=== PATIENT | female | born 1930 ===

== ENCOUNTER 2016-11-11 07:43 | Day surgery (SDC) | payer MEDICARE, BC ==
[2016-11-02 12:31] VITALS: BMI 26.5
[2016-11-11] MEDS ORDERED: Lidocaine 2% Inj (20ml) ONE (09:00)
[2016-11-11] MEDS ORDERED: Propofol 10 mg/ml Inj (20 ML) ONE (09:00)
[2016-11-11] MEDS ORDERED: Lactated Ringer's 1,000 ML IV SCH (09:30)
[2016-11-11 10:05] VITALS: RESP 16
[2016-11-11 10:24] VITALS: BP 124/79; PULSE 76; TEMP 97.8; O2SAT 97
[2016-11-11] MEDS ORDERED: Simethicone 40 mg/0.6 ml Liquid (30 ml) ONE (13:26)
== END 2016-11-11 10:55 | disposition home or self-care (01) ==
LOC: ENDO 07:43
PROVIDERS: ATTEND Specialist
DX: D12.4 Benign neoplasm of descending colon (principal); K57.30 Diverticulosis of large intestine without perforation or abscess without bleeding; Z85.038 Personal history of other malignant neoplasm of large intestine; E11.9 Type 2 diabetes mellitus without complications; I25.10 Atherosclerotic heart disease of native coronary artery without angina pectoris; I10 Essential (primary) hypertension; I48.91 Unspecified atrial fibrillation; E78.5 Hyperlipidemia, unspecified; Z93.3 Colostomy status
CPT/HCPCS: 45385; 88305; J2704; J7040; J7120

== ENCOUNTER 2016-11-27 06:37 | Day surgery (SDC) | payer MEDICARE, BC ==
[2016-11-24 12:41] VITALS: BMI 26.5
[2016-11-27 07:16] LABS: ADD MANUAL DIFF? NO
[2016-11-27 07:23] LABS: BASO # 0.02 K/mm3 (0.0-2.0); BASO % 0.3 % (0.0-3.0); EOS # 0.2 (0.0-0.7); EOS % 2.5 % (1.5-5.0); GRAN # 5.12 (1.4-6.5); GRAN % 64.6 % (50.0-68.0); HEMATOCRIT 40.7 % (36.0-48.0); LYMPH # 1.8 (1.2-3.4); LYMPH % 22.2 % (22.0-35.0); MEAN CELL VOLUME 92.9 fL (80.0-105.0); MEAN CORPUSCULAR HEMOGLOBIN 29.7 pg (25.0-35.0); MEAN CORPUSCULAR HGB CONC 31.9 g/dl (31.0-37.0); MEAN PLATELET VOLUME 12.4 fl (7.0-11.0); MONO # 0.8 (0.1-0.6); MONO % 10.4 % (1.0-6.0); PLATELET COUNT 142 10^3/uL (120.0-450.0); RED CELL DISTRIBUTION WIDTH 14.9 % (11.5-14.5); WHITE BLOOD COUNT 7.9 10^3/ul (4.5-11.0)
[2016-11-27 07:31] LABS: INR 1.06 (0.93-1.08); PARTIAL THROMBOPLASTIN TIME 27.9 Seconds (23.7-30.8)
[2016-11-27 07:37] LABS: BLOOD UREA NITROGEN 20 mg/dL (7-21); CALCIUM 9.4 mg/dL (8.4-10.5); CARBON DIOXIDE 28 mmol/L (21-33); CHLORIDE 103 mmol/L (95-110); GFR AFRICAN-AMERICAN > 60; GLUCOSE,RANDOM 135 mg/dL (70-110); POTASSIUM 3.9 mmol/L (3.6-5.0); SODIUM 143 mmol/L (132-148)
[2016-11-27] MEDS ORDERED: Lidocaine 2% Inj (20ml) ONE (08:17)
[2016-11-27] MEDS ORDERED: Midazolam 2 MG/2 ML VIAL ONE ×2 (08:20→08:47)
[2016-11-27] MEDS ORDERED: Iodixanol 320 MG/ML 200 ML BOTTLE IV ONE (08:21)
[2016-11-27] MEDS ORDERED: Sodium Chloride 0.9% 1,000 ML IV SCH (09:15)
[2016-11-27 09:24] VITALS: TEMP 97.8
--- NOTE | 2016-11-27 09:52 | CARDCATH ---
PROCEDURE DATE: 11/27/2016 HISTORY: The patient is an 86-year-old woman who presents with an abnormal stress test. She suffers from multiple cardiac risk factors, including diabetes mellitus, hypertension, hypercholesterolemia, and obesity. Her stress test was abnormal. Cardiac catheterization was recommended. PROCEDURE: Left heart catheterization with coronary angiography and left ventriculogram. The right femoral artery was cannulated with a 6-[place] sheath. There were no complications. The findings on catheterization revealed a left ventricle that contracted normally. Estimated ejecti on fraction is 70%. Her coronary anatomy revealed a left main artery that was unremarkable. The LAD revealed diffuse intimal irregularities, including multiple borderline critical lesions of ap proximately 50% in the distal portion of the LAD. The diagonal vessels were unremarkable. The circumflex artery and obtuse marginal branches were free of significant disease. The right coronary artery was selectively cannulized and found to be a dominant vessel. The RCA was unremarkable. Angio-Seal was used to close the femoral artery site. The patient tolerated the procedure well. In summary, the procedure revealed normal LV function with an EF of 70%. Borderline 50% lesions in the distal and apical part of the LAD. Abnormal stress test, which represents the distal LAD lesions. Given these findings, the patient's cardiac status is stable. There is no cardiac contraindications to her planned surgery for colostomy reversal. She needs to remain on a baby aspirin daily, as well as needs to undergo a cardiac risk reduction pro gram. Reji Macias MD cc: [phone] TT: 11/27/2016 09:51:49 emily
[2016-11-27 12:19] VITALS: O2SAT 98
--- NOTE | 2016-11-27 13:27 | CARD ---
APPROVED REPORT EKG Measurement Heart [id number] <Conclusion> Atrial fibrillation Nonspecific T wave abnormality, probably digitalis effect Prolonged QT Abnormal ECG
[2016-11-27 13:32] VITALS: BP 144/72; PULSE 64; RESP 16
== END 2016-11-27 15:40 | disposition home or self-care (01) ==
LOC: CATH 06:37
PROVIDERS: ATTEND Internal Medicine Cardiovascular Disease
DX: I25.10 Atherosclerotic heart disease of native coronary artery without angina pectoris (principal); I10 Essential (primary) hypertension; E78.00 Pure hypercholesterolemia, unspecified; E66.9 Obesity, unspecified; E11.9 Type 2 diabetes mellitus without complications; Z68.26 Body mass index [BMI] 26.0-26.9, adult; Z01.818 Encounter for other preprocedural examination
CPT/HCPCS: 36415; 80048; 85025; 85610; 85730; 86850; 86900; 93005; 93458; 99152; C1760; C1769; C2629; J1644; J2250; J3010; J7040 ×2

== ENCOUNTER 2016-11-28 10:27 | Inpatient (IN) | payer MEDICARE, BC ==
[2016-11-28 10:41] VITALS: BMI 25.8
--- NOTE | 2016-11-28 10:59 | ED PDOC ---
Arrival/HPI - General Chief Complaint: Shortness Of Breath Time Seen by Provider: 11/28/16 10:28 Historian: Patient - History of Present Illness Narrative History of Present Illness (Text): 11/28/16 11:16 Elizabeth Fuentes is an 86 year old female whose past medical history includes Hypertension, Atrial Fibrillation, Hyperlipidemia, CHF, and CAD status post Cath , who presents to the emergency department who presents to the emergency department with worsening shortness of breath, today. Patient reports she had a catherization yesterday (denies any stents). Patient states pain is worse with laying down and reports there is pain to cath site. Patient denies any fever, chills, chest pain, nausea, vomiting, diarrhea, urinary symptoms, back pain, neck pain, headache, dizziness, or any other complaints. PMD: Amilcar Reyes MD 11/28/16 17:59 Time/Duration: 24 hours Symptom Onset: Gradual Symptom Course: Unchanged Activities at Onset: Light Context: Home Past Medical History - Provider Review Nursing Documentation Reviewed: Yes - Infectious Disease Hx of Infectious Diseases: None - Tetanus Immunization Tetanus Immunization: Unknown - Cardiac Hx Cardiac Disorders: Yes Hx Hypertension: Yes Hx Pacemaker: No - Pulmonary Hx Respiratory Disorders: Yes Hx Chronic Obstructive Pulmonary Disease (COPD): Yes - Neurological Hx Neurological Disorder: No Hx Paralysis: No - HEENT Hx HEENT Disorder: No Hx Blind: No Hx Cataracts: No Hx Deafness: No Hx Difficulty Chewing: No Hx Epistaxis: No Hx Glaucoma: No Hx Macular Degeneration: No - Renal Hx Renal Disorder: Yes Hx Renal Failure: Yes - Endocrine/Metabolic Hx Endocrine Disorders: Yes Hx Diabetes Mellitus Type 2: Yes - Hematological/Oncological Hx Blood Disorders: Yes Hx Blood Transfusions: Yes (03/04/16) Hx Blood Transfusion Reaction: No - Integumentary Hx Dermatological Disorder: No Hx Basal Cell Carcinoma: No Hx Eczema: No Hx Melanoma: No Hx Psoriasis: No Hx Squamous Cell Carcinoma: No - Musculoskeletal/Rheumatological Hx Musculoskeletal Disorders: Yes - Gastrointestinal Hx Gastrointestinal Disorders: Yes (CONSTIPATION,APPENDECTOMY,H/O GI BLEED, COLON MASS) Hx Colostomy: Yes Other/Comment: colonic mass, colostomy - Genitourinary/Gynecological Hx Genitourinary Disorders: Yes Hx Hematuria: Yes Hx Urinary Tract Infection: Yes - Psychiatric Hx Psychophysiologic Disorder: No Hx Emotional Abuse: No Hx Physical Abuse: No Hx Substance Use: No - Surgical History Hx Cardiac Catheterization: Yes Other/Comment: colostomy - Anesthesia Hx Anesthesia Reactions: No Hx Malignant Hyperthermia: No - Suicidal Assessment Feels Threatened In Home Enviroment: No Family/Social History - Physician Review Nursing Documentation Reviewed: Yes Family/Social History: No Known Family HX Smoking Status: Former Smoker Hx Alcohol Use: No Hx Substance Use: No Hx Substance Use Treatment: No Allergies/Home Meds Allergies/Adverse Reactions: Allergies No Known Allergies Allergy (Verified 11/28/16 10:41) Home Medications: Home Meds Medication Instructions Recorded Confirmed Sotalol HCl [Sorine] 80 mg PO QAM 02/03/16 11/28/16 Allopurinol 300 mg PO QAM 11/02/16 11/28/16 Ergocalciferol (Vitamin D2) 50,000 unit PO 2XW 11/02/16 11/28/16 [Vitamin D2] Furosemide [Lasix] 40 mg PO QAM 11/02/16 11/28/16 Insulin Lispro Mix 75/25 [HumaLOG 15 units SC .BREAKFAST/DINNER 11/02/16 Mix 75/25] Levothyroxine [Synthroid] 150 mcg PO QAM 11/02/16 11/28/16 Magnesium Oxide 400 mg PO TID 11/02/16 11/28/16 Albuterol/Ipratropium [Combivent 1 inh INH PRN PRN 11/28/16 11/28/16 Respimat] Pantoprazole [Protonix EC Tab] 40 mg PO DAILY 11/28/16 11/28/16 Potassium Chloride [Klor-Con M20] 1 tab PO DAILY 11/28/16 11/28/16 Review of Systems - Physician Review All systems were reviewed & negative as marked: Yes - Review of Systems Constitutional: Normal. absent: Fevers Eyes: Normal ENT: Normal Respiratory: SOB. absent: Cough Cardiovascular: Other (Pain to catherer sight). absent: Chest Pain, Palpitations Gastrointestinal: Normal. absent: Abdominal Pain, Diarrhea, Nausea, Vomiting Genitourinary Female: Normal. absent: Dysuria, Frequency, Hematuria, Urine Output Changes Musculoskeletal: Normal. absent: Back Pain, Neck Pain Skin: Normal Neurological: Normal. absent: Headache, Dizziness Endocrine: Normal Hemo/Lymphatic: Normal Psychiatric: Normal Physical Exam Vital Signs Reviewed: Yes Vital Signs Temp Pulse Resp BP Pulse Ox 11/28/16 13:48 132/72 11/28/16 12:57 71 17 129/67 99 11/28/16 11:08 18 95 11/28/16 10:39 97.8 F 76 20 126/102 H 97 Temperature: Afebrile Blood Pressure: Hypertensive Pulse: Regular Respiratory Rate: Normal Appearance: Positive for: Well-Appearing, Non-Toxic, Comfortable Pain Distress: None Mental Status: Positive for: Alert and Oriented X 3 - Systems Exam Head: Present: Atraumatic, Normocephalic Pupils: Present: PERRL Extroacular Muscles: Present: EOMI Conjunctiva: Present: Normal Mouth: Present: Moist Mucous Membranes Neck: Present: Normal Range of Motion Respiratory/Chest: Present: Clear to Auscultation, Good Air Exchange, Tender to Palpation (Tenderness at Cath site), Other (Cackles at Bases). No: Respiratory Distress, Accessory Muscle Use Cardiovascular: Present: Regular Rate and Rhythm, Normal S1, S2. No: Murmurs Abdomen: Present: Normal Bowel Sounds. No: Tenderness, Distention, Peritoneal Signs Lower Extremity: Present: NORMAL PULSES (Strong Femoral Pulses) Neurological: Present: GCS=15, CN II-XII Intact, Speech Normal Skin: Present: Warm, Dry, Normal Color. No: Rashes Psychiatric: Present: Alert, Oriented x 3, Normal Insight, Normal Concentration Medical Decision Making ED Course and Treatment: 11/28/16 10:55 Impression: 86 year old female with worsening shortness of breath and CHF today. Plan: -- Right LE Duplex -- Chest X-ray -- EKG -- Labs, Cardiac Enzymes, Urinalysis -- Reassess and disposition Prior Visits: Notes and results from previous visits were reviewed. Patient was last seen in the Emergency department on 08/04/16 for a UTI. Progress Notes: 11/28/16 11:05 EKG: Ordered, reviewed, and independently interpreted the EKG. Rate : 68 BPM Rhythm : Atrial Fibrillation Interpretation : No ST-segment elevations or depressions, no T-wave inversions, normal intervals. Comparison : No previous EKG for comparison. 11/28/16 12:[address] Reyes who accepts patient into his service. - Lab Interpretations Lab Results: 11/28/16 11:00 11/28/16 11:00 Lab Results 11/28/16 12:47: Urine Color Yellow, Urine Appearance Clear, Urine pH 6.5, Ur Specific [place] 1.010, Urine Protein Negative, Urine Glucose (UA) 100 H, Urine Ketones Negative, Urine Blood Negative, Urine Nitrate Negative, Urine Bilirubin Negative, Urine Urobilinogen 0.2, Ur Leukocyte Esterase Negative 11/28/16 11:00: WBC 9.4, RBC 3.64, Hgb 11.1 L, Hct 33.8 L, MCV 92.9, MCH 30.5, MCHC 32.8, RDW 15.0 H, Plt Count 141, MPV 11.2 H, Gran % 72.3 H, Lymph % (Auto) 16.6 L, [place] % (Auto) 9.1 H, Eos % (Auto) 1.8, Baso % (Auto) 0.2, Gran # 6.81 H , Lymph # 1.6, [place] # 0.9 H, Eos # 0.2, Baso # 0.02, PT 11.2, INR 1.04, APTT 23.2 L, Sodium 140, Potassium 4.0, Chloride 105, Carbon Dioxide 26, Anion Gap 13 , BUN 20, Creatinine 1.0, Est GFR ( Amer) > 60, Est GFR (Non-Af Amer) 53 , Random Glucose 250 H, Calcium 9.3, Magnesium 1.7, Total Bilirubin 1.0, AST 53 H, ALT 78 H, Alkaline Phosphatase 168 H, Lactate Dehydrogenase 585, Total Creatine Kinase 42, Troponin I 0.05 D, NT-Pro-B Natriuret Pep 1710 H, Total Protein 5.8, Albumin 3.2, Globulin 2.6, Albumin/Globulin Ratio 1.2, Triglycerides 134, Cholesterol 112 L, LDL Cholesterol Direct 42, HDL Cholesterol 45 - RAD Interpretation Radiology Orders: 11/28/16 10:43 CHEST PORTABLE [RAD] Stat 11/28/16 10:47 DUPLEX LOWER EXTRM ARTR RIGHT [US] Stat [place] Controlled Atmospheric Furnace: Radiologist - EKG Interpretation Interpreted by ED Physician: Yes Type: 12 lead EKG - Medication Orders Current Medication Orders: Albuterol/Ipratropium (Duoneb 3 Mg/0.5 Mg (3 Ml) Ud) 3 ml IH Q6H GEOVANI Stop: 12/05/16 18:46 Last Admin: 11/28/16 12:45 Dose: 3 ML Allopurinol (Zyloprim) 300 mg PO QAM GEOVANI Atorvastatin Calcium (Lipitor) 40 mg PO DIN GEOVANI Ergocalciferol (Drisdol 50,000 Intl Units Cap) 1 cap PO 2XW GEOVANI Furosemide (Lasix) 40 mg IVP BID GEOVANI Insulin Human Lispro (Humalog Med) 0 units SC ACHS COUNTS INCLUDE 234 BEDS AT THE [facility] Insulin Lispro Protam/Lispro Human (Humalog Mix 75/25) 15 units SC .BREAKFAST/ DINNER COUNTS INCLUDE 234 BEDS AT THE [facility] Levothyroxine Sodium (Synthroid) 150 mcg PO 0600 GEOVANI Magnesium Oxide (Mag-Ox) 400 mg PO TID COUNTS INCLUDE 234 BEDS AT THE [facility] Last Admin: 11/28/16 15:42 Dose: 400 MG Pantoprazole Sodium (Protonix Ec Tab) 40 mg PO DAILY COUNTS INCLUDE 234 BEDS AT THE [facility] Last Admin: 11/28/16 13:49 Dose: 40 MG Potassium Chloride (K-Dur 20 Meq Er Tab) 20 meq PO DAILY COUNTS INCLUDE 234 BEDS AT THE [facility] Last Admin: 11/28/16 13:49 Dose: 20 MEQ Sotalol HCl (Betapace) 80 mg PO QAM COUNTS INCLUDE 234 BEDS AT THE [facility] Discontinued Medications Furosemide (Lasix) 20 mg IVP STAT STA Stop: 11/28/16 12:34 Last Admin: 11/28/16 13:48 Dose: 20 MG MAR Blood Pressure Document 11/28/16 13:48 [facility] [place] (Rec: 11/28/16 13:48 [facility] [place] [facility] [id number]) Blood Pressure Blood Pressure (100/60-150/90) 132/72 IVP Administration Document 11/28/16 13:48 [facility] [place] (Rec: 11/28/16 13:48 [facility] [place] [id number]) Charges for Administration # of IVP Administrations 1 Insulin Human Lispro (Humalog Med) 0 units SC AC COUNTS INCLUDE 234 BEDS AT THE [facility] Iohexol (Omnipaque 240 (50 Ml)) Confirm Administered Dose 50 ml .ROUTE .STK-MED ONE Stop: 11/28/16 16:56 Ondansetron HCl (Zofran Inj) 4 mg IVP STAT STA Stop: 11/28/16 10:51 Last Admin: 11/28/16 11:10 Dose: 4 MG IVP Administration Document 11/28/16 11:10 [facility] [place] (Rec: 11/28/16 11:15 [facility] [place] [id number]) Charges for Administration # of IVP Administrations 1 - Scribe Statement The provider has reviewed the documentation as recorded by the Klausibe Alireza Gleason Provider Attestation: All medical record entries made by the Klausibasad were at my direction and personally dictated by me. I have reviewed the chart and agree that the record accurately reflects my personal performance of the history, physical exam, medical decision making, and the department course for this patient. I have also personally directed, reviewed, and agree with the discharge instructions and disposition. Disposition/Present on Arrival - Present on Arrival Any Indicators Present on Arrival: No History of DVT/PE: No History of Uncontrolled Diabetes: No Urinary Catheter: No History of Decub. Ulcer: No History Surgical Site Infection Following: None - Disposition Have Diagnosis and Disposition been Completed?: Yes Diagnosis: Congestive heart failure (CHF) Disposition: HOSPITALIZED Disposition Time: 12:00 Condition: FAIR
[2016-11-28 11:07] LABS: ADD MANUAL DIFF? NO
[2016-11-28 11:10] LABS: BASO # 0.02 K/mm3 (0.0-2.0); BASO % 0.2 % (0.0-3.0); EOS # 0.2 (0.0-0.7); EOS % 1.8 % (1.5-5.0); GRAN # 6.81 (1.4-6.5); GRAN % 72.3 % (50.0-68.0); HEMATOCRIT 33.8 % (36.0-48.0); LYMPH # 1.6 (1.2-3.4); LYMPH % 16.6 % (22.0-35.0); MEAN CELL VOLUME 92.9 fL (80.0-105.0); MEAN CORPUSCULAR HEMOGLOBIN 30.5 pg (25.0-35.0); MEAN CORPUSCULAR HGB CONC 32.8 g/dl (31.0-37.0); MEAN PLATELET VOLUME 11.2 fl (7.0-11.0); MONO # 0.9 (0.1-0.6); MONO % 9.1 % (1.0-6.0); PLATELET COUNT 141 10^3/uL (120.0-450.0); WHITE BLOOD COUNT 9.4 10^3/ul (4.5-11.0)
[2016-11-28 11:20] LABS: ALB/GLOB RATIO 1.2 (1.1-1.8); ALKALINE PHOSPHATASE 168 U/L (38-133); ALT/SGPT 78 U/L (7-56); AST/SGOT 53 U/L (15-39); BLOOD UREA NITROGEN 20 mg/dL (7-21); CALCIUM 9.3 mg/dL (8.4-10.5); CARBON DIOXIDE 26 mmol/L (21-33); CHLORIDE 105 mmol/L (98-107); GFR AFRICAN-AMERICAN > 60; GLUCOSE,RANDOM 250 mg/dL (70-110); MAGNESIUM 1.7 mg/dL (1.7-2.2); SODIUM 140 mmol/L (132-148); TOTAL PROTEIN 5.8 g/dL (5.8-8.3)
[2016-11-28 11:21] LABS: INR 1.04 (0.93-1.08); PARTIAL THROMBOPLASTIN TIME 23.2 Seconds (23.7-30.8)
[2016-11-28 11:32] LABS: TROPONIN I 0.05 ng/mL
[2016-11-28] MEDS ORDERED: Insulin Lispro (humaLOG) MIX 75/25(10 ml) SC SCH (12:45)
[2016-11-28] MEDS: Albuterol-Ipratrop 3 mg / 0.5 (3 ml) UD IH SCH ×3 (12:45→23:31)
[2016-11-28] MEDS ORDERED: Pantoprazole 40 mg EC Tab PO SCH (12:45)
[2016-11-28 12:56] LABS: PH,URINE 6.5 (4.7-8.0); URINE BILIRUBIN NEGATIVE (NEGATIVE); URINE BLOOD NEGATIVE (NEGATIVE); URINE GLUCOSE (UA) 100 mg/dL (NEGATIVE); URINE KETONE NEGATIVE (NEGATIVE); URINE LEUKOCYTE ESTERASE NEGATIVE Leu/uL (NEGATIVE); URINE PROTEIN NEGATIVE mg/dL (<30 mg/dL); URINE UROBILINOGEN 0.2 E.U./dL (<1 E.U./dL)
[2016-11-28 13:05] LABS: URINE APPEARANCE CLEAR (CLEAR); URINE COLOR YELLOW (YELLOW)
[2016-11-28] MEDS: Potassium Chloride 20 mEq ER Tab PO SCH (13:49)
[2016-11-28] MEDS: Magnesium Oxide 400 mg Tab UD PO SCH ×2 (15:42→18:16)
[2016-11-28 15:49] LABS: CHOLESTEROL 112 mg/dL (130-200)
[2016-11-28] MEDS ORDERED: Insulin Lispro (humaLOG) MEDIUM Coverage SC SCH (16:30)
[2016-11-28] MEDS ORDERED: Iohexol 240 (50 ml) ONE (16:55)
--- NOTE | 2016-11-28 17:34 | HP ---
HISTORY OF PRESENT ILLNESS: The patient is an 86-year-old [place] female who had an appointment today in the office this morning. The patient's family called in the morning today that the patient has increasing shortness of breath for the last 24 hours. The patient underwent cardiac catheterization on Wednesday and patient became short of breath after cardiac catheterization in the last 24 hours. The patient states that she has been compliant with her medication and insulin and diuretics. The patient denies chest pain. The patient came to the Emergency Room by [facility]. According to the ER physician evaluation, the patient came to the Emergency Room for worsening and increasing shortness of breath. The patient reports orthopnea. CODE STATUS: Full code. LIVING WILL AND ADVANCED DIRECTIVE: None. ALLERGIES: None. HEIGHT: Written incorrectly. HOME MEDICATIONS as per the office medications: 1. Allopurinol 300 mg daily. 2. Combivent Respimat 2100 at 4 times a day. 3. Vitamin B12 1000 mcg once or twice a month. 4. Periactin 4 mg twice a day. 5. Vitamin D 50,000 units weekly. 6. Flomax 0.4 mg daily. 7. Folic acid 1 mg daily. 8. Humalog 75/25 either 15 units with breakfast and dinner or 20 units with breakfast and dinner, 9. Lasix 40 mg twice a day. 10. Lipitor 40 one tablet daily and 2 tablets every other day. 11. Lovaza 2 grams twice a day. 12. Magnesium oxide 400 mg 3 times a day, 13. Potassium 20 mEq twice a day. 14. Protonix 40 mg daily. 15. Sotalol 80 mg daily. 16. Synthroid 150 mcg 5 days a week. 17. Xopenex nebulizer every 6 hours. 18. The patient's vitamin D is twice a week 50,000 units twice a week. 19. Magnesium oxide 400 mg 3 times a day. 20. Lasix 40 mg. 21. Synthroid 150 mcg. SOCIAL HISTORY: Positive for former smoker. Denies alcohol. Denies drug use. Denies communicable transmissible disease. MENSTRUAL HISTORY: Postmenopausal. 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 PAST MEDICAL HISTORY: Significant for coronary artery disease, history of atrial fibrillation, history of Coumadin treated atrial fibrillation, Coumadin stopped secondary to compliance and gastrointestinal bleeding, history of colon carcinoma, history of colectomy, colostomy, history of atrial fibrillation, history of coronary artery disease, history of pulmonary arterial hypertension, history of insulin-requiring diabetes mellitus, history of anemia. 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 History of hypovitaminosis D, history of vitamin B12 deficiency, history of hypercholesterolemia, history of vitamin B12 deficiency. 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, history of vitamin B12 deficiency, history of anorexia, history of hypovitaminosis D, history of insulin-requiring diabetes mellitus, history of hypercholesterolemia, hypertriglyceridemia, history of hypomagnesemia , history of hyperkalemia, history of atrial fibrillation, history of hypothyroidism, history of colonic perforation acute ____, history of colonoscopy done on 11/11 showing descending colon polyp and polypectomy, history of tubular adenoma of the descending colon, history of chronic obstructive pulmonary disease, history of poor compliance, 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 History of ejection fraction of 70%, history of 50% stenosis of the distal left anterior descending artery, history of left ventricular ejection fraction of 79% on echocardiogram, history of elevated right ventricular systolic pressure of 60 mmHg, history of concentric left ventricular hypertrophy, history of calcified aortic valve, history of thickened mitral valve, history of moderate tricuspid regurgitation, moderate pulmonary arterial hypertension. The patient's past medical history is significant for endoscopy done in 11/11/2016. History of colonoscopy done in showing multiple large amount of diverticulosis and diverticula in the sigmoid and descending colon. Internal hemorrhoid descending colon 6 mm polyp sisal. History of perforated descending colon diverticulum, history of exploratory laparotomy converted to laparotomy, history of resection of the distal transverse colon and creation of the proximal transverse colon colostomy , history of hematuria, history of questionable vaginal bleeding. Past medical history also significant for transverse colon obstructing mass and small-bowel obstruction, history of exploratory laparotomy, history of transverse descending colon resection with anastomosis, history of small bowel resection anastomosis, history partial omentectomy, history of splenic flexure mobilization, history of lysis of dense intraabdominal adhesions, history of sepsis, history of bacteremia, history of deconditioning, history of venous stasis, history of gram-negative nelly bacteremia, history of Klebsiella pneumoniae urinary tract infection and bacteremia, history of chronic obstructive pulmonary disease with hypoxemia, history of leukocytosis with granulocytosis, history of dyslipidemia, history of atrial fibrillation, history of hypothyroidism, history of Klebsiella pneumoniae urinary tract infection and bacteremia, hematuria, glycosuria, pyuria, history of right nephrectomy, history of rectosigmoid diverticulosis, history of sepsis, history of insomnia, history of insulin-requiring diabetes mellitus, history of chronic obstructive pulmonary disease, history of ____ deficiency. History of anemia. The patient came to the Emergency Room. The patient was seen in room 272, bed 2. The patient's family at bedside. PHYSICAL EXAMINATION: VITAL SIGNS: T-max is 97.8. Telemetry shows atrial fibrillation, heart rate 71 , 76. Blood pressure 126, 102 and 32 72, respiration 18, O2 sat 95%-99%. HEAD: Normocephalic, atraumatic. HEENT: Shows pinkish, pale conjunctivae, anicteric sclerae. No oropharyngeal lesion. NECK: No neck rigidity. CHEST: Kyphosis. LUNGS: Shows decreased breath sounds at the bases, positive creps, rhonchi, crackles bilaterally. CARDIOVASCULAR: Shows S1, S2, irregular rhythm, positive systolic murmur right second intercostal space, left sternal border, left second intercostal space, positive S4, S3 gallop. ABDOMEN: Soft. Positive right-sided colostomy, positive midline surgical scar. Positive protuberant abdomen, positive bowel sounds.Positive Right groin area discoloration,Positive Right lower quadrant and right periumbilical area tenderness and guarding. GENITALIA: Female. RECTAL: Deferred. EXTREMITIES: Shows 2+ pitting edema of the lower extremities, questionable calf tenderness, no Homans signs. VASCULAR: Palpable pulses. MUSCULOSKELETAL: Shows a body mass index of 26. NEUROLOGIC: The patient is alert, awake, oriented x 3. Cranial nerves II-XII intact. Gait examination is not tested. PSYCHIATRIC: Negative for anxiety. Negative for depression. Negative for homicidal, suicidal ideation, negative for auditory or visual hallucination. DIAGNOSTICS 11/28: WBC 9.4, hemoglobin and hematocrit 11.1 and 33.8, platelet 144, granulocytes 72% segs. PT, PTT 11 and 23.2, sodium 140, potassium 4.0, chloride 105, CO2 of 26, anion gap 13, BUN 20, creatinine 1.0, GFR greater than 60, glucose 250. Repeat point of contact glucose 167, calcium 9.3, magnesium 1.7. AST is 53, ALT 78, alkaline phosphatase 168, troponin 0.05. BNP 1710, cholesterol 112, HDL 45, LDL 42. Urine pH 6.5, specific gravity 1.0100, glucose rest of the urinalysis is negative. EKG done in the Emergency Room shows atrial fibrillation with controlled ventricular response, nonspecific ST changes in lead aVL and V4-V6. Chest x-ray was done in the Emergency Room, which shows increased vascular marking at the bases. The patient was seen in the Emergency Room by ____ . The patient was treated and stabilized in the Emergency Room. The patient was given Lasix IV, Zofran 4 mg IV and patient was admitted. IMPRESSION AND PLAN: This is an 86-year-old female who presented to the Emergency Room with worsening increasing shortness of breath for the last 24 hours after cardiac catheterization. 1. Acute, recurrent right-sided diastolic congestive heart failure with pulmonary arterial hypertension with symptoms of shortness of breath, orthopnea , paroxysmal nocturnal dyspnea.. 2. Hypertension. 3. Normocytic anemia with granulocytosis. 4. Insulin requiring diabetes mellitus with hyperglycemia. 5. Transaminitis. 6. Indeterminate troponin. 7. Insulin requiring diabetes mellitus. 8. Glycosuria. 9. Atrial fibrillation with controlled ventricular response and nonspecific ST wave abnormalities. 10. Cardiomegaly with increased pulmonary vascular congestion and suggestive of acute recurrent diastolic congestive heart failure. 11. History of hyperuricemia. 12. History of vitamin B12 deficiency 13. History of anorexia. 14. History of hypovitaminosis D. 15. History of hematuria. 16. History of insulin-requiring diabetes mellitus. 17. History of dyslipidemia. 18. History of hypomagnesemia. 19. History of hypokalemia. 20. History of atrial fibrillation. 21. History of hypothyroidism. 22. History of chronic obstructive pulmonary disease. 23. History of colostomy. 24. Right sided abdominal and right groin pain and Tenderness, etiology undetermined. PLAN: At this time, the patient has been placed into the telemetry inpatient unit. The patient has been ordered serial labs, serial cardiac enzymes, serial EKGs. CONSULTATIONS: Cardiology. CURRENT MEDICATIONS: 1. Sotalol 80 mg daily. 2. Vitamin D 50,000 2 times a week. 3. DuoNeb nebulizer every 6 hours. 4. Humalog medium dose sliding scale coverage a.c. and at bedtime. Humalog mix 75/25 15 units with breakfast and dinner. 5. K-Dur 20 mEq daily. 6. Lasix 40 mg IV q. 12. 7. Lipitor 40 mg daily. 8. Magnesium oxide 400 three times a day. 9. Protonix 40 mg daily. 10. Synthroid 150 mcg daily. 11. Allopurinol 100 mg daily. The patient has been ordered venous Doppler of both lower extremities. An ultrasound of the abdomen for transaminitis. CAT scan of the chest, abdomen and pelvis with p.o. contrast ordered. The patient has been ordered consistent carbohydrate diet, out of bed, NIKOLAY stockings, SCDs, occupational therapy, physical therapy ordered. At present, the patient has been explained about the details of her medical condition, need for hospitalization, need for treatment, need for management, need for further diagnostic and therapeutic intervention and management plan was discussed and explained to the patient and the patient' s son and the grandson who were present at the bedside. At present, patient is admitted to telemetry pending further evaluation, further diagnostic and therapeutic intervention. The patient's further management will be dependent on the above. Dictated and electronically signed, not read. Amilcar Reyes MD cc: [id number] TT: 11/28/2016 17:33:11 jn MTDD
[2016-11-28 17:42] LABS: TROPONIN I 0.04 ng/mL
[2016-11-28] MEDS: Insulin Lispro (humaLOG) MEDIUM Coverage SC SCH ×2 (18:31→21:29)
[2016-11-28] MEDS ORDERED: Pneumococcal 23-Valent Vaccine IM ONE (19:43)
--- NOTE | 2016-11-28 19:59 | CARD ---
APPROVED REPORT EKG Measurement Heart [id number] <Conclusion> Atrial fibrillation Nonspecific T wave abnormality, probably digitalis effect Prolonged QT Abnormal ECG
[2016-11-28 20:49] LABS: T4 11.9 ug/dL (5.5-11.0)
[2016-11-28 20:52] LABS: TROPONIN I 0.04 ng/mL
[2016-11-28 21:02] LABS: THYROID STIMULATING HORMONE 1.09 mIU/mL (0.46-4.68)
[2016-11-28 21:35] LABS: FREE T4 2.62 ng/dL (0.78-2.19)
--- NOTE | 2016-11-28 22:11 | CP.PCM.CON ---
<Anthony Copeland - Last Filed: 11/29/16 05:36> History of Present Illness - History of Present Illness History of Present Illness: General Surgery Consult Note for Dr. Centeno CC: Retroperitoneal Hematoma on imaging HPI: This is an 85F w/PMH sig for neuro-endocrine carcinoma of the colon s/p resection (02/2016), complicated with perforated viscus s/p exploratory lap (2015) with colostomy, IDDM, CAD, COPD, hypothryoidism, diastolic CHF, Afib who presented with SOB that started this morning. Yesterday the patient reports that she had a cardiac cath procedure done with Dr. Macias at which time she felt fine. She denies any dizziness, lightheadedness or palpitations. She reports a 15 year history of COPD She currently denies any pain, SOB, fevers, chills, nausea, vomiting. PMH: Neuroendocrine carcinoma (T4BN1) of colon s/p sx complicated with perforated viscus s/p sx, IDDM, CAD, COPD, hypothyroid, diastolic CHF, Afib, GERD, HLD, insomnia, h/o hematuria and vaginal bleeding PSH: ex-lap (03/24), colectomy w/ileostomy (02/21), nephrectomy, hip replacement ( 2005), R knee replacement (2010) All: NKA FH: M-liver CA, F- elephangitis, sister of cancer (unknown) SH: Former tobacco use (2-3 ppd, quit 1989), denies ETOH or illicit drug use. Lives with son/family, uses quad cane +/- walker to ambulate Review of Systems - Review of Systems All systems: reviewed and no additional remarkable complaints except Past Patient History - Infectious Disease Hx of Infectious Diseases: None - Tetanus Immunizations Tetanus Immunization: Unknown - Past Medical History & Family History Past Medical History?: Yes - Past Social History Smoking Status: Former Smoker - CARDIAC Hx Cardiac Disorders: Yes Hx Cardia Arrhythmia: Yes Hx Congestive Heart Failure: Yes Hx Hypercholesterolemia: Yes Hx Hypertension: Yes Hx Pacemaker: No Hx Peripheral Edema: Yes (ble +1 pitting) Hx Peripheral Vascular Disease: Yes Other/Comment: cardiac catherization no stent yesterday 11/27/16 - PULMONARY Hx Respiratory Disorders: Yes (pt has nebulizer machine at home) Hx Asthma: Yes Hx Chronic Obstructive Pulmonary Disease (COPD): Yes Hx Emphysema: Yes Hx Pneumonia: Yes - NEUROLOGICAL Hx Neurological Disorder: No - HEENT Hx HEENT Problems: No Hx Blind: No Hx Cataracts: No Hx Deafness: No Hx Difficulty Chewing: No Hx Epistaxis: No Hx Glaucoma: No Hx Macular Degeneration: No - RENAL Hx Chronic Kidney Disease: Yes Hx Renal Failure: Yes - ENDOCRINE/METABOLIC Hx Endocrine Disorders: Yes Hx Diabetes Mellitus Type 2: Yes Hx Hypothyroidism: Yes - HEMATOLOGICAL/ONCOLOGICAL Hx Blood Disorders: Yes Hx Anemia: Yes (blood transfusion 03/04/16) Hx Cancer: Yes (colon stg III as per pt no chemo/no rad) Hx Chemotherapy: No Other/Comment: pt has colostomy 1 yr, colon mass - INTEGUMENTARY Hx Dermatological Problems: No Hx Basil Cell: No Hx Eczema: No Hx Melanoma: No Hx Psoriasis: No Hx Squamous Cell: No Other/Comment: surgical scars abd, eccymosis to r groin - MUSCULOSKELETAL/RHEUMATOLOGICAL Hx Falls: No - GASTROINTESTINAL Hx Gastrointestinal Disorders: Yes (CONSTIPATION,APPENDECTOMY,H/O GI BLEED, COLON MASS) Hx Colostomy: Yes Hx Gastroesophageal Reflux: Yes Other/Comment: colonic mass, colostomy, gi bleed - GENITOURINARY/GYNECOLOGICAL Hx Genitourinary Disorders: Yes Hx Hematuria: Yes Hx Urinary Tract Infection: Yes - PSYCHIATRIC Hx Substance Use: No - SURGICAL HISTORY Hx Cardiac Catheterization: Yes Hx Cholecystectomy: Yes Other/Comment: colostomy, 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 - ANESTHESIA Hx Anesthesia Reactions: No Hx Malignant Hyperthermia: No Meds Allergies/Adverse Reactions: Allergies Allergy/AdvReac Type Severity Reaction Status Date / Time No Known Allergies Allergy Verified 11/28/16 10:41 - Medications Medications: Current Medications Albuterol/Ipratropium (Duoneb 3 Mg/0.5 Mg (3 Ml) Ud) 3 ml IH Q6H [facility] Stop: 12/05/16 18:46 Last Admin: 11/28/16 20:02 Dose: 3 ml Allopurinol (Zyloprim) 300 mg PO QAM [facility] Atorvastatin Calcium (Lipitor) 40 mg PO DIN [facility] Last Admin: 11/28/16 18:16 Dose: 40 mg Ergocalciferol (Drisdol 50,000 Intl Units Cap) 1 cap PO 2XW [facility] Furosemide (Lasix) 40 mg IVP BID [facility] Last Admin: 11/28/16 18:23 Dose: 40 mg Insulin Human Lispro (Humalog Med) 0 units SC ACHS [facility] Last Admin: 11/28/16 21:29 Dose: Not Given Insulin Lispro Protam/Lispro Human (Humalog Mix 75/25) 15 units SC .BREAKFAST/ DINNER [facility] Levothyroxine Sodium (Synthroid) 150 mcg PO 0600 [facility] Magnesium Oxide (Mag-Ox) 400 mg PO TID [facility] Last Admin: 11/28/16 18:16 Dose: 400 mg Pantoprazole Sodium (Protonix Ec Tab) 40 mg PO 0630 [facility] Potassium Chloride (K-Dur 20 Meq Er Tab) 20 meq PO DAILY [facility] Last Admin: 11/28/16 13:49 Dose: 20 meq Sotalol HCl (Betapace) 80 mg PO QAM [facility] Physical Exam - Constitutional Appears: Well, Non-toxic, No Acute Distress - Head Exam Head Exam: ATRAUMATIC, NORMOCEPHALIC - Eye Exam Eye Exam: EOMI, Normal appearance - ENT Exam ENT Exam: Mucous Membranes Moist, Normal Exam - Respiratory Exam Respiratory Exam: Clear to Auscultation Bilateral, NORMAL BREATHING PATTERN. absent: Rales, Rhonchi, Wheezes - Cardiovascular Exam Cardiovascular Exam: +S1, +S2 - GI/Abdominal Exam GI & Abdominal Exam: Soft. absent: Distended, Firm, Guarding Additional comments: Stoma pink and patent with liquid and gas in bag - Exam Additional comments: 15cm echymosis in right mons pubis - Extremities Exam Additional comments: No swelling or palpable hematoma of the thigh - Back Exam Additional comments: No skin color changes or tenderness - Neurological Exam Neurological exam: Alert, Oriented x3 - Psychiatric Exam Psychiatric exam: Normal Affect, Normal Mood - Skin Skin Exam: Dry, Intact Results - Vital Signs Recent Vital Signs: Last Vital Signs Temp 97.8 F 11/28/16 19:33 Pulse 91 H 11/28/16 22:02 Resp 17 11/28/16 19:33 BP 123/66 11/28/16 22:02 Pulse Ox 99 11/28/16 12:57 - Labs Result Diagrams: 11/28/16 21:45 11/28/16 11:00 Labs: Laboratory Results - last 24 hr 11/28/16 11/28/16 11/28/16 15:00 16:08 17:00 Hgb Hct POC Glucose (mg/dL) 167 H Uric Acid 8.0 H Total Creatine Kinase 30 L Troponin I 0.04 Free T4 2.62 H Thyroxine (T4) 11.9 H TSH 3rd Generation 1.09 11/28/16 11/28/16 11/28/16 20:15 21:23 21:45 Hgb 9.9 L Hct 30.0 L POC Glucose (mg/dL) 191 H Uric Acid Total Creatine Kinase 32 L Troponin I 0.04 Free T4 Thyroxine (T4) TSH 3rd Generation - Imaging and Cardiology CT scan - abdomen Status: Image reviewed by me, Report reviewed by me Assessment & Plan - Assessment and Plan (Free Text) Assessment: This is an 85F w/PMH of colon CA, IDDM, CAD, COPD, hypothryoidism, diastolic CHF , Afib who is presenting with a retroperitoneal hematoma Patient currently on telemetry, vital signs stable, coags and platelets WNL Hgb 11.7 --> 9.9 will get H/H Q4 Internal Auditor Aware we spoke on the phone Recommend ICU evaluation, will speak with senior sql server developer. Continue care per primary team Will continue to follow conservative management at this time. Will Discuss with Dr. Taryn Copeland PGY-1 <James Centeno - Last Filed: 03/09/17 23:17> Results - Vital Signs Recent Vital Signs: Last Vital Signs Temp 98.5 F 12/01/16 12:00 Pulse 68 12/01/16 14:48 Resp 21 12/01/16 14:48 BP 127/55 L 12/01/16 14:50 Pulse Ox 91 L 12/01/16 14:50 - Labs Result Diagrams: 12/01/16 04:30 12/01/16 04:30 Assessment & Plan - Assessment and Plan (Free Text) Plan: Patient was seen and examined by me. I agree with assessment and plan as per resident's note. - Date & Time Date: 11/29/16 Time: 16:15
[2016-11-28] MEDS ORDERED: Sodium Chloride 0.9% 1,000 ML IV SCH (22:15)
--- NOTE | 2016-11-28 23:44 | CP.PCM.CON ---
History of Present Illness - History of Present Illness History of Present Illness: Reason for ICU Consult: retroperitoneal hemorrhage HPIL 86 y/o female with a PMHx Htn, Afib, dyslipidemia, non-obstructive CAD who came to the ED this morning with a complaint of shortness of breath and right lower quadrant abdominal pain. She underwent a cardiac cath yesterday as an outpatient and was found to have nonobstructive coronary disease of 50% that did not require any further intervention. She did not have any complaints immediately after the procedure or throughout the night; this morning she reported having progressive shortness of breath so she came to the ED instead of going to her doctors appointment. She recently just had a CT of the abd/ pelvis which revealed a 12.7 x 4 x 87.6cm right retroperitoneal hemorrhage with mass effect on the adjacent small bowel loops and right ovary. Surgical service was consulted and subsequently asked for an ICU evaluation as well. Currently she denies any complaints of abdominal pain, shortness of breath, chest pain, palpitations, nausea, vomiting, headache, fever, chills, dysuria or diarrhea. She states feeling better than she did this morning. PMHx: Htn Afib Dyslipidemia nonobstructive CAD history of colon Ca s/p colectomy and now with colostomy hypothyroid (now appears to have iatrogenic hyperthyroidism) Allergies: NKDA Meds: see med list Fam Hx: reviewed and noncontributory Soc Hx: no tobacco/etoh/illicit drug use; lives with her family Review of Systems - Review of Systems Review of Systems: As per HPI otherwise negative for a 12 point ROS Past Patient History - Infectious Disease Hx of Infectious Diseases: None - Tetanus Immunizations Tetanus Immunization: Unknown - Past Medical History & Family History Past Medical History?: Yes - Past Social History Smoking Status: Former Smoker - CARDIAC Hx Cardiac Disorders: Yes Hx Cardia Arrhythmia: Yes Hx Congestive Heart Failure: Yes Hx Hypercholesterolemia: Yes Hx Hypertension: Yes Hx Pacemaker: No Hx Peripheral Edema: Yes (ble +1 pitting) Hx Peripheral Vascular Disease: Yes Other/Comment: cardiac catherization no stent yesterday 11/27/16 - PULMONARY Hx Respiratory Disorders: Yes (pt has nebulizer machine at home) Hx Asthma: Yes Hx Chronic Obstructive Pulmonary Disease (COPD): Yes Hx Emphysema: Yes Hx Pneumonia: Yes - NEUROLOGICAL Hx Neurological Disorder: No - HEENT Hx HEENT Problems: No Hx Blind: No Hx Cataracts: No Hx Deafness: No Hx Difficulty Chewing: No Hx Epistaxis: No Hx Glaucoma: No Hx Macular Degeneration: No - RENAL Hx Chronic Kidney Disease: Yes Hx Renal Failure: Yes - ENDOCRINE/METABOLIC Hx Endocrine Disorders: Yes Hx Diabetes Mellitus Type 2: Yes Hx Hypothyroidism: Yes - HEMATOLOGICAL/ONCOLOGICAL Hx Blood Disorders: Yes Hx Anemia: Yes (blood transfusion 03/04/16) Hx Cancer: Yes (colon stg III as per pt no chemo/no rad) Hx Chemotherapy: No Other/Comment: pt has colostomy 1 yr, colon mass - INTEGUMENTARY Hx Dermatological Problems: No Hx Basil Cell: No Hx Eczema: No Hx Melanoma: No Hx Psoriasis: No Hx Squamous Cell: No Other/Comment: surgical scars abd, eccymosis to r groin - MUSCULOSKELETAL/RHEUMATOLOGICAL Hx Falls: No - GASTROINTESTINAL Hx Gastrointestinal Disorders: Yes (CONSTIPATION,APPENDECTOMY,H/O GI BLEED, COLON MASS) Hx Colostomy: Yes Hx Gastroesophageal Reflux: Yes Other/Comment: colonic mass, colostomy, gi bleed - GENITOURINARY/GYNECOLOGICAL Hx Genitourinary Disorders: Yes Hx Hematuria: Yes Hx Urinary Tract Infection: Yes - PSYCHIATRIC Hx Substance Use: No - SURGICAL HISTORY Hx Cardiac Catheterization: Yes Hx Cholecystectomy: Yes Other/Comment: colostomy, 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 - ANESTHESIA Hx Anesthesia Reactions: No Hx Malignant Hyperthermia: No Meds Allergies/Adverse Reactions: Allergies Allergy/AdvReac Type Severity Reaction Status Date / Time No Known Allergies Allergy Verified 11/28/16 10:41 - Medications Medications: Current Medications Albuterol/Ipratropium (Duoneb 3 Mg/0.5 Mg (3 Ml) Ud) 3 ml IH Q6H [facility] Stop: 12/05/16 18:46 Last Admin: 11/28/16 20:02 Dose: 3 ml Allopurinol (Zyloprim) 300 mg PO QAM GEOVANI Atorvastatin Calcium (Lipitor) 40 mg PO DIN [facility] Last Admin: 11/28/16 18:16 Dose: 40 mg Ergocalciferol (Drisdol 50,000 Intl Units Cap) 1 cap PO 2XW GEOVANI Furosemide (Lasix) 40 mg IVP BID [facility] Last Admin: 11/28/16 18:23 Dose: 40 mg Insulin Human Lispro (Humalog Med) 0 units SC ACHS [facility] Last Admin: 11/28/16 21:29 Dose: Not Given Insulin Lispro Protam/Lispro Human (Humalog Mix 75/25) 15 units SC .BREAKFAST/ DINNER [facility] Levothyroxine Sodium (Synthroid) 150 mcg PO 0600 [facility] Magnesium Oxide (Mag-Ox) 400 mg PO TID [facility] Last Admin: 11/28/16 18:16 Dose: 400 mg Pantoprazole Sodium (Protonix Ec Tab) 40 mg PO 0630 [facility] Potassium Chloride (K-Dur 20 Meq Er Tab) 20 meq PO DAILY [facility] Last Admin: 11/28/16 13:49 Dose: 20 meq Sotalol HCl (Betapace) 80 mg PO QAM [facility] Physical Exam - Constitutional Appears: Well, No Acute Distress - Head Exam Head Exam: ATRAUMATIC, NORMOCEPHALIC - Eye Exam Eye Exam: EOMI, Normal appearance - ENT Exam ENT Exam: Mucous Membranes Dry - Neck Exam Neck exam: Positive for: Full Rom - Respiratory Exam Respiratory Exam: Clear to Auscultation Bilateral, NORMAL BREATHING PATTERN. absent: Decreased Breath Sounds, Rales, Rhonchi, Wheezes - Cardiovascular Exam Cardiovascular Exam: +S1, +S2. absent: Tachycardia - GI/Abdominal Exam GI & Abdominal Exam: Soft. absent: Guarding, Rebound, Tenderness Additional comments: suprapubic region with bruising and ecchymoses noted; nontender, nondistended and soft. Colostomy bag present with pink stoma and no stool on the right middle quadrant as well. - Rectal Exam Rectal Exam: Deferred - Extremities Exam Extremities exam: Positive for: normal inspection. Negative for: calf tenderness - Neurological Exam Neurological exam: Alert, Oriented x3 - Psychiatric Exam Psychiatric exam: Normal Affect, Normal Mood - Skin Skin Exam: Dry, Intact, Normal Color, Warm Results - Vital Signs Recent Vital Signs: Last Vital Signs Temp 97.8 F 11/28/16 19:33 Pulse 82 11/28/16 22:10 Resp 17 11/28/16 19:33 BP 121/64 11/28/16 22:10 Pulse Ox 99 11/28/16 12:57 - Labs Result Diagrams: 11/28/16 21:45 11/28/16 11:00 Labs: Laboratory Results - last 24 hr 11/28/16 11/28/16 11/28/16 15:00 16:08 17:00 Hgb Hct POC Glucose (mg/dL) 167 H Uric Acid 8.0 H Total Creatine Kinase 30 L Troponin I 0.04 Free T4 2.62 H Thyroxine (T4) 11.9 H TSH 3rd Generation 1.09 Blood Type Antibody Screen Crossmatch BBK History Checked 11/28/16 11/28/16 11/28/16 20:15 21:23 21:45 Hgb 9.9 L Hct 30.0 L POC Glucose (mg/dL) 191 H Uric Acid Total Creatine Kinase 32 L Troponin I 0.04 Free T4 Thyroxine (T4) TSH 3rd Generation Blood Type O POSITIVE Antibody Screen Negative Crossmatch See Detail BBK History Checked Patient has bt - Imaging and Cardiology CT scan - abdomen Status: Image reviewed by me, Report reviewed by me (12.7X4X8.6cm right retroperitoneal hemorrhage with mass effect on the adjacent small bowel loops) Assessment & Plan - Assessment and Plan (Free Text) Assessment: 86 y/o female with an extensive PMHx as listed above [place] [facility] [place], one day after cardiac catheterization with the complaint of shortness of breath and right lower quadrant pain. She is found to have a retroperitoneal hemorrhage with a drop in her hgb from 13.0 yesterday to 9.9 today. She will be placed in the ICU at least overnight for closer monitoring and care. Plan: Neuro: intact; AAOX3, no acute issues Pulm: patient is breathing well on room air; no signs of respiratory failure or distress; will monitor continuous pulse oximetry in the ICU CVS: most recent vitals checked myself show a SBP of 142/86 with a HR of 80. She has had 1 unit of PRBC ordered by Dr. Macias (her [employer]), we will aim to keep her MAP over 65 which it currently is comfortably GI: no acute issues at this time Renal: monitor daily lytes; i's and o's along with daily labs for renal function ; no acute issues at this time ID: no infectious etiology present heme: Hgb dropped 3 grams in 24hrs; she is getting 1 unit of blood now and will have her hgb checked every 4 hours to ensure it is not dropping rapidly and that it's responding appropriately to transfusions; will hold her ASA for now endo: will hold hypothyroid medication as both her Free T4 and T3 are elevated; will place her on an insulin sliding scale for her DM Case discussed with Dr. Copeland (residential leasing agent) labs and images reviewed thus far personally total time of care: 35 minutes
[2016-11-29] MEDS: Albuterol-Ipratrop 3 mg / 0.5 (3 ml) UD IH SCH ×4 (01:43→20:07)
[2016-11-29 03:35] LABS: HEMATOCRIT 31.8 % (36.0-48.0)
[2016-11-29 05:45] LABS: ADD MANUAL DIFF? NO
[2016-11-29 05:55] LABS: BASO # 0.02 K/mm3 (0.0-2.0); BASO % 0.2 % (0.0-3.0); EOS # 0.2 (0.0-0.7); EOS % 1.9 % (1.5-5.0); GRAN # 5.74 (1.4-6.5); GRAN % 65.2 % (50.0-68.0); LYMPH # 1.8 (1.2-3.4); LYMPH % 20.5 % (22.0-35.0); MEAN CELL VOLUME 92.8 fL (80.0-105.0); MEAN CORPUSCULAR HEMOGLOBIN 29.9 pg (25.0-35.0); MEAN CORPUSCULAR HGB CONC 32.2 g/dl (31.0-37.0); MONO # 1.1 (0.1-0.6); MONO % 12.2 % (1.0-6.0); PLATELET COUNT 118 10^3/uL (120.0-450.0); RED CELL DISTRIBUTION WIDTH 15.1 % (11.5-14.5); WHITE BLOOD COUNT 8.8 10^3/ul (4.5-11.0)
[2016-11-29] MEDS ORDERED: Levothyroxine 150 MCG TAB PO SCH (06:00)
[2016-11-29 06:07] LABS: ALB/GLOB RATIO 1.2 (1.1-1.8); BILIRUBIN,DIRECT 0.4 mg/dL (0.0-0.4); BILIRUBIN,TOTAL 1.2 mg/dL (0.2-1.3); CALCIUM 8.6 mg/dL (8.4-10.5); MAGNESIUM 1.6 mg/dL (1.7-2.2); POTASSIUM 3.3 mmol/L (3.6-5.0)
[2016-11-29] MEDS ORDERED: Magnesium Sulfate 2 GM in Sodium Chloride 0.9% 100 ML IVPB ONE (06:57)
[2016-11-29] MEDS: Potassium Chloride 10 mEq 100 ML IVPB SCH ×2 (07:24→10:53)
[2016-11-29] MEDS: Pantoprazole 40 mg EC Tab PO SCH (07:24)
--- NOTE | 2016-11-29 07:46 | CT ---
PROCEDURE: CT Chest, Abdomen and Pelvis without intravenous contrast HISTORY: COLON CA/TRANSAMINITIS COMPARISON: None. TECHNIQUE: Radiation dose: Total exam DLP = 832 mGy-cm. This CT exam was performed using one or more of the following dose reduction techniques: Automated exposure control, adjustment of the mA and/or kV according to patient size, and/or use of iterative reconstruction technique. FINDINGS: CT CHEST WITHOUT CONTRAST: LUNGS: Clear. No nodule, mass or consolidation. MEDIASTINUM: Unremarkable. Normal caliber aorta and pulmonary arterial trunk. Normal size heart. LYMPH NODES: Unremarkable. PLEURA: Minimal right pleural effusion. BONES: Unremarkable. OTHER FINDINGS: None. CT ABDOMEN AND PELVIS: LIVER: Unremarkable. No gross lesion or ductal dilatation. GALLBLADDER AND BILE DUCTS: Gallstones. PANCREAS: Unremarkable. No gross lesion or ductal dilatation. SPLEEN: Unremarkable. ADRENALS: 12 millimeter left adrenal nodule. KIDNEYS AND URETERS: Status post right nephrectomy with infiltrated changes in the right retroperitoneum possibly postsurgical. Fluid which is hyperdense is noted along the right pericolic gutter possibly representing underlying hemorrhage. VASCULATURE: Asymmetrically distended right external iliac/common femoral artery and vein with tortuosity of the aorta and iliac arteries. BOWEL: Partial colectomy and right lower quadrant ileostomy noted. APPENDIX: Normal appendix. PERITONEUM: Unremarkable. No free fluid. No free air. LYMPH NODES: Unremarkable. No enlarged lymph nodes. BLADDER: Unremarkable. REPRODUCTIVE: Unremarkable. BONES: No acute fracture. OTHER FINDINGS: None. IMPRESSION: 12.7 x 4 x 6.6 centimeter right retroperitoneal hemorrhage with mass effect upon the adjacent small bowel loops. Status post right nephrectomy. Status post right colectomy and right lower quadrant ileostomy. Status post right nephrectomy. Findings correspond with virtual Radiology report.
[2016-11-29] MEDS: Insulin Lispro (humaLOG) MEDIUM Coverage SC SCH ×5 (08:00→23:01)
--- NOTE | 2016-11-29 08:09 | RAD ---
PROCEDURE: CHEST RADIOGRAPH, 1 VIEW HISTORY: sob COMPARISON: None available. FINDINGS: LUNGS: Clear. PLEURA: No pneumothorax or pleural fluid seen. CARDIOVASCULAR: Cardiomegaly. OSSEOUS STRUCTURES: No significant abnormalities. VISUALIZED UPPER ABDOMEN: Normal. OTHER FINDINGS: None. IMPRESSION: No active disease.
[2016-11-29 09:57] LABS: ADD MANUAL DIFF? NO
[2016-11-29] MEDS ORDERED: Ergocalciferol 50,000 Intl Units Cap PO SCH (10:00)
[2016-11-29 10:01] LABS: BASO # 0.02 K/mm3 (0.0-2.0); BASO % 0.3 % (0.0-3.0); EOS # 0.2 (0.0-0.7); EOS % 1.9 % (1.5-5.0); GRAN # 5.47 (1.4-6.5); GRAN % 70.3 % (50.0-68.0); HEMATOCRIT 32.8 % (36.0-48.0); LYMPH # 1.4 (1.2-3.4); MEAN CELL VOLUME 92.7 fL (80.0-105.0); MEAN CORPUSCULAR HEMOGLOBIN 30.2 pg (25.0-35.0); MEAN CORPUSCULAR HGB CONC 32.6 g/dl (31.0-37.0); MEAN PLATELET VOLUME 11.3 fl (7.0-11.0); MONO # 0.7 (0.1-0.6); MONO % 9.5 % (1.0-6.0); PLATELET COUNT 110 10^3/uL (120.0-450.0); RED CELL DISTRIBUTION WIDTH 15.3 % (11.5-14.5); WHITE BLOOD COUNT 7.8 10^3/ul (4.5-11.0)
[2016-11-29] MEDS: Magnesium Oxide 400 mg Tab UD PO SCH ×3 (10:50→17:40)
[2016-11-29] MEDS: Potassium Chloride 20 mEq ER Tab PO SCH ×2 (10:51→17:40)
--- NOTE | 2016-11-29 11:33 | US ---
HISTORY: Leg pain and swelling. Evaluate for DVT PHYSICIAN(S): Reji Powell MD. TECHNIQUE: Duplex sonography and color-flow Doppler with graded compression were used to evaluate the deep venous systems of both lower extremities. FINDINGS: The visualized deep venous systems of both lower extremities are sonographically normal and compressible. Normal wave forms and augmentation are seen. There is no sonographic evidence for deep venous thrombosis in the visualized segments of both lower extremities. IMPRESSION: No sonographic evidence for deep venous thrombosis in the visualized segments of both lower extremities.
--- NOTE | 2016-11-29 11:40 | US ---
PROCEDURE: Duplex arterial ultrasound right groin HISTORY: Recent cardiac catheterization. Pain and bruising. Evaluate for pseudoaneurysm. PHYSICIAN(S): Reji Powell MD. TECHNIQUE: FINDINGS: The exam is limited by body habitus. The right common femoral vein, proximal right SFA and right profunda femoral artery origin are patent with triphasic waveforms. No sonographic evidence of pseudoaneurysm or AV fistula is appreciated. IMPRESSION: No sonographic evidence of pseudoaneurysm or AV fistula. Limited study.
--- NOTE | 2016-11-29 11:47 | CON ---
DATE: 11/29/2016 This is an 86-year-old lady with history of hypertension, atrial fibrillation, and coronary artery disease who presented at this time with some shortness of breath and right lower quadrant abdominal pain. The patient is status post cardiac catheterization yesterday. The patient had CAT scan of the abdomen and pelvis, which revealed retroperitoneal hematoma and some minor mass effect in the adjacent small-bowel loops and the right ovary. The patient was relatively hemodynamically stable. However, concern for hemodynamic deterioration was raised, and the patient was transferred to ICU for further management and monitoring. Her hemoglobin dropped down from 11.1-9.9. She got 1 unit of blood transfused, and hemoglobin level went up to 10.3. An hour and a half later, it was still 10.3. The patient denies nausea, vomiting, diarrhea, constipation, chest pain. PAST MEDICAL HISTORY: As above. FAMILY HISTORY: Noncontributory. SOCIAL HISTORY: No alcohol or illicit drug abuse. MEDICATIONS: Sotalol, vitamin D, albuterol, regular insulin sliding scale medium protocol, NPH 75/25, 15 units with breakfast, Lasix 40 mg IV b.i.d., Lipitor, magnesium, potassium, Protonix, allopurinol. PHYSICAL EXAMINATION: VITAL SIGNS: Heart rate 86, oxygen saturation 99%, respiratory rate 20, blood pressure 115/45. HEAD AND NECK: Atraumatic. LUNGS: Clear to auscultation bilaterally. HEART: Regular rate, S1, S2 normal. ABDOMEN: Soft, nontender, nondistended. There is a colostomy present with a small amount of fecal matter. Colostomy itself - pink, viable, no bleeding. MUSCULOSKELETAL: No C/C/E. NEUROLOGIC: The patient moves all extremities spontaneously. SKIN: Moist. No expanding hematoma in both groin areas. PSYCHIATRIC: The patient is alert and oriented x 3, comfortable, not in distress. LABORATORY DATA: WBC 8.8, hemoglobin 10.3, platelet count 118. Sodium 140, potassium 3.3, chloride 100, carbon dioxide 31, BUN 19, creatinine 1.1, glucose 144, AST 35, ALT 68, ALP 139. ASSESSMENT AND PLAN: This is an 86-year-old lady with retroperitoneal hematoma status post 1 unit of blood transfusion. The patient is hemodynamically and respiratory-laurent stable. Her groin exam and abdominal exam are benign. Her hemoglobin level is stable. Hb is at 10.7 (up from 10.3 without any blood transfusion). We will continue to target euvolemia, euglycemia, normothermia, and oxygen saturation more than 90%. If hemoglobin level comes back stable, the patient will be considered for transfer to telemetry. Mechanical deep venous thrombosis prophylaxis and gastrointestinal prophylaxis. Surgical eval done--nothing to do surgically laurent at present time (Dr. Centeno) ccm time 40 min Ananth Cash MD cc: [id number] TT: 11/29/2016 11:47:05 Confirmation # [id number] Dictation # [id number] MTDD
--- NOTE | 2016-11-29 12:33 | CON ---
DATE: 11/29/2016 HISTORY OF PRESENT ILLNESS: The patient presents with abdominal pain. She is status post cardiac ca theterization. Abdominal CT revealed a retroperitoneal bleed. The patient was given packed red blood cells and her antiplatelet therapy was stopped. PAST MEDICAL HISTORY: Notable for history of hypertension and COPD as well as history of atrial fibr illation. Her catheterization revealed normal LV function. REVIEW OF SYSTEMS: Revealed a colostomy in which she is preparing for reversal of colostomy bag. No chest pain, no shortness of breath. PHYSICAL EXAMINATION: GENERAL: The patient appears comfortable today. VITAL SIGNS: Blood pressure 130/67, heart rate is in the 80s. NECK: Negative JVD. LUNGS: Without rales. HEART: Reveals S1, S2. EXTREMITIES: Without edema. GROIN: The right groin site reveals ecchymoses. LABORATORY DATA: Hemoglobin on 2 consecutive blood tests were 10.3 and 10.7. Chemistries are noted with a potassium of 3.4, which is being replaced. IMPRESSION: 1. Retroperitoneal bleed, status post cardiac catheterization. 2. Her anemia seems stable. 3. History of colectomy. 4. Diabetes mellitus. 5. Hypertension. PLAN: Given these findings, we will continue serial hemoglobin measurements. Awaiting ultrasound to rule out a pseudoaneurysm. Reji Macias MD cc: [id number] TT: 11/29/2016 12:32:30 Confirmation # [id number] Dictation # [id number] an
[2016-11-29 14:55] LABS: HEMATOCRIT 32.3 % (36.0-48.0)
--- NOTE | 2016-11-29 15:47 | PN ---
DATE: 11/29/2016 The patient's overnight events were noted. The patient was transferred to ICU. Overnight, was transferred to ICU, which I was not aware of. VITAL SIGNS: T-max is 98.3. Telemetry shows atrial fibrillation, heart rate 75 -76-88. Respiration 20. Blood pressure 134/80, 146/78, 123/66, 131/74, 142/61 , /70. Respirations 20, O2 sat 98%-100%. Intake/output: Intake 785, output 1400. REVIEW OF SYSTEMS: A 13-system review was positive for improving shortness of breath. PHYSICAL EXAMINATION: HEAD: Normocephalic, atraumatic. HEENT: Shows pinkish, pale conjunctivae, anicteric sclerae. No oropharyngeal lesion. NECK: No neck rigidity. CHEST: Kyphosis. LUNGS: Shows decreased breath sounds at the bases, left more than the right. CARDIOVASCULAR: Shows S1, S2, irregular rhythm, positive systolic murmur right second intercostal space, left sternal border. ABDOMEN: Soft, positive right-sided colostomy, positive right lower quadrant, right periumbilical tenderness, positive right groin ecchymosis, discoloration and swelling. EXTREMITIES: Lower extremities shows 1+ pitting edema of the lower extremities. MUSCULOSKELETAL: Shows a body mass index of 26. NEUROLOGIC: Cranial nerves II-XII limited. GAIT: Not tested. VASCULAR: Palpable pulses. CRANIAL NERVES II-XII: Tested and limited. PSYCHIATRIC: Negative for anxiety, depression. Negative for suicidal or homicidal ideation. Negative for auditory or visual hallucination. DIAGNOSTICS: Serial hemoglobin and hematocrit ordered. Last CBC shows WBC of 7.8, hemoglobin and hematocrit 10.7 and 32.8, platelets 110,000. Sodium 140, potassium 3.3, chloride 100, CO2 31, anion gap 12, BUN 19, creatinine 1.1, GFR 57, glucose 144. Uric acid 8.0. Calcium 8.6, magnesium 1.6. AST is 35, ALT is 68, alk phos 139. Troponin all sets indeterminate, 0.04. Cholesterol 112, LDL 42, HDL 45. Vitamin D 25-hydroxy 38. TSH is 1.09. T4 is slightly elevated at 11.9. Free T4 is elevated at 2.62. The patient received 1 unit of PRBC. The patient's venous Doppler of the lower extremity was negative for DVT. The patient had a duplex ultrasound of the right groin, which was negative for pseudoaneurysm. CT abdomen and pelvis was noted. IMPRESSION AND PLAN: 1. Large 12.7 cm x 4 cm x 6.6 cm large right retroperitoneal hematoma hemorrhage with mass effect on the adjacent small bowel loop. 2. Acute recurrent diastolic congestive heart failure with elevated BNP. 3. Indeterminate troponin. 4. History of right nephrectomy. 5. Cholelithiasis. 6. Asymmetrically distended right external iliac and common femoral artery and vein with tortuosity of the aorta and iliac artery. 7. Partial colectomy with right-sided colostomy. 8. Status post 1 unit of packed red blood cells. 9. Large right-sided retroperitoneal hematoma hemorrhage, status post cardiac catheterization. 10. Atrial fibrillation. 11. Normocytic anemia. 12. Status post packed red blood cell transfusion x 1. 13. Thrombocytopenia. 14. Hypokalemia. 15. Hyperuricemia. 16. Hypomagnesemia. 17. History of hypothyroidism with elevated T4. 18. History of hypovitaminosis D. 19. Atrial fibrillation. 20. History of colon carcinoma, status post colectomy and colostomy. 21. History of hypovitaminosis D. 22. Insulin-requiring diabetes mellitus. 23. History of dyslipidemia. 24. History of hypothyroidism. 1. Acute, recurrent right-sided diastolic congestive heart failure with pulmonary arterial hypertension with symptoms of shortness of breath, orthopnea , paroxysmal nocturnal dyspnea.. 2. Hypertension. 3. Normocytic anemia with granulocytosis. 4. Insulin requiring diabetes mellitus with hyperglycemia. 5. Transaminitis. 6. Indeterminate troponin. 7. Insulin requiring diabetes mellitus. 8. Glycosuria. 9. Atrial fibrillation with controlled ventricular response and nonspecific ST wave abnormalities. 10. Cardiomegaly with increased pulmonary vascular congestion and suggestive of acute recurrent diastolic congestive heart failure. 11. History of hyperuricemia. 12. History of vitamin B12 deficiency 13. History of anorexia. 14. History of hypovitaminosis D. 15. History of hematuria. 16. History of insulin-requiring diabetes mellitus. 17. History of dyslipidemia. 18. History of hypomagnesemia. 19. History of hypokalemia. 20. History of atrial fibrillation. 21. History of hypothyroidism. 22. History of chronic obstructive pulmonary disease. 23. History of colostomy. 24. Right sided abdominal and right groin pain and Tenderness, etiology undetermined. PLAN: At this time, patient has been ordered repeat cardiac enzymes, repeat CMP , repeat CBC. CURRENT CONSULTATIONS: Cardiology, vascular surgery. MEDICATIONS: 1. Sotalol 80 mg daily. 2. Vitamin D 50,000 units twice a week. 3. DuoNeb nebulizer every 6 hours. 4. Humalog medium dose sliding scale coverage. 5. Humalog mix 75/25, 15 units with breakfast and dinner. 6. K-Dur 20 mEq twice a day. 7. Lasix 40 mg IV twice a day. 8. Lipitor 40 mg daily. 9. Magnesium oxide 400 mg 3 times a day. 10. The patient has already been ordered magnesium sulfate rider x 1. 11. The patient is on Protonix 40 mg daily. 12. The patient is on gastrointestinal and DVT prophylaxis. 13. Synthroid is decreased down to 100 mcg daily. 14. Allopurinol 300 mg daily. Ultrasound of the abdomen has been ordered. EKG has been ordered. Consistent carbohydrate diet, out of bed, NIKOLAY stockings, SCDs has been ordered. TCU evaluation has been ordered. The patient will be ordered physical therapy. The patient will be ordered physical therapy, occupational therapy, ambulation therapy. The patient has been updated about her condition, diagnosis, treatment plan, management plan, all discussed and explained to the patient at length and all questions and concerns answered. Time spent in the entire management, more than 35 minutes. Dictated and electronically signed, not read. Amilcar Reyes MD cc: [id number] TT: 11/29/2016 15:46:55 Confirmation # [id number] Dictation # [id number] MTDD
--- NOTE | 2016-11-29 17:04 | US ---
HISTORY: COLON CA/TRANSAMINITIS COMPARISON: None. TECHNIQUE: Sonographic evaluation of the abdomen. FINDINGS: LIVER: Measures cm. Normal echogenicity of the liver parenchyma. No mass. No intrahepatic bile duct dilatation. GALLBLADDER: Gallstones are present. COMMON BILE DUCT: Measures mm. No stones. No dilatation. PANCREAS: Unremarkable as visualized. No mass. No ductal dilatation. RIGHT KIDNEY: Measures cm. Normal echogenicity. No calculus, mass, or hydronephrosis. LEFT KIDNEY: Measures cm. Normal echogenicity. No calculus, mass, or hydronephrosis. SPLEEN: Normal in size and contour. No mass. AORTA: No aneurysmal dilatation. IVC: Unremarkable. OTHER FINDINGS: None. IMPRESSION: Cholelithiasis.
[2016-11-29 20:57] LABS: HEMATOCRIT 31.2 % (36.0-48.0)
[2016-11-30] MEDS: Albuterol-Ipratrop 3 mg / 0.5 (3 ml) UD IH SCH ×4 (01:38→20:10)
[2016-11-30 05:42] LABS: ADD MANUAL DIFF? NO
[2016-11-30 05:47] LABS: BASO # 0.02 K/mm3 (0.0-2.0); BASO % 0.3 % (0.0-3.0); EOS # 0.2 (0.0-0.7); EOS % 2.5 % (1.5-5.0); GRAN # 5.06 (1.4-6.5); GRAN % 65.2 % (50.0-68.0); HEMATOCRIT 31.1 % (36.0-48.0); LYMPH # 1.5 (1.2-3.4); LYMPH % 18.7 % (22.0-35.0); MEAN CELL VOLUME 93.7 fL (80.0-105.0); MEAN CORPUSCULAR HEMOGLOBIN 30.1 pg (25.0-35.0); MEAN CORPUSCULAR HGB CONC 32.2 g/dl (31.0-37.0); MONO % 13.3 % (1.0-6.0); PLATELET COUNT 114 10^3/uL (120.0-450.0); RED CELL DISTRIBUTION WIDTH 15.5 % (11.5-14.5); WHITE BLOOD COUNT 7.8 10^3/ul (4.5-11.0)
[2016-11-30 05:59] LABS: ALB/GLOB RATIO 1.1 (1.1-1.8); BILIRUBIN,DIRECT 0.4 mg/dL (0.0-0.4); BILIRUBIN,TOTAL 1.1 mg/dL (0.2-1.3); CALCIUM 8.9 mg/dL (8.4-10.5); MAGNESIUM 1.9 mg/dL (1.7-2.2); POTASSIUM 3.8 mmol/L (3.6-5.0); TOTAL PROTEIN 6.1 g/dL (5.8-8.3)
[2016-11-30] MEDS: Pantoprazole 40 mg EC Tab PO SCH (06:33)
--- NOTE | 2016-11-30 08:26 | CP.PCM.PN ---
<Kana Youngblood - Last Filed: 11/30/16 08:28> Subjective - Date & Time of Evaluation Date of Evaluation: 11/30/16 Time of Evaluation: 08:26 - Subjective Subjective: Dr. Kana Youngblood PGY1 note for Dr. Centeno Pt seen and examined at bedside this AM; denies any fevers/chills, GREY, CP, SOB, abdominal pain, N/V/D, dysuria/freq/urg, or lower extremity pain swelling. Patient was comfortably sitting in chair with legs up on another chair, speaking in full sentences in good spirits. Objective - Vital Signs/Intake and Output Vital Signs (last 24 hours): Temp Pulse Resp BP Pulse Ox 98.4 F 79 20 125/54 L 99 11/30/16 04:00 11/30/16 06:00 11/30/16 04:00 11/30/16 04:00 11/30/16 04:00 Intake and Output: 11/30/16 11/30/16 06:59 18:59 Intake Total 350 Output Total 1000 Balance -650 - Medications Medications: Current Medications Albuterol/Ipratropium (Duoneb 3 Mg/0.5 Mg (3 Ml) Ud) 3 ml IH Q6H [facility] Stop: 12/05/16 18:46 Last Admin: 11/30/16 07:49 Dose: 3 ml Allopurinol (Zyloprim) 300 mg PO QAM [facility] Last Admin: 11/29/16 10:53 Dose: 300 mg Atorvastatin Calcium (Lipitor) 40 mg PO DIN [facility] Last Admin: 11/29/16 17:40 Dose: 40 mg Ergocalciferol (Drisdol 50,000 Intl Units Cap) 1 cap PO 2XW [facility] Last Admin: 11/29/16 10:53 Dose: 1 cap Furosemide (Lasix) 40 mg IVP BID [facility] Last Admin: 11/29/16 17:40 Dose: 40 mg Insulin Human Lispro (Humalog Med) 0 units SC ACHS [facility] Last Admin: 11/29/16 23:01 Dose: Not Given Insulin Lispro Protam/Lispro Human (Humalog Mix 75/25) 15 units SC .BREAKFAST/ DINNER [facility] Levothyroxine Sodium (Synthroid) 100 mcg PO ACB [facility] Magnesium Oxide (Mag-Ox) 400 mg PO TID [facility] Last Admin: 11/29/16 17:40 Dose: 400 mg Pantoprazole Sodium (Protonix Ec Tab) 40 mg PO 0630 [facility] Last Admin: 11/30/16 06:33 Dose: 40 mg Potassium Chloride (K-Dur 20 Meq Er Tab) 20 meq PO BID [facility] Last Admin: 11/29/16 17:40 Dose: 20 meq Sotalol HCl (Betapace) 80 mg PO QAM [facility] Last Admin: 11/29/16 10:53 Dose: 80 mg - Labs Labs: 11/30/16 05:30 11/30/16 05:30 PT 11.2 Seconds (9.9-11.8) 11/28/16 11:00 INR 1.04 (0.93-1.08) 11/28/16 11:00 APTT 23.2 Seconds (23.7-30.8) L 11/28/16 11:00 - Constitutional Appears: Non-toxic - Head Exam Additional comments: Head Exam: ATRAUMATIC, NORMOCEPHALIC - Eye Exam Eye Exam: EOMI, Normal appearance - ENT Exam ENT Exam: Mucous Membranes Moist, Normal Exam - Respiratory Exam Respiratory Exam: Clear to Auscultation Bilateral, NORMAL BREATHING PATTERN. absent: Rales, Rhonchi, Wheezes - Cardiovascular Exam Cardiovascular Exam: +S1, +S2 - GI/Abdominal Exam GI & Abdominal Exam: Soft. absent: Distended, Firm, Guarding Additional comments: Stoma pink and patent with liquid and gas in bag - Exam Additional comments: 10cm echymosis in right mons pubis - Extremities Exam Additional comments: No swelling or palpable hematoma of the thigh - Back Exam Additional comments: No skin color changes or tenderness No hematoma noted on exam no CVA tenderness - Neurological Exam Neurological exam: Alert, Oriented x3 - Psychiatric Exam Psychiatric exam: Normal Affect, Normal Mood - Skin Skin Exam: Dry, Intact Assessment and Plan - Assessment and Plan (Free Text) Assessment: This is an 85 [place] F w/ a PMHx of colon CA s/p colectomy and colostomy, A- fibb not on coumadin 2/2 to GI bleeding, IDDM, CAD, COPD, hypothryoidism, chronic diastolic CHF w/ preserved EF, Anemia, COPD, HLD, and nephrectomy who presented w/ SOB found to have large retroperitoneal hematoma after cardiac cath last week that was for cardiac clearance of her possible ostomy reversal. Patient currently on telemetry, vital signs stable, coags and platelets WNL Hgb stable at 10.4 s/p 1 unit of PRBC; will monitor Continue care per primary team Will continue to follow conservative management at this time. Will Discuss with Dr. Taryn Youngblood <James Centeno - Last Filed: 03/09/17 23:18> Objective - Vital Signs/Intake and Output Vital Signs (last 24 hours): Temp Pulse Resp BP Pulse Ox 98.5 F 68 21 127/55 L 91 L 12/01/16 12:00 12/01/16 14:48 12/01/16 14:48 12/01/16 14:50 12/01/16 14:50 - Labs Labs: 12/01/16 04:30 12/01/16 04:30 PT 11.2 Seconds (9.9-11.8) 11/28/16 11:00 INR 1.04 (0.93-1.08) 11/28/16 11:00 APTT 23.2 Seconds (23.7-30.8) L 11/28/16 11:00 Assessment and Plan - Assessment and Plan (Free Text) Plan: Patient was seen and examined by me. I agree with assessment and plan as per resident's note.
[2016-11-30] MEDS: Levothyroxine 100 MCG TAB PO SCH (08:34)
[2016-11-30] MEDS: Insulin Lispro (humaLOG) MEDIUM Coverage SC SCH ×3 (08:34→17:16)
--- NOTE | 2016-11-30 09:47 | PN ---
DATE: 11/30/2016 CARDIOLOGY FOLLOWUP The patient is in a chair. She is comfortable. No more abdominal pain. PHYSICAL EXAMINATION: VITAL SIGNS: Blood pressure is 125/54. The heart rate is in the 70s. NECK: Negative JVD. LUNGS: Without rales. HEART: Reveals S1, S2. EXTREMITIES: Without edema. LABORATORY DATA: Hemoglobin has remained stable at 10.0. Glucose is 164. IMPRESSION: 1. Status post retroperitoneal bleed. 2. Diabetes mellitus. 3. Anemia, which has been stable. 4. History of colectomy. 5. Diabetes mellitus. PLAN: Given these findings, the patient's retroperitoneal bleed is stable. We will continue serial CBCs twice a day. If the patient's hemoglobin remains stable in the morning, the patient can be disc harged. We will begin ambulating the patient today. Reji Macias MD cc: [id number] TT: 11/30/2016 09:47:15 Confirmation # [id number] Dictation # [id number] jn
--- NOTE | 2016-11-30 10:40 | PQF ANEMIA ---
This form is a permanent part of the medical record Dr. Reyes, Please specify type and severity of anemia occurring in this patient in which I unit PRBC was given for decreasing H/H after she was found to have a large retroperitoneal bleeding/hematoma. Clarification of your documentation is requested to better reflect the severity of illness and intensity of treatment of your patient. Indicators present [x] Anemia [x] Drop in H&H from []___ to []___ [] Hypotension [] GI Bleed [x] Transfusion(s) [] Acute bleed other sites [] Tachycardia [] Surgical Procedure Blood Loss (expected not a complication) Other:[x]__Retroperitoneal bleeding found on CT abdomen/pelvis____ Location in the medical record that reflects the above clinical findings: [] Treatment Provided: [] PHYSICIAN'S RESPONSE Based on your medical judgment of the clinical indicators outlined above, are you treating this patient for a known or suspected: [] Acute blood loss anemia [] Chronic blood loss anemia [] Acute on Chronic blood loss anemia [] Anemia due to malignancy [] Anemia due to chemotherapy or radiation therapy [] Anemia of Chronic Disease, please specify: [] [] Other, please indicate type of anemia []____ [] If Unable to Determine, please check the box, sign and date. Present On Admission (POA) Indicator: [] Present at the time of admission [] Not present at the time of admission [] Clinically Undetermined In responding to this query, please exercise your independent professional judgment. The fact that a question is asked does not imply that any particular answer is desired or expected. Thank you for your clarification on this documentation. 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
[2016-11-30] MEDS: Potassium Chloride 20 mEq ER Tab PO SCH ×2 (10:52→17:18)
[2016-11-30] MEDS: Magnesium Oxide 400 mg Tab UD PO SCH ×3 (10:55→17:18)
--- NOTE | 2016-11-30 12:39 | CARD ---
APPROVED REPORT EKG Measurement Heart [id number] <Conclusion> Atrial Fibrillation. Moderate Ventricular Rate. Non Specific ST_T Changes.
--- NOTE | 2016-11-30 13:39 | PN ---
DATE: 11/30/2016 The patient is seen out of bed to chair in ICU, bed 5. The patient's daughter- in-law at bedside. The patient denies any shortness of breath, denies chest pain, denies nausea, denies vomiting, denies any bleeding. REVIEW OF SYSTEMS: The patient's 13-system review was done. Pertinent positives and negatives dictated above. PHYSICAL EXAMINATION: VITAL SIGNS: T-max is 98.4-99.3. Telemetry shows atrial fibrillation, heart rate in the 70s and 75. Blood pressure is ranging from 116/52, 127/54, 157/53, 123/54, respirations 12-24, O2 sat 100%. INTAKE AND OUTPUT: Intake 900, output 1250. HEAD: Normocephalic, atraumatic. HEENT: Shows pinkish conjunctivae, anicteric sclerae. No oropharyngeal lesion. NECK: No neck rigidity. CHEST: Kyphosis. LUNGS: Shows decreased breath sounds at the bases. CARDIOVASCULAR: S1, S2. Regular irregular rhythm, positive systolic murmur right second intercostal space, left sternal border, left second intercostal space. ABDOMEN: Soft. Positive right-sided colostomy, positive fullness of the lower abdomen noted. Positive discoloration of the right groin and ecchymosis noted. Positive voluntary guarding noted of the right lower quadrant and suprapubic area. GENITALIA: Female. RECTAL: Deferred. EXTREMITIES: Shows positive NIKOLAY stockings, negative pitting edema. MUSCULOSKELETAL: Shows a body mass index of 26. NEUROLOGIC: Cranial nerves II-XII limited. GAIT: Could not be tested, as the patient is out of bed to recliner. MUSCULOSKELETAL: Shows a body mass index of 26. GAIT: could not be tested. DIAGNOSTICS: 11/30, WBC 7.8, hemoglobin and hematocrit 10 and 31.1, platelets 114. Sodium 141, potassium 3.8, chloride 100, CO2 of 32, anion gap 13, BUN 24, creatinine 1.1, GFR 57. [id number] glucose 193, 194, 173, 239, 249, 191, 161, 164. Hemoglobin A1c 9.6, fructosamine 286, which is elevated. LFTs are now normalized. The patient received 1 unit of PRBC. EKG from 11/30 shows baseline artifact, sinus rhythm, ST-T changes, sinus arrhythmia. IMPRESSION AND PLAN: 1. Large 12 cm x 7 cm x 4 cm x 6.6 cm large right retroperitoneal hemorrhage with mass effect on the adjacent small bowel with history of right nephrectomy, history of right colectomy, and right-sided colostomy. 2. Anemia with decreasing hemoglobin and hematocrit. 3. Acute blood loss anemia secondary to acute large right-sided retroperitoneal hematoma. 4. History of hypertension. 5. History of atrial fibrillation. 6. Normocytic anemia with decreasing hemoglobin and hematocrit. 7. Thrombocytopenia. 8. Uncontrolled insulin-requiring diabetes mellitus with hemoglobin A1c of 9.6 and elevated fructosamine of 286. 9. Hyperuricemia. 10. Transient hypokalemia. 11. Hypomagnesemia. 12. Transaminitis. 13. Indeterminate troponin. 14. History of hypothyroidism with elevated free T4 and total thyroxine. 15. Uncontrolled type 1 insulin-requiring diabetes mellitus with hemoglobin A1c of 9.6 and fructosamine greater than 286 with hyperglycemia. 16. Acute recurrent diastolic congestive heart failure with elevated BNP. 17. Deconditioning. 1. Large 12.7 cm x 4 cm x 6.6 cm large right retroperitoneal hematoma hemorrhage with mass effect on the adjacent small bowel loop. 2. Acute recurrent diastolic congestive heart failure with elevated BNP. 3. Indeterminate troponin. 4. History of right nephrectomy. 5. Cholelithiasis. 6. Asymmetrically distended right external iliac and common femoral artery and vein with tortuosity of the aorta and iliac artery. 7. Partial colectomy with right-sided colostomy. 8. Status post 1 unit of packed red blood cells. 9. Large right-sided retroperitoneal hematoma hemorrhage, status post cardiac catheterization. 10. Atrial fibrillation. 11. Normocytic anemia. 12. Status post packed red blood cell transfusion x 1. 13. Thrombocytopenia. 14. Hypokalemia. 15. Hyperuricemia. 16. Hypomagnesemia. 17. History of hypothyroidism with elevated T4. 18. History of hypovitaminosis D. 19. Atrial fibrillation. 20. History of colon carcinoma, status post colectomy and colostomy. 21. History of hypovitaminosis D. 22. Insulin-requiring diabetes mellitus. 23. History of dyslipidemia. 24. History of hypothyroidism. 1. Acute, recurrent right-sided diastolic congestive heart failure with pulmonary arterial hypertension with symptoms of shortness of breath, orthopnea , paroxysmal nocturnal dyspnea.. 2. Hypertension. 3. Normocytic anemia with granulocytosis. 4. Insulin requiring diabetes mellitus with hyperglycemia. 5. Transaminitis. 6. Indeterminate troponin. 7. Insulin requiring diabetes mellitus. 8. Glycosuria. 9. Atrial fibrillation with controlled ventricular response and nonspecific ST wave abnormalities. 10. Cardiomegaly with increased pulmonary vascular congestion and suggestive of acute recurrent diastolic congestive heart failure. 11. History of hyperuricemia. 12. History of vitamin B12 deficiency 13. History of anorexia. 14. History of hypovitaminosis D. 15. History of hematuria. 16. History of insulin-requiring diabetes mellitus. 17. History of dyslipidemia. 18. History of hypomagnesemia. 19. History of hypokalemia. 20. History of atrial fibrillation. 21. History of hypothyroidism. 22. History of chronic obstructive pulmonary disease. 23. History of colostomy. 24. Right sided abdominal and right groin pain and Tenderness, etiology undetermined. The patient was seen by cardiology. The patient was seen by surgery. LABORATORY DATA: The patient is on serial labs. CONSULTATIONS: Cardiology and surgery. Referral to TCU. CURRENT MEDICATIONS: 1. Sotalol 80 mg daily. 2. DuoNeb nebulizer every 6 hours. 3. Humalog medium dose sliding scale coverage a.c. and at bedtime. 4. Humalog mix 75/25, 15 units with breakfast and dinner. 5. K-Dur 20 mEq twice a day. 6. Lasix 40 mg IV q. 12. 7. Lipitor 40 mg daily. 8. Magnesium oxide 400 mg 3 times a day. 9. Protonix 40 mg daily for GI prophylaxis. Synthroid has been adjusted down to 100 mcg daily. Allopurinol 300 mg daily. The patient has been ordered out of bed. Fingerstick blood sugar a.c. and bedtime. NIKOLAY stockings, SCDs. Physical therapy and occupational therapy have been ordered. The patient has been ordered to be transferred out of the ICU, which we are still awaiting. The patient's condition, diagnosis, treatment plan, and management plan discussed with all the consultants, the patient, and the family. Time spent more than 35 minutes. Dictated and electronically signed, not read. Amilcar Reyes MD cc: [id number] TT: 11/30/2016 12:09:16 Confirmation # [id number] Dictation # [id number] jn 11/30/2016 12:39:14 MTDD
[2016-11-30 17:37] LABS: ADD MANUAL DIFF? NO
[2016-11-30 17:45] LABS: BASO # 0.01 K/mm3 (0.0-2.0); BASO % 0.1 % (0.0-3.0); EOS # 0.2 (0.0-0.7); GRAN # 6.31 (1.4-6.5); GRAN % 68.4 % (50.0-68.0); HEMATOCRIT 34.3 % (36.0-48.0); LYMPH # 1.5 (1.2-3.4); LYMPH % 16.5 % (22.0-35.0); MEAN CORPUSCULAR HEMOGLOBIN 30.1 pg (25.0-35.0); MEAN CORPUSCULAR HGB CONC 32.1 g/dl (31.0-37.0); MEAN PLATELET VOLUME 11.7 fl (7.0-11.0); MONO # 1.2 (0.1-0.6); PLATELET COUNT 121 10^3/uL (120.0-450.0); RED CELL DISTRIBUTION WIDTH 15.3 % (11.5-14.5); WHITE BLOOD COUNT 9.2 10^3/ul (4.5-11.0)
[2016-12-01] MEDS: Insulin Lispro (humaLOG) MEDIUM Coverage SC SCH ×3 (00:04→12:00)
[2016-12-01] MEDS: Albuterol-Ipratrop 3 mg / 0.5 (3 ml) UD IH SCH ×2 (02:41→13:50)
[2016-12-01 06:58] LABS: ADD MANUAL DIFF? NO
[2016-12-01 07:24] LABS: ALB/GLOB RATIO 1.1 (1.1-1.8); BILIRUBIN,DIRECT 0.6 mg/dL (0.0-0.4); BILIRUBIN,TOTAL 1.2 mg/dL (0.2-1.3); CALCIUM 9.4 mg/dL (8.4-10.5); TOTAL PROTEIN 6.5 g/dL (5.8-8.3)
[2016-12-01 07:44] LABS: BASO # 0.01 K/mm3 (0.0-2.0); BASO % 0.1 % (0.0-3.0); EOS # 0.2 (0.0-0.7); EOS % 1.9 % (1.5-5.0); GRAN # 6.08 (1.4-6.5); GRAN % 67.7 % (50.0-68.0); HEMATOCRIT 32.1 % (36.0-48.0); LYMPH # 1.6 (1.2-3.4); LYMPH % 18.1 % (22.0-35.0); MEAN CELL VOLUME 94.1 fL (80.0-105.0); MEAN CORPUSCULAR HEMOGLOBIN 29.9 pg (25.0-35.0); MEAN CORPUSCULAR HGB CONC 31.8 g/dl (31.0-37.0); MEAN PLATELET VOLUME 12.4 fl (7.0-11.0); MONO # 1.1 (0.1-0.6); MONO % 12.2 % (1.0-6.0); PLATELET COUNT 130 10^3/uL (120.0-450.0); RED CELL DISTRIBUTION WIDTH 15.1 % (11.5-14.5)
[2016-12-01] MEDS: Levothyroxine 100 MCG TAB PO SCH (08:36)
[2016-12-01] MEDS: Pantoprazole 40 mg EC Tab PO SCH (08:42)
[2016-12-01] MEDS: Potassium Chloride 20 mEq ER Tab PO SCH (09:13)
[2016-12-01] MEDS: Magnesium Oxide 400 mg Tab UD PO SCH ×2 (09:13→13:45)
--- NOTE | 2016-12-01 11:24 | DS ---
The patient is still seen in room ICU, bed 5. The patient is out of bed to recliner. The patient is alert, awake, responsive. The patient denies any chest pain or shortness of breath, denies any nausea, vomiting, diarrhea. Denies any abdominal pain, denies any hemoptysis, hematemesis, melena. Denies any hematochezia. The patient is sitting out of bed to chair. The patient is alert, awake, responsive. Overnight nurse's notes were reviewed. The patient needed colostomy changed periodically. The patient's ecchymosis of the groin is present. PHYSICAL EXAMINATION: VITAL SIGNS: T-max 99.8 yesterday, down to 98.2. Telemetry shows atrial fibrillation, heart rate in 70s and 80s. Blood pressure is 132/60, 122/67, 126/ 43, 124/69, respirations averaging around 19 and 20, O2 sat averaging around high 90s-100s. INTAKE AND OUTPUT: Yesterday intake was 1250, output is 2250. Today's Intake 420, output 1060. HEAD: Normocephalic, atraumatic. HEENT: Shows pinkish, pale conjunctivae, anicteric sclerae. No oropharyngeal lesion. NECK: No neck rigidity. CHEST: Kyphosis. LUNGS: Show decreased breath sounds at the left base. CARDIOVASCULAR: Shows S1, S2, irregular rhythm, positive systolic murmur right second intercostal space, left sternal border, left second intercostal space. ABDOMEN: Soft. Positive right-sided colostomy. Positive discoloration of the right lower abdomen, right groin and suprapubic area, ecchymotic area with some deep right lower quadrant tenderness, no rebound tenderness. GENITALIA: Female. RECTAL: Deferred. EXTREMITIES: Show positive NIKOLAY stockings. No pitting edema, no calf tenderness , no Homans' sign. NEUROLOGIC: The patient is alert, awake, oriented x 3. Cranial nerves II-XII intact. VASCULAR: Palpable pulses. Body mass index is 26. Gait examination could not be tested. Cranial nerves II-XII intact. DIAGNOSTICS: 12/01, WBC 9.0, hemoglobin and hematocrit 10.2 and 32.1, platelets 130. PT23.2. Sodium 141, potassium 4.0, chloride 99, CO2 of 33, anion gap 13, BUN 29, creatinine 1.2, GFR 52. Glucose 202, 188, 255, 166, 337, 183, calcium 9.4, magnesium 2.0. LFTs: Alk phos 151. MRSA none detected. The patient transfused 1 unit of PRBC. EKG shows atrial fibrillation with nonspecific ST changes. IMPRESSION: 1. Large 12 x 7 x 4 cm and 6.6 cm large right retroperitoneal hemorrhage with mass effect on the adjacent small bowel with history of nephrectomy, right colectomy and right-sided colostomy. 2. Acute blood loss anemia with decreasing hemoglobin and hematocrit secondary to acute large right-sided retroperitoneal hematoma. 3. Atrial fibrillation. 4. Hypertension. 5. Mild thrombocytopenia. 6. Granulocytosis. 7. Hyperuricemia. 8. History of hypothyroidism with elevated total thyroxine level. 9. Uncontrolled type 1 insulin-requiring diabetes mellitus with hemoglobin A1c of 9.6 and fructosamine of 286. 10. Hypokalemia. 11. Transaminitis. 12. Hypomagnesemia. 13. Indeterminate troponin. 14. History of hypovitaminosis D. hypercholesterolemia and hypertriglyceridemia. 15. Acute recurrent right-sided diastolic congestive heart failure with elevated BNP. 16. Hyperuricemia. 17. Hypokalemia. 18. Glycosuria. 19. Status post packed red blood cell transfusion. 20. Atrial fibrillation with nonspecific ST-T changes. 21. Atrial fibrillation. 22. Hypokalemia. 23. Hypomagnesemia. 24. Hypothyroidism. 1. Large 12 cm x 7 cm x 4 cm x 6.6 cm large right retroperitoneal hemorrhage with mass effect on the adjacent small bowel with history of right nephrectomy, history of right colectomy, and right-sided colostomy. 2. Anemia with decreasing hemoglobin and hematocrit. 3. Acute blood loss anemia secondary to acute large right-sided retroperitoneal hematoma. 4. History of hypertension. 5. History of atrial fibrillation. 6. Normocytic anemia with decreasing hemoglobin and hematocrit. 7. Thrombocytopenia. 8. Uncontrolled insulin-requiring diabetes mellitus with hemoglobin A1c of 9.6 and elevated fructosamine of 286. 9. Hyperuricemia. 10. Transient hypokalemia. 11. Hypomagnesemia. 12. Transaminitis. 13. Indeterminate troponin. 14. History of hypothyroidism with elevated free T4 and total thyroxine. 15. Uncontrolled type 1 insulin-requiring diabetes mellitus with hemoglobin A1c of 9.6 and fructosamine greater than 286 with hyperglycemia. 16. Acute recurrent diastolic congestive heart failure with elevated BNP. 17. Deconditioning. 1. Large 12.7 cm x 4 cm x 6.6 cm large right retroperitoneal hematoma hemorrhage with mass effect on the adjacent small bowel loop. 2. Acute recurrent diastolic congestive heart failure with elevated BNP. 3. Indeterminate troponin. 4. History of right nephrectomy. 5. Cholelithiasis. 6. Asymmetrically distended right external iliac and common femoral artery and vein with tortuosity of the aorta and iliac artery. 7. Partial colectomy with right-sided colostomy. 8. Status post 1 unit of packed red blood cells. 9. Large right-sided retroperitoneal hematoma hemorrhage, status post cardiac catheterization. 10. Atrial fibrillation. 11. Normocytic anemia. 12. Status post packed red blood cell transfusion x 1. 13. Thrombocytopenia. 14. Hypokalemia. 15. Hyperuricemia. 16. Hypomagnesemia. 17. History of hypothyroidism with elevated T4. 18. History of hypovitaminosis D. 19. Atrial fibrillation. 20. History of colon carcinoma, status post colectomy and colostomy. 21. History of hypovitaminosis D. 22. Insulin-requiring diabetes mellitus. 23. History of dyslipidemia. 24. History of hypothyroidism. 1. Acute, recurrent right-sided diastolic congestive heart failure with pulmonary arterial hypertension with symptoms of shortness of breath, orthopnea , paroxysmal nocturnal dyspnea.. 2. Hypertension. 3. Normocytic anemia with granulocytosis. 4. Insulin requiring diabetes mellitus with hyperglycemia. 5. Transaminitis. 6. Indeterminate troponin. 7. Insulin requiring diabetes mellitus. 8. Glycosuria. 9. Atrial fibrillation with controlled ventricular response and nonspecific ST wave abnormalities. 10. Cardiomegaly with increased pulmonary vascular congestion and suggestive of acute recurrent diastolic congestive heart failure. 11. History of hyperuricemia. 12. History of vitamin B12 deficiency 13. History of anorexia. 14. History of hypovitaminosis D. 15. History of hematuria. 16. History of insulin-requiring diabetes mellitus. 17. History of dyslipidemia. 18. History of hypomagnesemia. 19. History of hypokalemia. 20. History of atrial fibrillation. 21. History of hypothyroidism. 22. History of chronic obstructive pulmonary disease. 23. History of colostomy. 24. Right sided abdominal and right groin pain and Tenderness, etiology undetermined. PLAN: At this time, we are awaiting patient's transfer out of the ICU. The patient needs to start on physical therapy, occupational therapy. The patient has been referred to TCU evaluation. If patient agrees, if the patient is cleared by all subspecialties, the patient may be considered for discharge. CURRENT MEDICATIONS: 1. Sotalol 80 mg daily. 2. DuoNeb nebulizer every 6 hours. 3. Humalog medium dose sliding scale coverage a.c. and at bedtime. 4. Humalog mix 75/25 fifteen units with breakfast and dinner. 5. K-Dur 20 mEq twice a day. 6. Lasix 40 mg IV twice a day. 7. Lipitor 40 mg daily. 8. Magnesium oxide 400 mg 3 times a day. 9. Protonix 40 mg daily. 10. Synthroid decreased to 100 mcg daily. 11. Zyloprim 300 mg daily. Repeat EKG, consistent carbohydrate diet, out of bed, NIKOLAY stockings, SCDs, physical therapy, occupational therapy all ordered. Dictated and electronically signed, not read. Amilcar Reyes MD cc: [id number] TT: 12/01/2016 11:23:44 ar 12/23/2016 13:06:41 GALILEA
--- NOTE | 2016-12-01 11:29 | CARD ---
APPROVED REPORT EKG Measurement Heart [id number] <Conclusion> Atrial flutter with varable conduction Nonspecific T wave abnormality, probably digitalis effect Abnormal ECG
--- NOTE | 2016-12-01 13:33 | PN ---
DATE: 12/01/2016 The patient is asymptomatic. The patient is ambulating on the floor without issues. PHYSICAL EXAMINATION: VITAL SIGNS: Blood pressure is 133/62, the heart rate is 68. NECK: Negative JVD. LUNGS: Without rales. HEART: Revealed S1, S2. EXTREMITIES: Ecchymosis is noted. Hemoglobin is 10.2. Chemistries: Glucose is 188. IMPRESSION: 1. Status post retroperitoneal bleed. 2. Coronary artery disease. 3. Diabetes mellitus. 4. History of colectomy. 5. Stable anemia. Given these findings, the patient's retroperitoneal bleed is stable. From a cardiac perspective, the patient can be discharged. Reji Macias MD cc: [id number] TT: 12/01/2016 13:33:02 Confirmation # [id number] Dictation # [id number]
[2016-12-01 14:17] VITALS: TEMP 98.5
[2016-12-01 15:47] VITALS: BP 127/55; PULSE 68; RESP 21; O2SAT 91
[2016-12-01 17:00] LABS: GLYCOMARK(R) 6.5 mcg/mL (7.5-28.4)
== END 2016-12-01 15:53 | disposition home or self-care (01) | DRG 919 ==
LOC: ED 10:27 → ERH 12:54 → 2RSO 14:01 → CCU 11-29 00:31
PROVIDERS: ADMIT Internal Medicine; ATTEND Internal Medicine
PROC: 30233N1 Transfusion of Nonautologous Red Blood Cells into Peripheral Vein, Percutaneous Approach (ICD-10-PCS; principal; 2016-11-29)
DX: I97.630 Postprocedural hematoma of a circulatory system organ or structure following a cardiac catheterization (principal); I50.33 Acute on chronic diastolic (congestive) heart failure; D62 Acute posthemorrhagic anemia; I11.0 Hypertensive heart disease with heart failure; E11.65 Type 2 diabetes mellitus with hyperglycemia; D69.6 Thrombocytopenia, unspecified; I27.2 Other secondary pulmonary hypertension; E83.42 Hypomagnesemia; I48.91 Unspecified atrial fibrillation; K80.20 Calculus of gallbladder without cholecystitis without obstruction; E87.6 Hypokalemia; E03.9 Hypothyroidism, unspecified; E55.9 Vitamin D deficiency, unspecified; E78.5 Hyperlipidemia, unspecified; E79.0 Hyperuricemia without signs of inflammatory arthritis and tophaceous disease; K57.30 Diverticulosis of large intestine without perforation or abscess without bleeding; I25.10 Atherosclerotic heart disease of native coronary artery without angina pectoris; J44.9 Chronic obstructive pulmonary disease, unspecified; Y83.8 Other surgical procedures as the cause of abnormal reaction of the patient, or of later complication, without mention of misadventure at the time of the procedure; Z87.891 Personal history of nicotine dependence; Z93.3 Colostomy status; Z90.5 Acquired absence of kidney; Z79.4 Long term (current) use of insulin; Z85.038 Personal history of other malignant neoplasm of large intestine

== ENCOUNTER 2017-04-06 07:17 | Inpatient (IN) | payer MEDICARE, OTHER, BC ==
[2017-03-19 10:31] VITALS: BMI 27.4
[2017-04-06 08:22] LABS: BASO # 0.01 K/mm3 (0.0-2.0); BASO % 0.1 % (0.0-3.0); EOS # 0.1 (0.0-0.7); EOS % 1.2 % (1.5-5.0); GRAN # 7.44 (1.4-6.5); GRAN % 67.3 % (50.0-68.0); HEMATOCRIT 45.2 % (36.0-48.0); LYMPH # 2.4 (1.2-3.4); LYMPH % 21.6 % (22.0-35.0); MEAN CELL VOLUME 93.6 fl (80.0-105.0); MEAN CORPUSCULAR HEMOGLOBIN 31.9 pg (25.0-35.0); MEAN CORPUSCULAR HGB CONC 34.1 g/dl (31.0-37.0); MEAN PLATELET VOLUME 11.8 fl (7.0-11.0); MONO # 1.1 (0.1-0.6); MONO % 9.8 % (1.0-6.0); RED CELL DISTRIBUTION WIDTH 13.3 % (11.5-14.5)
[2017-04-06 08:33] LABS: ALB/GLOB RATIO 1.4 (1.1-1.8); BILIRUBIN,TOTAL 1.8 mg/dL (0.2-1.3); CALCIUM 9.4 mg/dL (8.4-10.5); POTASSIUM 3.7 mmol/L (3.6-5.0); TOTAL PROTEIN 7.5 g/dL (5.8-8.3)
[2017-04-06 08:34] LABS: INR 1.06 (0.93-1.08); PARTIAL THROMBOPLASTIN TIME 28.1 Seconds (23.7-30.8)
[2017-04-06] MEDS ORDERED: Bupivacaine 0.5% Inj(30mL) ONE (09:01)
[2017-04-06] MEDS ORDERED: metroNIDAZOLE IV 500 mg/100 ml 500 MG/100 ML BAG ONE (09:01)
[2017-04-06] MEDS ORDERED: HYDROmorphone 0.5 mg/0.5 ml ISec IVP PRN ×3 (09:05→12:31)
[2017-04-06] MEDS ORDERED: Lactated Ringer's 1,000 ML IV SCH ×3 (09:06→15:46)
[2017-04-06] MEDS ORDERED: Morphine 1 mg/ml preservative-free Inj(Duramorph) ONE (09:17)
[2017-04-06] MEDS ORDERED: Propofol 10 mg/ml Inj (20 ML) ONE (09:17)
--- NOTE | 2017-04-06 09:43 | CP.PCM.CON ---
<Trena Jang - Last Filed: 04/06/17 15:29> History of Present Illness - History of Present Illness History of Present Illness: Internal medicine consult note for Dr. Guicho Jang, PGY-1 Pt S & E at bedside. 86F w/PMH sig for colon CA s/p colectomy w/colostomy creation admitted for colostomy reversal. Pt currently without complaints, in OR SDS awaiting surgery. PMH: HTN, Afib,HLD, DM, HTN, nonobstructive CAD, hx colon Ca s/p colectomy & colostomy, hypothyroidism PSH: Colectomy w/colostomy, nephrectomy, R knee sx All: NKDA SH: Admits to former tobacco use, denies ETOH or illicit drug use Past Patient History - Infectious Disease Hx of Infectious Diseases: None - Tetanus Immunizations Tetanus Immunization: Unknown - Past Medical History & Family History Past Medical History?: Yes - Past Social History Smoking Status: Former Smoker - CARDIAC Hx Pacemaker: No - PULMONARY Hx Respiratory Disorders: Yes (pt has nebulizer machine at home) Hx Asthma: Yes Hx Chronic Obstructive Pulmonary Disease (COPD): Yes Hx Emphysema: Yes Hx Pneumonia: Yes - NEUROLOGICAL Hx Paralysis: No - HEENT Hx Cataracts: No Hx Difficulty Chewing: No Hx Epistaxis: No Hx Glaucoma: No Hx Macular Degeneration: No - RENAL Hx Chronic Kidney Disease: No Hx Dialysis: No Hx Kidney Stones: No Hx Neurogenic Bladder: No Hx Renal (Kidney) Cancer: No - ENDOCRINE/METABOLIC Hx Endocrine Disorders: Yes Hx Adrenal Cancer: No Hx Hyperthyroidism: No Hx Hypothyroidism: Yes Hx Systemic Lupus Erythematosus: No - HEMATOLOGICAL/ONCOLOGICAL Hx Blood Transfusions: Yes (03/04/16) Hx Blood Transfusion Reaction: No - INTEGUMENTARY Hx Dermatological Problems: No Hx Basil Cell: No Hx Eczema: No Hx Melanoma: No Hx Psoriasis: No Hx Squamous Cell: No Other/Comment: surgical scars abd, eccymosis to r groin - MUSCULOSKELETAL/RHEUMATOLOGICAL Hx Musculoskeletal Disorders: Yes - GASTROINTESTINAL Hx Gastrointestinal Disorders: Yes (CONSTIPATION,APPENDECTOMY,H/O GI BLEED, COLON MASS) Hx Colostomy: Yes Hx Constipation: Yes Hx Crohn's Disease: No Hx Diverticulitis: No Hx Gall Bladder Disease: No Hx Gastroesophageal Reflux: Yes Hx Pancreatitis: No Hx Ulcer: No - GENITOURINARY/GYNECOLOGICAL Hx Genitourinary Disorders: No Hx Hematuria: Yes Hx Incontinence: No Hx Reproductive Disorders: No Hx Sexually Transmitted Disorders: No Hx Urinary Tract Infection: Yes (PAST HX) - PSYCHIATRIC Hx Emotional Abuse: No Hx Physical Abuse: No Hx Substance Use: No - SURGICAL HISTORY Hx Surgeries: Yes (BOWEL RESECTION 40 YRS AGO;[facility];) - ANESTHESIA Hx Anesthesia Reactions: No Hx Malignant Hyperthermia: No Meds Allergies/Adverse Reactions: Allergies Allergy/AdvReac Type Severity Reaction Status Date / Time No Known Allergies Allergy Verified 04/06/17 17:45 - Medications Medications: Current Medications Hydromorphone HCl (Dilaudid) 0.5 mg IVP Q15M PRN PRN Reason: Pain, moderate (4-7) Stop: 04/06/17 11:06 Lactated Ringer's (Lactated Ringer's) 1,000 mls @ 75 mls/hr IV .[id number] GEOVANI Stop: 04/06/17 11:07 Ondansetron HCl (Zofran Inj) 4 mg IVP ONCE PRN PRN Reason: Nausea/Vomiting Physical Exam - Constitutional Appears: Non-toxic, No Acute Distress - Head Exam Head Exam: ATRAUMATIC, NORMAL INSPECTION, NORMOCEPHALIC - Eye Exam Eye Exam: EOMI, Normal appearance - ENT Exam ENT Exam: Mucous Membranes Moist, Normal Exam - Neck Exam Neck exam: Positive for: Full Rom, Normal Inspection - Respiratory Exam Respiratory Exam: Clear to Auscultation Bilateral, NORMAL BREATHING PATTERN. absent: Chest Wall Tenderness, Decreased Breath Sounds, Rales, Rhonchi, Wheezes , Respiratory Distress - Cardiovascular Exam Cardiovascular Exam: REGULAR RHYTHM, +S1, +S2 - GI/Abdominal Exam GI & Abdominal Exam: Normal Bowel Sounds, Soft. absent: Distended, Firm, Guarding, Rebound, Rigid, Tenderness Additional comments: RLQ w/ostomy, pink, patent - Extremities Exam Extremities exam: Positive for: normal inspection. Negative for: pedal edema - Neurological Exam Neurological exam: Alert, CN II-XII Intact, Oriented x3 - Psychiatric Exam Psychiatric exam: Normal Affect, Normal Mood - Skin Skin Exam: Dry, Intact, Normal Color, Warm Results - Vital Signs Recent Vital Signs: Last Vital Signs Temp 98.4 F 04/06/17 07:30 Pulse 84 04/06/17 07:30 Resp 18 04/06/17 07:30 BP 116/69 08/29/17 07:30 Pulse Ox 93 L 04/06/17 07:30 - Labs Result Diagrams: 04/06/17 08:15 04/06/17 08:15 Labs: Laboratory Results - last 24 hr 04/06/17 04/06/17 04/06/17 08:15 08:15 08:15 WBC 11.0 D RBC 4.83 Hgb 15.4 Hct 45.2 MCV 93.6 MCH 31.9 MCHC 34.1 RDW 13.3 Plt Count 159 MPV 11.8 H Gran % 67.3 Lymph % (Auto) 21.6 L [place] % (Auto) 9.8 H Eos % (Auto) 1.2 L Baso % (Auto) 0.1 Gran # 7.44 H Lymph # 2.4 [place] # 1.1 H Eos # 0.1 Baso # 0.01 PT 11.5 INR 1.06 APTT 28.1 Sodium 142 Potassium 3.7 Chloride 103 Carbon Dioxide 24 Anion Gap 19 BUN 36 H Creatinine 1.7 H Est GFR ( Amer) 35 Est GFR (Non-Af Amer) 29 Random Glucose 154 H Calcium 9.4 Total Bilirubin 1.8 H AST 46 H ALT 67 H Alkaline Phosphatase 127 Total Protein 7.5 Albumin 4.3 Globulin 3.1 Albumin/Globulin Ratio 1.4 Assessment & Plan - Assessment and Plan (Free Text) Assessment: 86F w/PMH sig for colon CA s/p colectomy w/colostomy creation admitted for colostomy reversal, will be admitted post op for monitoring, currently doing well prior to surgery Plan: Colon CA s/p Colectomy & colostomy Plan for OR for colostomy reversal Recent PET scan neg for distant mets Will FU after surgery Further mgmt as per surgery CAD/CHF Will continue home Lipitor, Lasix when cleared for PO intake Daily wts I/O's Afib Holding Eliquis for surgery and post op until cleared by surgery Monitor COPD Xopenex Brovana Chest PT IS O2 PRN HLD Lipitor when cleared by surgery for PO intake DM ISS Accuchecks Reglan IV for diabetic gastroparesis Will start Diabetic diet when cleared by surgery Hypothyroidism Will continue home Synthroid when cleared for PO intake GI/DVT ppx Protonix IV SCDs TEDs Dispo Will be admitted to surgery VS as per protocol Activity as per surgery Heart healthy diabetic diet when cleared by surgery DW attending Laine, PGY-1 - Date & Time Date: 04/06/17 Time: 09:16 <Amilcar Reyes - Last Filed: 04/28/17 22:16> Results - Vital Signs Recent Vital Signs: Last Vital Signs Temp 97.8 F 04/09/17 12:00 Pulse 72 04/09/17 12:00 Resp 18 04/09/17 12:00 BP 126/91 H 04/09/17 12:00 Pulse Ox 98 04/09/17 06:00 - Labs Result Diagrams: 04/09/17 07:20 04/09/17 07:20 Attending/Attestation - Attestation I have personally seen and examined this patient.: Yes I have fully participated in the care of the patient.: Yes I have reviewed all pertinent clinical information: Yes
[2017-04-06] MEDS ORDERED: Bupivacaine 0.25% Inj(30mL) ONE (10:40)
[2017-04-06] MEDS ORDERED: Esmolol 100 mg/10ml Inj IV ONE (11:36)
[2017-04-06] MEDS ORDERED: Neostigmine Methylsulfate 3mg/3ml Syringe IV ONE (11:54)
[2017-04-06] MEDS ORDERED: HYDROmorphone 1 mg/ml ISec IVP PRN (12:25)
[2017-04-06] MEDS ORDERED: cefOXitin Sodium 1 GM in Sodium Chloride 0.9% 100 ML IV SCH (12:30)
[2017-04-06] MEDS ORDERED: Labetalol 5 mg/ml Inj 20ML IVP ONE (12:31)
[2017-04-06] MEDS ORDERED: ALBUTEROL INH PRN (12:39)
[2017-04-06] MEDS ORDERED: IPRATROPIUM INH PRN (12:39)
--- NOTE | 2017-04-06 12:39 | PCM.SURG1 ---
Surgeon's Initial Post Op Note - Surgeon's Notes Surgeon: Dr. Centeno Area Counselor: Dr. Zuleta PGY3, Student Doctor Cathleen Type of Anesthesia: General Endo Pre-Operative Diagnosis: colon CA s/p resection, colostomy Operative Findings: see operative report Post-Operative Diagnosis: same Operation Performed: expolartory laparotomy, extensive lysis of intra-abdominal and pelvic adhesions, reversal of colostomy w/ resection of colon segment and side to side colonic anastomosis. Insertion of On-Q pump Specimen/Specimens Removed: colon segment Estimated Blood Loss: EBL {In ML}: 75 Blood Products Given: N/A Drains Used: Schuyler Post-Op Condition: Good Date of Surgery/Procedure: 04/06/17 Time of Surgery/Procedure: 12:38
[2017-04-06] MEDS ORDERED: Sodium Chloride 0.9% 1,000 ML IV STA (13:30)
[2017-04-06] MEDS ORDERED: metroNIDAZOLE IV 500 mg/100 ml 500 MG/100 ML BAG IVPB SCH (14:00)
[2017-04-06] MEDS ORDERED: Albuterol-Ipratrop 3 mg / 0.5 (3 ml) UD IH SCH (14:00)
[2017-04-06] MEDS ORDERED: Magnesium Oxide 400 mg Tab UD PO SCH (14:00)
[2017-04-06] MEDS ORDERED: Levalbuterol 0.63 MG/3 ML Inhal Soln UD IH PRN (15:16)
[2017-04-06] MEDS: Insulin Reg-LOW-Coverage SC SCH ×2 (17:18→21:50)
[2017-04-06] MEDS: metroNIDAZOLE IV 500 mg/100 ml 500 MG/100 ML BAG IVPB SCH (17:55)
[2017-04-06] MEDS: Lactated Ringer's 1,000 ML IV SCH (18:43)
[2017-04-06] MEDS: cefOXitin Sodium 1 GM in Sodium Chloride 0.9% 100 ML IV SCH (18:44)
[2017-04-06] MEDS ORDERED: Pneumococcal 23-Valent Vaccine IM ONE (20:06)
[2017-04-07] MEDS: Lactated Ringer's 1,000 ML IV SCH (00:09)
[2017-04-07] MEDS: metroNIDAZOLE IV 500 mg/100 ml 500 MG/100 ML BAG IVPB SCH ×2 (00:56→17:15)
[2017-04-07] MEDS: cefOXitin Sodium 1 GM in Sodium Chloride 0.9% 100 ML IV SCH ×2 (02:11→18:44)
--- NOTE | 2017-04-07 05:13 | OP ---
PROCEDURE DATE: 04/06/2017 PREOPERATIVE DIAGNOSIS: Colostomy status post diverticulosis. POSTOPERATIVE DIAGNOSES: Colostomy status post diverticulosis and dense intraabdominal and pelvic adhesions. PROCEDURE PERFORMED: 1. Exploratory laparotomy. 2. Partial right colectomy with anastomosis. 3. Colostomy closure. 4. Extensive lysis of intraabdominal and pelvic adhesions. SURGEON: James Centeno MD. ASSISTANT COMMUNITY MANAGER: Dr. Zuleta. ANESTHESIOLOGIST: Dr. Lopez. TYPE OF ANESTHESIA: General endotracheal anesthesia. ESTIMATED BLOOD LOSS: 50 mL. SPECIMEN: Portion of the right colon. INDICATIONS: The patient is an 86-year-old female with history of previous colonic surgery for perforated diverticulitis. The patient postoperatively developed not a perforation and was operated second time subsequently. The patient now comes back for colostomy closure. DESCRIPTION OF PROCEDURE: The patient was brought to the operating room, placed on the operating table in supine position. The patient was connected to the EKG, blood pressure, and pulse oximetry monitor. The patient then underwent general endotracheal anesthesia and was prepped and draped in usual sterile fashion. First, standard time-out procedure took place and everybody in the room agreed to the patient's identity, diagnosis, and procedure to be performed. Using #15 blade incision was made in an elliptical fashion surrounding the right side colostomy. This was carefully taken down through the subcutaneous fat down to the fascia, and the colon was detached from the surrounding tissue. There is some adhesion of the small bowel to the colon which were also carefully taken down. Careful explorations around this area revealed no evidence of distal portion of the colon. At this point, midline incisions made starting from the midepigastric area down to just below the umbilicus and careful dissection was done underneath it. There was tedious dissection, small bowel adhesions in between themselves as well as to the anterior abdominal wall extending well over an hour and fifteen minutes. After this tedious dissection, we were able to separate this small bowel and found the distal sigmoid colon which was needed for anastomosis. The right colon was carefully evaluated and there was area of a large diverticulum which was carefully from the proximal portion of the right colon and that portion was resected and sent as a specimen. Now, the proximal portion of the right colon was mobilized and brought towards the distal sigmoid colon and [id number] anastomosis was created between the two using MIRA and TA stapler. Once this was completed, the stitch was placed in the crotch of the anastomosis and the anastomosis was placed down to the floor of the pelvis. Due to the adhesion surrounding the area there was no need for closure of the mesentery. Now, the area was copiously irrigated and all the bleeding points were cauterized. The Schuyler drain was placed in the pelvis and surrounding the area of anastomosis and sutured to the skin. On-Q pump catheters were placed bilaterally along the rectus muscle for postop anesthesia. The abdominal cavity was now completely closed using #1 PDS in a running fashion for the fascia, 3-0 Vicryl subcutaneous tissue and 4-0 Monocryl for the skin. A sterile Dermabond dressing was placed on-Q catheter insertion site. Sterile dressing were applied to the wounds. A small about 3 inches piece of half-inch iodoform gauze was placed into the colostomy wound. The patient tolerated the procedure well and there were no complications. The patient was awakened and transferred to the recovery room for further observation. James Centeno MD
[2017-04-07] MEDS ORDERED: Dextrose 5%/0.45% NS 1,000 ML IV SCH (07:15)
[2017-04-07] MEDS ORDERED: Levothyroxine 100 MCG TAB PO SCH (07:30)
--- NOTE | 2017-04-07 07:32 | CP.PCM.PN ---
Subjective - Date & Time of Evaluation Date of Evaluation: 04/07/17 Time of Evaluation: 07:32 - Subjective Subjective: General Surgery progress note for Dr. Centeno PT S&E at bedside. ISS, OOBTC, AE hose, Fluid changes today. Patient denies F/C , N/V, flatus, BM Patient tolerated pain well. 5cc/hr OnQ ball setting. NGT taken out at bedside Schuyler 80cc sanginous fluid overnight Henning 390cc urine overnight NGT 50cc overnight Objective - Vital Signs/Intake and Output Vital Signs (last 24 hours): Temp Pulse Resp BP Pulse Ox 98.3 F 83 18 103/51 L 97 04/07/17 06:00 04/07/17 06:00 04/07/17 06:00 04/07/17 06:00 04/07/17 06:00 Intake and Output: 04/07/17 04/07/17 06:59 18:59 Intake Total 1400 Output Total 330 200 Balance 1070 -200 - Medications Medications: Current Medications Acetaminophen (Tylenol 325mg Tab) 650 mg NG Q6 PRN PRN Reason: Fever >100.4 F Atorvastatin Calcium (Lipitor) 40 mg PO DIN [facility] Last Admin: 04/06/17 17:19 Dose: Not Given Ergocalciferol (Drisdol 50,000 Intl Units Cap) 1 cap PO 2XW GEOVANI Furosemide (Lasix) 40 mg PO BID [facility] Last Admin: 04/06/17 17:19 Dose: Not Given Heparin Sodium (Porcine) (Heparin) 5,000 units SC Q12 GEOVANI PRN Reason: Protocol Hydromorphone HCl (Dilaudid) 0.5 mg IVP Q3 PRN PRN Reason: Pain, moderate (4-7) Hydromorphone HCl (Dilaudid) 1 mg IVP Q4 PRN PRN Reason: Pain, severe (8-10) Cefoxitin Sodium 1 gm/ Sodium (Chloride) 100 mls @ 100 mls/hr IV 0145,1745 GEOVANI PRN Reason: Protocol Stop: 04/08/17 02:44 Last Admin: 04/07/17 02:11 Dose: 100 mls/hr Metronidazole (Flagyl) 500 mg in 100 mls @ 100 mls/hr IVPB 0145,1745 GEOVANI PRN Reason: Protocol Stop: 04/08/17 02:44 Last Admin: 04/07/17 00:56 Dose: 100 mls/hr Lactated Ringer's (Lactated Ringer's) 1,000 mls @ 500 mls/hr IV .Q2H [facility] Last Admin: 04/06/17 17:18 Dose: Not Given Potassium Chloride/Dextrose/Sod Cl (Potassium Chl 20 Meq In D5-1/2ns) 1,000 mls @ 100 mls/hr IV .Q10H [facility] Insulin Human Regular (Humulin R Low) 0 units SC ACHS GEOVANI PRN Reason: Protocol Last Admin: 04/06/17 21:50 Dose: Not Given Levalbuterol HCl (Xopenex) 0.63 mg IH L7VUROD PRN PRN Reason: Shortness of Breath Levothyroxine Sodium (Synthroid) 100 mcg PO ACB [facility] Magnesium Oxide (Mag-Ox) 400 mg PO TID [facility] Ondansetron HCl (Zofran Inj) 4 mg IVP Q4H PRN PRN Reason: Nausea/Vomiting Pantoprazole Sodium (Protonix Inj) 40 mg IVP DAILY [facility] Sotalol HCl (Betapace) 80 mg PO QAM [facility] - Labs Labs: 04/06/17 08:15 04/06/17 08:15 PT 11.5 Seconds (9.9-11.8) 04/06/17 08:15 INR 1.06 (0.93-1.08) 04/06/17 08:15 APTT 28.1 Seconds (23.7-30.8) 04/06/17 08:15 - Constitutional Appears: Non-toxic - Head Exam Head Exam: NORMAL INSPECTION - Eye Exam Eye Exam: EOMI, Normal appearance - ENT Exam ENT Exam: Mucous Membranes Moist - Neck Exam Neck Exam: Full ROM - Respiratory Exam Respiratory Exam: Clear to Ausculation Bilateral. absent: Accessory Muscle Use , Respiratory Distress - Cardiovascular Exam Cardiovascular Exam: REGULAR RHYTHM - GI/Abdominal Exam GI & Abdominal Exam: Soft. absent: Tenderness - Extremities Exam Extremities Exam: Full ROM, Normal Inspection. absent: Pedal Edema - Neurological Exam Neurological Exam: Alert, Awake, Normal Gait - Psychiatric Exam Psychiatric exam: Normal Affect, Normal Mood - Skin Skin Exam: Dry, Normal Color, Warm Additional comments: incision site, serosanguinous at midline, no leakage, drainage hematoma. other sites c/d/i Assessment and Plan - Assessment and Plan (Free Text) Assessment: 86F presents for colostomy reversal s/p colostomy reversal POD#1 Plan: Diet: NPO, with sips and ice chips ISS OOBTC AE hose Fluid changed to D5W 1/2 NS 100cc/hr 20 K meq c/w current pain management c/w medical management discussed with Dr. Taryn Tyler, DO PGY1
--- NOTE | 2017-04-07 07:46 | CON ---
DATE: 04/06/2017 CONSULTATION: The patient is an 86-year-old [place] female admitted by the surgical service of Dr. Centeno today for colostomy reversal. The patient is seen and examined in the same day surgery and holding area. The patient's [id number] and grandson at bedside. The patient's preadmission testing was reviewed. The patient was evaluated by cardiology Dr. Macias and was cleared for reversal of colostomy. For further details of the patient's past medical history, past surgical history, CODE STATUS, allergies, medications, social history, menstrual history and past history; please refer to the resident's consultation by from 04/06/2017. The patient is seen lying in the stretcher in the holding area of the same day surgery. PHYSICAL EXAMINATION: VITAL SIGNS: Blood pressure 138/84, telemetry shows atrial fibrillation. The patient is afebrile, heart rate 83-79. O2 sat is 95-98%. Head examination normocephalic, atraumatic. HEENT: Examination shows pinkish conjunctivae. Anicteric sclerae. No oropharyngeal lesion. NECK: No neck rigidity. CHEST: Examination kyphosis. LUNGS: Examination shows no rales, crackles or wheezing. CARDIOVASCULAR: Shows S1, S2, irregular rhythm. Positive systolic murmur, right second intercostal space left sternal border. ABDOMEN: Soft. Positive bowel sound. Positive right para-midline colostomy noted. Positive midline surgical scar of the abdomen noted. GENITALIA: Female. RECTAL: Examination is deferred. EXTREMITIES: Shows positive right knee surgical scar. No pitting edema. No calf tenderness. No Kishor's signs noted. MUSCULOSKELETAL: Examination as per the body mass index. Appropriate for stated age and height. NEUROLOGIC: The patient is alert, awake, oriented x3. Cranial nerves II-XII intact. Gait examination is not tested. Preadmission testing was reviewed. The significant abnormalities with elevated blood glucose and elevated BUN, creatinine of creatinine 1.6. EKG shows atrial fibrillation controlled ventricular rate. Chest x-ray Was negative for any pneumonia. IMPRESSION: 1. History of colon carcinoma. 2. Status history of gastrointestinal bleeding. 3. Anemia. 4. Status post colostomy. 5. History of colon carcinoma. 6. History of nephrectomy. 7. Acute kidney injury with underlying chronic kidney disease stage III. 8. Type 1 insulin requiring diabetes mellitus. 9. History of nicotine addiction and dependence. 10. Chronic obstructive pulmonary disease. 11. Coronary artery disease. 12. Atrial fibrillation, Eliquis dependent. 13. Single-vessel coronary artery disease. 14. Diastolic right-sided congestive heart failure. 15. Pulmonary arterial hypertension. 16. Anemia. 17. Iron deficiency anemia. 18. Vitamin B12 deficiency. 19. History of nephrectomy. 20. Status post colostomy. 21. History of colon carcinoma. 22. Status post right knee surgery. 23. History of hypothyroidism. 24. History of dyslipidemia. 25. History of anemia. 26. History of gait dysfunction. 27. History of hypothyroidism. PLAN: At this time, the patient will be monitored postoperatively with surgical service. The patient will be started on GI DVT prophylaxis. The patient will be resumed on nebulizer medication. The patient will be put on sliding scale coverage. The patient will be resumed on most of the medications which can be switched over to IV otherwise the patient other medications. We will await when the patient is off n.p.o. The patient's Synthroid will be given IV Synthroid. The patient will be started on proton pump inhibitor and the DVT GI prophylaxis. The patient will be closely monitored with the surgical service postoperatively, the patient's repeat lab work will be ordered. The patient will be monitored for fever curves. The patient will also be ordered physical therapy, occupational therapy, out of bed, ambulation therapy. Upon postop recovery the patient will also be considered and referred for TCU evaluation. The patient's condition, diagnosis, management, treatment plan surgical intervention was discussed and explained to the patient and the patient's [id number] at length and all questions concerned answered. The patient has been explained that she is at least a moderate risk for surgical intervention which she acknowledged understand. Dictated and electronically signed, not read. Amilcra Reyes MD
[2017-04-07] MEDS ORDERED: Acetylcysteine 20% Inhal Soln (4ml) IH SCH (08:00)
[2017-04-07 08:21] LABS: ALB/GLOB RATIO 1.1 (1.1-1.8); BILIRUBIN,TOTAL 1.4 mg/dL (0.2-1.3); CALCIUM 8.1 mg/dL (8.4-10.5); TOTAL PROTEIN 5.6 g/dL (5.8-8.3)
[2017-04-07] MEDS: Potassium Ch 20mEq in D5-1/2NS 1,000 ML IV SCH ×2 (08:29→21:07)
[2017-04-07 08:34] LABS: BASO # 0.01 K/mm3 (0.0-2.0); BASO % 0.1 % (0.0-3.0); EOS % 0.3 % (1.5-5.0); GRAN # 10.28 (1.4-6.5); GRAN % 80.1 % (50.0-68.0); HEMATOCRIT 41.4 % (36.0-48.0); LYMPH # 1.3 (1.2-3.4); MEAN CELL VOLUME 94.7 fl (80.0-105.0); MEAN CORPUSCULAR HEMOGLOBIN 31.8 pg (25.0-35.0); MEAN CORPUSCULAR HGB CONC 33.6 g/dl (31.0-37.0); MONO # 1.2 (0.1-0.6); MONO % 9.5 % (1.0-6.0); RED CELL DISTRIBUTION WIDTH 13.4 % (11.5-14.5); WHITE BLOOD COUNT 12.8 10^3/ul (4.5-11.0)
[2017-04-07] MEDS: Insulin Reg-LOW-Coverage SC SCH ×4 (08:56→21:45)
--- NOTE | 2017-04-07 08:59 | RAD ---
HISTORY: abnormal breath sounds COMPARISON: Chest radiographs 03/19/2017 FINDINGS: LUNGS: Borderline atelectasis or infiltrates in the left base with somewhat less penetrated than previously captured. Clinically correlate here. PLEURA: No significant pleural effusion identified, no pneumothorax apparent. CARDIOVASCULAR: Cardiomegaly is again identified, without pulmonary vascular derangement. OSSEOUS STRUCTURES: No significant abnormalities. VISUALIZED UPPER ABDOMEN: Normal. OTHER FINDINGS: None. IMPRESSION: Borderline left basilar atelectasis or infiltrate. No additional interval findings.
[2017-04-07] MEDS: Levothyroxine 100 mcg (0.1 mg) Inj IVP SCH (09:13)
[2017-04-07] MEDS: Ergocalciferol 50,000 Intl Units Cap PO SCH (09:14)
[2017-04-07] MEDS ORDERED: HYDROmorphone 0.5 mg/0.5 ml ISec IVP PRN (10:18)
--- NOTE | 2017-04-07 11:16 | CP.PCM.PN ---
<Adelina Houston - Last Filed: 04/07/17 11:13> Subjective - Date & Time of Evaluation Date of Evaluation: 04/07/17 Time of Evaluation: 07:00 - Subjective Subjective: IM Progress Note for Dr. Reyes Pt was seen and examined at bedside. No acute complaints at this time. Pt has a leary in with neo urine voiding and is NPO. Midline abdominal incision bandaged and CDI. FAHAD drain noted 80ml overnight. No acute or adverse events overnight as per nursing staff. Pt denied fever, chills, sob, chest pains, abdominal pains, n/v/d/c. Objective - Vital Signs/Intake and Output Vital Signs (last 24 hours): Temp Pulse Resp BP Pulse Ox 98.3 F 83 18 129/74 97 04/07/17 06:00 04/07/17 10:00 04/07/17 06:00 04/07/17 09:10 04/07/17 06:00 Intake and Output: 04/07/17 04/07/17 06:59 18:59 Intake Total 1400 Output Total 330 200 Balance 1070 -200 - Medications Medications: Current Medications Acetaminophen (Tylenol 325mg Tab) 650 mg NG Q6 PRN PRN Reason: Fever >100.4 F Acetylcysteine (Acetylcysteine 20%) 4 ml IH [id number] [facility] Atorvastatin Calcium (Lipitor) 40 mg PO DIN [facility] Last Admin: 04/06/17 17:19 Dose: Not Given Ergocalciferol (Drisdol 50,000 Intl Units Cap) 1 cap PO 2XW [facility] Last Admin: 04/07/17 09:14 Dose: Not Given Heparin Sodium (Porcine) (Heparin) 5,000 units SC Q12 [facility] PRN Reason: Protocol Last Admin: 04/07/17 09:10 Dose: 5,000 units Hydromorphone HCl (Dilaudid) 0.5 mg IVP Q3 PRN PRN Reason: Pain, severe (8-10) Cefoxitin Sodium 1 gm/ Sodium (Chloride) 100 mls @ 100 mls/hr IV 0145,1745 [facility] PRN Reason: Protocol Stop: 04/08/17 02:44 Last Admin: 04/07/17 02:11 Dose: 100 mls/hr Metronidazole (Flagyl) 500 mg in 100 mls @ 100 mls/hr IVPB 0145,1745 [facility] PRN Reason: Protocol Stop: 04/08/17 02:44 Last Admin: 04/07/17 00:56 Dose: 100 mls/hr Potassium Chloride/Dextrose/Sod Cl (Potassium Chl 20 Meq In D5-1/2ns) 1,000 mls @ 100 mls/hr IV .Q10H [facility] Last Admin: 04/07/17 08:29 Dose: 100 mls/hr Insulin Human Regular (Humulin R Low) 0 units SC ACHS [facility] PRN Reason: Protocol Last Admin: 04/07/17 08:56 Dose: Not Given Levalbuterol HCl (Xopenex) 0.63 mg IH [id number] [facility] Levothyroxine Sodium (Synthroid) 25 mcg IVP DAILY [facility] Last Admin: 04/07/17 09:13 Dose: 25 mcg Magnesium Oxide (Mag-Ox) 400 mg PO TID [facility] Ondansetron HCl (Zofran Inj) 4 mg IVP Q4H [facility] Last Admin: 04/07/17 09:11 Dose: 4 mg Pantoprazole Sodium (Protonix Inj) 40 mg IVP DAILY [facility] Last Admin: 04/07/17 09:11 Dose: 40 mg Sotalol HCl (Betapace) 80 mg PO QAM [facility] Last Admin: 04/07/17 09:10 Dose: Not Given Tramadol HCl (Ultram) 50 mg PO Q6 PRN PRN Reason: Pain, moderate (4-7) - Labs Labs: 04/07/17 05:00 04/07/17 08:00 PT 11.5 Seconds (9.9-11.8) 04/06/17 08:15 INR 1.06 (0.93-1.08) 04/06/17 08:15 APTT 28.1 Seconds (23.7-30.8) 04/06/17 08:15 - Constitutional Appears: No Acute Distress - Head Exam Head Exam: ATRAUMATIC, NORMAL INSPECTION, NORMOCEPHALIC - Eye Exam Eye Exam: EOMI, Normal appearance, PERRL Pupil Exam: NORMAL ACCOMODATION, PERRL - ENT Exam ENT Exam: Mucous Membranes Moist - Neck Exam Neck Exam: Full ROM, Normal Inspection. absent: Lymphadenopathy - Respiratory Exam Respiratory Exam: Clear to Ausculation Bilateral, NORMAL BREATHING PATTERN - Cardiovascular Exam Cardiovascular Exam: REGULAR RHYTHM, +S1, +S2. absent: Murmur - GI/Abdominal Exam GI & Abdominal Exam: Soft, Normal Bowel Sounds. absent: Tenderness Additional comments: midline incision bandaged cdi, fahad drain noted - Extremities Exam Extremities Exam: Full ROM, Normal Capillary Refill, Normal Inspection. absent : Joint Swelling, Pedal Edema - Neurological Exam Neurological Exam: Alert, Awake, CN II-XII Intact, Oriented x3 - Psychiatric Exam Psychiatric exam: Normal Affect, Normal Mood - Skin Skin Exam: Dry, Intact, Normal Color, Warm Assessment and Plan - Assessment and Plan (Free Text) Assessment: 86F with PMHx of colon CA s/p colectomy w/colostomy [place] [facility] [place]OD[place] Shoemaker Colon CA s/p Colectomy & colostomy s/p colostomy reversal POD#1, Surgery, Dr. Shoemaker NPO - advanced to CLD tomorrow, IVF, analgesia, leary in place - will be removed later today, NGT d/c Further mgmt as per surgery CAD/CHF continue Home meds: Lipitor, Lasix when cleared for PO intake Strict I&Os Monitor for SOB Afib Holding Eliquis for surgery and post op until cleared by surgery Continue to monitor COPD Xopenex, Brovana, 02 prn Chest PT, Incentive spirometry HLD Lipitor when cleared by surgery for PO intake DM ISS Accuchecks Reglan IV for diabetic gastroparesis Advance to consistence card diet as tolerated, NPO as of now Hypothyroidism Will continue home Synthroid when cleared for PO intake GI/DVT ppx Protonix IV SCDs Seen reviewed and discussed with attending <Amilcar Reyes - Last Filed: 04/28/17 22:16> Objective - Vital Signs/Intake and Output Vital Signs (last 24 hours): Temp Pulse Resp BP Pulse Ox 97.8 F 72 18 126/91 H 98 04/09/17 12:00 04/09/17 12:00 04/09/17 12:00 04/09/17 12:00 04/09/17 06:00 - Labs Labs: 04/09/17 07:20 04/09/17 07:20 PT 11.5 Seconds (9.9-11.8) 04/06/17 08:15 INR 1.06 (0.93-1.08) 04/06/17 08:15 APTT 28.1 Seconds (23.7-30.8) 04/06/17 08:15 Attending/Attestation - Attestation I have personally seen and examined this patient.: Yes I have fully participated in the care of the patient.: Yes I have reviewed all pertinent clinical information, including history, physical exam and plan: Yes
[2017-04-07] MEDS: Acetylcysteine 20% Inhal Soln (4ml) IH SCH (13:49)
[2017-04-07] MEDS: Levalbuterol 0.63 MG/3 ML Inhal Soln UD IH SCH ×2 (13:49→19:44)
--- NOTE | 2017-04-07 22:32 | PN ---
ADDENDUM DATE: For further details of the patient's today's progress note, please refer to the progress note by , ophthalmic medical assistant from 04/07/2017. The patient was examined in room 272, bed 2. The patient is seen lying in the bed. The patient's vital signs, diagnostic data, lab data, and imaging, and all of the reports reviewed and explained to the patient. IMPRESSION AND PLAN: 1. Status post exploratory laparotomy and partial right colectomy with anastomosis and colostomy closure and reversal. 2. Extensive lysis of intraabdominal and pelvic adhesion. 3. History of colon carcinoma and colostomy. 4. History of atrial fibrillation. 5. Hypertension. 6. History of nicotine dependence and chronic obstructive pulmonary disease. 7. Coronary artery disease. 8. Diastolic right-sided congestive heart failure and pulmonary arterial hypertension. 9. Leukocytosis with granulocytosis. 10. Insulin-requiring diabetes mellitus. 11. Mild hyperbilirubinemia. 12. Acute kidney injury with underlying chronic kidney disease stage III. 13. Cardiomegaly 14. Questionable left lower lobe infiltrate versus atelectasis. 15. Possible postop left lower lobe infiltrate versus atelectasis. 16. Dyslipidemia. 17. Status post nasogastric tube placement and removal. 18. Postoperative deconditioning. 19. Postop surgical pain. 20. Hypovitaminosis D. 21. Hypomagnesemia. 22. Hypothyroidism. 23. History of chronic obstructive pulmonary disease. 1. History of colon carcinoma. 2. Status history of gastrointestinal bleeding. 3. Anemia. 4. Status post colostomy. 5. History of colon carcinoma. 6. History of nephrectomy. 7. Acute kidney injury with underlying chronic kidney disease stage III. 8. Type 1 insulin requiring diabetes mellitus. 9. History of nicotine addiction and dependence. 10. Chronic obstructive pulmonary disease. 11. Coronary artery disease. 12. Atrial fibrillation, Eliquis dependent. 13. Single-vessel coronary artery disease. 14. Diastolic right-sided congestive heart failure. 15. Pulmonary arterial hypertension. 16. Anemia. 17. Iron deficiency anemia. 18. Vitamin B12 deficiency. 19. History of nephrectomy. 20. Status post colostomy. 21. History of colon carcinoma. 22. Status post right knee surgery. 23. History of hypothyroidism. 24. History of dyslipidemia. 25. History of anemia. 26. History of gait dysfunction. 27. History of hypothyroidism. 1. Status post exploratory laparotomy and partial right colectomy with anastomosis and colostomy closure and reversal. 2. Extensive lysis of intraabdominal and pelvic adhesion. 3. History of colon carcinoma and colostomy. 4. History of atrial fibrillation. 5. Hypertension. 6. History of nicotine dependence and chronic obstructive pulmonary disease. 7. Coronary artery disease. 8. Diastolic right-sided congestive heart failure and pulmonary arterial hypertension. 9. Leukocytosis with granulocytosis. 10. Insulin-requiring diabetes mellitus. 11. Mild hyperbilirubinemia. 12. Acute kidney injury with underlying chronic kidney disease stage III. 13. Cardiomegaly 14. Questionable left lower lobe infiltrate versus atelectasis. 15. Possible postop left lower lobe infiltrate versus atelectasis. 16. Dyslipidemia. 17. Status post nasogastric tube placement and removal. 18. Postoperative deconditioning. 19. Postop surgical pain. 20. Hypovitaminosis D. 21. Hypomagnesemia. 22. Hypothyroidism. 23. History of chronic obstructive pulmonary disease. 1. History of colon carcinoma. 2. Status history of gastrointestinal bleeding. 3. Anemia. 4. Status post colostomy. 5. History of colon carcinoma. 6. History of nephrectomy. 7. Acute kidney injury with underlying chronic kidney disease stage III. 8. Type 1 insulin requiring diabetes mellitus. 9. History of nicotine addiction and dependence. 10. Chronic obstructive pulmonary disease. 11. Coronary artery disease. 12. Atrial fibrillation, Eliquis dependent. 13. Single-vessel coronary artery disease. 14. Diastolic right-sided congestive heart failure. 15. Pulmonary arterial hypertension. 16. Anemia. 17. Iron deficiency anemia. 18. Vitamin B12 deficiency. 19. History of nephrectomy. 20. Status post colostomy. 21. History of colon carcinoma. 22. Status post right knee surgery. 23. History of hypothyroidism. 24. History of dyslipidemia. 25. History of anemia. 26. History of gait dysfunction. 27. History of hypothyroidism. PLAN: At this time, the patient has been admitted by Surgical Service. The patient has been ordered serial labs. The patient's case is referred to TCU correct. The patient is on, 1. Sotalol 80 mg daily. 2. Dilaudid 0.5 mg IV q. 3 hours p.r.n. 3. Drisdol 50,000 twice a week. 4. Flagyl 500 IV q. 8 hours. 5. Heparin 5000 subcutaneous q. 12 hours. 6. Regular insulin, low-dose sliding scale coverage. 7. Lipitor 40 mg daily. 8. Magnesium oxide 400 3 times a day. 9. Mefoxin 1 g q.12. 10. IV fluid D5 half normal saline at 100 cc an hour with 20 mEq KCl. 11. Protonix 40 mg IV daily. 12. Synthroid changed to 25 mcg IV daily. 13. Tylenol q.6 p.r.n. 14. Tramadol (Ultram) 50 mg q.6 p.r.n. 15. Xopenex nebulizer 0.63 mg q.6 hours round the clock. 16. Zofran 4 mg IV q.4. 17. The patient's Mucomyst is discontinued because of the pungent order. The patient was seen by the Surgery Service. The patient has been ordered liquid diet for tomorrow. The patient is to be kept n.p.o. today. The patient's NG tube is removed. The patient has been ordered out of bed to chair. The patient is on NIKOLAY stockings, SCDs, physical therapy, and occupational therapy. Out of bed ambulation ordered.. For further details of today's progress note, please refer to the progress note by the ophthalmic medical assistant. Dictated and electronically signed, not read. Amilcar Reyes MD [id number]
[2017-04-08] MEDS: Levalbuterol 0.63 MG/3 ML Inhal Soln UD IH SCH ×5 (00:08→19:31)
[2017-04-08] MEDS: cefOXitin Sodium 1 GM in Sodium Chloride 0.9% 100 ML IV SCH (01:06)
[2017-04-08] MEDS: metroNIDAZOLE IV 500 mg/100 ml 500 MG/100 ML BAG IVPB SCH (02:30)
[2017-04-08 06:21] LABS: BASO # 0.01 K/mm3 (0.0-2.0); BASO % 0.1 % (0.0-3.0); EOS # 0.1 (0.0-0.7); GRAN # 8.07 (1.4-6.5); GRAN % 76.2 % (50.0-68.0); HEMATOCRIT 37.5 % (36.0-48.0); LYMPH # 1.2 (1.2-3.4); LYMPH % 11.7 % (22.0-35.0); MEAN CELL VOLUME 95.7 fl (80.0-105.0); MEAN CORPUSCULAR HEMOGLOBIN 30.9 pg (25.0-35.0); MEAN CORPUSCULAR HGB CONC 32.3 g/dl (31.0-37.0); MEAN PLATELET VOLUME 11.5 fl (7.0-11.0); MONO # 1.2 (0.1-0.6); RED CELL DISTRIBUTION WIDTH 13.7 % (11.5-14.5); WHITE BLOOD COUNT 10.6 10^3/ul (4.5-11.0)
[2017-04-08 06:43] LABS: BILIRUBIN,DIRECT 0.3 mg/dL (0.0-0.4); POTASSIUM 4.3 mmol/L (3.6-5.0); TOTAL PROTEIN 5.5 g/dL (5.8-8.3)
[2017-04-08] MEDS: Insulin Reg-LOW-Coverage SC SCH ×3 (08:32→17:27)
[2017-04-08] MEDS: Levothyroxine 100 mcg (0.1 mg) Inj IVP SCH (09:01)
[2017-04-08] MEDS: Ergocalciferol 50,000 Intl Units Cap PO SCH (09:02)
[2017-04-08] MEDS: Potassium Ch 20mEq in D5-1/2NS 1,000 ML IV SCH (09:25)
--- NOTE | 2017-04-08 09:29 | CP.PCM.PN ---
Subjective - Date & Time of Evaluation Date of Evaluation: 04/08/17 Time of Evaluation: 09:22 - Subjective Subjective: General Surgery note for Dr. Centeno PT S&E at bedside. Patient had clears for breakfast. will continue to check for tolerance. Patient is currently tolerating pain. Patient denies Dizziness, F/C, N/V. patient denies abdominal pain, flatus, BM. Henning was removed today. Patient will be monitored for voiding. Objective - Vital Signs/Intake and Output Vital Signs (last 24 hours): Temp Pulse Resp BP Pulse Ox 97.6 F 81 20 146/81 98 04/08/17 06:00 04/08/17 06:00 04/08/17 06:00 04/08/17 06:00 04/08/17 06:00 Intake and Output: 04/08/17 04/08/17 06:59 18:59 Intake Total 1200 Output Total 840 Balance 360 - Medications Medications: Current Medications Acetaminophen (Tylenol 325mg Tab) 650 mg NG Q6 PRN PRN Reason: Fever >100.4 F Atorvastatin Calcium (Lipitor) 40 mg PO DIN [facility] Last Admin: 04/07/17 17:16 Dose: Not Given Ergocalciferol (Drisdol 50,000 Intl Units Cap) 1 cap PO 2XW [facility] Last Admin: 04/07/17 09:14 Dose: Not Given Heparin Sodium (Porcine) (Heparin) 5,000 units SC Q12 [facility] PRN Reason: Protocol Last Admin: 04/07/17 21:07 Dose: 5,000 units Hydromorphone HCl (Dilaudid) 0.5 mg IVP Q3 PRN PRN Reason: Pain, severe (8-10) Potassium Chloride/Dextrose/Sod Cl (Potassium Chl 20 Meq In D5-1/2ns) 1,000 mls @ 100 mls/hr IV .Q10H [facility] Last Admin: 04/07/17 21:07 Dose: 100 mls/hr Insulin Human Regular (Humulin R Low) 0 units SC ACHS [facility] PRN Reason: Protocol Last Admin: 04/08/17 08:32 Dose: 2 units Levalbuterol HCl (Xopenex) 0.63 mg IH [id number] [facility] Last Admin: 04/08/17 08:02 Dose: 0.63 mg Levothyroxine Sodium (Synthroid) 25 mcg IVP DAILY [facility] Last Admin: 04/07/17 09:13 Dose: 25 mcg Magnesium Oxide (Mag-Ox) 400 mg PO TID [facility] Ondansetron HCl (Zofran Inj) 4 mg IVP Q4H [facility] Last Admin: 04/08/17 05:14 Dose: 4 mg Pantoprazole Sodium (Protonix Inj) 40 mg IVP DAILY [facility] Last Admin: 04/07/17 09:11 Dose: 40 mg Sotalol HCl (Betapace) 80 mg PO QAM [facility] Last Admin: 04/07/17 09:10 Dose: Not Given Tramadol HCl (Ultram) 50 mg PO Q6 PRN PRN Reason: Pain, moderate (4-7) - Labs Labs: 04/08/17 05:30 04/08/17 05:30 PT 11.5 Seconds (9.9-11.8) 04/06/17 08:15 INR 1.06 (0.93-1.08) 04/06/17 08:15 APTT 28.1 Seconds (23.7-30.8) 04/06/17 08:15 - Constitutional Appears: Non-toxic - Head Exam Head Exam: NORMAL INSPECTION - Eye Exam Eye Exam: EOMI, Normal appearance Pupil Exam: NORMAL ACCOMODATION - ENT Exam ENT Exam: Mucous Membranes Moist - Neck Exam Neck Exam: Full ROM, Normal Inspection - Respiratory Exam Respiratory Exam: Clear to Ausculation Bilateral, NORMAL BREATHING PATTERN. absent: Accessory Muscle Use, Respiratory Distress - Cardiovascular Exam Cardiovascular Exam: REGULAR RHYTHM. absent: Bradycardia, Tachycardia - GI/Abdominal Exam GI & Abdominal Exam: Soft, Normal Bowel Sounds. absent: Hypoactive Bowel Sounds - Extremities Exam Extremities Exam: Full ROM, Normal Inspection. absent: Joint Swelling, Pedal Edema, Tenderness - Neurological Exam Neurological Exam: Alert, Awake, Normal Gait - Psychiatric Exam Psychiatric exam: Normal Affect, Normal Mood - Skin Skin Exam: Dry, Intact, Normal Color, Warm Additional comments: incision sites c/d/i dressings changed at bedside. serosanginous fluid seen on 4x4 Assessment and Plan - Assessment and Plan (Free Text) Assessment: 86F presents for colostomy reversal s/p colostomy reversal POD#2 Plan: Diet: CLD ISS OOBTC AE hose Fluid changed to D5W 1/2 NS 100cc/hr 20 K meq c/w current pain management c/w medical management discussed with Dr. Taryn Tyler DO PGY1
--- NOTE | 2017-04-08 10:10 | CP.PCM.PN ---
Addendum entered and electronically signed by Trena Jang DO 04/09/17 06:07: Pt did not tolerate CLD- episodes of nausea/emesis, dizziness FU amylase FU lipase FU orthostatic VS Reglan 5mg IV Q6H Monitor Original Note: <Trena Jang - Last Filed: 04/09/17 06:07> Subjective - Date & Time of Evaluation Date of Evaluation: 04/08/17 Time of Evaluation: 09:30 - Subjective Subjective: Internal medicine progress note for Dr. Guicho Jang, PGY-1 Pt S & E at bedside. Pt with one episode of nausea this AM prior to clear liquid diet, Henning catheter removed this AM. Denies emesis, fevers, chills, SOB, CP, ab pain, flatus, BM, ambulation. Objective - Vital Signs/Intake and Output Vital Signs (last 24 hours): Temp Pulse Resp BP Pulse Ox 97.6 F 86 20 146/81 98 04/08/17 06:00 04/08/17 09:03 04/08/17 06:00 04/08/17 09:03 04/08/17 06:00 Intake and Output: 04/08/17 04/08/17 06:59 18:59 Intake Total 1200 Output Total 840 Balance 360 - Medications Medications: Current Medications Acetaminophen (Tylenol 325mg Tab) 650 mg NG Q6 PRN PRN Reason: Fever >100.4 F Atorvastatin Calcium (Lipitor) 40 mg PO DIN [facility] Last Admin: 04/07/17 17:16 Dose: Not Given Ergocalciferol (Drisdol 50,000 Intl Units Cap) 1 cap PO 2XW [facility] Last Admin: 04/08/17 09:02 Dose: 1 cap Heparin Sodium (Porcine) (Heparin) 5,000 units SC Q12 [facility] PRN Reason: Protocol Last Admin: 04/08/17 09:02 Dose: 5,000 units Hydromorphone HCl (Dilaudid) 0.5 mg IVP Q3 PRN PRN Reason: Pain, severe (8-10) Potassium Chloride/Dextrose/Sod Cl (Potassium Chl 20 Meq In D5-1/2ns) 1,000 mls @ 100 mls/hr IV .Q10H [facility] Last Admin: 04/08/17 09:25 Dose: 100 mls/hr Insulin Human Regular (Humulin R Low) 0 units SC ACHS [facility] PRN Reason: Protocol Last Admin: 04/08/17 08:32 Dose: 2 units Levalbuterol HCl (Xopenex) 0.63 mg IH [id number] [facility] Last Admin: 04/08/17 08:02 Dose: 0.63 mg Levothyroxine Sodium (Synthroid) 25 mcg IVP DAILY [facility] Last Admin: 04/08/17 09:01 Dose: 25 mcg Magnesium Oxide (Mag-Ox) 400 mg PO TID [facility] Ondansetron HCl (Zofran Inj) 4 mg IVP Q4H [facility] Last Admin: 04/08/17 09:01 Dose: 4 mg Pantoprazole Sodium (Protonix Inj) 40 mg IVP DAILY [facility] Last Admin: 04/08/17 09:02 Dose: 40 mg Sotalol HCl (Betapace) 80 mg PO QAM [facility] Last Admin: 04/08/17 09:03 Dose: 80 mg Tramadol HCl (Ultram) 50 mg PO Q6 PRN PRN Reason: Pain, moderate (4-7) - Labs Labs: 04/08/17 05:30 04/08/17 05:30 PT 11.5 Seconds (9.9-11.8) 04/06/17 08:15 INR 1.06 (0.93-1.08) 04/06/17 08:15 APTT 28.1 Seconds (23.7-30.8) 04/06/17 08:15 - Constitutional Appears: Non-toxic, No Acute Distress - Head Exam Head Exam: ATRAUMATIC, NORMAL INSPECTION, NORMOCEPHALIC - Eye Exam Eye Exam: EOMI, Normal appearance - ENT Exam ENT Exam: Mucous Membranes Moist, Normal Exam - Neck Exam Neck Exam: Full ROM - Respiratory Exam Respiratory Exam: Decreased Breath Sounds (bases B/L), NORMAL BREATHING PATTERN. absent: Accessory Muscle Use, Clear to Ausculation Bilateral (coarse expiratory breath sounds), Rales, Rhonchi, Wheezes, Respiratory Distress - Cardiovascular Exam Cardiovascular Exam: REGULAR RHYTHM, +S1, +S2 - GI/Abdominal Exam GI & Abdominal Exam: Soft, Hypoactive Bowel Sounds. absent: Distended, Firm, Guarding, Rigid, Tenderness Additional comments: Midline dressing C/D/I, Schuyler drain dressing C/D/I, Schuyler with ~25cc serosanguinous output - Extremities Exam Extremities Exam: Normal Inspection. absent: Pedal Edema - Neurological Exam Neurological Exam: Alert, Awake, CN II-XII Intact, Oriented x3 - Psychiatric Exam Psychiatric exam: Normal Affect, Normal Mood - Skin Skin Exam: Dry, Normal Color, Warm. absent: Intact (surgical sites) Assessment and Plan - Assessment and Plan (Free Text) Assessment: 86F with PMHx of colon CA s/p colectomy w/colostomy now POD#[address] Shoemaker Plan: Colon CA s/p Colectomy & colostomy s/p colostomy reversal POD#[address] Shoemaker Started CLD today Henning d/c'd Encourage IS OOBTC Pain mgmt Zofran Further mgmt as per surgery CAD/CHF continue Home meds: Lipitor, Lasix Strict I&Os Daily wts Lasix 40mg IV daily Monitor for SOB Thrombocytopenia Plts 118 FU manual plt count Avoid meds with thrombocytopenia side effects Afib/HTN Holding Eliquis until cleared by surgery Sotalol Continue to monitor COPD Xopenex, Brovana, 02 prn Chest PT IS O2 PRN Target SaO2>88 HLD Lipitor DM ISS Accuchecks Diabetic clears Hypothyroidism Cont home Synthroid GI/DVT ppx Protonix IV SCDs TEDs Dispo OOBTC Ambulate when cleared by surgery rehab post op- TCU eval Will DW attending Laine, PGY-1 <Amilcar Reyes U - Last Filed: 04/28/17 22:16> Objective - Vital Signs/Intake and Output Vital Signs (last 24 hours): Temp Pulse Resp BP Pulse Ox 97.8 F 72 18 126/91 H 98 04/09/17 12:00 04/09/17 12:00 04/09/17 12:00 04/09/17 12:00 04/09/17 06:00 - Labs Labs: 04/09/17 07:20 04/09/17 07:20 PT 11.5 Seconds (9.9-11.8) 04/06/17 08:15 INR 1.06 (0.93-1.08) 04/06/17 08:15 APTT 28.1 Seconds (23.7-30.8) 04/06/17 08:15 Attending/Attestation - Attestation I have personally seen and examined this patient.: Yes I have fully participated in the care of the patient.: Yes I have reviewed all pertinent clinical information, including history, physical exam and plan: Yes
[2017-04-08] MEDS ORDERED: Potassium Ch 20mEq in D5-1/2NS 1,000 ML IV SCH (10:44)
--- NOTE | 2017-04-08 14:10 | PN ---
DATE: 04/08/2017 SUBJECTIVE: The patient is seen with certified medical technician in room 272, bed 2. The patient is being getting daily care by the associate of science in nursing. Overnight nurse's notes were reviewed. No adverse event documented. The patient was seen and examined. The patient's vital signs and diagnostic data all reviewed. Please refer to the progress note by the certified medical technician from today.. IMPRESSION AND PLAN 1. Status post exploratory laparotomy and partial right colectomy with anastomosis and colostomy closure and reversal. 2. Possible weight gain with facial swelling. 3. Hypertension. 4. Atrial fibrillation. 5. Leukocytosis with granulocytosis. 6. Thrombocytopenia. 7. Acute kidney injury with underlying chronic kidney disease stage III. 8. Type 1 insulin requiring diabetes mellitus. 9. Mild protein malnutrition. 10. Left lower lobe questionable infiltrate versus atelectasis postoperatively. 11. Status post colostomy reversal. 12. Bilateral lower extremity venous stasis. 1. Status post exploratory laparotomy and partial right colectomy with anastomosis and colostomy closure and reversal. 2. Extensive lysis of intraabdominal and pelvic adhesion. 3. History of colon carcinoma and colostomy. 4. History of atrial fibrillation. 5. Hypertension. 6. History of nicotine dependence and chronic obstructive pulmonary disease. 7. Coronary artery disease. 8. Diastolic right-sided congestive heart failure and pulmonary arterial hypertension. 9. Leukocytosis with granulocytosis. 10. Insulin-requiring diabetes mellitus. 11. Mild hyperbilirubinemia. 12. Acute kidney injury with underlying chronic kidney disease stage III. 13. Cardiomegaly 14. Questionable left lower lobe infiltrate versus atelectasis. 15. Possible postop left lower lobe infiltrate versus atelectasis. 16. Dyslipidemia. 17. Status post nasogastric tube placement and removal. 18. Postoperative deconditioning. 19. Postop surgical pain. 20. Hypovitaminosis D. 21. Hypomagnesemia. 22. Hypothyroidism. 23. History of chronic obstructive pulmonary disease. 1. History of colon carcinoma. 2. Status history of gastrointestinal bleeding. 3. Anemia. 4. Status post colostomy. 5. History of colon carcinoma. 6. History of nephrectomy. 7. Acute kidney injury with underlying chronic kidney disease stage III. 8. Type 1 insulin requiring diabetes mellitus. 9. History of nicotine addiction and dependence. 10. Chronic obstructive pulmonary disease. 11. Coronary artery disease. 12. Atrial fibrillation, Eliquis dependent. 13. Single-vessel coronary artery disease. 14. Diastolic right-sided congestive heart failure. 15. Pulmonary arterial hypertension. 16. Anemia. 17. Iron deficiency anemia. 18. Vitamin B12 deficiency. 19. History of nephrectomy. 20. Status post colostomy. 21. History of colon carcinoma. 22. Status post right knee surgery. 23. History of hypothyroidism. 24. History of dyslipidemia. 25. History of anemia. 26. History of gait dysfunction. 27. History of hypothyroidism. 1. Status post exploratory laparotomy and partial right colectomy with anastomosis and colostomy closure and reversal. 2. Extensive lysis of intraabdominal and pelvic adhesion. 3. History of colon carcinoma and colostomy. 4. History of atrial fibrillation. 5. Hypertension. 6. History of nicotine dependence and chronic obstructive pulmonary disease. 7. Coronary artery disease. 8. Diastolic right-sided congestive heart failure and pulmonary arterial hypertension. 9. Leukocytosis with granulocytosis. 10. Insulin-requiring diabetes mellitus. 11. Mild hyperbilirubinemia. 12. Acute kidney injury with underlying chronic kidney disease stage III. 13. Cardiomegaly 14. Questionable left lower lobe infiltrate versus atelectasis. 15. Possible postop left lower lobe infiltrate versus atelectasis. 16. Dyslipidemia. 17. Status post nasogastric tube placement and removal. 18. Postoperative deconditioning. 19. Postop surgical pain. 20. Hypovitaminosis D. 21. Hypomagnesemia. 22. Hypothyroidism. 23. History of chronic obstructive pulmonary disease. 1. History of colon carcinoma. 2. Status history of gastrointestinal bleeding. 3. Anemia. 4. Status post colostomy. 5. History of colon carcinoma. 6. History of nephrectomy. 7. Acute kidney injury with underlying chronic kidney disease stage III. 8. Type 1 insulin requiring diabetes mellitus. 9. History of nicotine addiction and dependence. 10. Chronic obstructive pulmonary disease. 11. Coronary artery disease. 12. Atrial fibrillation, Eliquis dependent. 13. Single-vessel coronary artery disease. 14. Diastolic right-sided congestive heart failure. 15. Pulmonary arterial hypertension. 16. Anemia. 17. Iron deficiency anemia. 18. Vitamin B12 deficiency. 19. History of nephrectomy. 20. Status post colostomy. 21. History of colon carcinoma. 22. Status post right knee surgery. 23. History of hypothyroidism. 24. History of dyslipidemia. 25. History of anemia. 26. History of gait dysfunction. 27. History of hypothyroidism. Plan at this time, the patient has been ordered manual platelet. Serial labs ordered. The patient is awaiting surgical pathology. CURRENT MEDICATIONS: Sotalol 80 mg daily, Dilaudid 0.5 IV q. 3 hours. p.r.n., Drisdol 50,000 twice a week, heparin 5000 subcutaneously q. 12 hours. regular insulin, low dose sliding scale coverage. Lasix started at 40 mg IV daily, and magnesium oxide 400 three times a day. The patient's IV fluid adjusted to 50 mL per hour, D5 half normal with 20 mEq of KCl, Protonix 40 mg IV daily, Synthroid 25 mcg IV daily, Tylenol p.r.n. q. 6 hours., tramadol 50 q. 6 hours, p.r.n., Xopenex nebulizer q. 6 hours.,and Zofran 4 mg IV q. 4 hours. PLAN: Incentive spirometry and chest PT. The patient started on liquid diet by surgery. The patient has been ordered out of bed, NIKOLAY stockings, SCDs, occupational therapy, and physical therapy ordered. The patient will be followed with surgery and Medicine Service. The patient will be will be considered for TCU if accepted. Dictated and electronically signed, not read. Amilcar Reyes MD MTDD
[2017-04-08 16:59] LABS: AMYLASE 104 U/L (35-125); LIPASE 149 U/L (23-300)
[2017-04-08 19:19] LABS: CALCIUM 8.3 mg/dL (8.4-10.5); POTASSIUM 4.2 mmol/L (3.6-5.0)
[2017-04-08] MEDS: Insulin Lispro (humaLOG) MEDIUM Coverage SC SCH (22:00)
[2017-04-09] MEDS: Levalbuterol 0.63 MG/3 ML Inhal Soln UD IH SCH ×3 (01:36→13:29)
[2017-04-09 06:12] VITALS: O2SAT 98
[2017-04-09 07:30] LABS: BASO # 0.01 K/mm3 (0.0-2.0); BASO % 0.1 % (0.0-3.0); EOS # 0.2 (0.0-0.7); EOS % 1.5 % (1.5-5.0); GRAN # 7.03 (1.4-6.5); GRAN % 72.3 % (50.0-68.0); HEMATOCRIT 38.8 % (36.0-48.0); LYMPH # 1.4 (1.2-3.4); LYMPH % 14.5 % (22.0-35.0); MEAN CELL VOLUME 96.8 fl (80.0-105.0); MEAN CORPUSCULAR HEMOGLOBIN 31.2 pg (25.0-35.0); MEAN CORPUSCULAR HGB CONC 32.2 g/dl (31.0-37.0); MEAN PLATELET VOLUME 11.1 fl (7.0-11.0); MONO # 1.1 (0.1-0.6); MONO % 11.6 % (1.0-6.0); RED CELL DISTRIBUTION WIDTH 13.6 % (11.5-14.5); WHITE BLOOD COUNT 9.7 10^3/ul (4.5-11.0)
--- NOTE | 2017-04-09 07:34 | CP.PCM.PN ---
Subjective - Date & Time of Evaluation Date of Evaluation: 04/09/17 Time of Evaluation: 07:31 - Subjective Subjective: General Surgery Consult for Dr. Centeno Patient is using incentive spirometer at bedside. Patient mentioned dizziness yesterday. Patient does not feel dizzy today. Patient tolerating clears Patient states she felt like she needed to pass a BM but couldn't. Patient is connected to [facility] at bedside. Patient denies F/C, N/V, abdominal pain. dressings changed at bedside. Patient is encouraged to be OOBTC today. Schuyler: 120cc 24Hr serosanguinous 70 cc, 24 hr serosanguinous Objective - Vital Signs/Intake and Output Vital Signs (last 24 hours): Temp Pulse Resp BP Pulse Ox 97.9 F 70 20 142/78 98 04/09/17 06:00 04/09/17 06:00 04/09/17 06:00 04/09/17 06:00 04/09/17 06:00 Intake and Output: 04/09/17 04/09/17 06:59 18:59 Intake Total 600 Output Total 500 Balance 100 - Medications Medications: Current Medications Acetaminophen (Tylenol 325mg Tab) 650 mg NG Q6 PRN PRN Reason: Fever >100.4 F Atorvastatin Calcium (Lipitor) 40 mg PO DIN ON LICENSE OF [facility] Last Admin: 04/08/17 17:27 Dose: 40 mg Ergocalciferol (Drisdol 50,000 Intl Units Cap) 1 cap PO 2XW [facility] Last Admin: 04/08/17 09:02 Dose: 1 cap Furosemide (Lasix) 40 mg IVP DAILY ON LICENSE OF [facility] Last Admin: 04/08/17 12:14 Dose: 40 mg Heparin Sodium (Porcine) (Heparin) 5,000 units SC Q12 [facility] PRN Reason: Protocol Last Admin: 04/08/17 21:36 Dose: 5,000 units Insulin Human Lispro (Humalog Med) 0 units SC ACHS [facility] PRN Reason: Protocol Last Admin: 04/08/17 22:00 Dose: Not Given Levalbuterol HCl (Xopenex) 0.63 mg IH [id number] ON LICENSE OF [facility] Last Admin: 04/09/17 01:36 Dose: 0.63 mg Levothyroxine Sodium (Synthroid) 25 mcg IVP DAILY ON LICENSE OF [facility] Last Admin: 08/31/17 09:01 Dose: 25 mcg Magnesium Oxide (Mag-Ox) 400 mg PO TID ON LICENSE OF [facility] Metoclopramide HCl (Reglan) 5 mg IVP Q6 PRN PRN Reason: Nausea/Vomiting Ondansetron HCl (Zofran Inj) 4 mg IVP Q4H ON LICENSE OF [facility] Last Admin: 04/08/17 17:27 Dose: Not Given Pantoprazole Sodium (Protonix Inj) 40 mg IVP DAILY ON LICENSE OF [facility] Last Admin: 04/08/17 09:02 Dose: 40 mg Sotalol HCl (Betapace) 80 mg PO QAM ON LICENSE OF [facility] Last Admin: 04/08/17 09:03 Dose: 80 mg - Labs Labs: 04/08/17 05:30 04/08/17 18:34 PT 11.5 Seconds (9.9-11.8) 04/06/17 08:15 INR 1.06 (0.93-1.08) 04/06/17 08:15 APTT 28.1 Seconds (23.7-30.8) 04/06/17 08:15 - Constitutional Appears: Non-toxic, No Acute Distress - Head Exam Head Exam: NORMAL INSPECTION - Eye Exam Eye Exam: EOMI, Normal appearance - ENT Exam ENT Exam: Mucous Membranes Moist - Neck Exam Neck Exam: Full ROM. absent: Tenderness - Respiratory Exam Respiratory Exam: NORMAL BREATHING PATTERN. absent: Accessory Muscle Use, Respiratory Distress - Cardiovascular Exam Cardiovascular Exam: REGULAR RHYTHM. absent: Bradycardia, Tachycardia - GI/Abdominal Exam GI & Abdominal Exam: Soft, Normal Bowel Sounds. absent: Tenderness, Pulsatile Mass - Extremities Exam Extremities Exam: Full ROM, Normal Inspection. absent: Pedal Edema - Back Exam Back Exam: Full ROM - Neurological Exam Neurological Exam: Alert, Awake, Oriented x3 - Psychiatric Exam Psychiatric exam: Normal Affect, Normal Mood - Skin Skin Exam: Dry, Intact, Normal Color, Warm Additional comments: incision sites c/d/i beta-iodine placed along incision site drain site no erythema, induration Assessment and Plan - Assessment and Plan (Free Text) Assessment: 86F presents for colostomy reversal s/p colostomy reversal POD#3 Plan: Diet: CLD ISS OOBTC AE hose fluids DC'd Patient is doing well, hydrating. c/w current pain management c/w medical management discussed with Dr. Taryn Tyler, DO PGY1
[2017-04-09 07:40] LABS: ALB/GLOB RATIO 1.1 (1.1-1.8); ALKALINE PHOSPHATASE 74 U/L (38-126); ALT/SGPT 38 U/L (7-56); AST/SGOT 20 U/L (14-36); BILIRUBIN,DIRECT 0.2 mg/dL (0.0-0.4); BILIRUBIN,TOTAL 0.8 mg/dL (0.2-1.3); BLOOD UREA NITROGEN 19 mg/dL (7-21); CALCIUM 8.5 mg/dL (8.4-10.5); CARBON DIOXIDE 22 mmol/L (21-33); CHLORIDE 109 mmol/L (98-107); GFR AFRICAN-AMERICAN > 60; GLUCOSE,RANDOM 147 mg/dL (70-110); POTASSIUM 4.6 mmol/L (3.6-5.0); SODIUM 140 mmol/L (132-148)
[2017-04-09] MEDS: Insulin Lispro (humaLOG) MEDIUM Coverage SC SCH ×2 (08:06→12:02)
--- NOTE | 2017-04-09 08:23 | CP.PCM.PN ---
Subjective - Date & Time of Evaluation Date of Evaluation: 04/09/17 Time of Evaluation: 08:00 - Subjective Subjective: (covering for Dr. Reyes) Patient is seen this morning. She denies abdominal pain. Objective - Vital Signs/Intake and Output Vital Signs (last 24 hours): Temp Pulse Resp BP Pulse Ox 97.9 F 70 20 142/78 98 04/09/17 06:00 04/09/17 06:00 04/09/17 06:00 04/09/17 06:00 04/09/17 06:00 Intake and Output: 04/09/17 04/09/17 06:59 18:59 Intake Total 600 Output Total 500 Balance 100 - Medications Medications: Current Medications Acetaminophen (Tylenol 325mg Tab) 650 mg NG Q6 PRN PRN Reason: Fever >100.4 F Atorvastatin Calcium (Lipitor) 40 mg PO DIN [facility] Last Admin: 04/08/17 17:27 Dose: 40 mg Ergocalciferol (Drisdol 50,000 Intl Units Cap) 1 cap PO 2XW [facility] Last Admin: 04/08/17 09:02 Dose: 1 cap Furosemide (Lasix) 40 mg IVP DAILY [facility] Last Admin: 04/08/17 12:14 Dose: 40 mg Heparin Sodium (Porcine) (Heparin) 5,000 units SC Q12 [facility] PRN Reason: Protocol Last Admin: 04/08/17 21:36 Dose: 5,000 units Insulin Human Lispro (Humalog Med) 0 units SC ACHS [facility] PRN Reason: Protocol Last Admin: 04/09/17 08:06 Dose: 1 units Levalbuterol HCl (Xopenex) 0.63 mg IH [id number] [facility] Last Admin: 04/09/17 07:55 Dose: 0.63 mg Levothyroxine Sodium (Synthroid) 25 mcg IVP DAILY [facility] Last Admin: 04/08/17 09:01 Dose: 25 mcg Magnesium Oxide (Mag-Ox) 400 mg PO TID [facility] Metoclopramide HCl (Reglan) 5 mg IVP Q6 PRN PRN Reason: Nausea/Vomiting Ondansetron HCl (Zofran Inj) 4 mg IVP Q4H [facility] Last Admin: 04/08/17 17:27 Dose: Not Given Pantoprazole Sodium (Protonix Inj) 40 mg IVP DAILY [facility] Last Admin: 04/08/17 09:02 Dose: 40 mg Sotalol HCl (Betapace) 80 mg PO QAM [facility] Last Admin: 04/08/17 09:03 Dose: 80 mg - Labs Labs: 04/09/17 07:20 04/09/17 07:20 PT 11.5 Seconds (9.9-11.8) 04/06/17 08:15 INR 1.06 (0.93-1.08) 04/06/17 08:15 APTT 28.1 Seconds (23.7-30.8) 04/06/17 08:15 - Constitutional Appears: No Acute Distress - Head Exam Head Exam: ATRAUMATIC, NORMOCEPHALIC - Respiratory Exam Respiratory Exam: Clear to Ausculation Bilateral, NORMAL BREATHING PATTERN - Cardiovascular Exam Cardiovascular Exam: +S1, +S2 - GI/Abdominal Exam GI & Abdominal Exam: Soft - Extremities Exam Additional comments: BL SCDs - Neurological Exam Neurological Exam: Alert, Awake, Oriented x3 Assessment and Plan - Assessment and Plan (Free Text) Assessment: s/p partial Right colectomy with anastamosis and colostomy reversal Hypertension AFib CKD III Type I diabetes mellitus Plan: Patient is recovering from reversal of colostomy. She denies pain at this time. continue incentive spirometry continue accuchecks with insulin coverage for TRCU
[2017-04-09] MEDS: Ergocalciferol 50,000 Intl Units Cap PO SCH (10:30)
[2017-04-09] MEDS: Levothyroxine 100 mcg (0.1 mg) Inj IVP SCH (10:31)
[2017-04-09 12:00] VITALS: BP 126/91; PULSE 72; RESP 18; TEMP 97.8
--- NOTE | 2017-05-17 11:54 | DS ---
BRIEF HISTORY: This is an 86-year-old female with history of hypertension, atrial fibrillation, thrombocytopenia, acute kidney injury, underlying chronic kidney disease stage III, type 1 insulin-requiring diabetes mellitus, coronary artery disease, diastolic right-sided congestive heart failure who also has a history of colon cancer and colostomy. Patient was admitted to the General Medical Floor after having exploratory laparotomy, partial right colectomy with anastomosis, and colostomy closure and reversal. HOSPITAL COURSE: While in the hospital, patient was continued on her maintenance medications. Incentive spirometry and chest PT were ordered. She was initially started on a liquid diet by Surgery and started on physical therapy. Chest x-ray showed borderline atelectasis or infiltrates in the left base. With incentive spirometry, this improved. Patient's NG tube was removed. She needed some further physical therapy, so she was transferred to the Transitional Care Unit. DISCHARGE MEDICATIONS: Medications were transcribed from the General Medical Floor to the Transitional Care Unit. DISCHARGE DIAGNOSES: Status post exploratory laparotomy with reversal of colostomy and partial right colectomy, hypertension, atrial fibrillation, chronic kidney disease stage III, type 1 insulin-requiring diabetes mellitus. FOLLOW UP: Patient will be followed up in the Transitional Care Unit. Patient was seen by me while Dr. Reyes was away. The patient will be followed by Dr. Reyes once he returns. Francisco Javier Crump MD [id number]
== END 2017-04-09 16:58 | DRG 330 ==
LOC: SDAINP 07:17 → EDSTATUS 09:00 → 2RSO 16:55
PROVIDERS: ADMIT General Practice; ATTEND General Practice
PROC: 0DQE0ZZ Repair Large Intestine, Open Approach (ICD-10-PCS; 2017-04-06)
PROC: 0DNW0ZZ Release Peritoneum, Open Approach (ICD-10-PCS; 2017-04-06)
PROC: 0DTF0ZZ Resection of Right Large Intestine, Open Approach (ICD-10-PCS; principal; 2017-04-06 09:00)
DX: Z43.3 Encounter for attention to colostomy (principal); N17.9 Acute kidney failure, unspecified; E10.22 Type 1 diabetes mellitus with diabetic chronic kidney disease; E10.43 Type 1 diabetes mellitus with diabetic autonomic (poly)neuropathy; D69.6 Thrombocytopenia, unspecified; K31.84 Gastroparesis; I13.0 Hypertensive heart and chronic kidney disease with heart failure and stage 1 through stage 4 chronic kidney disease, or unspecified chronic kidney disease; N18.3 Chronic kidney disease, stage 3 (moderate); I50.30 Unspecified diastolic (congestive) heart failure; E44.1 Mild protein-calorie malnutrition; R17 Unspecified jaundice; I27.2 Other secondary pulmonary hypertension; D50.9 Iron deficiency anemia, unspecified; D72.829 Elevated white blood cell count, unspecified; E03.9 Hypothyroidism, unspecified; E53.8 Deficiency of other specified B group vitamins; E55.9 Vitamin D deficiency, unspecified; E78.5 Hyperlipidemia, unspecified; E83.42 Hypomagnesemia; I25.10 Atherosclerotic heart disease of native coronary artery without angina pectoris; I48.91 Unspecified atrial fibrillation; I87.8 Other specified disorders of veins; J44.9 Chronic obstructive pulmonary disease, unspecified; K21.9 Gastro-esophageal reflux disease without esophagitis; N73.6 Female pelvic peritoneal adhesions (postinfective); Z79.4 Long term (current) use of insulin; Z85.038 Personal history of other malignant neoplasm of large intestine; Z87.01 Personal history of pneumonia (recurrent); Z87.440 Personal history of urinary (tract) infections; Z87.891 Personal history of nicotine dependence; Z90.5 Acquired absence of kidney; K59.00 Constipation, unspecified

== ENCOUNTER 2017-04-09 16:39 | Inpatient (IN) | payer OTHER ==
[2017-04-09 17:12] VITALS: BMI 30.7
[2017-04-09] MEDS ORDERED: Levalbuterol 0.63 MG/3 ML Inhal Soln UD IH PRN (17:23)
[2017-04-09] MEDS: Magnesium Oxide 400 mg Tab UD PO SCH (18:58)
[2017-04-09] MEDS ORDERED: Pneumococcal 23-Valent Vaccine IM ONE (20:13)
[2017-04-09] MEDS: Insulin Lispro (humaLOG) MEDIUM Coverage SC SCH (21:39)
[2017-04-10] MEDS: Levothyroxine 100 MCG TAB PO SCH (06:04)
--- NOTE | 2017-04-10 06:19 | CP.PCM.PN ---
Subjective - Date & Time of Evaluation Date of Evaluation: 04/10/17 Time of Evaluation: 06:00 - Subjective Subjective: General surgery progress note for Dr. Centeno- Trena Jang, PGY-1 Pt S & E at bedside. Pt doing well overnight, no more episodes of dizziness (pt reports has similar episodes at home), reports IS use. Denies N/V/F/C, SOB, CP, ab pain. Per nursing pt w/20cc serosang output at MN and 2 soft/loose BMs overnight. Objective - Vital Signs/Intake and Output Vital Signs (last 24 hours): Temp Pulse Resp BP Pulse Ox 98.1 F 66 15 165/98 H 04/09/17 19:46 04/09/17 19:46 04/09/17 19:46 04/09/17 19:46 - Medications Medications: Current Medications Acetaminophen (Tylenol 325mg Tab) 650 mg PO Q6H PRN; Protocol PRN Reason: Fever >100.4 F Atorvastatin Calcium (Lipitor) 40 mg PO DIN [facility] PRN Reason: Protocol Last Admin: 04/09/17 18:58 Dose: 40 mg Ergocalciferol (Drisdol 50,000 Intl Units Cap) 1 cap PO MoTh@1000 [facility] PRN Reason: Protocol Furosemide (Lasix) 40 mg IVP DAILY [facility] PRN Reason: Protocol Heparin Sodium (Porcine) (Heparin) 5,000 units SC 0600,1800 [facility] PRN Reason: Protocol Last Admin: 04/10/17 06:02 Dose: 5,000 units Insulin Human Lispro (Humalog Med) 0 units SC ACHS [facility] PRN Reason: Protocol Last Admin: 04/09/17 21:39 Dose: Not Given Levalbuterol HCl (Xopenex) 0.63 mg IH [id number] PRN; Protocol PRN Reason: Shortness of Breath Levothyroxine Sodium (Synthroid) 100 mcg PO 0630 [facility] PRN Reason: Protocol Last Admin: 04/10/17 06:04 Dose: 100 mcg Magnesium Oxide (Mag-Ox) 400 mg PO TID [facility] PRN Reason: Protocol Last Admin: 04/09/17 18:58 Dose: 400 mg Metoclopramide HCl (Reglan) 5 mg IVP 0630,1130,1700,2200 [facility] PRN Reason: Protocol Last Admin: 04/10/17 06:04 Dose: 5 mg Ondansetron HCl (Zofran Inj) 4 mg IVP Q4H PRN; Protocol PRN Reason: Nausea/Vomiting Pantoprazole Sodium (Protonix Inj) 40 mg IVP DAILY [facility] Sotalol HCl (Betapace) 80 mg PO QAM [facility] PRN Reason: Protocol - Constitutional Appears: Non-toxic, No Acute Distress - Head Exam Head Exam: ATRAUMATIC, NORMAL INSPECTION, NORMOCEPHALIC - Eye Exam Eye Exam: EOMI, Normal appearance - ENT Exam ENT Exam: Mucous Membranes Moist, Normal Exam - Neck Exam Neck Exam: Normal Inspection - Respiratory Exam Respiratory Exam: Clear to Ausculation Bilateral, NORMAL BREATHING PATTERN - Cardiovascular Exam Cardiovascular Exam: REGULAR RHYTHM, +S1, +S2 - GI/Abdominal Exam GI & Abdominal Exam: Soft, Hypoactive Bowel Sounds. absent: Distended, Firm, Guarding, Rigid, Tenderness Additional comments: Midline surgical incision with cristin in place, no erythema or drainage, Schuyler with ~10cc serosanguinous output at bedside. Dressing at insertion site - C/D/ I. - Extremities Exam Extremities Exam: Normal Inspection. absent: Pedal Edema - Neurological Exam Neurological Exam: Alert, Awake, CN II-XII Intact, Oriented x3 - Psychiatric Exam Psychiatric exam: Normal Affect, Normal Mood - Skin Skin Exam: Dry, Intact, Normal Color, Warm Assessment and Plan - Assessment and Plan (Free Text) Assessment: 86F POD#4 s/p colostomy reversal, doing well overnight w/BMs, transferred to TCU Plan: FLD advanced to HHD/mod Consistent carbs Encourage IS use OOBTC PT/OT TEDs SCDs Pain mgmt further mgmt as per medical tea DW attending Laine, PGY-1
[2017-04-10 07:45] LABS: BASO # 0.01 K/mm3 (0.0-2.0); BASO % 0.1 % (0.0-3.0); EOS # 0.2 (0.0-0.7); EOS % 2.6 % (1.5-5.0); GRAN # 6.6 (1.4-6.5); GRAN % 75.1 % (50.0-68.0); HEMATOCRIT 38.2 % (36.0-48.0); LYMPH # 1.2 (1.2-3.4); LYMPH % 13.7 % (22.0-35.0); MEAN CELL VOLUME 96.5 fl (80.0-105.0); MEAN CORPUSCULAR HEMOGLOBIN 31.1 pg (25.0-35.0); MEAN CORPUSCULAR HGB CONC 32.2 g/dl (31.0-37.0); MEAN PLATELET VOLUME 11.5 fl (7.0-11.0); MONO # 0.8 (0.1-0.6); MONO % 8.5 % (1.0-6.0); RED CELL DISTRIBUTION WIDTH 13.5 % (11.5-14.5); WHITE BLOOD COUNT 8.8 10^3/ul (4.5-11.0)
[2017-04-10 07:53] LABS: BLOOD UREA NITROGEN 18 mg/dL (7-21); CALCIUM 8.7 mg/dL (8.4-10.5); CARBON DIOXIDE 30 mmol/L (21-33); CHLORIDE 106 mmol/L (98-107); GFR AFRICAN-AMERICAN > 60; GLUCOSE,RANDOM 132 mg/dL (70-110); SODIUM 143 mmol/L (132-148)
[2017-04-10] MEDS: Insulin Lispro (humaLOG) MEDIUM Coverage SC SCH ×4 (07:58→22:35)
--- NOTE | 2017-04-10 08:25 | CP.PCM.HP ---
History of Present Illness - History of Present Illness History of Present Illness: 86 year old [place]ian female with history of hypertension, atrial fibrillation, chronic kidney disease stage III, and diabetes mellitus admitted for anastamosis with colostomy reversal. Patient is now admitted to the transitional care unit for post op care and physical therapy. She denies abdominal pain, nausea or vomiting. Present on Admission - Present on Admission Any Indicators Present on Admission: No Review of Systems - Cardiovascular Cardiovascular: absent: Chest Pain, Diaphoresis, Dyspnea - Gastrointestinal Gastrointestinal: absent: Abdominal Pain, Nausea, Vomiting Past Patient History - Infectious Disease Hx of Infectious Diseases: None - Tetanus Immunizations Tetanus Immunization: Unknown - Past Medical History & Family History Past Medical History?: Yes - Past Social History Smoking Status: Never Smoked - CARDIAC Hx Cardiac Disorders: Yes (CARDIAC ARRYTHMIA) Hx Congestive Heart Failure: Yes Hx Hypercholesterolemia: Yes Hx Hypertension: Yes - PULMONARY Hx Chronic Obstructive Pulmonary Disease (COPD): Yes - NEUROLOGICAL HX Cerebrovascular Accident: No - HEENT Hx HEENT Problems: Yes (TRIBE MAINLY TO LEFT EAR) Hx Cataracts: No Hx Difficulty Chewing: No Hx Epistaxis: No Hx Glaucoma: No Hx Macular Degeneration: No - RENAL Hx Chronic Kidney Disease: No (NEPHRITIS 1967,NEPHRECTOMY) Hx Dialysis: No Hx Kidney Stones: No Hx Neurogenic Bladder: No Hx Renal (Kidney) Cancer: No - ENDOCRINE/METABOLIC Hx Hypothyroidism: Yes - HEMATOLOGICAL/ONCOLOGICAL Hx Blood Disorders: Yes Hx Anemia: Yes (blood transfusion 03/04/16) Hx Cancer: Yes (colon stg III as per pt no chemo/no rad) Hx Chemotherapy: No Hx Cirrhosis: No Hx Human Immunodeficiency Virus (HIV): No Hx Unexplained Bleeding: No - INTEGUMENTARY Hx Dermatological Problems: Yes Hx Basil Cell: No Hx Eczema: No Hx Melanoma: No Hx Psoriasis: No Hx Squamous Cell: No Other/Comment: surgical scars abd, eccymosis to r groin - MUSCULOSKELETAL/RHEUMATOLOGICAL Hx Falls: Yes - GASTROINTESTINAL Hx Gastrointestinal Disorders: Yes (POST REVERSAL OF COLOSTOMY,PARTIAL R COLECTOMYW TIH ANASTOMOSIS,COLORECTALC) - GENITOURINARY/GYNECOLOGICAL Hx Genitourinary Disorders: Yes (INCONTINENT,UTI) Hx Reproductive Disorders: No - PSYCHIATRIC Hx Emotional Abuse: No Hx Physical Abuse: No Hx Substance Use: No - SURGICAL HISTORY Hx Surgeries: Yes - ANESTHESIA Hx Anesthesia Reactions: No Hx Malignant Hyperthermia: No Meds Allergies/Adverse Reactions: Allergies Allergy/AdvReac Type Severity Reaction Status Date / Time No Known Allergies Allergy Verified 04/06/17 17:45 Physical Exam - Constitutional Appears: No Acute Distress - Head Exam Head Exam: ATRAUMATIC, NORMOCEPHALIC - Respiratory Exam Respiratory Exam: Clear to Auscultation Bilateral, NORMAL BREATHING PATTERN - Cardiovascular Exam Cardiovascular Exam: +S1, +S2 - GI/Abdominal Exam GI & Abdominal Exam: Normal Bowel Sounds, Soft. absent: Tenderness - Neurological Exam Neurological exam: Alert, Oriented x3 Results - Vital Signs Recent Vital Signs: Last Vital Signs Temp 98.1 F 04/09/17 19:46 Pulse 66 04/09/17 19:46 Resp 15 04/09/17 19:46 BP 165/98 H 04/09/17 19:46 Pulse Ox - Labs Result Diagrams: 04/10/17 07:20 04/10/17 07:20 Labs: Laboratory Results - last 24 hr 04/09/17 04/10/17 04/10/17 21:31 05:29 07:20 WBC 8.8 RBC 3.96 Hgb 12.3 Hct 38.2 MCV 96.5 MCH 31.1 MCHC 32.2 RDW 13.5 Plt Count 131 MPV 11.5 H Gran % 75.1 H Lymph % (Auto) 13.7 L [place] % (Auto) 8.5 H Eos % (Auto) 2.6 Baso % (Auto) 0.1 Gran # 6.60 H Lymph # 1.2 [place] # 0.8 H Eos # 0.2 Baso # 0.01 Sodium Potassium Chloride Carbon Dioxide Anion Gap BUN Creatinine Est GFR ( Amer) Est GFR (Non-Af Amer) POC Glucose (mg/dL) 147 H 147 H Random Glucose Calcium 04/10/17 07:20 WBC RBC Hgb Hct MCV MCH MCHC RDW Plt Count MPV Gran % Lymph % (Auto) [place] % (Auto) Eos % (Auto) Baso % (Auto) Gran # Lymph # [place] # Eos # Baso # Sodium 143 Potassium 4.0 Chloride 106 Carbon Dioxide 30 Anion Gap 11 BUN 18 Creatinine 1.0 Est GFR ( Amer) > 60 Est GFR (Non-Af Amer) 53 POC Glucose (mg/dL) Random Glucose 132 H Calcium 8.7 Assessment & Plan - Assessment and Plan (Free Text) Assessment: s/p partial right colectomy with anastomosis and colostomy reversal hypertension atrial fibrillation CKD III DMI Plan: Patient is admitted to the transitional care unit. She is feeling better. continue physical therapy post-op care as per surgical team continue incentive spirometry and BL SCDs
[2017-04-10] MEDS: Magnesium Oxide 400 mg Tab UD PO SCH ×3 (10:36→17:50)
[2017-04-11] MEDS: Levothyroxine 100 MCG TAB PO SCH (05:50)
--- NOTE | 2017-04-11 06:28 | CP.PCM.PN ---
Subjective - Date & Time of Evaluation Date of Evaluation: 04/11/17 Time of Evaluation: 06:26 - Subjective Subjective: Surgery pt s&e. NAEON. c/o nausea. Pain controlled. Vargas F/C/V/CP/SOB. + OOB. + void, + BM Objective - Vital Signs/Intake and Output Vital Signs (last 24 hours): Temp Pulse Resp BP Pulse Ox 98.1 F 70 15 141/74 04/09/17 19:46 04/10/17 10:35 04/09/17 19:46 04/10/17 19:02 Intake and Output: 04/10/17 04/11/17 18:59 06:59 Intake Total 680 Output Total 780 Balance -100 - Medications Medications: Current Medications Acetaminophen (Tylenol 325mg Tab) 650 mg PO Q6H PRN; Protocol PRN Reason: Fever >100.4 F Last Admin: 04/11/17 06:00 Dose: 650 mg Atorvastatin Calcium (Lipitor) 40 mg PO DIN [facility] PRN Reason: Protocol Last Admin: 04/10/17 17:49 Dose: 40 mg Ergocalciferol (Drisdol 50,000 Intl Units Cap) 1 cap PO MoTh@1000 [facility] PRN Reason: Protocol Furosemide (Lasix) 40 mg IVP DAILY [facility] PRN Reason: Protocol Last Admin: 04/10/17 19:02 Dose: 40 mg Heparin Sodium (Porcine) (Heparin) 5,000 units SC 0600,1800 [facility] PRN Reason: Protocol Last Admin: 04/11/17 05:51 Dose: 5,000 units Insulin Human Lispro (Humalog Med) 0 units SC ACHS [facility] PRN Reason: Protocol Last Admin: 04/10/17 22:35 Dose: Not Given Levalbuterol HCl (Xopenex) 0.63 mg IH [id number] PRN; Protocol PRN Reason: Shortness of Breath Levothyroxine Sodium (Synthroid) 100 mcg PO 0630 [facility] PRN Reason: Protocol Last Admin: 04/11/17 05:50 Dose: 100 mcg Magnesium Oxide (Mag-Ox) 400 mg PO TID [facility] PRN Reason: Protocol Last Admin: 04/10/17 17:50 Dose: 400 mg Metoclopramide HCl (Reglan) 5 mg IVP 0630,1130,1700,2200 [facility] PRN Reason: Protocol Last Admin: 04/11/17 05:50 Dose: 5 mg Ondansetron HCl (Zofran Inj) 4 mg IVP Q4H PRN; Protocol PRN Reason: Nausea/Vomiting Pantoprazole Sodium (Protonix Inj) 40 mg IVP DAILY [facility] Last Admin: 04/10/17 10:36 Dose: 40 mg Sotalol HCl (Betapace) 80 mg PO QAM [facility] PRN Reason: Protocol Last Admin: 04/10/17 10:35 Dose: 80 mg - Labs Labs: 04/10/17 07:20 04/10/17 07:20 - Constitutional Appears: No Acute Distress - Head Exam Head Exam: ATRAUMATIC, NORMAL INSPECTION, NORMOCEPHALIC - Eye Exam Eye Exam: EOMI, Normal appearance, PERRL Pupil Exam: NORMAL ACCOMODATION, PERRL - ENT Exam ENT Exam: Mucous Membranes Moist, Normal Exam - Neck Exam Neck Exam: Full ROM, Normal Inspection. absent: Lymphadenopathy - Respiratory Exam Respiratory Exam: Clear to Ausculation Bilateral, NORMAL BREATHING PATTERN - Cardiovascular Exam Cardiovascular Exam: REGULAR RHYTHM, +S1, +S2. absent: Murmur - GI/Abdominal Exam GI & Abdominal Exam: Soft, Tenderness, Normal Bowel Sounds. absent: Distended Additional comments: Incision C/D/I. Drain in place: 50cc/24hr. Collins. Dressing C/D/I on R abd - Exam Exam: NORMAL INSPECTION - Extremities Exam Extremities Exam: Normal Inspection - Back Exam Back Exam: NORMAL INSPECTION - Neurological Exam Neurological Exam: Alert, Awake, CN II-XII Intact, Normal Gait, Oriented x3 - Psychiatric Exam Psychiatric exam: Normal Affect, Normal Mood - Skin Skin Exam: Dry, Intact, Normal Color, Warm Assessment and Plan - Assessment and Plan (Free Text) Assessment: 86F POD#5 s/p colostomy reversal, doing well overnight w/BMs Plan: HHD/mod Consistent carbs Encourage IS use OOBTC PT/OT TEDs SCDs Pain mgmt further mgmt as per medical team Will DW Dr. Betancourt
[2017-04-11] MEDS: Insulin Lispro (humaLOG) MEDIUM Coverage SC SCH ×4 (07:11→23:31)
--- NOTE | 2017-04-11 07:59 | CP.PCM.PN ---
Subjective - Date & Time of Evaluation Date of Evaluation: 04/11/17 Time of Evaluation: 07:40 - Subjective Subjective: (covering for Dr. Reyes) Patient is doing well she says. She denies abdominal pain. Objective - Vital Signs/Intake and Output Vital Signs (last 24 hours): Temp Pulse Resp BP Pulse Ox 98.1 F 70 15 141/74 04/09/17 19:46 04/10/17 10:35 04/09/17 19:46 04/10/17 19:02 Intake and Output: 04/11/17 04/11/17 06:59 18:59 Intake Total 680 0 Output Total 780 1120 Balance -100 -1120 - Medications Medications: Current Medications Acetaminophen (Tylenol 325mg Tab) 650 mg PO Q6H PRN; Protocol PRN Reason: Fever >100.4 F Last Admin: 04/11/17 06:00 Dose: 650 mg Atorvastatin Calcium (Lipitor) 40 mg PO DIN [facility] PRN Reason: Protocol Last Admin: 04/10/17 17:49 Dose: 40 mg Ergocalciferol (Drisdol 50,000 Intl Units Cap) 1 cap PO MoTh@1000 [facility] PRN Reason: Protocol Furosemide (Lasix) 40 mg IVP DAILY [facility] PRN Reason: Protocol Last Admin: 04/10/17 19:02 Dose: 40 mg Heparin Sodium (Porcine) (Heparin) 5,000 units SC 0600,1800 [facility] PRN Reason: Protocol Last Admin: 04/11/17 05:51 Dose: 5,000 units Insulin Human Lispro (Humalog Med) 0 units SC ACHS [facility] PRN Reason: Protocol Last Admin: 04/11/17 07:11 Dose: 1 units Levalbuterol HCl (Xopenex) 0.63 mg IH [id number] PRN; Protocol PRN Reason: Shortness of Breath Levothyroxine Sodium (Synthroid) 100 mcg PO 0630 [facility] PRN Reason: Protocol Last Admin: 04/11/17 05:50 Dose: 100 mcg Magnesium Oxide (Mag-Ox) 400 mg PO TID [facility] PRN Reason: Protocol Last Admin: 04/10/17 17:50 Dose: 400 mg Metoclopramide HCl (Reglan) 5 mg IVP 0630,1130,1700,2200 [facility] PRN Reason: Protocol Last Admin: 04/11/17 05:50 Dose: 5 mg Ondansetron HCl (Zofran Inj) 4 mg IVP Q4H PRN; Protocol PRN Reason: Nausea/Vomiting Pantoprazole Sodium (Protonix Inj) 40 mg IVP DAILY [facility] Last Admin: 04/10/17 10:36 Dose: 40 mg Sotalol HCl (Betapace) 80 mg PO QAM [facility] PRN Reason: Protocol Last Admin: 04/10/17 10:35 Dose: 80 mg - Labs Labs: 04/10/17 07:20 04/10/17 07:20 - Constitutional Appears: No Acute Distress - Head Exam Head Exam: ATRAUMATIC, NORMOCEPHALIC - Respiratory Exam Respiratory Exam: Clear to Ausculation Bilateral, NORMAL BREATHING PATTERN - Cardiovascular Exam Cardiovascular Exam: +S1, +S2 - GI/Abdominal Exam GI & Abdominal Exam: Soft, Normal Bowel Sounds. absent: Tenderness - Extremities Exam Extremities Exam: Normal Inspection - Neurological Exam Neurological Exam: Alert, Awake, Oriented x3 Assessment and Plan - Assessment and Plan (Free Text) Assessment: s/p right colectomy with anastamosis and colostomy reversal HTN Diabetes mellitus CKD III AFib Plan: Patient is feeling better. She says that she is having regular bowel movements. Denies pain. continue physical therapy continue incentive spirometry
[2017-04-11] MEDS: Magnesium Oxide 400 mg Tab UD PO SCH ×3 (10:31→17:59)
[2017-04-12] MEDS: Levothyroxine 100 MCG TAB PO SCH (06:14)
[2017-04-12] MEDS: Insulin Lispro (humaLOG) MEDIUM Coverage SC SCH ×4 (07:17→22:20)
--- NOTE | 2017-04-12 07:52 | CP.PCM.PN ---
Subjective - Date & Time of Evaluation Date of Evaluation: 04/12/17 Time of Evaluation: 07:30 - Subjective Subjective: General Surgery Pt S&E, NAEO. Up in chair. Tolerating physical therapy and diet well. Complains of continued SOB and would like to restart respiratory therapy which she was receiving while on the floor. + BMs. No other complaints. Objective - Vital Signs/Intake and Output Vital Signs (last 24 hours): Temp Pulse Resp BP Pulse Ox 98.2 F 69 18 148/85 98 04/12/17 06:00 04/12/17 06:00 04/12/17 06:00 04/12/17 06:00 04/12/17 06:00 Intake and Output: 04/12/17 04/12/17 06:59 18:59 Output Total 780 Balance -780 - Medications Medications: Current Medications Acetaminophen (Tylenol 325mg Tab) 650 mg PO Q6H PRN; Protocol PRN Reason: Fever >100.4 F Last Admin: 04/11/17 21:44 Dose: 650 mg Atorvastatin Calcium (Lipitor) 40 mg PO DIN [facility] PRN Reason: Protocol Last Admin: 04/11/17 17:58 Dose: 40 mg Ergocalciferol (Drisdol 50,000 Intl Units Cap) 1 cap PO MoTh@1000 [facility] PRN Reason: Protocol Furosemide (Lasix) 40 mg IVP DAILY [facility] PRN Reason: Protocol Last Admin: 04/11/17 18:42 Dose: 40 mg Heparin Sodium (Porcine) (Heparin) 5,000 units SC 0600,1800 [facility] PRN Reason: Protocol Last Admin: 04/12/17 06:13 Dose: 5,000 units Insulin Human Lispro (Humalog Med) 0 units SC ACHS [facility] PRN Reason: Protocol Last Admin: 04/12/17 07:17 Dose: 1 units Levalbuterol HCl (Xopenex) 0.63 mg IH [id number] PRN; Protocol PRN Reason: Shortness of Breath Levothyroxine Sodium (Synthroid) 100 mcg PO 0630 [facility] PRN Reason: Protocol Last Admin: 04/12/17 06:14 Dose: 100 mcg Magnesium Oxide (Mag-Ox) 400 mg PO TID [facility] PRN Reason: Protocol Last Admin: 04/11/17 17:59 Dose: 400 mg Metoclopramide HCl (Reglan) 5 mg IVP 0630,1130,1700,2200 [facility] PRN Reason: Protocol Last Admin: 04/12/17 06:14 Dose: 5 mg Ondansetron HCl (Zofran Inj) 4 mg IVP Q4H PRN; Protocol PRN Reason: Nausea/Vomiting Pantoprazole Sodium (Protonix Inj) 40 mg IVP DAILY [facility] Last Admin: 04/11/17 10:32 Dose: 40 mg Sotalol HCl (Betapace) 80 mg PO QAM [facility] PRN Reason: Protocol Last Admin: 04/11/17 10:32 Dose: 80 mg - Labs Labs: 04/10/17 07:20 04/10/17 07:20 - Constitutional Appears: Non-toxic, No Acute Distress - Head Exam Head Exam: ATRAUMATIC, NORMOCEPHALIC - Eye Exam Eye Exam: EOMI. absent: Conjunctival injection - ENT Exam ENT Exam: Mucous Membranes Moist - Respiratory Exam Respiratory Exam: NORMAL BREATHING PATTERN. absent: Accessory Muscle Use, Respiratory Distress - Cardiovascular Exam Cardiovascular Exam: absent: Bradycardia, Tachycardia - GI/Abdominal Exam GI & Abdominal Exam: Soft. absent: Guarding, Rigid, Tenderness, Rebound Additional comments: L RENATA drain output 50cc/24 hours. L drain dressing C/D/I. midline incision clean , without erythema, + cristin. Packing removed from R incision; dressing C/D/I. - Neurological Exam Neurological Exam: Alert, Awake - Psychiatric Exam Psychiatric exam: Normal Affect, Normal Mood - Skin Skin Exam: Dry, Warm Assessment and Plan - Assessment and Plan (Free Text) Assessment: 86F s/p colostomy reversal POD #6 Plan: -respiratory therapy for SOB -continue pain mgmt PRN -packing removed & dressing changed -continue to monitor drain output -encourage OOB to chair, ambulation in halls, IS use -medical mgmt per primary team D/W Dr. Centeno. PGY4
[2017-04-12] MEDS: Magnesium Oxide 400 mg Tab UD PO SCH ×3 (10:24→18:08)
[2017-04-12] MEDS: Ergocalciferol 50,000 Intl Units Cap PO SCH (10:24)
--- NOTE | 2017-04-12 10:30 | PN ---
DATE: 04/12/2017 The patient is seen in room TCU bed 322, bed 1. The patient is out of bed to chair, dosing off. The patient complains of not receiving her nebulizer treatment. The patient's overnight nurse's notes were reviewed. The patient slept without any difficulty. The patient was found to be alert, awake, oriented x3. The patient had a large bowel movement according to the nurses note from April 11. The patient slept without any adverse event. Vital signs: T-max 98.2. Pulse 74-69, blood pressure 144/85, 167/87, 141/73, respiration 18, O2 sat 98-99%. Head examination normocephalic, atraumatic. HEENT examination shows pinkish conjunctivae. Anicteric sclerae. No oropharyngeal lesions. No neck rigidity. Chest: Examination symmetrical. Lungs: Examination shows occasional rhonchi. Decreased breath sounds. Cardiovascular: Shows S1, S2, regular rhythm. Questionable soft systolic murmur left sternal border, left intercostal space. Abdomen: Is protuberant. Positive surgical scar. Positive surgical dressing. Positive left-sided RENATA drain noted. Genitalia: Female. Rectal: Examination is deferred. Extremity shows NIKOLAY stockings. Musculoskeletal: Examination shows a body mass index of 31. Neurologic: The patient is alert, awake and x3. Cranial nerves II-XII intact. Gait examination is not tested. Motor strength is 5/5 in upper and lower extremity.. Vascular examination palpate pulses. DIAGNOSTICS: None from today, diagnostic from April 10 was reviewed. IMPRESSION AND PLAN: 1. Deconditioning. 2. Gait dysfunction. 3. Status post exploratory laparotomy and partial right colectomy with anastomosis and colostomy closure and reversal. 4. Questionable volume overload and weight gain. 5. Hypertension. 6. Atrial fibrillation. 7. Leukocytosis with granulocytosis. 8. Thrombocytopenia (resolved). 9. Acute kidney injury with underlying chronic kidney disease stage III. 10. Type 1 insulin requiring diabetes mellitus. 11. Mild protein malnutrition. 12. Questionable left lower lobe infiltrate versus atelectasis postoperative. 13. Status post right colostomy reversal. 14. Bilateral lower extremity venous stasis (resolved). 15. History of hypothyroidism. 16. History of chronic obstructive pulmonary disease. 17. Hypovitaminosis D. 18. Right-sided diastolic congestive heart failure. 19. Dyslipidemia. 20. Hypomagnesemia. 21. Diabetic gastroparesis. 22. Transient leukocytosis with granulocytosis. 23. Status post right colostomy closure. 24. History of colon carcinoma. 25. Dense intra-abdominal and pelvic adhesions. 26. Status post exploratory laparotomy, partial right colectomy with anastomosis and colostomy closure and extensive lysis of intra-abdominal and pelvic adhesions. 1. Status post exploratory laparotomy and partial right colectomy with anastomosis and colostomy closure and reversal. 2. Possible weight gain with facial swelling. 3. Hypertension. 4. Atrial fibrillation. 5. Leukocytosis with granulocytosis. 6. Thrombocytopenia. 7. Acute kidney injury with underlying chronic kidney disease stage III. 8. Type 1 insulin requiring diabetes mellitus. 9. Mild protein malnutrition. 10. Left lower lobe questionable infiltrate versus atelectasis postoperatively. 11. Status post colostomy reversal. 12. Bilateral lower extremity venous stasis. 1. Status post exploratory laparotomy and partial right colectomy with anastomosis and colostomy closure and reversal. 2. Extensive lysis of intraabdominal and pelvic adhesion. 3. History of colon carcinoma and colostomy. 4. History of atrial fibrillation. 5. Hypertension. 6. History of nicotine dependence and chronic obstructive pulmonary disease. 7. Coronary artery disease. 8. Diastolic right-sided congestive heart failure and pulmonary arterial hypertension. 9. Leukocytosis with granulocytosis. 10. Insulin-requiring diabetes mellitus. 11. Mild hyperbilirubinemia. 12. Acute kidney injury with underlying chronic kidney disease stage III. 13. Cardiomegaly 14. Questionable left lower lobe infiltrate versus atelectasis. 15. Possible postop left lower lobe infiltrate versus atelectasis. 16. Dyslipidemia. 17. Status post nasogastric tube placement and removal. 18. Postoperative deconditioning. 19. Postop surgical pain. 20. Hypovitaminosis D. 21. Hypomagnesemia. 22. Hypothyroidism. 23. History of chronic obstructive pulmonary disease. 1. History of colon carcinoma. 2. Status history of gastrointestinal bleeding. 3. Anemia. 4. Status post colostomy. 5. History of colon carcinoma. 6. History of nephrectomy. 7. Acute kidney injury with underlying chronic kidney disease stage III. 8. Type 1 insulin requiring diabetes mellitus. 9. History of nicotine addiction and dependence. 10. Chronic obstructive pulmonary disease. 11. Coronary artery disease. 12. Atrial fibrillation, Eliquis dependent. 13. Single-vessel coronary artery disease. 14. Diastolic right-sided congestive heart failure. 15. Pulmonary arterial hypertension. 16. Anemia. 17. Iron deficiency anemia. 18. Vitamin B12 deficiency. 19. History of nephrectomy. 20. Status post colostomy. 21. History of colon carcinoma. 22. Status post right knee surgery. 23. History of hypothyroidism. 24. History of dyslipidemia. 25. History of anemia. 26. History of gait dysfunction. 27. History of hypothyroidism. 1. Status post exploratory laparotomy and partial right colectomy with anastomosis and colostomy closure and reversal. 2. Extensive lysis of intraabdominal and pelvic adhesion. 3. History of colon carcinoma and colostomy. 4. History of atrial fibrillation. 5. Hypertension. 6. History of nicotine dependence and chronic obstructive pulmonary disease. 7. Coronary artery disease. 8. Diastolic right-sided congestive heart failure and pulmonary arterial hypertension. 9. Leukocytosis with granulocytosis. 10. Insulin-requiring diabetes mellitus. 11. Mild hyperbilirubinemia. 12. Acute kidney injury with underlying chronic kidney disease stage III. 13. Cardiomegaly 14. Questionable left lower lobe infiltrate versus atelectasis. 15. Possible postop left lower lobe infiltrate versus atelectasis. 16. Dyslipidemia. 17. Status post nasogastric tube placement and removal. 18. Postoperative deconditioning. 19. Postop surgical pain. 20. Hypovitaminosis D. 21. Hypomagnesemia. 22. Hypothyroidism. 23. History of chronic obstructive pulmonary disease. 1. History of colon carcinoma. 2. Status history of gastrointestinal bleeding. 3. Anemia. 4. Status post colostomy. 5. History of colon carcinoma. 6. History of nephrectomy. 7. Acute kidney injury with underlying chronic kidney disease stage III. 8. Type 1 insulin requiring diabetes mellitus. 9. History of nicotine addiction and dependence. 10. Chronic obstructive pulmonary disease. 11. Coronary artery disease. 12. Atrial fibrillation, Eliquis dependent. 13. Single-vessel coronary artery disease. 14. Diastolic right-sided congestive heart failure. 15. Pulmonary arterial hypertension. 16. Anemia. 17. Iron deficiency anemia. 18. Vitamin B12 deficiency. 19. History of nephrectomy. 20. Status post colostomy. 21. History of colon carcinoma. 22. Status post right knee surgery. 23. History of hypothyroidism. 24. History of dyslipidemia. 25. History of anemia. 26. History of gait dysfunction. 27. History of hypothyroidism. Plan at this time, the patient's nebulizer has been changed to round the clock schedule the patient is to be continued on the sotalol 80 mg daily, Drisdol 50,000 weekly, heparin 5000 subcu every eight, Humalog medium dose sliding scale coverage. Lasix 40 mg IV daily, Lipitor 40 mg daily, magnesium oxide 400 mg three times a day, Protonix 40 mg IV daily, Reglan 5 mg IV q.6h., Synthroid 100 mcg daily, Tylenol 650 q. six p.r.n., Xopenex nebulizer every 6 hours around the clock, Zofran 4 mg IV q. four. The patient has been ordered out of bed, NIKOLAY stockings, SCDs, physical therapy, ambulation therapy. Gait training ordered. The patient has been ordered out of bed to chair. The patient's routine lab work will be monitored as needed.. The patient's Eliquis needs to be resumed once cleared by surgery. The patient at present has been on consultation with surgery and cardiology. Dictated and electronically signed, not read. Amilcar Reyes MD [id number]
[2017-04-12] MEDS: Levalbuterol 0.63 MG/3 ML Inhal Soln UD IH SCH ×2 (13:23→20:22)
[2017-04-13] MEDS: Levalbuterol 0.63 MG/3 ML Inhal Soln UD IH SCH ×4 (02:29→19:35)
[2017-04-13] MEDS: Levothyroxine 100 MCG TAB PO SCH (05:59)
[2017-04-13] MEDS: Insulin Lispro (humaLOG) MEDIUM Coverage SC SCH ×4 (06:50→21:09)
--- NOTE | 2017-04-13 07:43 | CP.PCM.PN ---
Subjective - Date & Time of Evaluation Date of Evaluation: 04/13/17 Time of Evaluation: 07:40 - Subjective Subjective: General Surgery Progress note for Dr. Centeno Pt S&E at [facility]. [facility]. Admits continued difficulty breathing despite receiving respiratory therapy yesterday evening. + BM, + Voiding, + SOB. Denies f/c/n/v/d, abdominal pain. No other complaints at this time. Midline incision + cristin, covered with betadine, + ecchymosis surrounding lower 1/3 of incision,without erythema or drainage. R incision dressing removed , + cristin, covered with betadine, without erythema or drainage. L RENATA drain dressing C/D/I, surrounding skin without erythema. RENATA output 32cc over 24h. Objective - Vital Signs/Intake and Output Vital Signs (last 24 hours): Temp Pulse Resp BP Pulse Ox 98.1 F 72 18 125/73 98 04/13/17 06:00 04/13/17 06:00 04/13/17 06:00 04/13/17 06:00 04/13/17 06:00 Intake and Output: 04/13/17 04/13/17 06:59 18:59 Output Total 32 Balance -32 - Medications Medications: Current Medications Acetaminophen (Tylenol 325mg Tab) 650 mg PO Q6H PRN; Protocol PRN Reason: Fever >100.4 F Last Admin: 04/11/17 21:44 Dose: 650 mg Atorvastatin Calcium (Lipitor) 40 mg PO DIN [facility] PRN Reason: Protocol Last Admin: 04/12/17 18:00 Dose: 40 mg Ergocalciferol (Drisdol 50,000 Intl Units Cap) 1 cap PO MoTh@1000 [facility] PRN Reason: Protocol Last Admin: 04/12/17 10:24 Dose: 1 cap Furosemide (Lasix) 40 mg IVP DAILY [facility] PRN Reason: Protocol Last Admin: 04/12/17 11:00 Dose: Not Given Heparin Sodium (Porcine) (Heparin) 5,000 units SC 0600,1800 [facility] PRN Reason: Protocol Last Admin: 04/13/17 06:00 Dose: 5,000 units Insulin Human Lispro (Humalog Med) 0 units SC ACHS [facility] PRN Reason: Protocol Last Admin: 04/13/17 06:50 Dose: Not Given Levalbuterol HCl (Xopenex) 0.63 mg IH [id number] [facility] PRN Reason: Protocol Last Admin: 04/13/17 07:37 Dose: 0.63 mg Levothyroxine Sodium (Synthroid) 100 mcg PO 0630 [facility] PRN Reason: Protocol Last Admin: 04/13/17 05:59 Dose: 100 mcg Magnesium Oxide (Mag-Ox) 400 mg PO TID [facility] PRN Reason: Protocol Last Admin: 04/12/17 18:08 Dose: 400 mg Metoclopramide HCl (Reglan) 5 mg IVP 0630,1130,1700,2200 [facility] PRN Reason: Protocol Last Admin: 04/13/17 05:59 Dose: 5 mg Ondansetron HCl (Zofran Inj) 4 mg IVP Q4H PRN; Protocol PRN Reason: Nausea/Vomiting Pantoprazole Sodium (Protonix Inj) 40 mg IVP DAILY [facility] Last Admin: 04/12/17 10:29 Dose: 40 mg Sotalol HCl (Betapace) 80 mg PO QAM [facility] PRN Reason: Protocol Last Admin: 04/12/17 10:23 Dose: 80 mg - Labs Labs: 04/10/17 07:20 04/10/17 07:20 - Constitutional Appears: Non-toxic, No Acute Distress - Head Exam Head Exam: ATRAUMATIC, NORMOCEPHALIC - Eye Exam Eye Exam: EOMI. absent: Conjunctival injection - ENT Exam ENT Exam: Mucous Membranes Moist - Respiratory Exam Respiratory Exam: NORMAL BREATHING PATTERN. absent: Accessory Muscle Use - Cardiovascular Exam Cardiovascular Exam: absent: Bradycardia, Tachycardia - GI/Abdominal Exam GI & Abdominal Exam: Soft. absent: Distended, Guarding, Rigid, Tenderness, Rebound Additional comments: Midline incision + cristin, covered with betadine, + ecchymosis surrounding lower 1/3 of incision,without erythema or drainage. R incision dressing removed , + cristin, covered with betadine, without erythema or drainage. L RENATA drain dressing C/D/I, surrounding skin without erythema. RENATA output 32cc over 24h. - Exam Additional comments: suction catheter in place. - Extremities Exam Extremities Exam: Full ROM. absent: Pedal Edema - Neurological Exam Neurological Exam: Alert, Awake, Oriented x3 - Psychiatric Exam Psychiatric exam: Normal Affect, Normal Mood - Skin Skin Exam: Dry, Intact, Normal Color, Warm Assessment and Plan - Assessment and Plan (Free Text) Assessment: 86 yo F s/p colostomy reversal POD #7. Plan: -continue respiratory therapy for SOB -continue pain mgmt PRN -dressings changed -monitor drain output -encourage OOBTC, ambulation in halls, IS use -medical mgmt per primary team Will D/W Dr. Centeno. Gena Tyler, PGY 1
[2017-04-13] MEDS: Magnesium Oxide 400 mg Tab UD PO SCH ×3 (10:20→17:36)
--- NOTE | 2017-04-13 11:27 | CP.PCM.PN ---
<Tripp Silva - Last Filed: 04/13/17 11:24> Subjective - Date & Time of Evaluation Date of Evaluation: 04/13/17 Time of Evaluation: 11:24 - Subjective Subjective: Medicine Progress note. Dr. Reyes Pt seen and examined at bedside. No acute events overnight. Patient denies any complaints and states that she is eager to go home and would like to be discharged as soon as possible. She denies any CP/SOB. No F/C. No N/V/D. No Abd pain. Objective - Vital Signs/Intake and Output Vital Signs (last 24 hours): Temp Pulse Resp BP Pulse Ox 98.1 F 85 18 160/91 H 98 04/13/17 06:00 04/13/17 10:31 04/13/17 06:00 04/13/17 10:41 04/13/17 06:00 Intake and Output: 04/13/17 04/13/17 06:59 18:59 Output Total 32 Balance -32 - Medications Medications: Current Medications Acetaminophen (Tylenol 325mg Tab) 650 mg PO Q6H PRN; Protocol PRN Reason: Fever >100.4 F Last Admin: 04/11/17 21:44 Dose: 650 mg Apixaban (Eliquis) 2.5 mg PO BID [facility] PRN Reason: Protocol Last Admin: 04/13/17 10:19 Dose: 2.5 mg Atorvastatin Calcium (Lipitor) 40 mg PO DIN [facility] PRN Reason: Protocol Last Admin: 04/12/17 18:00 Dose: 40 mg Ergocalciferol (Drisdol 50,000 Intl Units Cap) 1 cap PO MoTh@1000 [facility] PRN Reason: Protocol Last Admin: 04/12/17 10:24 Dose: 1 cap Furosemide (Lasix) 20 mg IVP DAILY [facility] PRN Reason: Protocol Last Admin: 04/13/17 10:32 Dose: 20 mg Insulin Human Lispro (Humalog Med) 0 units SC ACHS [facility] PRN Reason: Protocol Last Admin: 04/13/17 06:50 Dose: Not Given Levalbuterol HCl (Xopenex) 0.63 mg IH [id number] [facility] PRN Reason: Protocol Last Admin: 04/13/17 07:37 Dose: 0.63 mg Levothyroxine Sodium (Synthroid) 100 mcg PO 0630 [facility] PRN Reason: Protocol Last Admin: 04/13/17 05:59 Dose: 100 mcg Magnesium Oxide (Mag-Ox) 400 mg PO TID [facility] PRN Reason: Protocol Last Admin: 04/13/17 10:20 Dose: 400 mg Metoclopramide HCl (Reglan) 5 mg PO 0630,1630 [facility] PRN Reason: Protocol Ondansetron HCl (Zofran Inj) 4 mg IVP Q4H PRN; Protocol PRN Reason: Nausea/Vomiting Pantoprazole Sodium (Protonix Ec Tab) 40 mg PO 0600,1600 [facility] Sotalol HCl (Betapace) 80 mg PO QAM [facility] PRN Reason: Protocol Last Admin: 04/13/17 10:31 Dose: 80 mg - Labs Labs: 04/10/17 07:20 04/10/17 07:20 - Constitutional Appears: Well, No Acute Distress - Head Exam Head Exam: ATRAUMATIC, NORMAL INSPECTION, NORMOCEPHALIC - Eye Exam Eye Exam: EOMI - ENT Exam ENT Exam: Mucous Membranes Moist - Respiratory Exam Respiratory Exam: Clear to Ausculation Bilateral, NORMAL BREATHING PATTERN. absent: Accessory Muscle Use, Decreased Breath Sounds, Respiratory Distress - Cardiovascular Exam Cardiovascular Exam: RRR. absent: JVD - GI/Abdominal Exam GI & Abdominal Exam: Soft. absent: Distended, Firm, Guarding, Tenderness Additional comments: midline incision intact with cristin. Schuyler drain RLQ with serrosang output. No significant tenderness to palpation. - Extremities Exam Extremities Exam: Full ROM, Normal Inspection. absent: Calf Tenderness - Neurological Exam Neurological Exam: Alert, Awake, Oriented x3 - Psychiatric Exam Psychiatric exam: Normal Affect, Normal Mood - Skin Skin Exam: Dry, Intact, Normal Color, Warm Assessment and Plan - Assessment and Plan (Free Text) Assessment: 86yo F s/p right colectomy with anastomosis and colostomy reversal - HTN - DM - CKD - A.Fib - Continue PT - Encourage OOB - Encourage IS use - Breathing treatments - Lasix - Will restart Eliquis today Discussed case with Dr. Reyes. Tripp Silva PGY1 <Amilcar Reyes U - Last Filed: 04/28/17 22:17> Objective - Vital Signs/Intake and Output Vital Signs (last 24 hours): Temp Pulse Resp BP Pulse Ox 98.3 F 76 14 132/97 H 100 04/17/17 11:05 04/17/17 11:05 04/17/17 11:05 04/17/17 11:05 04/17/17 11:05 - Labs Labs: 04/16/17 15:42 04/16/17 06:00 PT 11.4 Seconds (9.9-11.8) 04/15/17 19:57 INR 1.06 (0.93-1.08) 04/15/17 19:57 APTT 28.7 Seconds (23.7-30.8) 04/15/17 19:57 Attending/Attestation - Attestation I have personally seen and examined this patient.: Yes I have fully participated in the care of the patient.: Yes I have reviewed all pertinent clinical information, including history, physical exam and plan: Yes
--- NOTE | 2017-04-13 14:19 | PN ---
DATE OF SERVICE: 04/13/2017 LOCATION: The patient is seen in room 322, bed one. SUBJECTIVE: The patient is seen in out of bed to chair. The patient is alert, awake, responsive. The patient states that she is feeling relatively better than yesterday. Overnight nurse's notes were reviewed. According to the patient's nurse, the patient has been refusing intravenously Lasix. PHYSICAL EXAMINATION: VITAL SIGNS: T-max is 98.2. Pulse 72-79, blood pressure 125/73, 143/92, 148/85, respirations 18, O2 sat 98%. HEAD EXAMINATION: Normocephalic and atraumatic. HEENT EXAMINATION: Shows pink conjunctivae, anicteric sclerae. No oropharyngeal lesion. NECK: No neck rigidity. CHEST EXAMINATION: Kyphosis LUNGS EXAMINATION: Shows no rales, crackles, or wheezing. Decreased breath sounds at bases. CARDIOVASCULAR EXAMINATION: S1 and S2, regular rhythm. Questionable new regular rhythm. Positive systolic murmur left sternal border, right second costal space. ABDOMEN: Is protuberant. Positive bowel sound. Positive surgical scar. Positive left-sided RENATA drain. Positive dressing noted. MUSCULOSKELETAL EXAMINATION: Shows a body mass index of 31. Gait examination is not tested. VASCULAR EXAMINATION: Positive palpable pulses. DIAGNOSTICS: None. IMPRESSION AND PLAN 1. Deconditioning. 2. Gait dysfunction. 3. Status post colostomy reversal postop day #7. 4. Chronic obstructive pulmonary disease. 5. Hypertension. 6. Insulin requiring diabetes mellitus. 7. Granulocytosis. 8. Insulin requiring diabetes mellitus with hyperglycemia. 9. Diabetic gastroparesis. 10. Hyperuricemia. 11. Atrial fibrillation. 12. Coronary artery disease. 13. Hypovitaminosis D. 14. Right-sided diastolic congestive heart failure. 15. Dyslipidemia. 16. Hypomagnesemia. 17. Diabetic gastroparesis. 18. Hypothyroidism. 1. Deconditioning. 2. Gait dysfunction. 3. Status post exploratory laparotomy and partial right colectomy with anastomosis and colostomy closure and reversal. 4. Questionable volume overload and weight gain. 5. Hypertension. 6. Atrial fibrillation. 7. Leukocytosis with granulocytosis. 8. Thrombocytopenia (resolved). 9. Acute kidney injury with underlying chronic kidney disease stage III. 10. Type 1 insulin requiring diabetes mellitus. 11. Mild protein malnutrition. 12. Questionable left lower lobe infiltrate versus atelectasis postoperative. 13. Status post right colostomy reversal. 14. Bilateral lower extremity venous stasis (resolved). 15. History of hypothyroidism. 16. History of chronic obstructive pulmonary disease. 17. Hypovitaminosis D. 18. Right-sided diastolic congestive heart failure. 19. Dyslipidemia. 20. Hypomagnesemia. 21. Diabetic gastroparesis. 22. Transient leukocytosis with granulocytosis. 23. Status post right colostomy closure. 24. History of colon carcinoma. 25. Dense intra-abdominal and pelvic adhesions. 26. Status post exploratory laparotomy, partial right colectomy with anastomosis and colostomy closure and extensive lysis of intra-abdominal and pelvic adhesions. 1. Status post exploratory laparotomy and partial right colectomy with anastomosis and colostomy closure and reversal. 2. Possible weight gain with facial swelling. 3. Hypertension. 4. Atrial fibrillation. 5. Leukocytosis with granulocytosis. 6. Thrombocytopenia. 7. Acute kidney injury with underlying chronic kidney disease stage III. 8. Type 1 insulin requiring diabetes mellitus. 9. Mild protein malnutrition. 10. Left lower lobe questionable infiltrate versus atelectasis postoperatively. 11. Status post colostomy reversal. 12. Bilateral lower extremity venous stasis. 1. Status post exploratory laparotomy and partial right colectomy with anastomosis and colostomy closure and reversal. 2. Extensive lysis of intraabdominal and pelvic adhesion. 3. History of colon carcinoma and colostomy. 4. History of atrial fibrillation. 5. Hypertension. 6. History of nicotine dependence and chronic obstructive pulmonary disease. 7. Coronary artery disease. 8. Diastolic right-sided congestive heart failure and pulmonary arterial hypertension. 9. Leukocytosis with granulocytosis. 10. Insulin-requiring diabetes mellitus. 11. Mild hyperbilirubinemia. 12. Acute kidney injury with underlying chronic kidney disease stage III. 13. Cardiomegaly 14. Questionable left lower lobe infiltrate versus atelectasis. 15. Possible postop left lower lobe infiltrate versus atelectasis. 16. Dyslipidemia. 17. Status post nasogastric tube placement and removal. 18. Postoperative deconditioning. 19. Postop surgical pain. 20. Hypovitaminosis D. 21. Hypomagnesemia. 22. Hypothyroidism. 23. History of chronic obstructive pulmonary disease. 1. History of colon carcinoma. 2. Status history of gastrointestinal bleeding. 3. Anemia. 4. Status post colostomy. 5. History of colon carcinoma. 6. History of nephrectomy. 7. Acute kidney injury with underlying chronic kidney disease stage III. 8. Type 1 insulin requiring diabetes mellitus. 9. History of nicotine addiction and dependence. 10. Chronic obstructive pulmonary disease. 11. Coronary artery disease. 12. Atrial fibrillation, Eliquis dependent. 13. Single-vessel coronary artery disease. 14. Diastolic right-sided congestive heart failure. 15. Pulmonary arterial hypertension. 16. Anemia. 17. Iron deficiency anemia. 18. Vitamin B12 deficiency. 19. History of nephrectomy. 20. Status post colostomy. 21. History of colon carcinoma. 22. Status post right knee surgery. 23. History of hypothyroidism. 24. History of dyslipidemia. 25. History of anemia. 26. History of gait dysfunction. 27. History of hypothyroidism. 1. Status post exploratory laparotomy and partial right colectomy with anastomosis and colostomy closure and reversal. 2. Extensive lysis of intraabdominal and pelvic adhesion. 3. History of colon carcinoma and colostomy. 4. History of atrial fibrillation. 5. Hypertension. 6. History of nicotine dependence and chronic obstructive pulmonary disease. 7. Coronary artery disease. 8. Diastolic right-sided congestive heart failure and pulmonary arterial hypertension. 9. Leukocytosis with granulocytosis. 10. Insulin-requiring diabetes mellitus. 11. Mild hyperbilirubinemia. 12. Acute kidney injury with underlying chronic kidney disease stage III. 13. Cardiomegaly 14. Questionable left lower lobe infiltrate versus atelectasis. 15. Possible postop left lower lobe infiltrate versus atelectasis. 16. Dyslipidemia. 17. Status post nasogastric tube placement and removal. 18. Postoperative deconditioning. 19. Postop surgical pain. 20. Hypovitaminosis D. 21. Hypomagnesemia. 22. Hypothyroidism. 23. History of chronic obstructive pulmonary disease. 1. History of colon carcinoma. 2. Status history of gastrointestinal bleeding. 3. Anemia. 4. Status post colostomy. 5. History of colon carcinoma. 6. History of nephrectomy. 7. Acute kidney injury with underlying chronic kidney disease stage III. 8. Type 1 insulin requiring diabetes mellitus. 9. History of nicotine addiction and dependence. 10. Chronic obstructive pulmonary disease. 11. Coronary artery disease. 12. Atrial fibrillation, Eliquis dependent. 13. Single-vessel coronary artery disease. 14. Diastolic right-sided congestive heart failure. 15. Pulmonary arterial hypertension. 16. Anemia. 17. Iron deficiency anemia. 18. Vitamin B12 deficiency. 19. History of nephrectomy. 20. Status post colostomy. 21. History of colon carcinoma. 22. Status post right knee surgery. 23. History of hypothyroidism. 24. History of dyslipidemia. 25. History of anemia. 26. History of gait dysfunction. 27. History of hypothyroidism. PLAN: At this time, patient has been ordered out of bed, NIKOLAY stockings, SCDs, physical therapy, occupational therapy. The patient will be continued till completion of the transitional care unit stay. The patient has this to be followed up with cardiology regarding the resumption of Eliquis and with surgery regarding the resumption of Eliquis. The patient's current medications sotalol 80 mg daily, Drisdol 50,000 weekly, heparin 5000 subcu q. 12, Humalog medium dose sliding scale coverage, Lasix changed 20 mg IV daily, Lipitor 40 mg daily, magnesium oxide 400 mg three times a day, Protonix 40 mg. changed to p.o. daily, Reglan changed to 5 mg p.o. twice a day, Synthroid 100 mcg daily, Tylenol p.r.n., Xopenex nebulizer 0.63 mg q. 6h., Zofran 4 mg IV q. 4 p.r.n. At present, the patient is to be continued on above therapeutic intervention with daily physical therapy, ambulation therapy. Dictated and electronically signed, not read. Amilcar Reyes MD MTDGavi
[2017-04-13] MEDS: Pantoprazole 40 mg EC Tab PO SCH (17:37)
[2017-04-14] MEDS: Levalbuterol 0.63 MG/3 ML Inhal Soln UD IH SCH ×4 (01:04→20:01)
[2017-04-14] MEDS: Pantoprazole 40 mg EC Tab PO SCH ×2 (05:47→16:55)
[2017-04-14] MEDS: Levothyroxine 100 MCG TAB PO SCH (05:48)
[2017-04-14] MEDS: Insulin Lispro (humaLOG) MEDIUM Coverage SC SCH ×4 (06:38→21:32)
[2017-04-14 06:39] LABS: BASO # 0.02 K/mm3 (0.0-2.0); BASO % 0.3 % (0.0-3.0); EOS # 0.3 (0.0-0.7); EOS % 3.3 % (1.5-5.0); GRAN # 5.29 (1.4-6.5); GRAN % 67.8 % (50.0-68.0); HEMATOCRIT 38.4 % (36.0-48.0); LYMPH # 1.5 (1.2-3.4); LYMPH % 19.5 % (22.0-35.0); MEAN CORPUSCULAR HGB CONC 32.3 g/dl (31.0-37.0); MEAN PLATELET VOLUME 12.3 fl (7.0-11.0); MONO # 0.7 (0.1-0.6); MONO % 9.1 % (1.0-6.0); RED CELL DISTRIBUTION WIDTH 13.5 % (11.5-14.5); WHITE BLOOD COUNT 7.8 10^3/ul (4.5-11.0)
[2017-04-14 06:52] LABS: ALB/GLOB RATIO 1.2 (1.1-1.8); ALKALINE PHOSPHATASE 123 U/L (38-126); ALT/SGPT 46 U/L (7-56); AST/SGOT 31 U/L (14-36); BILIRUBIN,DIRECT 0.3 mg/dL (0.0-0.4); BILIRUBIN,TOTAL 0.6 mg/dL (0.2-1.3); BLOOD UREA NITROGEN 20 mg/dL (7-21); CALCIUM 9.2 mg/dL (8.4-10.5); CARBON DIOXIDE 32 mmol/L (21-33); CHLORIDE 103 mmol/L (98-107); GFR AFRICAN-AMERICAN > 60; GLUCOSE,RANDOM 144 mg/dL (70-110); MAGNESIUM 1.9 mg/dL (1.7-2.2); POTASSIUM 4.1 mmol/L (3.6-5.0); SODIUM 143 mmol/L (132-148)
--- NOTE | 2017-04-14 07:43 | CP.PCM.PN ---
Subjective - Date & Time of Evaluation Date of Evaluation: 04/14/17 Time of Evaluation: 07:40 - Subjective Subjective: Progress note for Dr. Centeno Patient is set for Discharge on Wednesday afternoon/Wednesday. Drain removed at bedside. No complications. Minimal output overnight. Patient admits to breathing difficulties, but feels better. Patient denies F/C, N/V. Patient admits to bowel movements overnight. Objective - Vital Signs/Intake and Output Vital Signs (last 24 hours): Temp Pulse Resp BP Pulse Ox 98.4 F 83 16 154/71 H 88 L 04/13/17 16:12 04/13/17 16:12 04/13/17 16:12 04/13/17 16:12 04/13/17 16:12 - Medications Medications: Current Medications Acetaminophen (Tylenol 325mg Tab) 650 mg PO Q6H PRN; Protocol PRN Reason: Fever >100.4 F Last Admin: 04/11/17 21:44 Dose: 650 mg Apixaban (Eliquis) 2.5 mg PO BID GEOVANI PRN Reason: Protocol Last Admin: 04/13/17 17:37 Dose: 2.5 mg Atorvastatin Calcium (Lipitor) 40 mg PO DIN GEOVANI PRN Reason: Protocol Last Admin: 04/13/17 17:36 Dose: 40 mg Ergocalciferol (Drisdol 50,000 Intl Units Cap) 1 cap PO MoTh@1000 GEOVANI PRN Reason: Protocol Last Admin: 04/12/17 10:24 Dose: 1 cap Furosemide (Lasix) 20 mg IVP DAILY GEOVANI PRN Reason: Protocol Last Admin: 04/13/17 10:32 Dose: 20 mg Insulin Human Lispro (Humalog Med) 0 units SC ACHS [facility] PRN Reason: Protocol Last Admin: 04/14/17 06:38 Dose: 1 units Levalbuterol HCl (Xopenex) 0.63 mg IH [id number] GEOVANI PRN Reason: Protocol Last Admin: 04/14/17 07:08 Dose: 0.63 mg Levothyroxine Sodium (Synthroid) 100 mcg PO 0630 [facility] PRN Reason: Protocol Last Admin: 04/14/17 05:48 Dose: 100 mcg Magnesium Oxide (Mag-Ox) 400 mg PO TID GEOVANI PRN Reason: Protocol Last Admin: 04/13/17 17:36 Dose: 400 mg Metoclopramide HCl (Reglan) 5 mg PO 0630,1630 [facility] PRN Reason: Protocol Last Admin: 04/14/17 05:47 Dose: 5 mg Ondansetron HCl (Zofran Inj) 4 mg IVP Q4H PRN; Protocol PRN Reason: Nausea/Vomiting Pantoprazole Sodium (Protonix Ec Tab) 40 mg PO 0600,1600 [facility]OV[facility] Last Admin: 04/14/17 05:47 Dose: 40 mg Sotalol HCl (Betapace) 80 mg PO QAM [facility] PRN Reason: Protocol Last Admin: 04/13/17 10:31 Dose: 80 mg - Labs Labs: 04/14/17 06:30 04/14/17 06:30 - Constitutional Appears: Non-toxic - Head Exam Head Exam: NORMAL INSPECTION - Eye Exam Eye Exam: EOMI, Normal appearance - ENT Exam ENT Exam: Mucous Membranes Moist - Neck Exam Neck Exam: Full ROM - Respiratory Exam Respiratory Exam: Rhonchi. absent: Accessory Muscle Use, Respiratory Distress Additional comments: Patient is on nasal cannula. - Cardiovascular Exam Cardiovascular Exam: REGULAR RHYTHM. absent: Bradycardia, Tachycardia - GI/Abdominal Exam GI & Abdominal Exam: Soft, Normal Bowel Sounds. absent: Tenderness Additional comments: incision c/d/i POD#3, no erythema, induration, drainage - Extremities Exam Extremities Exam: Full ROM, Normal Inspection. absent: Pedal Edema - Neurological Exam Neurological Exam: Alert, Awake - Skin Skin Exam: Dry, Intact, Normal Color, Warm Assessment and Plan - Assessment and Plan (Free Text) Assessment: 86 yo F s/p colostomy reversal POD #8 Plan: c/w respiratory therapy for SOB c/w pain management Drain removed. [place] intact. encourage OOBTC, ambulation in hall, [facility] c/w current medial management d/w Dr. Centeno. Gena Tyler, DO PGY 1
[2017-04-14] MEDS: Magnesium Oxide 400 mg Tab UD PO SCH ×3 (09:27→17:47)
--- NOTE | 2017-04-14 16:05 | CON ---
DATE: 04/14/2017 HISTORY OF PRESENT ILLNESS: The patient is an 86-year-old woman who is in the TCU after surgical repair of a colostomy cyst. PAST MEDICAL HISTORY: The patient's past medical history is notable for diabetes mellitus, hypertension and hypercholesterolemia. She has been treated with atrial fibrillation with Eliquis as well as with sotalol. The patient is chest pain-free. No palpitations noted. No chest pain. SOCIAL HISTORY: He does not smoke. Fourteen-point review of systems is free of cardiac symptoms. PHYSICAL EXAMINATION: VITAL SIGNS: On physical exam, blood pressure 147/87, heart rate is irregularly irregular in the 80s. NECK: Negative JVD. LUNGS: Without rales. HEART: S1, S2 with a soft systolic ejection murmur. EXTREMITIES: Without edema. Laboratories includes a glucose of 144, hemoglobin is 12.4. IMPRESSION 1. Hemodynamically stable post abdominal surgery. 2. Atrial fibrillation. 3. Hypertension. 4. Diabetes mellitus. 5. Hypercholesterolemia. Given these findings, I agree with restarting on her beta-blockers. In addition, starting on low-dose Eliquis would be appropriate. We will need to follow her hemoglobin carefully. We will obtain an EKG in the morning to reevaluate her heart rhythm. Reji Macias MD
--- NOTE | 2017-04-14 16:53 | CARD ---
APPROVED REPORT EKG Measurement Heart [id number] <Conclusion> Atrial fibrillation T wave abnormality, consider anterolateral ischemia or digitalis effect Prolonged QT Abnormal ECG
[2017-04-15] MEDS: Levalbuterol 0.63 MG/3 ML Inhal Soln UD IH SCH ×4 (01:15→20:49)
--- NOTE | 2017-04-15 02:33 | PN ---
DATE: 04/14/2017 SUBJECTIVE: The patient is seen the patient is seen out of bed to chair. The patient's son is at bedside. The patient is alert, awake, and responsive. The patient states that she occasionally is getting short of breath, but resolved with nebulizer treatment. PHYSICAL EXAMINATION: VITAL SIGNS: The patient's vital signs noted T-max 98.8, pulse of 70-80, blood pressure of 140/77-147/87, respirations 16-18, and O2 saturation 98% in the last 24 hours. States his blood pressure was elevated up to 180/98 and O2 saturation is high 90s to 100. HEAD: Normocephalic, atraumatic. HEENT: Shows pink conjunctivae. Anicteric sclerae. No oropharyngeal lesion. NECK: No neck rigidity. CHEST: Kyphosis. LUNGS: Shows no rales, crackles, or wheezing. CARDIOVASCULAR: S1 and S2, regular rhythm. Positive systolic murmur at left sternal border, right second intercostal space. ABDOMEN: Soft and protuberant. Positive surgical scar. RENATA drain removed. GENITALIA: Female. RECTAL: Deferred. EXTREMITIES: Shows missing NIKOLAY stockings. Trace swelling of the lower extremity. MUSCULOSKELETAL: Shows a body mass index of 31. NEUROLOGIC: Cranial nerves II-XII limited. Gait examination could not be tested. According to the physical therapist the patient walks steadily with rolling-walker despite being having pain in the feet. Physical therapy recommends home PT. DIAGNOSTICS: WBC 7.8, hemoglobin/hematocrit 12.4/38.4, and platelets 148. Sodium 143, potassium 4.1, chloride 103, CO2 32, anion gap 12, BUN 20, creatinine 1.0, GFR greater than 60, glucose 282, 144, 153, 159, 238, 188. Uric acid 11. LFTs are normal. EKG shows atrial fibrillation, Q-wave in lead 3, ST-T changes with anterolateral ST changes. IMPRESSION: 1. Deconditioning. 2. Gait dysfunction. 3. Questionable diabetic neuropathy with bilateral foot pain. 4. Status post colostomy removal. 5. Atrial fibrillation. 6. Anterolateral coronary ischemic changes. 7. Hypertension. 8. Hyperuricemia. 9. Insulin requiring diabetes mellitus. 10. Granulocytosis. 11. Status post colostomy reversal postoperative day #8. 1. Deconditioning. 2. Gait dysfunction. 3. Status post colostomy reversal postop day #7. 4. Chronic obstructive pulmonary disease. 5. Hypertension. 6. Insulin requiring diabetes mellitus. 7. Granulocytosis. 8. Insulin requiring diabetes mellitus with hyperglycemia. 9. Diabetic gastroparesis. 10. Hyperuricemia. 11. Atrial fibrillation. 12. Coronary artery disease. 13. Hypovitaminosis D. 14. Right-sided diastolic congestive heart failure. 15. Dyslipidemia. 16. Hypomagnesemia. 17. Diabetic gastroparesis. 18. Hypothyroidism. 1. Deconditioning. 2. Gait dysfunction. 3. Status post exploratory laparotomy and partial right colectomy with anastomosis and colostomy closure and reversal. 4. Questionable volume overload and weight gain. 5. Hypertension. 6. Atrial fibrillation. 7. Leukocytosis with granulocytosis. 8. Thrombocytopenia (resolved). 9. Acute kidney injury with underlying chronic kidney disease stage III. 10. Type 1 insulin requiring diabetes mellitus. 11. Mild protein malnutrition. 12. Questionable left lower lobe infiltrate versus atelectasis postoperative. 13. Status post right colostomy reversal. 14. Bilateral lower extremity venous stasis (resolved). 15. History of hypothyroidism. 16. History of chronic obstructive pulmonary disease. 17. Hypovitaminosis D. 18. Right-sided diastolic congestive heart failure. 19. Dyslipidemia. 20. Hypomagnesemia. 21. Diabetic gastroparesis. 22. Transient leukocytosis with granulocytosis. 23. Status post right colostomy closure. 24. History of colon carcinoma. 25. Dense intra-abdominal and pelvic adhesions. 26. Status post exploratory laparotomy, partial right colectomy with anastomosis and colostomy closure and extensive lysis of intra-abdominal and pelvic adhesions. 1. Status post exploratory laparotomy and partial right colectomy with anastomosis and colostomy closure and reversal. 2. Possible weight gain with facial swelling. 3. Hypertension. 4. Atrial fibrillation. 5. Leukocytosis with granulocytosis. 6. Thrombocytopenia. 7. Acute kidney injury with underlying chronic kidney disease stage III. 8. Type 1 insulin requiring diabetes mellitus. 9. Mild protein malnutrition. 10. Left lower lobe questionable infiltrate versus atelectasis postoperatively. 11. Status post colostomy reversal. 12. Bilateral lower extremity venous stasis. 1. Status post exploratory laparotomy and partial right colectomy with anastomosis and colostomy closure and reversal. 2. Extensive lysis of intraabdominal and pelvic adhesion. 3. History of colon carcinoma and colostomy. 4. History of atrial fibrillation. 5. Hypertension. 6. History of nicotine dependence and chronic obstructive pulmonary disease. 7. Coronary artery disease. 8. Diastolic right-sided congestive heart failure and pulmonary arterial hypertension. 9. Leukocytosis with granulocytosis. 10. Insulin-requiring diabetes mellitus. 11. Mild hyperbilirubinemia. 12. Acute kidney injury with underlying chronic kidney disease stage III. 13. Cardiomegaly 14. Questionable left lower lobe infiltrate versus atelectasis. 15. Possible postop left lower lobe infiltrate versus atelectasis. 16. Dyslipidemia. 17. Status post nasogastric tube placement and removal. 18. Postoperative deconditioning. 19. Postop surgical pain. 20. Hypovitaminosis D. 21. Hypomagnesemia. 22. Hypothyroidism. 23. History of chronic obstructive pulmonary disease. 1. History of colon carcinoma. 2. Status history of gastrointestinal bleeding. 3. Anemia. 4. Status post colostomy. 5. History of colon carcinoma. 6. History of nephrectomy. 7. Acute kidney injury with underlying chronic kidney disease stage III. 8. Type 1 insulin requiring diabetes mellitus. 9. History of nicotine addiction and dependence. 10. Chronic obstructive pulmonary disease. 11. Coronary artery disease. 12. Atrial fibrillation, Eliquis dependent. 13. Single-vessel coronary artery disease. 14. Diastolic right-sided congestive heart failure. 15. Pulmonary arterial hypertension. 16. Anemia. 17. Iron deficiency anemia. 18. Vitamin B12 deficiency. 19. History of nephrectomy. 20. Status post colostomy. 21. History of colon carcinoma. 22. Status post right knee surgery. 23. History of hypothyroidism. 24. History of dyslipidemia. 25. History of anemia. 26. History of gait dysfunction. 27. History of hypothyroidism. 1. Status post exploratory laparotomy and partial right colectomy with anastomosis and colostomy closure and reversal. 2. Extensive lysis of intraabdominal and pelvic adhesion. 3. History of colon carcinoma and colostomy. 4. History of atrial fibrillation. 5. Hypertension. 6. History of nicotine dependence and chronic obstructive pulmonary disease. 7. Coronary artery disease. 8. Diastolic right-sided congestive heart failure and pulmonary arterial hypertension. 9. Leukocytosis with granulocytosis. 10. Insulin-requiring diabetes mellitus. 11. Mild hyperbilirubinemia. 12. Acute kidney injury with underlying chronic kidney disease stage III. 13. Cardiomegaly 14. Questionable left lower lobe infiltrate versus atelectasis. 15. Possible postop left lower lobe infiltrate versus atelectasis. 16. Dyslipidemia. 17. Status post nasogastric tube placement and removal. 18. Postoperative deconditioning. 19. Postop surgical pain. 20. Hypovitaminosis D. 21. Hypomagnesemia. 22. Hypothyroidism. 23. History of chronic obstructive pulmonary disease. 1. History of colon carcinoma. 2. Status history of gastrointestinal bleeding. 3. Anemia. 4. Status post colostomy. 5. History of colon carcinoma. 6. History of nephrectomy. 7. Acute kidney injury with underlying chronic kidney disease stage III. 8. Type 1 insulin requiring diabetes mellitus. 9. History of nicotine addiction and dependence. 10. Chronic obstructive pulmonary disease. 11. Coronary artery disease. 12. Atrial fibrillation, Eliquis dependent. 13. Single-vessel coronary artery disease. 14. Diastolic right-sided congestive heart failure. 15. Pulmonary arterial hypertension. 16. Anemia. 17. Iron deficiency anemia. 18. Vitamin B12 deficiency. 19. History of nephrectomy. 20. Status post colostomy. 21. History of colon carcinoma. 22. Status post right knee surgery. 23. History of hypothyroidism. 24. History of dyslipidemia. 25. History of anemia. 26. History of gait dysfunction. 27. History of hypothyroidism. PLAN: At this time, the patient is to continue physical therapy. Current consultation Cardiology and Surgery. The patient has been started on low dose Eliquis 2.5 mg as per Cardiology recommendation. The patient is on sotalol 80 mg daily, Drisdol 50,000 weekly, Humalog medium dose sliding scale coverage before meals and bedtime, Lasix 20 mg IV push daily, Lipitor 40 mg daily, magnesium oxide 400 mg 3 times a day, Protonix 40 mg twice a day, Reglan 5 mg twice a day, Synthroid 100 mcg daily, Tylenol 650 q.4 hours p.r.n., Xopenex 0.63 mg every 6 hours, Zofran 4 mg IV q.4 hours p.r.n. The patient is started on allopurinol 100 mg daily, oxygen nasal cannula, heart healthy diet, out of bed, NIKOLAY stockings, SCDs, physical therapy, and occupational therapy. The patient is to be continued on the transitional care unit until completion of the transitional care unit stay with daily PT, ambulation therapy, etc. The patient is to be discharged after the completion of TCU stay. Dictated and electronically signed, not read. Amilcar Reyes MD [facility]
[2017-04-15] MEDS: Levothyroxine 100 MCG TAB PO SCH (06:08)
[2017-04-15] MEDS: Pantoprazole 40 mg EC Tab PO SCH ×2 (06:08→18:33)
[2017-04-15] MEDS: Insulin Lispro (humaLOG) MEDIUM Coverage SC SCH ×4 (06:56→21:13)
[2017-04-15] MEDS: Ergocalciferol 50,000 Intl Units Cap PO SCH (10:19)
--- NOTE | 2017-04-15 10:19 | CP.PCM.PN ---
Subjective - Date & Time of Evaluation Date of Evaluation: 04/15/17 Time of Evaluation: 10:16 - Subjective Subjective: General Surgery Progress note for Dr. Centeno PT S&E in Chair. Patient admits to feeling much better. Denied BM overnight. Patient states she is tolerating diet. Denies, fever, chills, abdominal pain, diarrhea. Objective - Vital Signs/Intake and Output Vital Signs (last 24 hours): Temp Pulse Resp BP Pulse Ox 97.9 F 70 16 124/74 98 04/14/17 16:21 04/14/17 16:21 04/14/17 16:21 04/14/17 16:21 04/14/17 16:21 - Medications Medications: Current Medications Acetaminophen (Tylenol 325mg Tab) 650 mg PO Q6H PRN; Protocol PRN Reason: Fever >100.4 F Last Admin: 04/14/17 11:31 Dose: 650 mg Allopurinol (Zyloprim) 100 mg PO DAILY [facility] Last Admin: 04/14/17 11:00 Dose: 100 mg Apixaban (Eliquis) 2.5 mg PO BID [facility] PRN Reason: Protocol Last Admin: 04/14/17 17:50 Dose: 2.5 mg Atorvastatin Calcium (Lipitor) 40 mg PO DIN [facility] PRN Reason: Protocol Last Admin: 04/14/17 17:48 Dose: 40 mg Ergocalciferol (Drisdol 50,000 Intl Units Cap) 1 cap PO MoTh@1000 [facility] PRN Reason: Protocol Last Admin: 04/12/17 10:24 Dose: 1 cap Furosemide (Lasix) 20 mg IVP DAILY [facility] PRN Reason: Protocol Last Admin: 04/14/17 09:27 Dose: 20 mg Insulin Human Lispro (Humalog Med) 0 units SC ACHS [facility] PRN Reason: Protocol Last Admin: 04/15/17 06:56 Dose: Not Given Levalbuterol HCl (Xopenex) 0.63 mg IH [id number] [facility] PRN Reason: Protocol Last Admin: 04/15/17 07:19 Dose: 0.63 mg Levothyroxine Sodium (Synthroid) 100 mcg PO 0630 [facility] PRN Reason: Protocol Last Admin: 04/15/17 06:08 Dose: 100 mcg Magnesium Oxide (Mag-Ox) 400 mg PO TID [facility] PRN Reason: Protocol Last Admin: 04/14/17 17:47 Dose: 400 mg Metoclopramide HCl (Reglan) 5 mg PO 0630,1630 [facility] PRN Reason: Protocol Last Admin: 04/15/17 06:08 Dose: 5 mg Ondansetron HCl (Zofran Inj) 4 mg IVP Q4H PRN; Protocol PRN Reason: Nausea/Vomiting Pantoprazole Sodium (Protonix Ec Tab) 40 mg PO 0600,1600 [facility] Last Admin: 04/15/17 06:08 Dose: 40 mg Sotalol HCl (Betapace) 80 mg PO QAM [facility] PRN Reason: Protocol Last Admin: 04/14/17 09:26 Dose: 80 mg - Labs Labs: 04/14/17 06:30 04/14/17 06:30 - Constitutional Appears: Non-toxic - Head Exam Head Exam: NORMAL INSPECTION - Eye Exam Eye Exam: EOMI, Normal appearance - ENT Exam ENT Exam: Mucous Membranes Moist - Neck Exam Neck Exam: Full ROM, Normal Inspection - Respiratory Exam Respiratory Exam: NORMAL BREATHING PATTERN. absent: Accessory Muscle Use, Respiratory Distress - Cardiovascular Exam Cardiovascular Exam: REGULAR RHYTHM, +S1, +S2 - GI/Abdominal Exam GI & Abdominal Exam: Soft, Normal Bowel Sounds. absent: Tenderness - Extremities Exam Extremities Exam: Full ROM, Normal Inspection. absent: Pedal Edema - Neurological Exam Neurological Exam: Alert, Awake, Oriented x3 - Psychiatric Exam Psychiatric exam: Normal Affect, Normal Mood - Skin Skin Exam: Dry, Intact, Normal Color, Warm Assessment and Plan - Assessment and Plan (Free Text) Assessment: 86 yo F s/p colostomy reversal POD #9 Plan: c/w respiratory therapy c/w pain management [place] intact encourage OOBTC, ambulation in halls, ISS c/w current medial management d/w Dr. Centeno. Gena Tyler, DO PGY 1
[2017-04-15] MEDS: Magnesium Oxide 400 mg Tab UD PO SCH ×3 (10:20→18:33)
--- NOTE | 2017-04-15 11:21 | CP.PCM.PN ---
<Tripp Silva - Last Filed: 04/15/17 11:18> Subjective - Date & Time of Evaluation Date of Evaluation: 04/15/17 Time of Evaluation: 11:18 - Subjective Subjective: Medicine Progress note. Dr. Reyes Pt seen and examined at Physical Therapy suite and again in patient room. Patient ambulating well. Denies any abdominal pain. Denies N/V/D. No CP/SOB. No new complaints. Patient wishes to go home and states that she is very eager to leave as soon as possible. Objective - Vital Signs/Intake and Output Vital Signs (last 24 hours): Temp Pulse Resp BP Pulse Ox 97.9 F 74 16 122/68 98 04/14/17 16:21 04/15/17 10:19 04/14/17 16:21 04/15/17 10:20 04/14/17 16:21 - Medications Medications: Current Medications Acetaminophen (Tylenol 325mg Tab) 650 mg PO Q6H PRN; Protocol PRN Reason: Fever >100.4 F Last Admin: 04/14/17 11:31 Dose: 650 mg Allopurinol (Zyloprim) 100 mg PO DAILY GEOVANI Last Admin: 04/15/17 10:21 Dose: 100 mg Apixaban (Eliquis) 2.5 mg PO BID [facility] PRN Reason: Protocol Last Admin: 04/15/17 10:20 Dose: 2.5 mg Atorvastatin Calcium (Lipitor) 40 mg PO DIN [facility] PRN Reason: Protocol Last Admin: 04/14/17 17:48 Dose: 40 mg Ergocalciferol (Drisdol 50,000 Intl Units Cap) 1 cap PO MoTh@1000 [facility] PRN Reason: Protocol Last Admin: 04/15/17 10:19 Dose: 1 cap Furosemide (Lasix) 20 mg IVP DAILY [facility] PRN Reason: Protocol Last Admin: 04/15/17 10:20 Dose: 20 mg Insulin Human Lispro (Humalog Med) 0 units SC ACHS [facility] PRN Reason: Protocol Last Admin: 04/15/17 06:56 Dose: Not Given Levalbuterol HCl (Xopenex) 0.63 mg IH [id number] [facility] PRN Reason: Protocol Last Admin: 04/15/17 07:19 Dose: 0.63 mg Levothyroxine Sodium (Synthroid) 100 mcg PO 0630 [facility] PRN Reason: Protocol Last Admin: 04/15/17 06:08 Dose: 100 mcg Magnesium Oxide (Mag-Ox) 400 mg PO TID [facility] PRN Reason: Protocol Last Admin: 04/15/17 10:20 Dose: 400 mg Metoclopramide HCl (Reglan) 5 mg PO 0630,1630 [facility] PRN Reason: Protocol Last Admin: 04/15/17 06:08 Dose: 5 mg Ondansetron HCl (Zofran Inj) 4 mg IVP Q4H PRN; Protocol PRN Reason: Nausea/Vomiting Pantoprazole Sodium (Protonix Ec Tab) 40 mg PO 0600,1600 [facility] Last Admin: 04/15/17 06:08 Dose: 40 mg Sotalol HCl (Betapace) 80 mg PO QAM [facility] PRN Reason: Protocol Last Admin: 04/15/17 10:19 Dose: 80 mg - Labs Labs: 04/14/17 06:30 04/14/17 06:30 - Constitutional Appears: Well, Non-toxic, No Acute Distress - Head Exam Head Exam: ATRAUMATIC, NORMOCEPHALIC - Eye Exam Eye Exam: EOMI, Normal appearance - ENT Exam ENT Exam: Mucous Membranes Moist - Neck Exam Neck Exam: Full ROM, Normal Inspection - Respiratory Exam Respiratory Exam: Clear to Ausculation Bilateral. absent: Rales, Rhonchi, Wheezes - Cardiovascular Exam Cardiovascular Exam: REGULAR RHYTHM, RRR. absent: JVD - GI/Abdominal Exam GI & Abdominal Exam: Soft. absent: Distended, Firm, Guarding, Rigid, Tenderness Additional comments: Midline incision intact with cristin. Skin margins well approximated - Extremities Exam Extremities Exam: Normal Inspection. absent: Calf Tenderness, Pedal Edema - Neurological Exam Neurological Exam: Alert, Awake, Normal Gait, Oriented x3 - Psychiatric Exam Psychiatric exam: Normal Affect, Normal Mood - Skin Skin Exam: Dry, Intact, Normal Color, Warm Assessment and Plan - Assessment and Plan (Free Text) Assessment: 86yo F with PMHx of colon CA s/p colectomy. Now with Colostomy reversal on . 1. Colon CA s/p Colectomy and now colostomy reversal Tolerating diet OOBTC Pain management Zofran 2. Hx of CAD/CHF continue Home meds: Lipitor, Lasix Strict I&Os Daily wts Lasix 20mg IV daily 3. Hx of Afib/HTN Eliquis resumed Sotalol Continue to monitor 4. Hx of COPD Xopenex, Brovana, O2 prn IS O2 PRN Target SaO2>88 5. Hx of HLD Lipitor 6. Hx of DM ISS Accuchecks 7. Hx of Hypothyroidism Cont home Synthroid 8. Hx of gout Uric acid elevated Allopurinol 9. PPx Protonix SCDs TEDs In TRCU for deconditioning. D/C planning for Apr 17. Heart Healthy Diet OOBTC Discussed case with Dr. Amy Silva PGY1 <Amilcar Reyes U - Last Filed: 04/28/17 22:17> Objective - Vital Signs/Intake and Output Vital Signs (last 24 hours): Temp Pulse Resp BP Pulse Ox 98.3 F 76 14 132/97 H 100 04/17/17 11:05 04/17/17 11:05 04/17/17 11:05 04/17/17 11:05 04/17/17 11:05 - Labs Labs: 04/16/17 15:42 04/16/17 06:00 PT 11.4 Seconds (9.9-11.8) 04/15/17 19:57 INR 1.06 (0.93-1.08) 04/15/17 19:57 APTT 28.7 Seconds (23.7-30.8) 04/15/17 19:57 Attending/Attestation - Attestation I have personally seen and examined this patient.: Yes I have fully participated in the care of the patient.: Yes I have reviewed all pertinent clinical information, including history, physical exam and plan: Yes
[2017-04-15 13:00] LABS: BASO # 0.02 K/mm3 (0.0-2.0); BASO % 0.2 % (0.0-3.0); EOS # 0.3 (0.0-0.7); EOS % 2.6 % (1.5-5.0); GRAN # 6.67 (1.4-6.5); GRAN % 70.7 % (50.0-68.0); HEMATOCRIT 42.2 % (36.0-48.0); LYMPH # 1.6 (1.2-3.4); LYMPH % 17.3 % (22.0-35.0); MEAN CELL VOLUME 96.1 fl (80.0-105.0); MEAN CORPUSCULAR HEMOGLOBIN 31.9 pg (25.0-35.0); MEAN CORPUSCULAR HGB CONC 33.2 g/dl (31.0-37.0); MEAN PLATELET VOLUME 11.6 fl (7.0-11.0); MONO # 0.9 (0.1-0.6); MONO % 9.2 % (1.0-6.0); RED CELL DISTRIBUTION WIDTH 13.6 % (11.5-14.5); WHITE BLOOD COUNT 9.4 10^3/ul (4.5-11.0)
--- NOTE | 2017-04-15 13:37 | PN ---
DATE: 04/15/2017 CARDIOLOGY FOLLOWUP NOTE SUBJECTIVE: The patient is in the TCU, tolerating her diet. PHYSICAL EXAMINATION VITAL SIGNS: Blood pressure varies from 122 to 160 systolic and heart rate in the 70s. NECK: Negative JVD. LUNGS: Without rales. HEART: Reveals S1 and S2. EXTREMITIES: Without edema. LABORATORY DATA: Hemoglobin is 12.7. Chemistries is 133. IMPRESSION 1. Status post abdominal surgery. 2. Chronic atrial fibrillation. 3. Hypertension. 4. Diabetes mellitus. 5. Hypercholesterolemia. PLAN: Given these findings, the patient was restarted on her Eliquis yesterday. We will obtain serial troponins to serve for any bleeding. Reji Macias MD
[2017-04-15 20:23] LABS: BASO # 0.02 K/mm3 (0.0-2.0); BASO % 0.2 % (0.0-3.0); EOS # 0.2 (0.0-0.7); EOS % 2.2 % (1.5-5.0); GRAN # 5.81 (1.4-6.5); GRAN % 70.9 % (50.0-68.0); HEMATOCRIT 40.6 % (36.0-48.0); LYMPH # 1.3 (1.2-3.4); LYMPH % 16.3 % (22.0-35.0); MEAN CORPUSCULAR HEMOGLOBIN 31.2 pg (25.0-35.0); MEAN CORPUSCULAR HGB CONC 32.5 g/dl (31.0-37.0); MEAN PLATELET VOLUME 12.6 fl (7.0-11.0); MONO # 0.9 (0.1-0.6); MONO % 10.4 % (1.0-6.0); RED CELL DISTRIBUTION WIDTH 13.5 % (11.5-14.5); WHITE BLOOD COUNT 8.2 10^3/ul (4.5-11.0)
[2017-04-15 20:29] LABS: INR 1.06 (0.93-1.08); PARTIAL THROMBOPLASTIN TIME 28.7 Seconds (23.7-30.8)
--- NOTE | 2017-04-15 20:32 | PN ---
DATE: 04/15/2017 SUBJECTIVE: The patient is seen in room 322, bed 1. The patient appears to be without any complaints today. The patient denies any chest pain. Denies any shortness of breath. The patient states that she is feeling better with the breathing since the patient is getting around the clock nebulizer treatment. The patient denies any chest pain. Denies any shortness of breath. Denies nausea, vomiting, diarrhea, constipation. The patient reports normal bowel movement according to the patient. PHYSICAL EXAMINATION: VITAL SIGNS: The patient's vital signs reviewed as per the vital signs section of the [facility]. HEAD: Normocephalic and atraumatic. HEENT: Pinkish conjunctivae. Anicteric sclerae. No oropharyngeal lesion. NECK: No neck rigidity. CHEST: Kyphosis. LUNGS: Shows no rales, crackles or wheezing. Occasional very slight decreased breath sound at the bases, left more than the right. CARDIOVASCULAR: S1, S2 irregular rhythm. Questionable and possible systolic murmur left sternal border, right second intercostal space, left second intercostal space. ABDOMEN: Shows positive surgical scar. RENATA drain removed slightly protuberant. Positive voluntary guarding noted on the abdomen. GENITALIA: Female. RECTAL: Deferred. EXTREMITIES: Positive NIKOLAY stockings no pitting edema today. VASCULAR: Palpated pulses. NEUROLOGIC: Motor strength is 5/5 in upper and lower extremity. Gait examination not tested by me, but as per the physical therapy notes the patient's physical therapy notes reviewed. DIAGNOSTICS: CBC, CMP, LFTs reviewed. Fingerstick blood sugar reviewed. Physical therapy recommendations noted home with services. IMPRESSION AND PLAN: 1. Deconditioning. 2. Gait dysfunction. 3. Status post reversal of colostomy. 4. History of colonic carcinoma. 5. Atrial fibrillation, Eliquis dependent atrial fibrillation. 6. Chronic obstructive pulmonary disease. 7. History of nicotine dependence. 8. History of coronary artery disease. 9. Atrial fibrillation. 10. Insulin-requiring diabetes mellitus. 11. History of noncompliance. 12. Anemia. 13. History of nephrectomy. 14. Hypercholesteremia, hypertriglyceridemia. 15. Bilateral lower extremity venous stasis. 16. Diastolic right-sided congestive heart failure with pulmonary arterial hypertension. 17. Gait dysfunction. 18. Deconditioning. 19. Hyperuricemia. 20. Hypothyroidism. 1. Deconditioning. 2. Gait dysfunction. 3. Questionable diabetic neuropathy with bilateral foot pain. 4. Status post colostomy removal. 5. Atrial fibrillation. 6. Anterolateral coronary ischemic changes. 7. Hypertension. 8. Hyperuricemia. 9. Insulin requiring diabetes mellitus. 10. Granulocytosis. 11. Status post colostomy reversal postoperative day #8. 1. Deconditioning. 2. Gait dysfunction. 3. Status post colostomy reversal postop day #7. 4. Chronic obstructive pulmonary disease. 5. Hypertension. 6. Insulin requiring diabetes mellitus. 7. Granulocytosis. 8. Insulin requiring diabetes mellitus with hyperglycemia. 9. Diabetic gastroparesis. 10. Hyperuricemia. 11. Atrial fibrillation. 12. Coronary artery disease. 13. Hypovitaminosis D. 14. Right-sided diastolic congestive heart failure. 15. Dyslipidemia. 16. Hypomagnesemia. 17. Diabetic gastroparesis. 18. Hypothyroidism. 1. Deconditioning. 2. Gait dysfunction. 3. Status post exploratory laparotomy and partial right colectomy with anastomosis and colostomy closure and reversal. 4. Questionable volume overload and weight gain. 5. Hypertension. 6. Atrial fibrillation. 7. Leukocytosis with granulocytosis. 8. Thrombocytopenia (resolved). 9. Acute kidney injury with underlying chronic kidney disease stage III. 10. Type 1 insulin requiring diabetes mellitus. 11. Mild protein malnutrition. 12. Questionable left lower lobe infiltrate versus atelectasis postoperative. 13. Status post right colostomy reversal. 14. Bilateral lower extremity venous stasis (resolved). 15. History of hypothyroidism. 16. History of chronic obstructive pulmonary disease. 17. Hypovitaminosis D. 18. Right-sided diastolic congestive heart failure. 19. Dyslipidemia. 20. Hypomagnesemia. 21. Diabetic gastroparesis. 22. Transient leukocytosis with granulocytosis. 23. Status post right colostomy closure. 24. History of colon carcinoma. 25. Dense intra-abdominal and pelvic adhesions. 26. Status post exploratory laparotomy, partial right colectomy with anastomosis and colostomy closure and extensive lysis of intra-abdominal and pelvic adhesions. 1. Status post exploratory laparotomy and partial right colectomy with anastomosis and colostomy closure and reversal. 2. Possible weight gain with facial swelling. 3. Hypertension. 4. Atrial fibrillation. 5. Leukocytosis with granulocytosis. 6. Thrombocytopenia. 7. Acute kidney injury with underlying chronic kidney disease stage III. 8. Type 1 insulin requiring diabetes mellitus. 9. Mild protein malnutrition. 10. Left lower lobe questionable infiltrate versus atelectasis postoperatively. 11. Status post colostomy reversal. 12. Bilateral lower extremity venous stasis. 1. Status post exploratory laparotomy and partial right colectomy with anastomosis and colostomy closure and reversal. 2. Extensive lysis of intraabdominal and pelvic adhesion. 3. History of colon carcinoma and colostomy. 4. History of atrial fibrillation. 5. Hypertension. 6. History of nicotine dependence and chronic obstructive pulmonary disease. 7. Coronary artery disease. 8. Diastolic right-sided congestive heart failure and pulmonary arterial hypertension. 9. Leukocytosis with granulocytosis. 10. Insulin-requiring diabetes mellitus. 11. Mild hyperbilirubinemia. 12. Acute kidney injury with underlying chronic kidney disease stage III. 13. Cardiomegaly 14. Questionable left lower lobe infiltrate versus atelectasis. 15. Possible postop left lower lobe infiltrate versus atelectasis. 16. Dyslipidemia. 17. Status post nasogastric tube placement and removal. 18. Postoperative deconditioning. 19. Postop surgical pain. 20. Hypovitaminosis D. 21. Hypomagnesemia. 22. Hypothyroidism. 23. History of chronic obstructive pulmonary disease. 1. History of colon carcinoma. 2. Status history of gastrointestinal bleeding. 3. Anemia. 4. Status post colostomy. 5. History of colon carcinoma. 6. History of nephrectomy. 7. Acute kidney injury with underlying chronic kidney disease stage III. 8. Type 1 insulin requiring diabetes mellitus. 9. History of nicotine addiction and dependence. 10. Chronic obstructive pulmonary disease. 11. Coronary artery disease. 12. Atrial fibrillation, Eliquis dependent. 13. Single-vessel coronary artery disease. 14. Diastolic right-sided congestive heart failure. 15. Pulmonary arterial hypertension. 16. Anemia. 17. Iron deficiency anemia. 18. Vitamin B12 deficiency. 19. History of nephrectomy. 20. Status post colostomy. 21. History of colon carcinoma. 22. Status post right knee surgery. 23. History of hypothyroidism. 24. History of dyslipidemia. 25. History of anemia. 26. History of gait dysfunction. 27. History of hypothyroidism. 1. Status post exploratory laparotomy and partial right colectomy with anastomosis and colostomy closure and reversal. 2. Extensive lysis of intraabdominal and pelvic adhesion. 3. History of colon carcinoma and colostomy. 4. History of atrial fibrillation. 5. Hypertension. 6. History of nicotine dependence and chronic obstructive pulmonary disease. 7. Coronary artery disease. 8. Diastolic right-sided congestive heart failure and pulmonary arterial hypertension. 9. Leukocytosis with granulocytosis. 10. Insulin-requiring diabetes mellitus. 11. Mild hyperbilirubinemia. 12. Acute kidney injury with underlying chronic kidney disease stage III. 13. Cardiomegaly 14. Questionable left lower lobe infiltrate versus atelectasis. 15. Possible postop left lower lobe infiltrate versus atelectasis. 16. Dyslipidemia. 17. Status post nasogastric tube placement and removal. 18. Postoperative deconditioning. 19. Postop surgical pain. 20. Hypovitaminosis D. 21. Hypomagnesemia. 22. Hypothyroidism. 23. History of chronic obstructive pulmonary disease. 1. History of colon carcinoma. 2. Status history of gastrointestinal bleeding. 3. Anemia. 4. Status post colostomy. 5. History of colon carcinoma. 6. History of nephrectomy. 7. Acute kidney injury with underlying chronic kidney disease stage III. 8. Type 1 insulin requiring diabetes mellitus. 9. History of nicotine addiction and dependence. 10. Chronic obstructive pulmonary disease. 11. Coronary artery disease. 12. Atrial fibrillation, Eliquis dependent. 13. Single-vessel coronary artery disease. 14. Diastolic right-sided congestive heart failure. 15. Pulmonary arterial hypertension. 16. Anemia. 17. Iron deficiency anemia. 18. Vitamin B12 deficiency. 19. History of nephrectomy. 20. Status post colostomy. 21. History of colon carcinoma. 22. Status post right knee surgery. 23. History of hypothyroidism. 24. History of dyslipidemia. 25. History of anemia. 26. History of gait dysfunction. 27. History of hypothyroidism. PLAN: At this time, the patient was updated about her condition, diagnosis, treatment plan, management plan. The patient has expressed her wishes to be discharged earlier. I have advised the patient to discuss the options for TCU completion of stay with the TCU staff and social work administrator. I have spoken to the patient's nurse about the patient's wishes for early discharge. As the patient has been advised as dictated above. Dictated and electronically signed, not read. Amilcar Reyes MD [facility] # [id number]
[2017-04-16] MEDS: Levalbuterol 0.63 MG/3 ML Inhal Soln UD IH SCH ×4 (02:00→20:01)
[2017-04-16] MEDS: Levothyroxine 100 MCG TAB PO SCH (06:03)
[2017-04-16] MEDS: Pantoprazole 40 mg EC Tab PO SCH (06:04)
[2017-04-16] MEDS: Insulin Lispro (humaLOG) MEDIUM Coverage SC SCH ×4 (06:36→21:59)
[2017-04-16 07:08] LABS: BASO # 0.01 K/mm3 (0.0-2.0); BASO % 0.1 % (0.0-3.0); EOS # 0.2 (0.0-0.7); GRAN # 4.86 (1.4-6.5); GRAN % 63.1 % (50.0-68.0); HEMATOCRIT 35.2 % (36.0-48.0); LYMPH # 1.7 (1.2-3.4); LYMPH % 22.2 % (22.0-35.0); MEAN CELL VOLUME 95.9 fl (80.0-105.0); MEAN CORPUSCULAR HEMOGLOBIN 31.9 pg (25.0-35.0); MEAN CORPUSCULAR HGB CONC 33.2 g/dl (31.0-37.0); MEAN PLATELET VOLUME 10.8 fl (7.0-11.0); MONO # 0.9 (0.1-0.6); MONO % 11.6 % (1.0-6.0); RED CELL DISTRIBUTION WIDTH 13.6 % (11.5-14.5); WHITE BLOOD COUNT 7.7 10^3/ul (4.5-11.0)
[2017-04-16 07:16] LABS: ALB/GLOB RATIO 1.2 (1.1-1.8); ALKALINE PHOSPHATASE 112 U/L (38-126); ALT/SGPT 46 U/L (7-56); AST/SGOT 29 U/L (14-36); BILIRUBIN,TOTAL 0.7 mg/dL (0.2-1.3); BLOOD UREA NITROGEN 19 mg/dL (7-21); CARBON DIOXIDE 36 mmol/L (21-33); CHLORIDE 102 mmol/L (98-107); GFR AFRICAN-AMERICAN > 60; GLUCOSE,RANDOM 140 mg/dL (70-110); POTASSIUM 3.6 mmol/L (3.6-5.0); SODIUM 142 mmol/L (132-148); TOTAL PROTEIN 5.6 g/dL (5.8-8.3)
--- NOTE | 2017-04-16 08:12 | CP.PCM.PN ---
Subjective - Date & Time of Evaluation Date of Evaluation: 04/16/17 Time of Evaluation: 08:09 - Subjective Subjective: General Surgery Progress note for Dr. Centeno PT S&E at bedside. Patient admits to large bloody bowel movement overnight. Patient denies no other complaints. Betadine placed on incision sites. Patient denies F/C, Abdominal Pain, diarrhea. Objective - Vital Signs/Intake and Output Vital Signs (last 24 hours): Temp Pulse Resp BP Pulse Ox 98 F 76 18 119/76 99 04/16/17 05:28 04/16/17 05:28 04/16/17 05:28 04/16/17 05:28 04/16/17 05:28 - Medications Medications: Current Medications Acetaminophen (Tylenol 325mg Tab) 650 mg PO Q6H PRN; Protocol PRN Reason: Fever >100.4 F Last Admin: 04/14/17 11:31 Dose: 650 mg Allopurinol (Zyloprim) 100 mg PO DAILY [facility] Last Admin: 04/15/17 10:21 Dose: 100 mg Atorvastatin Calcium (Lipitor) 40 mg PO DIN [facility] PRN Reason: Protocol Last Admin: 04/15/17 18:33 Dose: 40 mg Ergocalciferol (Drisdol 50,000 Intl Units Cap) 1 cap PO MoTh@1000 [facility] PRN Reason: Protocol Last Admin: 04/15/17 10:19 Dose: 1 cap Furosemide (Lasix) 20 mg IVP DAILY [facility] PRN Reason: Protocol Last Admin: 04/15/17 10:20 Dose: 20 mg Insulin Human Lispro (Humalog Med) 0 units SC ACHS [facility] PRN Reason: Protocol Last Admin: 04/16/17 06:36 Dose: Not Given Levalbuterol HCl (Xopenex) 0.63 mg IH [id number] [facility] PRN Reason: Protocol Last Admin: 04/16/17 07:21 Dose: 0.63 mg Levothyroxine Sodium (Synthroid) 100 mcg PO 0630 [facility] PRN Reason: Protocol Last Admin: 04/16/17 06:03 Dose: 100 mcg Magnesium Oxide (Mag-Ox) 400 mg PO TID [facility] PRN Reason: Protocol Last Admin: 04/15/17 18:33 Dose: 400 mg Metoclopramide HCl (Reglan) 5 mg PO 0630,1630 [facility] PRN Reason: Protocol Last Admin: 04/16/17 06:03 Dose: 5 mg Ondansetron HCl (Zofran Inj) 4 mg IVP Q4H PRN; Protocol PRN Reason: Nausea/Vomiting Pantoprazole Sodium (Protonix Ec Tab) 40 mg PO 0600,1600 [facility] Last Admin: 04/16/17 06:04 Dose: 40 mg Sotalol HCl (Betapace) 80 mg PO QAM [facility] PRN Reason: Protocol Last Admin: 04/15/17 10:19 Dose: 80 mg - Labs Labs: 04/16/17 06:00 04/16/17 06:00 PT 11.4 Seconds (9.9-11.8) 04/15/17 19:57 INR 1.06 (0.93-1.08) 04/15/17 19:57 APTT 28.7 Seconds (23.7-30.8) 04/15/17 19:57 - Constitutional Appears: Non-toxic - Head Exam Head Exam: NORMAL INSPECTION - Eye Exam Eye Exam: EOMI, Normal appearance - ENT Exam ENT Exam: Mucous Membranes Moist - Neck Exam Neck Exam: Full ROM. absent: Tenderness - Respiratory Exam Respiratory Exam: NORMAL BREATHING PATTERN. absent: Accessory Muscle Use, Respiratory Distress - Cardiovascular Exam Cardiovascular Exam: REGULAR RHYTHM. absent: Bradycardia, Tachycardia - GI/Abdominal Exam GI & Abdominal Exam: Soft, Normal Bowel Sounds. absent: Tenderness - Extremities Exam Extremities Exam: Full ROM. absent: Pedal Edema - Neurological Exam Neurological Exam: Alert, Awake, Oriented x3 - Psychiatric Exam Psychiatric exam: Normal Affect, Normal Mood - Skin Skin Exam: Dry, Intact, Normal Color, Warm Assessment and Plan - Assessment and Plan (Free Text) Assessment: 86 yo F s/p colostomy reversal POD #10 Plan: c/w respiratory therapy c/w pain management [place] intact encourage OOBTC, ambulation in halls, ISS c/w current medial management monitor H/H d/w Dr. Centeno. Gena Tyler, DO PGY 1
[2017-04-16] MEDS ORDERED: Barium Sulfate Susp 2.1% w/v, 2.0% w/w 450 mL Bottle PO ONE (08:42)
[2017-04-16] MEDS: Magnesium Oxide 400 mg Tab UD PO SCH ×3 (09:28→17:32)
--- NOTE | 2017-04-16 10:34 | PN ---
DATE: 04/16/2017 SUBJECTIVE: The patient had a bloody bowel movement yesterday. PHYSICAL EXAMINATION: VITAL SIGNS: Blood pressure is 126/75, the heart rate is in the 70s. NECK: Negative JVD. LUNGS: Without rales. HEART: S1, S2. EXTREMITIES: Without edema. LABORATORY DATA: The hemoglobin is 11.7 from 13.2. Chemistries, BUN and creatinine 19 and 1.0. IMPRESSION: 1. Status post abdominal surgery. 2. Chronic atrial fibrillation. 3. Hypertension. 4. Diabetes mellitus. 5. Hypercholesterolemia. Given these findings, we will need to hold the Eliquis. We will obtain serial CBC. Reji Macias MD
[2017-04-16 11:27] LABS: BASO # 0.02 K/mm3 (0.0-2.0); BASO % 0.2 % (0.0-3.0); EOS # 0.3 (0.0-0.7); EOS % 2.6 % (1.5-5.0); GRAN # 6.65 (1.4-6.5); GRAN % 65.1 % (50.0-68.0); HEMATOCRIT 42.8 % (36.0-48.0); LYMPH # 2.3 (1.2-3.4); LYMPH % 22.7 % (22.0-35.0); MEAN CELL VOLUME 96.4 fl (80.0-105.0); MEAN CORPUSCULAR HEMOGLOBIN 31.8 pg (25.0-35.0); MEAN CORPUSCULAR HGB CONC 32.9 g/dl (31.0-37.0); MEAN PLATELET VOLUME 11.1 fl (7.0-11.0); MONO % 9.4 % (1.0-6.0); RED CELL DISTRIBUTION WIDTH 13.5 % (11.5-14.5); WHITE BLOOD COUNT 10.2 10^3/ul (4.5-11.0)
--- NOTE | 2017-04-16 14:18 | PN ---
DATE: 04/16/2017 LOCATION: Patient is seen in room 322, bed one. SUBJECTIVE: Overnight events were noted according to the patient. The patient has been having blood in the stool for the last 2 days. But patient did not tell this and did not notify the nurses and the doctor till last night. When patient notified to the nurses and the stool occult blood was done by the patient's nurse which was positive for blood. The patient had a stat CBC and a PT/PTT which was reviewed. Today patient is seen in room 322, bed one with the medical staff credentialing coordinator. The patient is out of bed to chair. The patient reports that the patient is having blood in the stool for the last 2 days. The patient denies any nausea, diarrhea or constipation. Denies any hemoptysis. PHYSICAL EXAMINATION: VITAL SIGNS: T-max 98.6, heart rate 76-78, blood pressure 126/75, 119/76, 146/86, 160/89, respirations 18, O2 sat 99%. HEENT: Head examination normocephalic, atraumatic. HEENT examination shows pinkish pale conjunctivae. Anicteric sclerae. No oropharyngeal lesion. No neck rigidity. CHEST: Examination kyphosis. LUNGS: Examination shows questionable decreased breath sound at the bases. CARDIOVASCULAR: Examination is as noted. ABDOMEN: Examination shows surgical sites. RENATA drain removed, slight protuberant plus nontender at present. Bowel sounds are present. GENITALIA: Female. RECTAL: Examination is deferred. EXTREMITIES: Shows positive NIKOLAY stocking. MUSCULOSKELETAL: Examination shows a body mass index of 28. NEUROLOGIC: The patient is alert, awake, oriented x3. Cranial nerves II-XII limited. Gait examination is not tested, but as per physical therapy. DIAGNOSTIC/LABORATORY DATA: Diagnostics from April 15, 2017 and April 16, 2017 were reviewed. The patient's CBC on April 15, 2017 shows WBC of 9.4, 8.2, hemoglobin/hematocrit 14.0, 42.2, and 13.2, 40.6. Today's CBC shows WBC of 7.7, hemoglobin/hematocrit 11.7/35.2, platelets from yesterday to today 201, 156, 165. Patient's chemistry, sodium is 142, potassium is 3.6, chloride 102, CO2 36, anion gap 8, BUN 19, creatinine 1.0, GFR is greater than 60, glucose 140, 133, 282, uric acid was 11, yesterday stool occult blood positive for blood, little bit lower. IMPRESSION AND PLAN: 1. Rectal bleeding, etiology undetermined. 2. History of hypertension. 3. Deconditioning. 4. Relative anemia. 5. Granulocytosis. 6. Insulin-requiring diabetes mellitus. 7. Hyperuricemia. 8. Insulin requiring diabetes mellitus. 9. Fecal occult blood positive. 10. Deconditioning. 11. Gait dysfunction. 12. Atrial fibrillation with anterolateral coronary ischemic changes on the EKG. 1. Deconditioning. 2. Gait dysfunction. 3. Status post reversal of colostomy. 4. History of colonic carcinoma. 5. Atrial fibrillation, Eliquis dependent atrial fibrillation. 6. Chronic obstructive pulmonary disease. 7. History of nicotine dependence. 8. History of coronary artery disease. 9. Atrial fibrillation. 10. Insulin-requiring diabetes mellitus. 11. History of noncompliance. 12. Anemia. 13. History of nephrectomy. 14. Hypercholesteremia, hypertriglyceridemia. 15. Bilateral lower extremity venous stasis. 16. Diastolic right-sided congestive heart failure with pulmonary arterial hypertension. 17. Gait dysfunction. 18. Deconditioning. 19. Hyperuricemia. 20. Hypothyroidism. 1. Deconditioning. 2. Gait dysfunction. 3. Questionable diabetic neuropathy with bilateral foot pain. 4. Status post colostomy removal. 5. Atrial fibrillation. 6. Anterolateral coronary ischemic changes. 7. Hypertension. 8. Hyperuricemia. 9. Insulin requiring diabetes mellitus. 10. Granulocytosis. 11. Status post colostomy reversal postoperative day #8. 1. Deconditioning. 2. Gait dysfunction. 3. Status post colostomy reversal postop day #7. 4. Chronic obstructive pulmonary disease. 5. Hypertension. 6. Insulin requiring diabetes mellitus. 7. Granulocytosis. 8. Insulin requiring diabetes mellitus with hyperglycemia. 9. Diabetic gastroparesis. 10. Hyperuricemia. 11. Atrial fibrillation. 12. Coronary artery disease. 13. Hypovitaminosis D. 14. Right-sided diastolic congestive heart failure. 15. Dyslipidemia. 16. Hypomagnesemia. 17. Diabetic gastroparesis. 18. Hypothyroidism. 1. Deconditioning. 2. Gait dysfunction. 3. Status post exploratory laparotomy and partial right colectomy with anastomosis and colostomy closure and reversal. 4. Questionable volume overload and weight gain. 5. Hypertension. 6. Atrial fibrillation. 7. Leukocytosis with granulocytosis. 8. Thrombocytopenia (resolved). 9. Acute kidney injury with underlying chronic kidney disease stage III. 10. Type 1 insulin requiring diabetes mellitus. 11. Mild protein malnutrition. 12. Questionable left lower lobe infiltrate versus atelectasis postoperative. 13. Status post right colostomy reversal. 14. Bilateral lower extremity venous stasis (resolved). 15. History of hypothyroidism. 16. History of chronic obstructive pulmonary disease. 17. Hypovitaminosis D. 18. Right-sided diastolic congestive heart failure. 19. Dyslipidemia. 20. Hypomagnesemia. 21. Diabetic gastroparesis. 22. Transient leukocytosis with granulocytosis. 23. Status post right colostomy closure. 24. History of colon carcinoma. 25. Dense intra-abdominal and pelvic adhesions. 26. Status post exploratory laparotomy, partial right colectomy with anastomosis and colostomy closure and extensive lysis of intra-abdominal and pelvic adhesions. 1. Status post exploratory laparotomy and partial right colectomy with anastomosis and colostomy closure and reversal. 2. Possible weight gain with facial swelling. 3. Hypertension. 4. Atrial fibrillation. 5. Leukocytosis with granulocytosis. 6. Thrombocytopenia. 7. Acute kidney injury with underlying chronic kidney disease stage III. 8. Type 1 insulin requiring diabetes mellitus. 9. Mild protein malnutrition. 10. Left lower lobe questionable infiltrate versus atelectasis postoperatively. 11. Status post colostomy reversal. 12. Bilateral lower extremity venous stasis. 1. Status post exploratory laparotomy and partial right colectomy with anastomosis and colostomy closure and reversal. 2. Extensive lysis of intraabdominal and pelvic adhesion. 3. History of colon carcinoma and colostomy. 4. History of atrial fibrillation. 5. Hypertension. 6. History of nicotine dependence and chronic obstructive pulmonary disease. 7. Coronary artery disease. 8. Diastolic right-sided congestive heart failure and pulmonary arterial hypertension. 9. Leukocytosis with granulocytosis. 10. Insulin-requiring diabetes mellitus. 11. Mild hyperbilirubinemia. 12. Acute kidney injury with underlying chronic kidney disease stage III. 13. Cardiomegaly 14. Questionable left lower lobe infiltrate versus atelectasis. 15. Possible postop left lower lobe infiltrate versus atelectasis. 16. Dyslipidemia. 17. Status post nasogastric tube placement and removal. 18. Postoperative deconditioning. 19. Postop surgical pain. 20. Hypovitaminosis D. 21. Hypomagnesemia. 22. Hypothyroidism. 23. History of chronic obstructive pulmonary disease. 1. History of colon carcinoma. 2. Status history of gastrointestinal bleeding. 3. Anemia. 4. Status post colostomy. 5. History of colon carcinoma. 6. History of nephrectomy. 7. Acute kidney injury with underlying chronic kidney disease stage III. 8. Type 1 insulin requiring diabetes mellitus. 9. History of nicotine addiction and dependence. 10. Chronic obstructive pulmonary disease. 11. Coronary artery disease. 12. Atrial fibrillation, Eliquis dependent. 13. Single-vessel coronary artery disease. 14. Diastolic right-sided congestive heart failure. 15. Pulmonary arterial hypertension. 16. Anemia. 17. Iron deficiency anemia. 18. Vitamin B12 deficiency. 19. History of nephrectomy. 20. Status post colostomy. 21. History of colon carcinoma. 22. Status post right knee surgery. 23. History of hypothyroidism. 24. History of dyslipidemia. 25. History of anemia. 26. History of gait dysfunction. 27. History of hypothyroidism. 1. Status post exploratory laparotomy and partial right colectomy with anastomosis and colostomy closure and reversal. 2. Extensive lysis of intraabdominal and pelvic adhesion. 3. History of colon carcinoma and colostomy. 4. History of atrial fibrillation. 5. Hypertension. 6. History of nicotine dependence and chronic obstructive pulmonary disease. 7. Coronary artery disease. 8. Diastolic right-sided congestive heart failure and pulmonary arterial hypertension. 9. Leukocytosis with granulocytosis. 10. Insulin-requiring diabetes mellitus. 11. Mild hyperbilirubinemia. 12. Acute kidney injury with underlying chronic kidney disease stage III. 13. Cardiomegaly 14. Questionable left lower lobe infiltrate versus atelectasis. 15. Possible postop left lower lobe infiltrate versus atelectasis. 16. Dyslipidemia. 17. Status post nasogastric tube placement and removal. 18. Postoperative deconditioning. 19. Postop surgical pain. 20. Hypovitaminosis D. 21. Hypomagnesemia. 22. Hypothyroidism. 23. History of chronic obstructive pulmonary disease. 1. History of colon carcinoma. 2. Status history of gastrointestinal bleeding. 3. Anemia. 4. Status post colostomy. 5. History of colon carcinoma. 6. History of nephrectomy. 7. Acute kidney injury with underlying chronic kidney disease stage III. 8. Type 1 insulin requiring diabetes mellitus. 9. History of nicotine addiction and dependence. 10. Chronic obstructive pulmonary disease. 11. Coronary artery disease. 12. Atrial fibrillation, Eliquis dependent. 13. Single-vessel coronary artery disease. 14. Diastolic right-sided congestive heart failure. 15. Pulmonary arterial hypertension. 16. Anemia. 17. Iron deficiency anemia. 18. Vitamin B12 deficiency. 19. History of nephrectomy. 20. Status post colostomy. 21. History of colon carcinoma. 22. Status post right knee surgery. 23. History of hypothyroidism. 24. History of dyslipidemia. 25. History of anemia. 26. History of gait dysfunction. 27. History of hypothyroidism. PLAN: At this time, patient has been ordered a stat CAT scan of the abdomen and pelvis with p.o. contrast. The patient will be monitored on TCU at present as patient is hemodynamically stable. The patient has been ordered repeat lab work for the morning. If patient's CAT scan is negative for any abnormalities, patient will be considered for discharge home upon completion of TCU stay. At present, patient's Eliquis has been held. The patient has been requested surgical reevaluation. The patient's current medications sotalol 80 mg daily, Drisdol 50,000 weekly, Humalog medium dose sliding scale coverage, Lasix 20 mg IV daily, Lipitor 40 mg daily, magnesium oxide 400 mg three times a day, Protonix 40 mg daily, Synthroid 100 mcg daily, Tylenol 650 q. 6 p.r.n., Xopenex 0.63 mg every 6 hours round the clock, Zofran 4 mg IV q. 4 p.r.n. allopurinol 9 mg daily. CAT scan of the abdomen and pelvis with p.o. contrast ordered with a written prescription given to the patient's nurse. Patient has been ordered out of bed, SCDs, occupational therapy, physical therapy. As mentioned above, patient will be will be considered for discharge upon completion of TCU stay if the patient's CAT scan of the abdomen and pelvis is negative for bleeding. The patient has been explained and updated about her condition, diagnosis, test results, and further management dependent upon the patient's further diagnostic testing. Dictated and electronically signed, not read. Amilcar Reyes MD [facility] # [id number] [place]
[2017-04-16 16:09] LABS: HEMATOCRIT 36.8 % (36.0-48.0); MEAN CELL VOLUME 95.8 fl (80.0-105.0); MEAN CORPUSCULAR HEMOGLOBIN 31.8 pg (25.0-35.0); MEAN CORPUSCULAR HGB CONC 33.2 g/dl (31.0-37.0); MEAN PLATELET VOLUME 12.2 fl (7.0-11.0); RED CELL DISTRIBUTION WIDTH 13.7 % (11.5-14.5); WHITE BLOOD COUNT 7.5 10^3/ul (4.5-11.0)
[2017-04-17] MEDS: Levalbuterol 0.63 MG/3 ML Inhal Soln UD IH SCH ×2 (01:42→07:25)
[2017-04-17] MEDS ORDERED: Pantoprazole 40 mg EC Tab PO SCH (06:00)
[2017-04-17] MEDS: Insulin Lispro (humaLOG) MEDIUM Coverage SC SCH (06:29)
[2017-04-17] MEDS: Levothyroxine 100 MCG TAB PO SCH (06:29)
--- NOTE | 2017-04-17 06:45 | CP.PCM.PN ---
Subjective - Date & Time of Evaluation Date of Evaluation: 04/17/17 Time of Evaluation: 06:38 - Subjective Subjective: SURGERY NOTE FOR DR. JOHNSON 86F seen and examined at bedside. Patient doing well, denies pain, tolerating diet, continues having bowel movements. She is working well with physical therapy. Objective - Vital Signs/Intake and Output Vital Signs (last 24 hours): Temp Pulse Resp BP Pulse Ox 98.8 F 82 18 117/63 96 04/17/17 05:51 04/17/17 05:51 04/17/17 05:51 04/17/17 05:51 04/17/17 05:51 Intake and Output: 04/16/17 04/17/17 18:59 06:59 Intake Total 925 Balance 925 - Medications Medications: Current Medications Acetaminophen (Tylenol 325mg Tab) 650 mg PO Q6H PRN; Protocol PRN Reason: Fever >100.4 F Last Admin: 04/14/17 11:31 Dose: 650 mg Allopurinol (Zyloprim) 100 mg PO DAILY GEOVANI Last Admin: 04/16/17 09:28 Dose: 100 mg Atorvastatin Calcium (Lipitor) 40 mg PO DIN GEOVANI PRN Reason: Protocol Last Admin: 04/16/17 17:32 Dose: 40 mg Ergocalciferol (Drisdol 50,000 Intl Units Cap) 1 cap PO MoTh@1000 GEOVANI PRN Reason: Protocol Last Admin: 04/15/17 10:19 Dose: 1 cap Furosemide (Lasix) 20 mg IVP DAILY GEOVANI PRN Reason: Protocol Last Admin: 04/16/17 09:28 Dose: 20 mg Insulin Human Lispro (Humalog Med) 0 units SC ACHS GEOVANI PRN Reason: Protocol Last Admin: 04/17/17 06:29 Dose: 1 units Levalbuterol HCl (Xopenex) 0.63 mg IH [id number] GEOVANI PRN Reason: Protocol Last Admin: 04/16/17 20:01 Dose: 0.63 mg Levothyroxine Sodium (Synthroid) 100 mcg PO 0630 GEOVANI PRN Reason: Protocol Last Admin: 04/17/17 06:29 Dose: 100 mcg Magnesium Oxide (Mag-Ox) 400 mg PO TID GEOVANI PRN Reason: Protocol Last Admin: 04/16/17 17:32 Dose: 400 mg Ondansetron HCl (Zofran Inj) 4 mg IVP Q4H PRN; Protocol PRN Reason: Nausea/Vomiting Pantoprazole Sodium (Protonix Ec Tab) 40 mg PO 0600 [facility] Last Admin: 04/17/17 06:29 Dose: 40 mg Sotalol HCl (Betapace) 80 mg PO QAM GEOVANI PRN Reason: Protocol Last Admin: 04/16/17 09:28 Dose: 80 mg - Labs Labs: 04/16/17 15:42 04/16/17 06:00 PT 11.4 Seconds (9.9-11.8) 04/15/17 19:57 INR 1.06 (0.93-1.08) 04/15/17 19:57 APTT 28.7 Seconds (23.7-30.8) 04/15/17 19:57 - Constitutional Appears: Non-toxic, No Acute Distress - Respiratory Exam Respiratory Exam: Clear to Ausculation Bilateral, NORMAL BREATHING PATTERN - Cardiovascular Exam Cardiovascular Exam: REGULAR RHYTHM, +S1, +S2 - GI/Abdominal Exam GI & Abdominal Exam: Soft. absent: Distended, Firm, Guarding, Rigid, Tenderness Additional comments: incisions clean dry intact - Neurological Exam Neurological Exam: Alert, Awake Assessment and Plan - Assessment and Plan (Free Text) Assessment: 86F s/p colostomy reversal POD #11 Plan: [place] to be removed outpatient encourage OOBTC, ambulation in halls, ISS c/w current medial management Further recs discuss with Dr Taryn Lewis, PGY2
[2017-04-17] MEDS: Magnesium Oxide 400 mg Tab UD PO SCH (10:24)
[2017-04-17 10:26] VITALS: BP 132/97; PULSE 76
[2017-04-17 11:05] VITALS: RESP 14; TEMP 98.3; O2SAT 100
--- NOTE | 2017-04-18 08:18 | DS ---
The patient today is seen in room #322, bed #1. The patient is out of bed to chair. The patient states that she does not have any more rectal bleeding. The patient states that normal colored bowel movement. The patient's overnight nurse's notes were reviewed.. The patient denies chest pain. Denies shortness of breath. Denies nausea, vomiting, diarrhea, constipation.. PHYSICAL EXAMINATION: VITAL SIGNS: T-max 98.8, pulse 76 to 82, blood pressure 132/97 to 117/63 to 132/97, respiration 14 to 18, O2 sat 96% to 95% on room air. GENERAL: The patient was seen sitting up on the recliner. HEAD EXAMINATION: Normocephalic, atraumatic. HEENT EXAMINATION: Shows pink conjunctivae. Anicteric sclerae. No oropharyngeal lesion. No neck rigidity. CHEST EXAMINATION: Kyphosis. LUNGS EXAMINATION: Shows no rales, crackles or wheezing. Decreased breath sound at the bases. CARDIOVASCULAR EXAMINATION: Shows S1, S2, irregular rhythm. Positive systolic murmur, right second intercostal space, left sternal border; questionable left sternal border, left second intercostal space. ABDOMEN: Soft. Positive bowel sounds. Multiple surgical scars, positive cristin noted. GENITALIA: Female. RECTAL: EXAMINATION: Deferred. EXTREMITIES: Shows no pitting. No calf tenderness. No Kishor signs! MUSCULOSKELETAL EXAMINATION: Shows a body mass index of 28. NEUROLOGIC: Cranial nerves II to XII limited. Gait examination not tested. VASCULAR EXAMINATION: Palpable pulses. DIAGNOSTIC DATA: The patient's hemoglobin/hematocrit in the last 24 hours has been stable around 11.7 to 14.1, hematocrit 35 to 43 and 37. PT/PTT was normal. Chemistry: Sodium 142, potassium 3.6, chloride 102, CO2 of 36, anion gap , BUN 19, creatinine 1.0, GFR greater than 60; glucose 239, 223, 140. The patient's CAT scan of the abdomen and pelvis which was done yesterday was reviewed. CAT scan of the abdomen and pelvis which was done yesterday for gastrointestinal bleeding shows cholelithiasis, no gallbladder inflammation, reversal of the right lower quadrant colostomy, surgical clips are seen in the region as well as in the midline. No acute findings noted on the CAT scan. FINAL IMPRESSION, PLAN, DISCHARGE DIAGNOSES: 1. Deconditioning. 2. Gait dysfunction. 3. Transient versus postoperative rectal bleeding (resolved). 4. Hypertension. 5. Anemia. 6. Granulocytosis. 7. Hyperuricemia. 8. Atrial fibrillation with anterolateral coronary ischemic changes. 9. Eliquis dependent atrial fibrillation. 10. History of hypertension. 11. Advanced chronic obstructive pulmonary disease. 12. Type 1 insulin-requiring diabetes mellitus. 13. Fecal occult blood positive. 14. Hypovitaminosis D. 15. History of right-sided diastolic congestive heart failure with pulmonary arterial hypertension. 16. Hypomagnesemia. 17. Dyslipidemia. 18. Right nephrectomy. 19. Hypothyroidism. 1. Rectal bleeding, etiology undetermined. 2. History of hypertension. 3. Deconditioning. 4. Relative anemia. 5. Granulocytosis. 6. Insulin-requiring diabetes mellitus. 7. Hyperuricemia. 8. Insulin requiring diabetes mellitus. 9. Fecal occult blood positive. 10. Deconditioning. 11. Gait dysfunction. 12. Atrial fibrillation with anterolateral coronary ischemic changes on the EKG. 1. Deconditioning. 2. Gait dysfunction. 3. Status post reversal of colostomy. 4. History of colonic carcinoma. 5. Atrial fibrillation, Eliquis dependent atrial fibrillation. 6. Chronic obstructive pulmonary disease. 7. History of nicotine dependence. 8. History of coronary artery disease. 9. Atrial fibrillation. 10. Insulin-requiring diabetes mellitus. 11. History of noncompliance. 12. Anemia. 13. History of nephrectomy. 14. Hypercholesteremia, hypertriglyceridemia. 15. Bilateral lower extremity venous stasis. 16. Diastolic right-sided congestive heart failure with pulmonary arterial hypertension. 17. Gait dysfunction. 18. Deconditioning. 19. Hyperuricemia. 20. Hypothyroidism. 1. Deconditioning. 2. Gait dysfunction. 3. Questionable diabetic neuropathy with bilateral foot pain. 4. Status post colostomy removal. 5. Atrial fibrillation. 6. Anterolateral coronary ischemic changes. 7. Hypertension. 8. Hyperuricemia. 9. Insulin requiring diabetes mellitus. 10. Granulocytosis. 11. Status post colostomy reversal postoperative day #8. 1. Deconditioning. 2. Gait dysfunction. 3. Status post colostomy reversal postop day #7. 4. Chronic obstructive pulmonary disease. 5. Hypertension. 6. Insulin requiring diabetes mellitus. 7. Granulocytosis. 8. Insulin requiring diabetes mellitus with hyperglycemia. 9. Diabetic gastroparesis. 10. Hyperuricemia. 11. Atrial fibrillation. 12. Coronary artery disease. 13. Hypovitaminosis D. 14. Right-sided diastolic congestive heart failure. 15. Dyslipidemia. 16. Hypomagnesemia. 17. Diabetic gastroparesis. 18. Hypothyroidism. 1. Deconditioning. 2. Gait dysfunction. 3. Status post exploratory laparotomy and partial right colectomy with anastomosis and colostomy closure and reversal. 4. Questionable volume overload and weight gain. 5. Hypertension. 6. Atrial fibrillation. 7. Leukocytosis with granulocytosis. 8. Thrombocytopenia (resolved). 9. Acute kidney injury with underlying chronic kidney disease stage III. 10. Type 1 insulin requiring diabetes mellitus. 11. Mild protein malnutrition. 12. Questionable left lower lobe infiltrate versus atelectasis postoperative. 13. Status post right colostomy reversal. 14. Bilateral lower extremity venous stasis (resolved). 15. History of hypothyroidism. 16. History of chronic obstructive pulmonary disease. 17. Hypovitaminosis D. 18. Right-sided diastolic congestive heart failure. 19. Dyslipidemia. 20. Hypomagnesemia. 21. Diabetic gastroparesis. 22. Transient leukocytosis with granulocytosis. 23. Status post right colostomy closure. 24. History of colon carcinoma. 25. Dense intra-abdominal and pelvic adhesions. 26. Status post exploratory laparotomy, partial right colectomy with anastomosis and colostomy closure and extensive lysis of intra-abdominal and pelvic adhesions. 1. Status post exploratory laparotomy and partial right colectomy with anastomosis and colostomy closure and reversal. 2. Possible weight gain with facial swelling. 3. Hypertension. 4. Atrial fibrillation. 5. Leukocytosis with granulocytosis. 6. Thrombocytopenia. 7. Acute kidney injury with underlying chronic kidney disease stage III. 8. Type 1 insulin requiring diabetes mellitus. 9. Mild protein malnutrition. 10. Left lower lobe questionable infiltrate versus atelectasis postoperatively. 11. Status post colostomy reversal. 12. Bilateral lower extremity venous stasis. 1. Status post exploratory laparotomy and partial right colectomy with anastomosis and colostomy closure and reversal. 2. Extensive lysis of intraabdominal and pelvic adhesion. 3. History of colon carcinoma and colostomy. 4. History of atrial fibrillation. 5. Hypertension. 6. History of nicotine dependence and chronic obstructive pulmonary disease. 7. Coronary artery disease. 8. Diastolic right-sided congestive heart failure and pulmonary arterial hypertension. 9. Leukocytosis with granulocytosis. 10. Insulin-requiring diabetes mellitus. 11. Mild hyperbilirubinemia. 12. Acute kidney injury with underlying chronic kidney disease stage III. 13. Cardiomegaly 14. Questionable left lower lobe infiltrate versus atelectasis. 15. Possible postop left lower lobe infiltrate versus atelectasis. 16. Dyslipidemia. 17. Status post nasogastric tube placement and removal. 18. Postoperative deconditioning. 19. Postop surgical pain. 20. Hypovitaminosis D. 21. Hypomagnesemia. 22. Hypothyroidism. 23. History of chronic obstructive pulmonary disease. 1. History of colon carcinoma. 2. Status history of gastrointestinal bleeding. 3. Anemia. 4. Status post colostomy. 5. History of colon carcinoma. 6. History of nephrectomy. 7. Acute kidney injury with underlying chronic kidney disease stage III. 8. Type 1 insulin requiring diabetes mellitus. 9. History of nicotine addiction and dependence. 10. Chronic obstructive pulmonary disease. 11. Coronary artery disease. 12. Atrial fibrillation, Eliquis dependent. 13. Single-vessel coronary artery disease. 14. Diastolic right-sided congestive heart failure. 15. Pulmonary arterial hypertension. 16. Anemia. 17. Iron deficiency anemia. 18. Vitamin B12 deficiency. 19. History of nephrectomy. 20. Status post colostomy. 21. History of colon carcinoma. 22. Status post right knee surgery. 23. History of hypothyroidism. 24. History of dyslipidemia. 25. History of anemia. 26. History of gait dysfunction. 27. History of hypothyroidism. 1. Status post exploratory laparotomy and partial right colectomy with anastomosis and colostomy closure and reversal. 2. Extensive lysis of intraabdominal and pelvic adhesion. 3. History of colon carcinoma and colostomy. 4. History of atrial fibrillation. 5. Hypertension. 6. History of nicotine dependence and chronic obstructive pulmonary disease. 7. Coronary artery disease. 8. Diastolic right-sided congestive heart failure and pulmonary arterial hypertension. 9. Leukocytosis with granulocytosis. 10. Insulin-requiring diabetes mellitus. 11. Mild hyperbilirubinemia. 12. Acute kidney injury with underlying chronic kidney disease stage III. 13. Cardiomegaly 14. Questionable left lower lobe infiltrate versus atelectasis. 15. Possible postop left lower lobe infiltrate versus atelectasis. 16. Dyslipidemia. 17. Status post nasogastric tube placement and removal. 18. Postoperative deconditioning. 19. Postop surgical pain. 20. Hypovitaminosis D. 21. Hypomagnesemia. 22. Hypothyroidism. 23. History of chronic obstructive pulmonary disease. 1. History of colon carcinoma. 2. Status history of gastrointestinal bleeding. 3. Anemia. 4. Status post colostomy. 5. History of colon carcinoma. 6. History of nephrectomy. 7. Acute kidney injury with underlying chronic kidney disease stage III. 8. Type 1 insulin requiring diabetes mellitus. 9. History of nicotine addiction and dependence. 10. Chronic obstructive pulmonary disease. 11. Coronary artery disease. 12. Atrial fibrillation, Eliquis dependent. 13. Single-vessel coronary artery disease. 14. Diastolic right-sided congestive heart failure. 15. Pulmonary arterial hypertension. 16. Anemia. 17. Iron deficiency anemia. 18. Vitamin B12 deficiency. 19. History of nephrectomy. 20. Status post colostomy. 21. History of colon carcinoma. 22. Status post right knee surgery. 23. History of hypothyroidism. 24. History of dyslipidemia. 25. History of anemia. 26. History of gait dysfunction. 27. History of hypothyroidism. 1. Rectal bleeding, etiology undetermined. 2. History of hypertension. 3. Deconditioning. 4. Relative anemia. 5. Granulocytosis. 6. Insulin-requiring diabetes mellitus. 7. Hyperuricemia. 8. Insulin requiring diabetes mellitus. 9. Fecal occult blood positive. 10. Deconditioning. 11. Gait dysfunction. 12. Atrial fibrillation with anterolateral coronary ischemic changes on the EKG. 1. Deconditioning. 2. Gait dysfunction. 3. Status post reversal of colostomy. 4. History of colonic carcinoma. 5. Atrial fibrillation, Eliquis dependent atrial fibrillation. 6. Chronic obstructive pulmonary disease. 7. History of nicotine dependence. 8. History of coronary artery disease. 9. Atrial fibrillation. 10. Insulin-requiring diabetes mellitus. 11. History of noncompliance. 12. Anemia. 13. History of nephrectomy. 14. Hypercholesteremia, hypertriglyceridemia. 15. Bilateral lower extremity venous stasis. 16. Diastolic right-sided congestive heart failure with pulmonary arterial hypertension. 17. Gait dysfunction. 18. Deconditioning. 19. Hyperuricemia. 20. Hypothyroidism. 1. Deconditioning. 2. Gait dysfunction. 3. Questionable diabetic neuropathy with bilateral foot pain. 4. Status post colostomy removal. 5. Atrial fibrillation. 6. Anterolateral coronary ischemic changes. 7. Hypertension. 8. Hyperuricemia. 9. Insulin requiring diabetes mellitus. 10. Granulocytosis. 11. Status post colostomy reversal postoperative day #8. 1. Deconditioning. 2. Gait dysfunction. 3. Status post colostomy reversal postop day #7. 4. Chronic obstructive pulmonary disease. 5. Hypertension. 6. Insulin requiring diabetes mellitus. 7. Granulocytosis. 8. Insulin requiring diabetes mellitus with hyperglycemia. 9. Diabetic gastroparesis. 10. Hyperuricemia. 11. Atrial fibrillation. 12. Coronary artery disease. 13. Hypovitaminosis D. 14. Right-sided diastolic congestive heart failure. 15. Dyslipidemia. 16. Hypomagnesemia. 17. Diabetic gastroparesis. 18. Hypothyroidism. 1. Deconditioning. 2. Gait dysfunction. 3. Status post exploratory laparotomy and partial right colectomy with anastomosis and colostomy closure and reversal. 4. Questionable volume overload and weight gain. 5. Hypertension. 6. Atrial fibrillation. 7. Leukocytosis with granulocytosis. 8. Thrombocytopenia (resolved). 9. Acute kidney injury with underlying chronic kidney disease stage III. 10. Type 1 insulin requiring diabetes mellitus. 11. Mild protein malnutrition. 12. Questionable left lower lobe infiltrate versus atelectasis postoperative. 13. Status post right colostomy reversal. 14. Bilateral lower extremity venous stasis (resolved). 15. History of hypothyroidism. 16. History of chronic obstructive pulmonary disease. 17. Hypovitaminosis D. 18. Right-sided diastolic congestive heart failure. 19. Dyslipidemia. 20. Hypomagnesemia. 21. Diabetic gastroparesis. 22. Transient leukocytosis with granulocytosis. 23. Status post right colostomy closure. 24. History of colon carcinoma. 25. Dense intra-abdominal and pelvic adhesions. 26. Status post exploratory laparotomy, partial right colectomy with anastomosis and colostomy closure and extensive lysis of intra-abdominal and pelvic adhesions. 1. Status post exploratory laparotomy and partial right colectomy with anastomosis and colostomy closure and reversal. 2. Possible weight gain with facial swelling. 3. Hypertension. 4. Atrial fibrillation. 5. Leukocytosis with granulocytosis. 6. Thrombocytopenia. 7. Acute kidney injury with underlying chronic kidney disease stage III. 8. Type 1 insulin requiring diabetes mellitus. 9. Mild protein malnutrition. 10. Left lower lobe questionable infiltrate versus atelectasis postoperatively. 11. Status post colostomy reversal. 12. Bilateral lower extremity venous stasis. 1. Status post exploratory laparotomy and partial right colectomy with anastomosis and colostomy closure and reversal. 2. Extensive lysis of intraabdominal and pelvic adhesion. 3. History of colon carcinoma and colostomy. 4. History of atrial fibrillation. 5. Hypertension. 6. History of nicotine dependence and chronic obstructive pulmonary disease. 7. Coronary artery disease. 8. Diastolic right-sided congestive heart failure and pulmonary arterial hypertension. 9. Leukocytosis with granulocytosis. 10. Insulin-requiring diabetes mellitus. 11. Mild hyperbilirubinemia. 12. Acute kidney injury with underlying chronic kidney disease stage III. 13. Cardiomegaly 14. Questionable left lower lobe infiltrate versus atelectasis. 15. Possible postop left lower lobe infiltrate versus atelectasis. 16. Dyslipidemia. 17. Status post nasogastric tube placement and removal. 18. Postoperative deconditioning. 19. Postop surgical pain. 20. Hypovitaminosis D. 21. Hypomagnesemia. 22. Hypothyroidism. 23. History of chronic obstructive pulmonary disease. 1. History of colon carcinoma. 2. Status history of gastrointestinal bleeding. 3. Anemia. 4. Status post colostomy. 5. History of colon carcinoma. 6. History of nephrectomy. 7. Acute kidney injury with underlying chronic kidney disease stage III. 8. Type 1 insulin requiring diabetes mellitus. 9. History of nicotine addiction and dependence. 10. Chronic obstructive pulmonary disease. 11. Coronary artery disease. 12. Atrial fibrillation, Eliquis dependent. 13. Single-vessel coronary artery disease. 14. Diastolic right-sided congestive heart failure. 15. Pulmonary arterial hypertension. 16. Anemia. 17. Iron deficiency anemia. 18. Vitamin B12 deficiency. 19. History of nephrectomy. 20. Status post colostomy. 21. History of colon carcinoma. 22. Status post right knee surgery. 23. History of hypothyroidism. 24. History of dyslipidemia. 25. History of anemia. 26. History of gait dysfunction. 27. History of hypothyroidism. 1. Status post exploratory laparotomy and partial right colectomy with anastomosis and colostomy closure and reversal. 2. Extensive lysis of intraabdominal and pelvic adhesion. 3. History of colon carcinoma and colostomy. 4. History of atrial fibrillation. 5. Hypertension. 6. History of nicotine dependence and chronic obstructive pulmonary disease. 7. Coronary artery disease. 8. Diastolic right-sided congestive heart failure and pulmonary arterial hypertension. 9. Leukocytosis with granulocytosis. 10. Insulin-requiring diabetes mellitus. 11. Mild hyperbilirubinemia. 12. Acute kidney injury with underlying chronic kidney disease stage III. 13. Cardiomegaly 14. Questionable left lower lobe infiltrate versus atelectasis. 15. Possible postop left lower lobe infiltrate versus atelectasis. 16. Dyslipidemia. 17. Status post nasogastric tube placement and removal. 18. Postoperative deconditioning. 19. Postop surgical pain. 20. Hypovitaminosis D. 21. Hypomagnesemia. 22. Hypothyroidism. 23. History of chronic obstructive pulmonary disease. 1. History of colon carcinoma. 2. Status history of gastrointestinal bleeding. 3. Anemia. 4. Status post colostomy. 5. History of colon carcinoma. 6. History of nephrectomy. 7. Acute kidney injury with underlying chronic kidney disease stage III. 8. Type 1 insulin requiring diabetes mellitus. 9. History of nicotine addiction and dependence. 10. Chronic obstructive pulmonary disease. 11. Coronary artery disease. 12. Atrial fibrillation, Eliquis dependent. 13. Single-vessel coronary artery disease. 14. Diastolic right-sided congestive heart failure. 15. Pulmonary arterial hypertension. 16. Anemia. 17. Iron deficiency anemia. 18. Vitamin B12 deficiency. 19. History of nephrectomy. 20. Status post colostomy. 21. History of colon carcinoma. 22. Status post right knee surgery. 23. History of hypothyroidism. 24. History of dyslipidemia. 25. History of anemia. 26. History of gait dysfunction. 27. History of hypothyroidism. PLAN: At this time, the patient is discharged and cleared for discharge by all subspecialty. The patient's discharge medications are Combivent/Respimat 1 inhaler twice a day or once a day, allopurinol 100 mg daily, Eliquis 2.5 twice a day, Lipitor 40 mg daily, vitamin D2 of 50,000 once or twice a week, Lasix 40 mg twice a day, 30 mg subcu daily or dose as prescribed in the office, Synthroid 100 mcg daily, magnesium oxide 400 mg three times a day, Protonix 40 mg daily, sotalol 80 mg daily. The patient at present has been cleared for discharge. The patient has been advised follow up with Dr. Reyes and Dr. Centeno within 1 week. Resume all home medications plus medications as per the ambulatory orders. The patient was advised NIKOLAY stockings, thigh high. The patient was also advised to resume nebulizer treatment at home. During this hospitalization, the patient was extensively explained about the details of her medical condition, diagnoses, treatment plan, management plan, outpatient compliance with medication, diet and doctors followup were explained to the patient at length on a daily basis. Even today, the patient was reinforced about all the above. Time spent in the entire discharge process, more than 45 minutes. Dictated and electronically signed, not read. Amilcar Reyes MD [facility]
== END 2017-04-17 11:03 | disposition home or self-care (01) | DRG 394 ==
LOC: TRCU 16:39
PROVIDERS: ADMIT Internal Medicine; ATTEND Internal Medicine
PROC: F07Z9FZ Gait Training/Functional Ambulation Treatment using Assistive, Adaptive, Supportive or Protective Equipment (ICD-10-PCS; principal; 2017-04-10)
PROC: F07M6ZZ Therapeutic Exercise Treatment of Musculoskeletal System - Whole Body (ICD-10-PCS; 2017-04-10)
PROC: F08Z2ZZ Grooming/Personal Hygiene Treatment (ICD-10-PCS; 2017-04-10)
DX: Z43.3 Encounter for attention to colostomy (principal); I13.0 Hypertensive heart and chronic kidney disease with heart failure and stage 1 through stage 4 chronic kidney disease, or unspecified chronic kidney disease; N17.9 Acute kidney failure, unspecified; D69.6 Thrombocytopenia, unspecified; E10.22 Type 1 diabetes mellitus with diabetic chronic kidney disease; E10.43 Type 1 diabetes mellitus with diabetic autonomic (poly)neuropathy; K31.84 Gastroparesis; N18.3 Chronic kidney disease, stage 3 (moderate); I50.30 Unspecified diastolic (congestive) heart failure; E44.1 Mild protein-calorie malnutrition; K92.1 Melena; D64.9 Anemia, unspecified; M10.9 Gout, unspecified; N73.6 Female pelvic peritoneal adhesions (postinfective); R53.81 Other malaise; D72.829 Elevated white blood cell count, unspecified; E03.9 Hypothyroidism, unspecified; E55.9 Vitamin D deficiency, unspecified; E78.00 Pure hypercholesterolemia, unspecified; E78.1 Pure hyperglyceridemia; E78.5 Hyperlipidemia, unspecified; E83.42 Hypomagnesemia; I25.10 Atherosclerotic heart disease of native coronary artery without angina pectoris; I27.2 Other secondary pulmonary hypertension; I48.2 Chronic atrial fibrillation; I87.8 Other specified disorders of veins; J44.9 Chronic obstructive pulmonary disease, unspecified; Z79.4 Long term (current) use of insulin; Z79.899 Other long term (current) drug therapy; Z85.038 Personal history of other malignant neoplasm of large intestine; Z87.891 Personal history of nicotine dependence; Z90.49 Acquired absence of other specified parts of digestive tract; Z90.5 Acquired absence of kidney; Z91.19 Patient's noncompliance with other medical treatment and regimen; R26.9 Unspecified abnormalities of gait and mobility

== ENCOUNTER 2018-11-07 06:15 | Inpatient (IN) | payer MEDICARE, OTHER ==
[2018-11-07 06:23] VITALS: BMI 28.3
[2018-11-07] MEDS ORDERED: Albuterol-Ipratrop 3 mg / 0.5 (3 ml) UD ONE (07:02)
--- NOTE | 2018-11-07 07:44 | ED PDOC ---
Arrival/HPI - General Chief Complaint: GI Problem Time Seen by Provider: 11/07/18 07:18 Historian: Patient - History of Present Illness Narrative History of Present Illness (Text): 11/07/18 07:45 88 year old female, with past medical history of asthma, hypertension, A-fib, CKD and diabetes, presents to the ED for evaluation of shortness of breath associated with chills, vomiting and diarrhea since 4 am this morning. Patient additionally reports productive cough since this morning but states she was feeling at her baseline last night. Patient denies any other associated somatic complaints. Patient denies any fever, abdominal pain, chest pain, headache, dizziness, neck pain, back pain or any other complaints. PMD: Dr. Reyes Time/Duration: 4-6 hours Symptom Onset: Gradual Symptom Course: Unchanged Activities at Onset: Light Context: Home Past Medical History - Provider Review Nursing Documentation Reviewed: Yes - Infectious Disease Hx of Infectious Diseases: None - Tetanus Immunization Tetanus Immunization: Unknown - Cardiac Hx Cardiac Disorders: Yes Hx Congestive Heart Failure: Yes Hx Hypertension: Yes - Pulmonary Hx Chronic Obstructive Pulmonary Disease (COPD): Yes - Neurological HX Cerebrovascular Accident: No - HEENT Hx HEENT Disorder: Yes ([place] MAINLY TO LEFT EAR) Hx Cataracts: No Hx Difficulty Chewing: No Hx Epistaxis: No Hx Glaucoma: No Hx Macular Degeneration: No - Renal Hx Renal Disorder: No (NEPHRITIS 1967,NEPHRECTOMY) Hx Dialysis: No Hx Kidney Stones: No Hx Neurogenic Bladder: No Hx Renal Cancer: No - Endocrine/Metabolic Hx Hypothyroidism: Yes - Hematological/Oncological Hx Blood Disorders: Yes Hx Anemia: Yes (blood transfusion 03/04/16) Hx Cancer: Yes (colon stg III as per pt no chemo/no rad) Hx Chemotherapy: No Hx Cirrhosis: No Hx Unexplained Bleeding: No - Integumentary Hx Dermatological Disorder: Yes Hx Basal Cell Carcinoma: No Hx Eczema: No Hx Melanoma: No Hx Psoriasis: No Hx Squamous Cell Carcinoma: No Other/Comment: surgical scars abd, eccymosis to r groin - Musculoskeletal/Rheumatological Hx Falls: Yes - Gastrointestinal Hx Gastrointestinal Disorders: Yes (POST REVERSAL OF COLOSTOMY,PARTIAL R COLECTOMYW TIH ANASTOMOSIS,COLORECTALC) - Genitourinary/Gynecological Hx Genitourinary Disorders: Yes (INCONTINENT,UTI) Hx Reproductive Disorders: No - Psychiatric Hx Emotional Abuse: No Hx Physical Abuse: No Hx Substance Use: No - Surgical History Hx Cardiac Catheterization: Yes (X3) Other/Comment: COLOSTOMY REVERSAL 04-06-17, RIGHT KNEE REPLACEMENT,HIP REPLACEMENT 2011,CARD CATH , NEPHRECTOMY,APPENDECTOMY,IN /OUT PICC,COLECTOMY, - Anesthesia Hx Anesthesia Reactions: No Hx Malignant Hyperthermia: No - Suicidal Assessment Feels Threatened In Home Enviroment: No Family/Social History - Physician Review Nursing Documentation Reviewed: Yes Family/Social History: Unknown Family HX Smoking Status: Never Smoked Hx Alcohol Use: No Hx Substance Use: No Hx Substance Use Treatment: No Allergies/Home Meds Allergies/Adverse Reactions: Allergies No Known Allergies Allergy (Verified 11/07/18 12:24) Home Medications: Home Meds Medication Instructions Recorded Confirmed Sotalol HCl [Sorine] 80 mg PO QAM 02/03/16 11/07/18 Ergocalciferol (Vitamin D2) 50,000 unit PO 2XW 11/02/16 11/07/18 [Vitamin D2] Albuterol/Ipratropium [Combivent 1 inh INH PRN PRN 11/28/16 11/07/18 Respimat] Apixaban [Eliquis] 2.5 mg PO BID 03/19/17 11/07/18 Insulin Degludec [Tresiba 30 unit SQ QAM 03/19/17 11/07/18 Flextouch U-100] Review of Systems - Physician Review All systems were reviewed & negative as marked: Yes - Review of Systems Constitutional: absent: Fevers Eyes: absent: Vision Changes Respiratory: SOB, Cough Cardiovascular: absent: Chest Pain, ORDOÑEZ Gastrointestinal: Diarrhea, Nausea, Vomiting. absent: Abdominal Pain Genitourinary Female: absent: Dysuria, Urine Output Changes Musculoskeletal: absent: Back Pain, Neck Pain Skin: absent: Rash Neurological: absent: Headache, Dizziness, Focal Weakness Endocrine: absent: Diaphoresis Psychiatric: absent: Anxiety Physical Exam - Physical Exam Narrative Physical Exam (Text): 11/07/18 07:30 Gen: VS reviewed, alert, well developed, well nourished, nontoxic, mild distress. ENT: normal pharynx. Eye: EOMI, PERRL. Neck: no JVD, supple, no adenopathy. CV: regular rate, regular rhythm, no rubs, no murmur, no gallops, S1, S2, pulses equal and strong. Pulm: no distress, clear to auscultation, no wheeze, no rhonchi, breath sounds equal, no rales. Abd: soft, nontender, no guarding, no rebound, no rigidity, normal bowel sounds. Ext: no edema. Skin: good color, no rash, no cyanosis. Psych: responds appropriately to questions, normal affect. Neuro: oriented x 3, CN2-12 intact grossly, motor intact, sensation intact. Vital Signs Reviewed: Yes Vital Signs Temp Pulse Resp BP Pulse Ox 11/07/18 07:00 22 95 11/07/18 06:23 100.7 F H 106 H 23 154/96 H 90 L 11/07/18 06:22 100.7 F H 106 H 23 154/96 H 90 L Temperature: Febrile Blood Pressure: Hypertensive Pulse: Tachycardic Respiratory Rate: Normal Appearance: Positive for: Well-Appearing, Non-Toxic, Comfortable Pain Distress: Mild Mental Status: Positive for: Alert and Oriented X 3 Medical Decision Making ED Course and Treatment: 11/07/18 07:56 Impression: 88 year old female presents to the ED for evaluation of shortness of breath associated with vomiting and diarrhea. Plan: -- VBG -- EKG -- Chest X-ray -- Blood Culture -- Urine Culture -- Urinalysis -- Rapid Flu A/B -- Reassess and disposition Prior Visits: Notes and results from previous visits were reviewed. Progress Notes: 11/07/18 08:43 CODE SEPSIS ACTIVATED. 11/07/18 11:[address] Reyes, who is aware and agrees with ED management plan, accepts admission for sepsis under his service. Requests dow cultures, and empiric IV antibiotics. 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 All medical record entries made by the Scribe were at my direction and personally dictated by me. I have reviewed the chart and agree that the record accurately reflects my personal performance of the history, physical exam, medical decision making, and the department course for this patient. I have also personally directed, reviewed, and agree with the discharge instructions and disposition. Disposition/Present on Arrival - Present on Arrival Any Indicators Present on Arrival: No History of DVT/PE: No History of Uncontrolled Diabetes: No Urinary Catheter: No History of Decub. Ulcer: No History Surgical Site Infection Following: None - Disposition Have Diagnosis and Disposition been Completed?: Yes Diagnosis: Sepsis Disposition: HOSPITALIZED Disposition Time: 19:33 Patient Plan: Admission Condition: GUARDED
[2018-11-07 08:05] LABS: VENOUS BLOOD GAS PO2 53 mm/Hg (30-55)
[2018-11-07 08:12] LABS: BASO # 0.01 K/mm3 (0.0-2.0); BASO % 0.1 % (0.0-3.0); EOS # 0.1 (0.0-0.7); EOS % 0.6 % (1.5-5.0); LYMPH # 0.5 (1.2-3.4); LYMPH % 3.3 % (22.0-35.0); MEAN CELL VOLUME 95.8 fl (80.0-105.0); MEAN CORPUSCULAR HEMOGLOBIN 31.5 pg (25.0-35.0); MEAN CORPUSCULAR HGB CONC 32.9 g/dl (31.0-37.0); MEAN PLATELET VOLUME 11.8 fl (7.0-11.0); MONO # 0.9 (0.1-0.6); MONO % 5.9 % (1.0-6.0); PLATELET COUNT 115 10^3/uL (120.0-450.0); RBC 4.76 10^6/uL (3.5-6.1); WHITE BLOOD COUNT 15.6 10^3/uL (4.5-11.0)
[2018-11-07] MEDS ORDERED: Cefepime IV 2 gm in NS 2 GM/100 ML BAG IVPB STA (08:44)
[2018-11-07 09:00] LABS: ALB/GLOB RATIO 1.3 (1.1-1.8); ALBUMIN 3.8 g/dL (3.0-4.8); CALCIUM 9.5 mg/dL (8.4-10.5)
[2018-11-07 09:11] LABS: BAND 2 % (0-2); EOSINOPHIL 1 % (0.0-3.0); LYMPHOCYTE 4 % (22.0-35.0); MONOCYTE 4 % (1.0-6.0); MYELOCYTE 1 %; NEUTROPHIL 88 % (50.0-70.0)
[2018-11-07 09:12] LABS: PLATELET ESTIMATE LOW (NORMAL)
--- NOTE | 2018-11-07 09:20 | CARD ---
APPROVED REPORT Date of service: 11/07/2018 EKG Measurement Heart [id number] <Conclusion> Atrial fibrillation ST & T wave abnormality, consider lateral ischemia or digitalis effect Prolonged QT Abnormal ECG
[2018-11-07 11:59] LABS: VENOUS BLOOD GAS BASE EXCESS 6.3 mmol/L (0.0-2.0); VENOUS BLOOD GAS PO2 50 mm/Hg (30-55); VENOUS BLOOD PH 7.41 (7.32-7.43)
[2018-11-07] MEDS ORDERED: Ergocalciferol 50,000 Intl Units Cap PO SCH (12:00)
[2018-11-07] MEDS ORDERED: Levothyroxine 100 MCG TAB PO SCH (12:00)
--- NOTE | 2018-11-07 12:32 | RAD ---
Date of service: 11/07/2018 HISTORY: cough, pneumonia COMPARISON: 03/11/2017 TECHNIQUE: Chest PA and lateral views FINDINGS: LUNGS: No active pulmonary disease. PLEURA: No significant pleural effusion identified. No pneumothorax apparent. CARDIOVASCULAR: Aortic calcification Moderate cardiomegaly no pulmonary vascular congestion. OSSEOUS STRUCTURES: No significant abnormalities. VISUALIZED UPPER ABDOMEN: Normal. OTHER FINDINGS: None. IMPRESSION: No active disease.
[2018-11-07 12:44] LABS: ARTERIAL BLOOD GAS HCO3 29.8 mmol/L (21-28); ARTERIAL BLOOD GAS HEMOGLOBIN 14.5 g/dL (11.7-17.4); ARTERIAL BLOOD GAS O2 CAPACITY 19.7 mL/dl (16-24); ARTERIAL BLOOD GAS O2 SAT 96.3 % (95-98); ARTERIAL BLOOD GAS PCO2 40 mm/Hg (35-45); ARTERIAL BLOOD GAS PH 7.48 (7.35-7.45)
[2018-11-07 12:46] LABS: FREE T4 1.62 ng/dL (0.78-2.19)
--- NOTE | 2018-11-07 12:47 | PCM.SEPTIC ---
Sepsis Progress Note - Reassessment Type Date of Evaluation: 11/07/18 Time of Evaluation: 12:46 Reassessment Type: Non-invasive reassessment - Non Invasive Reassessment Were the most recent vital sign reviewed: Yes Vital Sign (Latest): Temp Pulse Resp BP Pulse Ox 98.4 F 84 18 128/82 97 11/07/18 11:20 11/07/18 11:20 11/07/18 11:20 11/07/18 11:20 11/07/18 11:20 Cardiovascular: Yes: Regular Rate, Rhythm. No: JVD Respiratory: Yes: Normal Breath Sounds. No: Decreased Breath Sounds, Accessory Muscle Use, Crackles, Rales, Rhonchi, Stridor, Wheezing Capillary Refill: Normal (Less than 2 sec) Pulses: Normal Radial, Normal Dorsalis Pedis, Normal Posterior Tibialis Skin: Warm, Dry
[2018-11-07 13:03] LABS: URINE APPEARANCE CLEAR (CLEAR); URINE BILIRUBIN NEGATIVE (NEGATIVE); URINE BLOOD SMALL (NEGATIVE); URINE COLOR YELLOW (YELLOW); URINE GLUCOSE (UA) NEGATIVE (NEGATIVE); URINE LEUKOCYTE ESTERASE TRACE Leu/uL (NEGATIVE); URINE PROTEIN 100 mg/dL (<30 mg/dL); URINE UROBILINOGEN 0.2 E.U./dL (<1 E.U./dL)
[2018-11-07 13:17] LABS: TROPONIN I 0.02 ng/mL
[2018-11-07 13:18] LABS: URINE EPITHELIAL CELLS 0 - 2 /hpf (0-5); URINE RBC 0 - 2 /hpf (0-2)
[2018-11-07 13:19] LABS: URINE BACTERIA LARGE /hpf
[2018-11-07] MEDS: POLYETHYLENE GLYCOL 3350 17 GM/Dose PACKET PO SCH ×2 (13:27→13:43)
--- NOTE | 2018-11-07 13:37 | CT ---
Date of service: 11/07/2018 PROCEDURE: CT Chest, Abdomen and Pelvis without intravenous contrast HISTORY: CODE SEPSIS COMPARISON: CT 05/10/2018 TECHNIQUE: Radiation dose: Total exam DLP = 961.77 mGy-cm. This CT exam was performed using one or more of the following dose reduction techniques: Automated exposure control, adjustment of the mA and/or kV according to patient size, and/or use of iterative reconstruction technique. FINDINGS: CT CHEST WITHOUT CONTRAST: LUNGS: Clear. No nodule, mass or consolidation. MEDIASTINUM: The aorta is heavily calcified and mildly dilated LYMPH NODES: Unremarkable. PLEURA: Unremarkable. No pneumothorax. No pleural fluid. BONES: Unremarkable. OTHER FINDINGS: None. CT ABDOMEN AND PELVIS: LIVER: Unremarkable. No gross lesion or ductal dilatation. GALLBLADDER AND BILE DUCTS: Multiple gallstones are seen. PANCREAS: Unremarkable. No gross lesion or ductal dilatation. SPLEEN: Unremarkable. ADRENALS: Unremarkable. No mass. KIDNEYS AND URETERS: There is a solitary left kidney. VASCULATURE: Aortic calcification Unremarkable. No aortic aneurysm. BOWEL: There previous resection of the left side of the colon.. There is mild constipation APPENDIX: Normal appendix. PERITONEUM: Unremarkable. No free fluid. No free air. LYMPH NODES: Unremarkable. No enlarged lymph nodes. BLADDER: Unremarkable. REPRODUCTIVE: Unremarkable. BONES: Disc degeneration a multiple levels. OTHER FINDINGS: None. IMPRESSION: No acute intra-abdominal or intrathoracic findings
[2018-11-07] MEDS ORDERED: Pneumococcal 23-Valent Vaccine IM ONE (14:59)
[2018-11-07] MEDS ORDERED: Influenza Vaccine 60 mcg/0.5 mL SYR (4YR UP) IM ONE (14:59)
[2018-11-07] MEDS ORDERED: Potassium Chloride 40 mEq/30 ml LIQ UD PO ONE (15:35)
--- NOTE | 2018-11-07 15:45 | CP.PCM.HP ---
History of Present Illness - History of Present Illness History of Present Illness: Medicine H/P: Ephraim, PGY - 2 Chief Complaint: Flu-like symptoms 88 F with pertinent medical history of Asthma, CKD, and A-Fib presented to the ED on 11/07/18 with complaints of shortness of breath associated with chills, vomiting and diarrhea. These symptoms started around 4A today. Patient denies eating anything out of the ordinary in the last few days, and states that she has not been with any sick contacts. Patient denies any fevers at home, and states that the vomiting is nbnb; she denies hematochezia. ED work up was significant for negative flu and ABG with metabolic alkalosis, as well as a WC of 15.6. 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 Home Meds: As per OCT FH: M-liver CA, F- elephangitis, sister of cancer (unknown) Present on Admission - Present on Admission Any Indicators Present on Admission: No Past Patient History - Infectious Disease Hx of Infectious Diseases: None - Tetanus Immunizations Tetanus Immunization: Unknown - Past Medical History & Family History Past Medical History?: Yes - Past Social History Smoking Status: Former Smoker - CARDIAC Hx Cardiac Disorders: Yes Hx Congestive Heart Failure: Yes Hx Hypertension: Yes - PULMONARY Hx Respiratory Disorders: Yes Hx Chronic Obstructive Pulmonary Disease (COPD): Yes - NEUROLOGICAL HX Cerebrovascular Accident: No - HEENT Hx HEENT Problems: Yes ([place] MAINLY) Hx Cataracts: No Hx Difficulty Chewing: No Hx Epistaxis: No Hx Glaucoma: No Hx Macular Degeneration: No - RENAL Hx Chronic Kidney Disease: No (NEPHRITIS 1966,NEPHRECTOMY) Hx Dialysis: No Hx Kidney Stones: No Hx Neurogenic Bladder: No Hx Renal (Kidney) Cancer: No - ENDOCRINE/METABOLIC Hx Endocrine Disorders: Yes Hx Hypothyroidism: Yes - HEMATOLOGICAL/ONCOLOGICAL Hx Blood Disorders: Yes Hx Anemia: Yes (blood transfusion 03/04/16) Hx Cancer: Yes (colon stg III as per pt no chemo/no rad) Hx Chemotherapy: No Hx Cirrhosis: No Hx Unexplained Bleeding: No - INTEGUMENTARY Hx Dermatological Problems: Yes Hx Basil Cell: No Hx Eczema: No Hx Melanoma: No Hx Psoriasis: No Hx Squamous Cell: No Other/Comment: surgical scars abd, eccymosis to r groin - MUSCULOSKELETAL/RHEUMATOLOGICAL Hx Arthritis: Yes Hx Falls: Yes - GASTROINTESTINAL Hx Gastrointestinal Disorders: Yes (POST REVERSAL OF COLOSTOMY,PARTIAL R COLECTOMYW TIH ANASTOMOSIS,COLORECTALC) - GENITOURINARY/GYNECOLOGICAL Hx Genitourinary Disorders: Yes (INCONTINENT,UTI) - PSYCHIATRIC Hx Emotional Abuse: No Hx Physical Abuse: No Hx Substance Use: No - SURGICAL HISTORY Hx Surgeries: Yes Hx Cardiac Catheterization: Yes (X3) Other/Comment: COLOSTOMY REVERSAL 04-06-17, RIGHT KNEE REPLACEMENT,HIP REPLACEMENT 2011,CARD CATH , NEPHRECTOMY,APPENDECTOMY,IN /OUT PICC,COLECTOMY, - ANESTHESIA Hx Anesthesia Reactions: No Hx Malignant Hyperthermia: No Meds Allergies/Adverse Reactions: Allergies Allergy/AdvReac Type Severity Reaction Status Date / Time No Known Allergies Allergy Verified 11/07/18 12:24 Physical Exam - Constitutional Appears: Non-toxic - Head Exam Head Exam: ATRAUMATIC - Eye Exam Eye Exam: EOMI, Normal appearance, PERRL Pupil Exam: NORMAL ACCOMODATION, PERRL - ENT Exam ENT Exam: Mucous Membranes Moist, Normal Exam - Neck Exam Neck exam: Positive for: Normal Inspection - Respiratory Exam Respiratory Exam: Clear to Auscultation Bilateral, NORMAL BREATHING PATTERN - Cardiovascular Exam Cardiovascular Exam: REGULAR RHYTHM - GI/Abdominal Exam GI & Abdominal Exam: Normal Bowel Sounds, Soft. absent: Tenderness - Extremities Exam Extremities exam: Positive for: normal inspection - Back Exam Back exam: NORMAL INSPECTION - Neurological Exam Neurological exam: Alert, CN II-XII Intact, Normal Gait, Oriented x3, Reflexes Normal - Psychiatric Exam Psychiatric exam: Normal Affect, Normal Mood - Skin Skin Exam: Dry, Intact, Normal Color, Warm - Additional Findings Additional findings: Generalized upper body weakness but no focal neurological deficits Results - Vital Signs Recent Vital Signs: Last Vital Signs Temp 98.8 F 11/07/18 14:48 Pulse 80 11/07/18 14:48 Resp 18 11/07/18 14:48 BP 122/78 11/07/18 14:48 Pulse Ox 99 11/07/18 14:48 - Labs Result Diagrams: 11/07/18 07:50 11/07/18 08:30 Labs: Laboratory Results - last 24 hr 11/07/18 11/07/18 11/07/18 07:50 07:50 07:50 WBC 15.6 H RBC 4.76 Hgb 15.0 D Hct 45.6 MCV 95.8 MCH 31.5 MCHC 32.9 RDW 13.0 Plt Count 115 L MPV 11.8 H Neut % (Auto) 90.1 H Lymph % (Auto) 3.3 L Sampson % (Auto) 5.9 Eos % (Auto) 0.6 L Baso % (Auto) 0.1 Lymph # (Auto) 0.5 L Sampson # (Auto) 0.9 H Eos # (Auto) 0.1 Baso # (Auto) 0.01 Absolute Neuts (auto) 14.03 H Neutrophils % (Manual) 88 H Band Neutrophils % 2 Lymphocytes % (Manual) 4 L Monocytes % (Manual) 4 Eosinophils % (Manual) 1 Myelocytes % 1 Platelet Evaluation Low pCO2 pO2 53 HCO3 ABG pH ABG Total CO2 ABG O2 Saturation ABG O2 Content ABG Base Excess ABG Hemoglobin ABG Carboxyhemoglobin POC ABG HHb (Measured) ABG Methemoglobin ABG O2 Capacity VBG pH 7.40 VBG pCO2 52.0 VBG HCO3 32.2 H VBG Total CO2 33.8 H VBG O2 Sat (Calc) 88.1 H VBG Base Excess 6.0 H VBG Potassium 4.0 Hgb O2 Saturation Sodium 139.0 Chloride 102.0 Glucose 164 H Lactate 2.1 FiO2 21.0 Potassium Carbon Dioxide Anion Gap BUN Creatinine Est GFR ( Amer) Est GFR (Non-Af Amer) Random Glucose Calcium Total Bilirubin AST ALT Alkaline Phosphatase Troponin I NT-Pro-B Natriuret Pep Total Protein Albumin Globulin Albumin/Globulin Ratio Free T4 Thyroxine (T4) TSH 3rd Generation Venous Blood Potassium 4.0 Urine Color Urine Appearance Urine pH Ur Specific [place] Urine Protein Urine Glucose (UA) Urine Ketones Urine Blood Urine Nitrate Urine Bilirubin Urine Urobilinogen Ur Leukocyte Esterase Urine RBC Urine WBC Ur Epithelial Cells Urine Bacteria Influenza Typ A,B (EIA) Negative for flu a/b 11/07/18 11/07/18 11/07/18 08:30 11:40 12:00 WBC RBC Hgb Hct MCV MCH MCHC RDW Plt Count MPV Neut % (Auto) Lymph % (Auto) Sampson % (Auto) Eos % (Auto) Baso % (Auto) Lymph # (Auto) Sampson # (Auto) Eos # (Auto) Baso # (Auto) Absolute Neuts (auto) Neutrophils % (Manual) Band Neutrophils % Lymphocytes % (Manual) Monocytes % (Manual) Eosinophils % (Manual) Myelocytes % Platelet Evaluation pCO2 pO2 50 HCO3 ABG pH ABG Total CO2 ABG O2 Saturation ABG O2 Content ABG Base Excess ABG Hemoglobin ABG Carboxyhemoglobin POC ABG HHb (Measured) ABG Methemoglobin ABG O2 Capacity VBG pH 7.41 VBG pCO2 51.0 VBG HCO3 32.3 H VBG Total CO2 33.9 H VBG O2 Sat (Calc) 89.6 H VBG Base Excess 6.3 H VBG Potassium 3.9 Hgb O2 Saturation Sodium 142 139.0 Chloride 102 102.0 Glucose 167 H Lactate 1.7 FiO2 21.0 Potassium 3.6 Carbon Dioxide 31 Anion Gap 12 BUN 34 H Creatinine 1.1 Est GFR ( Amer) 57 Est GFR (Non-Af Amer) 47 Random Glucose 158 H Calcium 9.5 Total Bilirubin 0.8 AST 19 ALT 27 Alkaline Phosphatase 114 Troponin I NT-Pro-B Natriuret Pep Total Protein 6.7 Albumin 3.8 Globulin 2.9 Albumin/Globulin Ratio 1.3 Free T4 1.62 Thyroxine (T4) 9.3 TSH 3rd Generation 3.70 Venous Blood Potassium 3.9 Urine Color Urine Appearance Urine pH Ur Specific [place] Urine Protein Urine Glucose (UA) Urine Ketones Urine Blood Urine Nitrate Urine Bilirubin Urine Urobilinogen Ur Leukocyte Esterase Urine RBC Urine WBC Ur Epithelial Cells Urine Bacteria Influenza Typ A,B (EIA) 11/07/18 11/07/18 11/07/18 12:30 12:40 12:45 WBC RBC Hgb Hct MCV MCH MCHC RDW Plt Count MPV Neut % (Auto) Lymph % (Auto) Sampson % (Auto) Eos % (Auto) Baso % (Auto) Lymph # (Auto) Sampson # (Auto) Eos # (Auto) Baso # (Auto) Absolute Neuts (auto) Neutrophils % (Manual) Band Neutrophils % Lymphocytes % (Manual) Monocytes % (Manual) Eosinophils % (Manual) Myelocytes % Platelet Evaluation pCO2 40 pO2 70.0 L HCO3 29.8 H ABG pH 7.48 H ABG Total CO2 31.0 H ABG O2 Saturation 96.3 ABG O2 Content 19.0 ABG Base Excess 5.8 H ABG Hemoglobin 14.5 ABG Carboxyhemoglobin 2.1 H POC ABG HHb (Measured) 3.6 ABG Methemoglobin 1.2 ABG O2 Capacity 19.7 VBG pH VBG pCO2 VBG HCO3 VBG Total CO2 VBG O2 Sat (Calc) VBG Base Excess VBG Potassium Hgb O2 Saturation 93.0 L Sodium Chloride Glucose Lactate FiO2 21.0 Potassium Carbon Dioxide Anion Gap BUN Creatinine Est GFR ( Amer) Est GFR (Non-Af Amer) Random Glucose Calcium Total Bilirubin AST ALT Alkaline Phosphatase Troponin I 0.02 D NT-Pro-B Natriuret Pep 689 H Total Protein Albumin Globulin Albumin/Globulin Ratio Free T4 Thyroxine (T4) TSH 3rd Generation Venous Blood Potassium Urine Color Yellow Urine Appearance Clear Urine pH 6.0 Ur Specific [place] 1.025 Urine Protein 100 H Urine Glucose (UA) Negative Urine Ketones Negative Urine Blood Small H Urine Nitrate Negative Urine Bilirubin Negative Urine Urobilinogen 0.2 Ur Leukocyte Esterase Trace H Urine RBC 0 - 2 Urine WBC 2 - 5 Ur Epithelial Cells 0 - 2 Urine Bacteria Large Influenza Typ A,B (EIA) Assessment & Plan - Assessment and Plan (Free Text) Assessment: 88 F with pertinent medical history of Asthma, CKD, and A-Fib presents with complaints of shortness of breath associated with chills, vomiting and diarrhea. Plan Acute Shortness of Breath, possibly 2/[address] is negative for any acute pneumonia, nodules or infiltrates. BNP is 689, which is lower than on other admissions for her and not at 10X her age which is less indicative of CHF exacerbation. Patient's H/H is within normal limits as well. Tropes are negative X 1. Patient was febrile with leukocytosis on admission, so code sepsis was called. - M. Pna, pro-joão, blood cultures ordered - ID COnsult - Dr. Ramíerz - Merrem/Cefepime per Dr. Ramírez - U/s abdomen and HIDA scan to rule out cholecystitis - Hold lasix to replenish fluid losses - Chest PT; Incentive Spirometer Generalized fatigue, likely 2/2 GI losses and dehydration vs infection TSH was normal. BUN was elevated, indicating mild dehydration. Glucose level normal. - Hold lasix Acute Nausea and Vomiting - Hold lasix - U/s abdomen and HIDA scan to rule out cholecystitis Leukocytosis, likely reactive - Monitor Metabolic Alkalosis, likely 2/2 vomiting/gi losses - Replenished K+ - Hold Lasix - Obtain ABG tomorrow PPX: SCDs, Protonix; Apixaban from home medications
[2018-11-07] MEDS: Magnesium Oxide 400 mg Tab UD PO SCH (18:09)
--- NOTE | 2018-11-07 18:10 | US ---
Date of service: 11/07/2018 HISTORY: CHOLELITHIASIS/FEVER COMPARISON: November 07, 2018.CT chest abdomen and pelvis. June 21, 2011 and [facility] biliary scan. TECHNIQUE: Sonographic evaluation of the abdomen. FINDINGS: LIVER: Measures 13.7 x 17.4 cm. Hepatopedal blood flow. Fatty infiltration manifest ultrasonographically as increased echogenicity of the liver parenchyma. No mass. No intrahepatic bile duct dilatation. GALLBLADDER: Distended gallbladder. Cholelithiasis. Negative study for gallbladder wall thickening, pericholecystic fluid, sonographic Seaman's sign. COMMON BILE DUCT: Measures 13.1-15.6 mm. Dilated common bile duct without intrahepatic bile duct dilatation. PANCREAS: Unremarkable as visualized. No mass. No ductal dilatation. RIGHT KIDNEY: Prior right nephrectomy. LEFT KIDNEY: Measures 5.9 x 12.9cm. Normal echogenicity. No calculus, mass, or hydronephrosis. SPLEEN: Normal in size and contour. No mass. AORTA: Obscured by overlying bowel gas. IVC: Unremarkable. OTHER FINDINGS: None. IMPRESSION: Cholelithiasis. No sonographic evidence of acute cholecystitis. Confirmation of findings identified on concurrent CT of the abdomen and pelvis. Dilated common bile duct without evidence of stones, mass or other pathologic process.
--- NOTE | 2018-11-07 18:52 | CON ---
DATE OF CONSULTATION: 11/07/2018 The patient is seen earlier today in 363, bed 1. CHIEF COMPLAINT: Fever of 100.7 x1 day duration. HISTORY OF PRESENT ILLNESS: This is an 88-year-old female with history of asthma, atrial fibrillation, chronic obstructive lung disease, chronic kidney disease, diabetes mellitus, [id number], colon cancer stage III with a history of Klebsiella bacteremia, history of Klebsiella urinary tract infection, admitted now with diagnosis of sepsis. The patient has fevers and chills, some urinary symptoms and review of systems reveals she also has cough occasionally. No chest pain. No abdominal pain. No diarrhea or constipation now. She did have diarrhea, and she did have cough, and she did have nausea and vomiting and shortness of breath. REVIEW OF SYSTEMS: Twelve-point review systems performed. PAST MEDICAL HISTORY: Significant for chronic obstructive lung disease, asthma, AFib, kidney disease, diabetes mellitus, [id number], colon cancer, history of Klebsiella urinary tract infection, history of Klebsiella bacteremia. PAST SURGICAL HISTORY: Significant for nephrectomy, right knee surgery, hip surgery placement, and appendectomy. ALLERGIES: THE PATIENT HAS NO KNOWN ALLERGIES. MEDICATIONS: Medications at home are reviewed include Synthroid, insulin, Lasix, atorvastatin, and Eliquis. PHYSICAL EXAMINATION: GENERAL: The patient is in bed, in no acute distress, nontoxic. VITAL SIGNS: Temperature of 100.7; heart rate of 90, it was up to 106; respiratory rate of 20 and it was up to 22 and 23; blood pressure is 130/70. HEENT: Examination of HEENT is unremarkable. NECK: Supple. LUNGS: Have decreased breath sounds. HEART: Normal S1, S2. ABDOMEN: Soft, nontender. LABORATORY DATA: Laboratory examination reveals a white count of 15,600, hemoglobin of 15, platelets of 115. Chemistries reveal a BUN of 34, creatinine of 1.1, and BNP is 689. Urinalysis is noted. Serology is noted. Microbiology is reviewed. The patient had Klebsiella bacteremia in 2016, Klebsiella urinary tract infection in 2016, and the patient had a CT scan of the abdomen and pelvis and a chest x-ray, which was reported to be negative. ASSESSMENT AND PLAN: This is an 88-year-old female with; 1. Sepsis with probable urine as the source. We will treat the patient with meropenem pending blood culture, urine culture in this patient, who has chronic obstructive lung disease, asthma, atrial fibrillation, kidney disease, diabetes, [id number], colon cancer, history of Klebsiella bacteremia, and history of Klebsiella urinary tract infection. We will follow with you. Kana Ramírez MD
[2018-11-07] MEDS: Meropenem IV 1 gm in NS 1 GM/50 ML BAG IVPB SCH ×2 (18:56→22:05)
[2018-11-07] MEDS: Levalbuterol 0.63 MG/3 ML Inhal Soln UD IH SCH ×2 (19:00→20:00)
[2018-11-07] MEDS: Insulin Lispro (humaLOG) LOW Coverage SC SCH (19:05)
--- NOTE | 2018-11-08 01:02 | HP ---
DATE OF EXAM: 11/07/2018 HISTORY OF PRESENT ILLNESS: The patient is an 88-year-old [place] female came to the emergency room with less than 24 hours complains of shakiness, chills, fever with one episode of nausea and vomiting. According to the triage note and according to the patient's ER evaluation, the patient also complained of some shortness of breath with chills, fever, vomiting, and nausea times one episode and also complaining of some cough. The patient states that she was in her usual state of health yesterday and before. REVIEW OF SYSTEMS: The patient's 14-system review was done, pertinent positive, negative dictated above. The patient was examined in ER bed 4 and 363, bed 1. The patient's vital signs, diagnostic data, imaging studies, and EKG all was reviewed. Please refer to the detailed history and physical examination by the medical technical writer for detailed history and physical examination. IMPRESSION AND PLAN: 1. Status post code sepsis in the emergency room. 2. Fever of 100.7. 3. Tachycardia. 4. History of hypertension. 5. Hypoxemia. 6. Possible systemic inflammatory response syndrome. 7. Leukocytosis with granulocytosis. 8. Mild lactic acidosis. 9. Mild metabolic alkalosis. 10. Mild prerenal kidney injury. 11. Insulin-requiring diabetes mellitus with hyperglycemia. 12. History of hypothyroidism. 13. Proteinuria, microscopic hematuria, pyuria, and bacteriuria. 14. Questionable urinary tract infection. 15. History of coronary artery disease, history of atrial fibrillation. 16. Heavily calcified dilated aorta. 17. Cholelithiasis. 18. Solitary left kidney. 19. Aortic calcification. 20. History of colon carcinoma with left hemicolectomy. 21. Constipation. 22. Degenerative joint disease of the lumbar spine. 23. Bilateral lower extremity venous stasis. 24. Atrial fibrillation with anterolateral ischemic changes. 25. 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 26. History of 50% stenosis of the distal and apical left anterior descending artery, history of 50% stenosis of the distal left anterior descending artery. 27. History of pulmonary hypertension with concentric left ventricular hypertrophy and history of moderate tricuspid regurgitation and moderate pulmonary hypertension with right ventricular systolic pressure of 58 mmHg. 28. History of poor compliance. 29. History of insulin-requiring diabetes mellitus. 30. History of hyperlipidemia, hypovitaminosis D, history of Eliquis-dependent atrial fibrillation, and history of hyperuricemia. Plan at this time, the patient is to be admitted to [facility]. The patient has been ordered serial labs and lipid panel has been ordered. Mycoplasma pneumoniae titers has been ordered. Blood and urine cultures ordered. Consultation; Infectious Disease, diabetic education evaluation, and TCU evaluation ordered. Legionella and Mycoplasma ordered. Procalcitonin level ordered. The patient will be continued on sotalol 80 mg daily, Colace 100 mg three times a day, Drisdol 50,000 units weekly, Eliquis 2.5 twice a day, Tresiba 30 units once a day in the morning, K-Dur 10 mEq daily, and Lasix 40 mg will be put on hold because of some prerenal kidney injury. Repeat labs ordered. Lipitor 40 mg daily, magnesium oxide 400 three times a day, and the patient received Maxipime 2 g in the ER. The patient is started on meropenem 1 g IV every 8 hours by the Infectious Disease, MiraLax 17 g twice a day, Protonix 40 mg daily, Synthroid 100 mcg daily, Tylenol p.o. suppository every 6 hours p.r.n., and Xopenex nebulizer 0.63 mg every 6 hours [id number]. Zofran 4 mg IV every 4 hours p.r.n. and allopurinol 100 mg p.o. daily. Chest PT, incentive spirometry, oxygen 2 L, and repeat EKG ordered. Consistent carbohydrate diet. Fingerstick blood sugar ordered. The patient is put on sliding scale coverage for insulin. The patient at present further management will be dependent upon the patient's clinical condition, hemodynamic status, and as the patient's response to therapeutic intervention as per the patient's diagnostic test results and as per recommendation by all the physician involved in the care of the patient. The patient will be ordered ultrasound of the abdomen and HIDA scan for evaluation of cholelithiasis. The patient has been ordered HIDA scan and ultrasound of the abdomen. The patient has been updated about her condition, admitting diagnosis, need for further diagnostic therapeutic intervention, and need for further evaluation by other specialties was explained in detail in layman's language to the patient. All questions concerned answered. In addition, the patient has been also ordered NIKOLAY stockings, SCDs, out of bed to chair, physical therapy, occupational therapy, and TCU eval ordered. Dictated and electronically signed, not read. Amilcar Reyes MD
[2018-11-08] MEDS: Meropenem IV 1 gm in NS 1 GM/50 ML BAG IVPB SCH ×2 (06:04→18:11)
[2018-11-08] MEDS: Pantoprazole 40 mg EC Tab PO SCH (06:05)
[2018-11-08 07:33] LABS: BASO # 0.01 K/mm3 (0.0-2.0); BASO % 0.1 % (0.0-3.0); EOS # 0.1 (0.0-0.7); HEMOGLOBIN 13.4 g/dL (12.0-16.0); LYMPH # 1.3 (1.2-3.4); MEAN CELL VOLUME 98.2 fl (80.0-105.0); MEAN CORPUSCULAR HEMOGLOBIN 30.7 pg (25.0-35.0); MEAN CORPUSCULAR HGB CONC 31.2 g/dl (31.0-37.0); MEAN PLATELET VOLUME 11.5 fl (7.0-11.0); MONO # 1.3 (0.1-0.6); MONO % 11.1 % (1.0-6.0); RBC 4.37 10^6/uL (3.5-6.1); RED CELL DISTRIBUTION WIDTH 13.1 % (11.5-14.5); WHITE BLOOD COUNT 11.7 10^3/uL (4.5-11.0)
[2018-11-08 07:47] LABS: ALBUMIN 3.2 g/dL (3.0-4.8); BILIRUBIN,DIRECT 0.1 mg/dL (0.0-0.4); URIC ACID 13.7 mg/dL (2.5-6.2)
[2018-11-08] MEDS: Levalbuterol 0.63 MG/3 ML Inhal Soln UD IH SCH ×3 (07:56→19:48)
[2018-11-08] MEDS: Insulin Lispro (humaLOG) LOW Coverage SC SCH ×2 (08:07→20:26)
[2018-11-08] MEDS: Potassium Chloride 10 mEq ER Tab PO SCH (08:52)
[2018-11-08] MEDS: Levothyroxine 50 MCG TAB PO SCH (08:59)
[2018-11-08] MEDS ORDERED: Sodium Chloride 0.9% 1,000 ML IV SCH (09:00)
[2018-11-08] MEDS: INSULIN DEGLUDEC 30 UNIT SQ SCH (10:00)
[2018-11-08] MEDS: Magnesium Oxide 400 mg Tab UD PO SCH ×3 (11:10→18:12)
[2018-11-08] MEDS: POLYETHYLENE GLYCOL 3350 17 GM/Dose PACKET PO SCH ×2 (11:11→18:11)
--- NOTE | 2018-11-08 14:46 | NM ---
Date of service: 11/07/2018 PROCEDURE: Nuclear Medicine Hepatobiliary Scan HISTORY: ??CHOLECYSTITIS COMPARISON: None available. TECHNIQUE: 7.0 mCi of technetium 99m Mebrofenin was administered intravenously. Planar images of the abdomen were obtained at 5 min intervals to 60 mins. Delayed images were also obtained. FINDINGS: LIVER: Timely and homogenous uptake. COMMON BILE DUCT: identified at 30 mins. GALLBLADDER: Visible on 4 hr delayed images SMALL BOWEL: Identified at 60 mins. IMPRESSION: Gallbladder visualized on delayed images. No evidence of cholecystitis
--- NOTE | 2018-11-08 15:37 | CP.PCM.PN ---
Subjective - Date & Time of Evaluation Date of Evaluation: 11/08/18 Time of Evaluation: 15:31 - Subjective Subjective: Medicine progress note (Dr. Reyes) - Ephraim, PGY -2 Patient seen and examined at bedside. No acute overnight events. Patient is resting comfortably in bed, feels better than yesterday. Denies chest pain, RUQ pain. Objective - Vital Signs/Intake and Output Vital Signs (last 24 hours): Temp Pulse Resp BP Pulse Ox 98.6 F 78 18 100/72 91 L 11/08/18 08:22 11/08/18 11:08 11/08/18 08:22 11/08/18 11:08 11/08/18 08:22 Intake and Output: 11/08/18 11/08/18 06:59 18:59 Intake Total 120 Balance 120 - Medications Medications: Current Medications Acetaminophen (Tylenol 325mg Tab) 650 mg PO Q6 PRN PRN Reason: TEMP>=99.5F Acetaminophen (Tylenol 650 Mg Supp) 650 mg RC Q6H PRN PRN Reason: TEMP>=99.5F Allopurinol (Zyloprim) 100 mg PO DAILY [facility] Last Admin: 11/08/18 11:11 Dose: 100 mg Apixaban (Eliquis) 2.5 mg PO BID [facility]; Protocol Last Admin: 11/08/18 11:10 Dose: 2.5 mg Atorvastatin Calcium (Lipitor) 40 mg PO DIN [facility] Docusate Sodium (Colace) 100 mg PO TID [facility] Last Admin: 11/08/18 11:09 Dose: 100 mg Ergocalciferol (Drisdol 50,000 Intl Units Cap) 1 cap PO Q7D [facility] Last Admin: 11/07/18 13:26 Dose: 1 cap Meropenem (Merrem Iv 1 Gm Premix) 1 gm in 50 mls @ 100 mls/hr IVPB 0600,1800 [facility]; Protocol Stop: 11/16/18 15:01 Sodium Chloride (Sodium Chloride 0.9%) 1,000 mls @ 60 mls/hr IV .[id number] [facility] Insulin Human Lispro (Humalog Low) 0 units SC AC [facility]; Protocol Last Admin: 11/08/18 08:07 Dose: Not Given Levalbuterol HCl (Xopenex) 0.63 mg IH [id number] [facility] Last Admin: 11/08/18 14:34 Dose: 0.63 mg Levothyroxine Sodium (Synthroid) 100 mcg PO ACB [facility] Last Admin: 11/08/18 08:59 Dose: 100 mcg Magnesium Oxide (Mag-Ox) 400 mg PO TID [facility] Last Admin: 11/08/18 11:10 Dose: 400 mg Non-Formulary Medication (Insulin Degludec [Tresiba Flextouch U-100]) 30 unit SQ QAM [facility] Ondansetron HCl (Zofran Inj) 4 mg IVP Q4H PRN PRN Reason: Nausea/Vomiting Last Admin: 11/07/18 13:26 Dose: 4 mg Pantoprazole Sodium (Protonix Ec Tab) 40 mg PO 0600 [facility] Last Admin: 11/08/18 06:05 Dose: 40 mg Polyethylene Glycol (Miralax) 17 gm PO BID [facility] Last Admin: 11/08/18 11:11 Dose: 17 gm Potassium Chloride (Klor-Con 10) 10 meq PO BRK [facility] Last Admin: 11/08/18 08:52 Dose: 10 meq Sotalol HCl (Betapace) 80 mg PO QAM [facility] Last Admin: 11/08/18 11:08 Dose: 80 mg - Labs Labs: 11/08/18 07:00 11/08/18 07:00 - Constitutional Appears: Non-toxic - Head Exam Head Exam: ATRAUMATIC, NORMAL INSPECTION, NORMOCEPHALIC - Eye Exam Eye Exam: EOMI, Normal appearance, PERRL Pupil Exam: NORMAL ACCOMODATION, PERRL - ENT Exam ENT Exam: Mucous Membranes Moist, Normal Exam - Neck Exam Neck Exam: Full ROM, Normal Inspection. absent: Lymphadenopathy - Respiratory Exam Respiratory Exam: Clear to Ausculation Bilateral, NORMAL BREATHING PATTERN - Cardiovascular Exam Cardiovascular Exam: REGULAR RHYTHM, +S1, +S2. absent: Murmur - GI/Abdominal Exam GI & Abdominal Exam: Soft, Normal Bowel Sounds. absent: Tenderness - Extremities Exam Extremities Exam: Full ROM, Normal Capillary Refill, Normal Inspection. absent: Joint Swelling, Pedal Edema - Back Exam Back Exam: NORMAL INSPECTION - Neurological Exam Neurological Exam: Alert, Awake, CN II-XII Intact, Normal Gait, Oriented x3 - Psychiatric Exam Psychiatric exam: Normal Affect, Normal Mood - Skin Skin Exam: Dry, Intact, Normal Color, Warm Assessment and Plan - Assessment and Plan (Free Text) Assessment: 88 F with pertinent medical history of Asthma, CKD, and A-Fib presents with complaints of shortness of breath associated with chills, vomiting and diarrhea. Plan Possible Sepsis, possibly 2/2 Cholecystitis VS Cholangitis VS Choledocholithiasis Chest CT is negative for any acute pneumonia, nodules or infiltrates. BNP is 689, which is lower than on other admissions for her and not at 10X her age which is less indicative of CHF exacerbation. Patient's H/H is within normal limits as well. Tropes are negative X 1. Patient was febrile with leukocytosis on admission, so code sepsis was called. HIDA scan was ordered, did not show cholecystitis, but U/s showed stones and CBD dilation. Blood cultures are growing gram negative rods and procal is positive. GGT is elevated. With this information, choledocholithiasis and cholangitis are also on the differential, but possibly in early stages. - M. PNA pending - ID COnsult - Dr. Ramírez - Merrem/Cefepime per Dr. Ramírez - Hold lasix to replenish fluid losses - Hydrate patient at 60 mls/hr, but careful hydration 2/2 Hx CHF - Chest PT; Incentive Spirometer Acute Kidney Injury, likely contrast nephropathy - Hydrate patient carefully 2/2 Hx CHF Generalized fatigue, likely 2/2 GI losses and dehydration vs infection TSH was normal. BUN was elevated, indicating mild dehydration. Glucose level normal. - Hold lasix Acute Nausea and Vomiting, possibly 2/2 GB pathology - Hold lasix - GI COnsult Metabolic Alkalosis, likely 2/2 vomiting/gi losses - Replenished K+ - Hold Lasix - Obtain ABG tomorrow PPX: SCDs, Protonix; Apixaban from home medications
--- NOTE | 2018-11-08 15:40 | CP.PCM.APN ---
Subjective - Date & Time of Evaluation Date of Evaluation: 11/08/18 Time of Evaluation: 02:45 - Subjective Subjective: Pt. seen and examined, sitting up in chair, at bedside. No complaints of nausea, vomiting, denied abdominal pain, denied fever, chills. Objective - Vital Signs/Intake and Output Vital Signs (last 24 hours): Temp Pulse Resp BP Pulse Ox 98.6 F 78 18 100/72 91 L 11/08/18 08:22 11/08/18 11:08 11/08/18 08:22 11/08/18 11:08 11/08/18 08:22 Intake and Output: 11/08/18 11/08/18 06:59 18:59 Intake Total 120 Balance 120 - Medications Medications: Current Medications Acetaminophen (Tylenol 325mg Tab) 650 mg PO Q6 PRN PRN Reason: TEMP>=99.5F Acetaminophen (Tylenol 650 Mg Supp) 650 mg RC Q6H PRN PRN Reason: TEMP>=99.5F Allopurinol (Zyloprim) 100 mg PO DAILY [facility] Last Admin: 11/08/18 11:11 Dose: 100 mg Apixaban (Eliquis) 2.5 mg PO BID [facility]; Protocol Last Admin: 11/08/18 11:10 Dose: 2.5 mg Atorvastatin Calcium (Lipitor) 40 mg PO DIN [facility] Docusate Sodium (Colace) 100 mg PO TID [facility] Last Admin: 11/08/18 11:09 Dose: 100 mg Ergocalciferol (Drisdol 50,000 Intl Units Cap) 1 cap PO Q7D [facility] Last Admin: 11/07/18 13:26 Dose: 1 cap Meropenem (Merrem Iv 1 Gm Premix) 1 gm in 50 mls @ 100 mls/hr IVPB 0600,1800 [facility]; Protocol Stop: 11/16/18 15:01 Sodium Chloride (Sodium Chloride 0.9%) 1,000 mls @ 60 mls/hr IV .[id number] [facility] Insulin Human Lispro (Humalog Low) 0 units SC AC [facility]; Protocol Last Admin: 11/08/18 08:07 Dose: Not Given Levalbuterol HCl (Xopenex) 0.63 mg IH [id number] [facility] Last Admin: 11/08/18 14:34 Dose: 0.63 mg Levothyroxine Sodium (Synthroid) 100 mcg PO ACB [facility] Last Admin: 11/08/18 08:59 Dose: 100 mcg Magnesium Oxide (Mag-Ox) 400 mg PO TID [facility] Last Admin: 11/08/18 11:10 Dose: 400 mg Non-Formulary Medication (Insulin Degludec [Tresiba Flextouch U-100]) 30 unit SQ QAM [facility] Ondansetron HCl (Zofran Inj) 4 mg IVP Q4H PRN PRN Reason: Nausea/Vomiting Last Admin: 11/07/18 13:26 Dose: 4 mg Pantoprazole Sodium (Protonix Ec Tab) 40 mg PO 0600 [facility] Last Admin: 11/08/18 06:05 Dose: 40 mg Polyethylene Glycol (Miralax) 17 gm PO BID [facility] Last Admin: 11/08/18 11:11 Dose: 17 gm Potassium Chloride (Klor-Con 10) 10 meq PO BRK [facility] Last Admin: 11/08/18 08:52 Dose: 10 meq Sotalol HCl (Betapace) 80 mg PO QAM [facility] Last Admin: 11/08/18 11:08 Dose: 80 mg - Labs Labs: 11/08/18 07:00 11/08/18 07:00 - Constitutional Appears: Well - Head Exam Head Exam: NORMOCEPHALIC - Eye Exam Eye Exam: Normal appearance - ENT Exam ENT Exam: Mucous Membranes Moist, Normal Exam - Neck Exam Neck Exam: Normal Inspection - Respiratory Exam Respiratory Exam: Clear to Ausculation Bilateral - Cardiovascular Exam Cardiovascular Exam: REGULAR RHYTHM, +S1, +S2 - GI/Abdominal Exam GI & Abdominal Exam: Soft - Rectal Exam Rectal Exam: Deferred - Exam Exam: absent: Circumcision, NORMAL INSPECTION, Scrotal Swelling, Testicular Tenderness, Uretheral Discharge, Testicular Vertical Lie, Bladder Distension External exam: absent: Ecchymosis, Erythema, Lacerations, Lesions, NORMAL EXTERNAL EXAM, Swelling Speculum exam: absent: Cervical Discharge, Erythema, Foreign Body, Laceration, NORMAL SPECULUM EXAM, Tissue, Vaginal Bleeding, Vaginal Discharge Bimanual exam: absent: Adenexal Mass, Adnexal, Cervical Motion Tendernes, NORMAL BIMANUAL EXAM, Uterine Enlargement, Uterine Tenderness - Extremities Exam Extremities Exam: Full ROM - Back Exam Back Exam: NORMAL INSPECTION - Neurological Exam Neurological Exam: Alert, Awake, Oriented x3 - Psychiatric Exam Psychiatric exam: Normal Affect, Normal Mood - Skin Skin Exam: Dry, Intact, Normal Color, Warm Assessment and Plan - Assessment and Plan (Free Text) Assessment: Microbiology 11/07/18 07:50 Blood-Venous Blood Culture - Preliminary Gram Negative Jose M 11/07/18 07:50 Blood-Venous Gram Stain - Final 11/07/18 07:30 Blood-Venous Blood Culture - Preliminary Gram Negative Jose M 11/07/18 07:30 Blood-Venous Gram Stain - Final No Known Allergies Allergy (Verified 11/07/18 12:24) ITS Impressions Chest X-Ray 11/07/18 07:38 IMPRESSION: No active disease. Chest/Abdomen/Pelvis CT 11/07/18 11:57 IMPRESSION: No acute intra-abdominal or intrathoracic findings Abdomen Ultrasound 11/07/18 15:59 IMPRESSION: Cholelithiasis. No sonographic evidence of acute cholecystitis. Confirmation of findings identified on concurrent CT of the abdomen and pelvis. Dilated common bile duct without evidence of stones, mass or other pathologic process. Body Scan Nuclear Medicine 11/07/18 15:59 IMPRESSION: Gallbladder visualized on delayed images. No evidence of cholecystitis Assessment: 88 year old female, with past medical history of asthma, hypertension, A-fib, CKD and diabetes, presents to the ED for evaluation of shortness of breath associated with chills, vomiting and diarrhea since 4 am on morning of admission, admitted with sepsis, for further eval and treatment, with I.D. consulted. Plan: 1. Sepsis Likely r/t positive blood cultures, continue I.V. Antibiotics per I.D, final blood cx I.D. Sens, pending. 2. Bacteremia, Blood Cx positive Gram neg. jose m, final I.D sens. pending. Antibx per I.D.,monitor, trend wbc. 3. Cholelithiasis Further recs per GI. PT rec. Home with Services. Will continue to monitor clinical status and follow closely. DW with consultants, PT, SW/ CM.
[2018-11-08] MEDS ORDERED: Gadodiamide 287 MG/ML VIAL (20ML) IV ONE (16:45)
--- NOTE | 2018-11-08 17:45 | CARD ---
APPROVED REPORT Date of service: 11/08/2018 EKG Measurement Heart [id number] <Conclusion> Atrial fibrillation Nonspecific T wave abnormalities Abnormal ECG
--- NOTE | 2018-11-08 17:56 | MRI ---
MRI abdomen without/with IV contrast MRCP Indication: R/o choledocholithiasis Technique: Multiplanar, multi sequence magnetic resonance images of the abdomen were obtained without and with the administration of intravenous gadolinium using a multi phase abdomen protocol. Rotating maximum intensity projection images of the biliary system were generated. A total of 1170 images submitted for review Comparison: Abdominal ultrasound performed 11/07/18, CT chest, abdomen, and pelvis without contrast performed 11/07/18 Findings: Gallbladder distension. Probable small gallstones. There is no intrahepatic biliary ductal dilatation. The common bile duct appears dilated measuring approximately 13 mm in maximum diameter with evidence of abrupt distal cut off. The pancreatic duct appears within normal limits of caliber. The liver, spleen, pancreas, and adrenal glands appear unremarkable. The right kidney is absent, by history post nephrectomy. The left kidney appears unremarkable. No enlarged abdominal lymph nodes are appreciated. Limited visualization of bowel loops demonstrates distension of the cecum which appears midline and demonstrates associated wall thickening. Diverticulosis without CT evidence of acute diverticulitis. Limited views of the inferior thorax appear unremarkable. Degenerative changes of the spine. Impression: Cholelithiasis. Dilated common bile duct measuring approximately 13 mm maximum diameter with evidence of abrupt distal cut off; primary or secondary stricture is must be excluded. Recommend further evaluation with ERCP if indicated. 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 Limited visualization of bowel loops demonstrates distension of the cecum which appears midline and demonstrates associated wall thickening. Diverticulosis without CT evidence of acute diverticulitis.
--- NOTE | 2018-11-08 18:23 | CON ---
DATE OF CONSULTATION: 11/08/2018 GASTROENTEROLOGY CONSULTATION REQUESTING PHYSICIAN: Dr. Reyes. REASON FOR CONSULTATION: I have been asked to see this 88-year-old female with 1-day history of chills, vomiting and diarrhea. She denies any abdominal pain, rectal bleeding or melena. She is known to have gallstones. She has a history of atrial fibrillation, chronic kidney disease, and asthma. 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 She also had a colonic perforation requiring colostomy with subsequent reversal several months later back in 2017. The patient was found to have blood cultures positive for gram-negative rods. She does have a history of urinary tract infections in the past. CT scan of the abdomen shows multiple gallstones with a dilated and distended gallbladder. Ultrasound of the abdomen shows the same with dilated CBD measuring between 13-15 mm without any intrahepatic biliary dilatation. No stones were seen in the common bile duct. She was also noted to have fatty liver. The patient has not had any further nausea, vomiting since her hospitalization. PAST MEDICAL HISTORY: As above. Again, she has a history of atrial fibrillation, chronic kidney disease, asthma, neuroendocrine carcinoma of the transverse colon. PAST SURGICAL HISTORY: Notable for left hemicolectomy, transverse colectomy with ileostomy, nephrectomy, hip replacement, and right knee replacement. NOTE: The patient also has a history of diabetes mellitus, coronary artery disease, COPD with diastolic congestive heart failure, and hypothyroidism. SOCIAL HISTORY: She is a former cigarette smoker, having smoked two to three packs a day for many years. She denies alcohol use. FAMILY HISTORY: Notable for mother with liver cancer. REVIEW OF SYSTEMS: Fourteen-point review of systems is notable for chills, nausea, vomiting, and diarrhea. MEDICATIONS: Medications at home include sotalol, Levoxyl, insulin, Lasix, vitamin D, Lipitor, Eliquis, Zyloprim, and albuterol. PHYSICAL EXAMINATION: GENERAL: Elderly, well-developed female, lying in bed, in no acute distress. VITAL SIGNS: Reveal a temperature of 98.6, blood pressure 100/72, heart rate of 78. HEENT: Reveal sclerae to be white. Conjunctivae pink. NECK: Supple. CHEST: Reveals lungs to be clear. HEART: Exam reveals an irregularly irregular rate. ABDOMEN: Soft. Multiple well-healed scars. Obese, nontender. No mass. EXTREMITIES: Show no edema. LABORATORY DATA: Revealed a white blood cell count of 11.7, down from 15.6 on admission to the hospital, hemoglobin 13.4, platelet count of 119,000. Chemistries reveal BUN 41, creatinine 1.5, blood sugar 185. AST, ALT, alk phos, and total bilirubin are all normal. IMPRESSION: An 88-year-old female with multiple comorbidities including atrial fibrillation, congestive heart failure, diastolic cardiac dysfunction, chronic kidney disease, gallstones, with blood cultures positive for gram-negative rods. Clinically, the patient does not have biliary sepsis. Her liver enzymes are normal. She may have a recurrent urinary tract infection. RECOMMENDATIONS: 1. Await ID of blood cultures. 2. Continue IV meropenem. 3. Advance diet as tolerated. 4. No further GI workup planned at this time. Stefan Fairbanks MD
--- NOTE | 2018-11-08 23:53 | PN ---
DATE: 11/08/2018 SUBJECTIVE: The patient is in bed, in no acute distress, was seen early this morning in room 363, bed 1. PHYSICAL EXAMINATION: VITAL SIGNS: Temperature is 98, blood pressure is 100/70, respiratory rate of 18, heart rate of 78. HEENT: Unremarkable. NECK: Supple. LUNGS: Have decreased breath sounds. HEART: Normal S1, S2. ABDOMEN: Soft. LABORATORY DATA: Reveals a white count 11,700, hemoglobin of 13. Chemistries are noted. Urinalysis is reviewed, and the patient's creatinine went from 1.1 to 1.5. Urinalysis is noted and serology is noted. Microbiology reveals gram-negative nelly in the blood and gram-negative nelly in the urine. Review of orders reveals the patient to be on meropenem. ASSESSMENT AND PLAN: An 88-year-old with a history of nephrectomy, right knee surgery, hip surgery, appendectomy, asthma, atrial fibrillation, chronic obstructive lung disease, diabetes, [id number], colon cancer stage 3, admitted now with sepsis with gram-negative nelly in the blood and with gram-negative nelly in the urine, currently on meropenem. Awaiting for identification of the gram-negative nelly in the blood and urine. Questionable GI pathology. The patient had a CAT scan of the abdomen. Dr. Stefan Fairbanks's consultation is reviewed. He feels the patient does not have biliary source for this infection. We will follow with you pending identification of gram-negative nelly. Kana Ramírez MD
[2018-11-09] MEDS: Levalbuterol 0.63 MG/3 ML Inhal Soln UD IH SCH ×4 (01:14→19:59)
[2018-11-09] MEDS: Pantoprazole 40 mg EC Tab PO SCH (05:27)
[2018-11-09] MEDS: Meropenem IV 1 gm in NS 1 GM/50 ML BAG IVPB SCH ×2 (05:30→19:14)
[2018-11-09 07:01] LABS: ALBUMIN 3.1 g/dL (3.0-4.8); BILIRUBIN,DIRECT 0.5 mg/dL (0.0-0.4); CALCIUM 9.1 mg/dL (8.4-10.5)
[2018-11-09 07:30] LABS: BASO # 0.01 K/mm3 (0.0-2.0); BASO % 0.1 % (0.0-3.0); EOS # 0.2 (0.0-0.7); EOS % 2.1 % (1.5-5.0); HEMOGLOBIN 12.5 g/dL (12.0-16.0); LYMPH # 1.6 (1.2-3.4); LYMPH % 21.7 % (22.0-35.0); MEAN CELL VOLUME 98.3 fl (80.0-105.0); MEAN CORPUSCULAR HEMOGLOBIN 30.2 pg (25.0-35.0); MEAN CORPUSCULAR HGB CONC 30.7 g/dl (31.0-37.0); MEAN PLATELET VOLUME 11.6 fl (7.0-11.0); MONO # 0.8 (0.1-0.6); RBC 4.14 10^6/uL (3.5-6.1); RED CELL DISTRIBUTION WIDTH 13.1 % (11.5-14.5); WHITE BLOOD COUNT 7.5 10^3/uL (4.5-11.0)
[2018-11-09] MEDS: Insulin Lispro (humaLOG) LOW Coverage SC SCH ×3 (08:07→18:15)
[2018-11-09] MEDS: Levothyroxine 50 MCG TAB PO SCH (08:46)
[2018-11-09] MEDS: Potassium Chloride 10 mEq ER Tab PO SCH (08:46)
[2018-11-09] MEDS: Magnesium Oxide 400 mg Tab UD PO SCH ×3 (10:12→19:15)
[2018-11-09] MEDS: POLYETHYLENE GLYCOL 3350 17 GM/Dose PACKET PO SCH ×3 (10:14→19:22)
[2018-11-09] MEDS: INSULIN DEGLUDEC 30 UNIT SQ SCH (10:25)
--- NOTE | 2018-11-09 13:22 | PN ---
DATE: 11/09/2018 SUBJECTIVE: The patient is in room 363, bed 1. Overnight nurse's notes were reviewed. The patient denies any fever or chills. Denies any nausea, vomiting, diarrhea, denies any constipation. Denies any hemoptysis, hematemesis, or melena. OBJECTIVE: VITAL SIGNS: T-max 98.4, heart rate 69, blood pressure 105/67, respiration 18-20, O2 sat 97%. GENERAL: The patient's is seen in room 363, bed 1. HEENT: Head examination normocephalic, atraumatic. Eyes; shows pinkish pale conjunctivae. Anicteric sclerae. No oropharyngeal lesion. NECK: No neck rigidity. CHEST: Kyphosis. LUNGS: Shows decreased breath sounds bilaterally. No audible crackle, rales or wheezing. CARDIOVASCULAR: S1, S2, irregular rhythm. Positive systolic murmur, left sternal border, right second intercostal space. ABDOMEN: Soft. Positive bowel sound. Positive surgical scar of colostomy and colectomy and nephrectomy on the right side. GENITALIA: Female. RECTAL: Deferred. EXTREMITIES: Shows decreasing pitting edema and swelling of the lower extremity. Positive NIKOLAY stocking. MUSCULOSKELETAL: As per the body mass index. NEUROLOGIC: The patient is alert, awake, responsive, is able to move upper and lower extremity without assistance. Gait examination is not tested. Cranial nerves II through XII limited. DIAGNOSTIC DATA: On 11/09/2018; WBC 7.5, hemoglobin/hematocrit 12.5/40.7, platelets 101,000. Sodium 139, potassium 4.3, chloride 103, CO2 of 28, BUN 44, creatinine 1.3, glucose 83, calcium 9.1, phosphorus 3.5, magnesium 2.7. Procalcitonin level . Influenza A and B negative. Mycoplasma negative. The patient's ultrasound of the abdomen shows gallstones and dilated common bile duct. HIDA scan is negative for acute cholecystitis. MRCP result shows cholelithiasis, gallstones, dilated common bile duct of 13 mm with abrupt cutoff questionable strictures right nephrectomy cecal distention with thickening noted. Diverticulosis of the colon noted and degenerative joint disease of the thoracic spine noted. Blood and urine cultures are both growing Gram-negative rods. IMPRESSION AND PLAN: 1. Gram-negative nelly bacteremia and sepsis and Gram-negative nelly urinary tract infection. 2. Fever. 3. Status post fever and chills. 4. Mild normocytic anemia. 5. Thrombocytopenia. 6. Prerenal kidney injury. 7. Right nephrectomy with solitary left kidney. 8. Insulin-requiring diabetes mellitus. 9. Uncontrolled insulin-requiring diabetes mellitus. 10. . 11. Hypercalcitoninemia. 12. Gram-negative nelly urinary tract infection with proteinuria, microscopic hematuria, bacteriuria, pyuria. 13. Cholelithiasis. 14. A 13-mm dilated common bile duct with the abrupt cutoff, questionable common bile duct stricture. 15. Right nephrectomy. 16. Cecal distention and thickening. 17. Diverticulosis of the colon. 18. 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 19. Insulin-requiring diabetes mellitus. 20. History of chronic obstructive pulmonary disease. 21. History of coronary artery disease. 22. History of atrial fibrillation. 23. History of colon carcinoma. 24. Status post colostomy and colectomy and reversal of colostomy. 25. Hyperuricemia. 26. Hypothyroidism. 27. Hyperlipidemia, hypertriglyceridemia. 28. History of noncompliance and poor compliance. 29. History of nicotine dependence and advanced chronic obstructive pulmonary disease. PLAN: At this time, the patient is to be continued on IV antibiotics as per Infectious Disease recommendation. The patient is seen by Gastroenterology, their recommendations noted. The patient has been ordered IV meropenem as per Infectious Disease. The patient has been ordered GI, DVT prophylaxis. The patient has been ordered Insulin sliding scale coverage with basal and bolus insulin. The patient has been resumed on sotalol. The patient has been resumed on Eliquis. The patient is on GI prophylaxis. The patient has been ordered pharmacological, non-pharmacological GI, DVT prophylaxis. The patient's case is referred for TCU evaluation. The patient has been ordered out of bed to chair, NIKOLAY stockings, physical therapy, occupational therapy, ambulation therapy, gait training. TCU evaluation has been ordered. The patient has been updated about her condition, diagnosis, test results, recommendation by all the physician involved in the care of the patient was explained and discussed with the patient. All questions concerned answered. The patient's further management will be dependent upon the patient's clinical condition, hemodynamic status and as per the patient response to therapeutic intervention as per the patient's diagnostic test results and as per recommendation by all the physician. Dictated and electronically signed, not read. Amilcar Reyes MD
--- NOTE | 2018-11-09 14:27 | CP.PCM.PN ---
Subjective - Date & Time of Evaluation Date of Evaluation: 11/09/18 Time of Evaluation: 14:18 - Subjective Subjective: Medicine progress note (Dr. Reyes) - [place], PGY -2 Patient seen and examined at bedside. No acute overnight complaints. Patient states she is feeling better and denies any chest pain, shortness of breath. Objective - Vital Signs/Intake and Output Vital Signs (last 24 hours): Temp Pulse Resp BP Pulse Ox 98.4 F 69 18 105/67 97 11/09/18 07:42 11/09/18 10:12 11/09/18 07:42 11/09/18 10:12 11/09/18 07:42 Intake and Output: 11/09/18 11/09/18 06:59 18:59 Intake Total 240 Balance 240 - Medications Medications: Current Medications Acetaminophen (Tylenol 325mg Tab) 650 mg PO Q6 PRN PRN Reason: TEMP>=99.5F Acetaminophen (Tylenol 650 Mg Supp) 650 mg RC Q6H PRN PRN Reason: TEMP>=99.5F Allopurinol (Zyloprim) 100 mg PO DAILY [facility] Last Admin: 11/09/18 10:14 Dose: 100 mg Apixaban (Eliquis) 2.5 mg PO BID [facility]; Protocol Last Admin: 11/09/18 10:14 Dose: 2.5 mg Atorvastatin Calcium (Lipitor) 40 mg PO DIN [facility] Last Admin: 11/08/18 17:00 Dose: Not Given Docusate Sodium (Colace) 100 mg PO TID [facility] Last Admin: 11/09/18 10:12 Dose: 100 mg Ergocalciferol (Drisdol 50,000 Intl Units Cap) 1 cap PO Q7D [facility] Last Admin: 11/07/18 13:26 Dose: 1 cap Meropenem (Merrem Iv 1 Gm Premix) 1 gm in 50 mls @ 100 mls/hr IVPB 0600,1800 [facility]; Protocol Stop: 11/16/18 15:01 Last Admin: 11/09/18 05:30 Dose: 100 mls/hr Sodium Chloride (Sodium Chloride 0.9%) 1,000 mls @ 60 mls/hr IV .[id number] [facility] Insulin Human Lispro (Humalog Low) 0 units SC [facility]; Protocol Last Admin: 11/09/18 13:28 Dose: 1 unit Levalbuterol HCl (Xopenex) 0.63 mg IH [id number] [facility] Last Admin: 11/09/18 13:36 Dose: 0.63 mg Levothyroxine Sodium (Synthroid) 100 mcg PO ACB [facility] Last Admin: 11/09/18 08:46 Dose: 100 mcg Magnesium Oxide (Mag-Ox) 400 mg PO TID [facility] Last Admin: 11/09/18 10:12 Dose: 400 mg Non-Formulary Medication (Insulin Degludec [Tresiba Flextouch U-100]) 30 unit S Q QAM [facility] Last Admin: 11/09/18 10:25 Dose: Not Given Ondansetron HCl (Zofran Inj) 4 mg IVP Q4H PRN PRN Reason: Nausea/Vomiting Last Admin: 11/07/18 13:26 Dose: 4 mg Pantoprazole Sodium (Protonix Ec Tab) 40 mg PO 0600 [facility] Last Admin: 11/09/18 05:27 Dose: 40 mg Polyethylene Glycol (Miralax) 17 gm PO BID [facility] Last Admin: 11/09/18 10:25 Dose: Not Given Potassium Chloride (Klor-Con 10) 10 meq PO BRK [facility] Last Admin: 11/09/18 08:46 Dose: 10 meq Sotalol HCl (Betapace) 80 mg PO QAM [facility] Last Admin: 11/09/18 10:12 Dose: 80 mg - Labs Labs: 11/09/18 07:00 11/09/18 05:01 - Constitutional Appears: Well - Head Exam Head Exam: ATRAUMATIC, NORMAL INSPECTION, NORMOCEPHALIC - Eye Exam Eye Exam: EOMI, Normal appearance, PERRL Pupil Exam: NORMAL ACCOMODATION, PERRL - ENT Exam ENT Exam: Mucous Membranes Moist, Normal Exam - Neck Exam Neck Exam: Full ROM, Normal Inspection. absent: Lymphadenopathy - Respiratory Exam Respiratory Exam: Clear to Ausculation Bilateral, NORMAL BREATHING PATTERN - Cardiovascular Exam Cardiovascular Exam: REGULAR RHYTHM, +S1, +S2. absent: Murmur - GI/Abdominal Exam GI & Abdominal Exam: Soft, Normal Bowel Sounds. absent: Tenderness - Extremities Exam Extremities Exam: Full ROM, Normal Capillary Refill, Normal Inspection. absent: Joint Swelling, Pedal Edema - Back Exam Back Exam: NORMAL INSPECTION - Neurological Exam Neurological Exam: Alert, Awake, CN II-XII Intact, Normal Gait, Oriented x3 - Psychiatric Exam Psychiatric exam: Normal Affect, Normal Mood - Skin Skin Exam: Dry, Intact, Normal Color, Warm Assessment and Plan - Assessment and Plan (Free Text) Assessment: Possible Sepsis, possibly 2/2 Cholecystitis VS Cholangitis VS Choledocholithiasis VS UTI Chest CT is negative for any acute pneumonia, nodules or infiltrates. BNP is 689, which is lower than on other admissions for her and not at 10X her age which is less indicative of CHF exacerbation. Patient's H/H is within normal limits as well. Tropes are negative X 1. Patient was febrile with leukocytosis on admission, so code sepsis was called. HIDA scan was ordered, did not show cholecystitis, but U/s showed stones and CBD dilation. Blood cultures are growing gram negative rods and procal is positive. GGT is elevated. With this information, choledocholithiasis and cholangitis are also on the differential, but possibly in early stages. Patient also has Positive UCx for E.Coli, dow- sensitive MRCP was done yesterday showing possible strictures; Recommended ERCP for better visualization. - M. PNA pending - ID COnsult - Dr. Ramírez - Merrem/Cefepime per Dr. Ramírez - Hold lasix to replenish fluid losses - Hydrate patient at 60 mls/hr, but careful hydration 2/2 Hx CHF - Chest PT; Incentive Spirometer - Repeat Blood Cx today Acute Kidney Injury, likely contrast nephropathy - Hydrate patient carefully 2/2 Hx CHF Generalized fatigue, likely 2/2 GI losses and dehydration vs infection TSH was normal. BUN was elevated, indicating mild dehydration. Glucose level normal. - Hold lasix Acute Nausea and Vomiting, possibly 2/2 GB pathology - Hold lasix - GI COnsult Metabolic Alkalosis, likely 2/2 vomiting/gi losses - Replenished K+ - Hold Lasix Gout - Continue allopurinol Hx CHF - Hold home lasix; continue lipitor - BNP ordered to monitor f(x) given fluid hydration and holding lasix PPX: SCDs, Protonix; Apixaban from home medications
--- NOTE | 2018-11-09 14:45 | PN ---
DATE: 11/09/2018 SUBJECTIVE: The patient is lying in bed, comfortable. She denies any abdominal pain. She denies any fevers or chills. MRI revealed dilated common bile duct without any common bile duct stones. There is no intrahepatic biliary dilatation. There were stones in the gallbladder. Hepatobiliary scan showed positive uptake in the gallbladder at 1 hour. Liver enzymes remain normal. Urine cultures positive for E. coli. PHYSICAL EXAMINATION VITAL SIGNS: Reveal temperature of 98.4, blood pressure 105/67, heart rate is 69. HEENT: Reveal sclerae to be white. Conjunctivae pink. NECK: Supple. CHEST: Lungs are clear. HEART: Reveals a regular rate and rhythm. ABDOMEN: Soft, obese, nontender. No mass. EXTREMITIES: Show no edema. LABORATORY DATA: Reveals white blood cell count down to 7.5, platelet count of 101,000. Chemistries reveal BUN 44, creatinine 1.3. AST, ALT, alk phos were all normal. IMPRESSION: An 88-year-old female admitted to the hospital with weakness, nausea, vomiting, diarrhea, fevers and chills, found to have Escherichia coli urinary sepsis. She has dilated common bile duct without any common bile duct stones. Her liver enzymes are completely normal. Given her multiple comorbidities including atrial fibrillation and history of congestive heart failure and chronic kidney disease, we will defer further workup with EUS at this time. Again, the patient clinically does not have any evidence of biliary sepsis at this time. Stefan Fairbanks MD
[2018-11-10] MEDS: Levalbuterol 0.63 MG/3 ML Inhal Soln UD IH SCH ×4 (04:47→13:17)
[2018-11-10] MEDS: Meropenem IV 1 gm in NS 1 GM/50 ML BAG IVPB SCH (05:51)
[2018-11-10] MEDS: Pantoprazole 40 mg EC Tab PO SCH (05:51)
[2018-11-10 07:04] LABS: BASO # 0.01 K/mm3 (0.0-2.0); BASO % 0.1 % (0.0-3.0); EOS # 0.2 (0.0-0.7); EOS % 2.5 % (1.5-5.0); HEMOGLOBIN 12.4 g/dL (12.0-16.0); LYMPH # 1.4 (1.2-3.4); LYMPH % 17.8 % (22.0-35.0); MEAN CORPUSCULAR HEMOGLOBIN 30.4 pg (25.0-35.0); MEAN CORPUSCULAR HGB CONC 30.7 g/dl (31.0-37.0); MONO # 0.9 (0.1-0.6); MONO % 11.9 % (1.0-6.0); RBC 4.08 10^6/uL (3.5-6.1); RED CELL DISTRIBUTION WIDTH 12.9 % (11.5-14.5); WHITE BLOOD COUNT 7.7 10^3/uL (4.5-11.0)
[2018-11-10 07:37] LABS: ALB/GLOB RATIO 1.2 (1.1-1.8); ALBUMIN 3.3 g/dL (3.0-4.8); BILIRUBIN,DIRECT 0.2 mg/dL (0.0-0.4); CALCIUM 9.3 mg/dL (8.4-10.5)
[2018-11-10] MEDS: Insulin Lispro (humaLOG) LOW Coverage SC SCH ×2 (08:08→11:56)
--- NOTE | 2018-11-10 08:24 | PN ---
DATE: 11/09/2018 SUBJECTIVE: The patient is seen earlier this morning in room 363, bed 1. No fevers. No chills. PHYSICAL EXAMINATION: VITAL SIGNS: Temperature is 98, blood pressure is 140/70, respiratory rate of 18, and heart rate of 84. HEENT: Unremarkable. NECK: Supple. LUNGS: Have decreased breath sounds. HEART: Normal S1 and S2. ABDOMEN: Soft and nontender. LABORATORY DATA: Reveals a white count of 7.4 and hemoglobin of 12. Chemistries reveal a creatinine of 1.3, which is improved from yesterday of 1.5. Urinalysis is noted. Serology is reviewed. Microbiology reveals the blood cultures and urine cultures are positive for E. coli. ASSESSMENT AND PLAN: This is an 88-year-old female who has had a history of nephrectomy, right knee surgery, hip surgery, appendectomy, asthma, atrial fibrillation, chronic obstructive lung disease, diabetes, hard of hearing, colon cancer stage III; admitted with sepsis with Gram-negative nelly bacteremia and Escherichia coli in the urine, currently on meropenem. The patient had MRCP, which showed a dilated common bile duct measuring approximately 13 mm, stricture is in differential. Dr. Fairbanks's progress note is reviewed. We will check an identification and sensitivity of Gram-negative nelly in the blood and we will make further recommendations. Review of orders revealed the patient to be on meropenem. Kana Ramírez MD
[2018-11-10] MEDS: Potassium Chloride 10 mEq ER Tab PO SCH (08:28)
[2018-11-10] MEDS: Levothyroxine 50 MCG TAB PO SCH (08:28)
[2018-11-10 08:37] VITALS: BP 106/72; PULSE 66; RESP 18; TEMP 98.6; O2SAT 98
[2018-11-10] MEDS: Magnesium Oxide 400 mg Tab UD PO SCH ×2 (09:55→13:12)
[2018-11-10] MEDS: POLYETHYLENE GLYCOL 3350 17 GM/Dose PACKET PO SCH (09:57)
[2018-11-10] MEDS ORDERED: Ergocalciferol 50,000 Intl Units Cap PO SCH (10:00)
--- NOTE | 2018-11-10 10:04 | PN ---
DATE: 11/10/2018 SUBJECTIVE: The patient is in room 263, bed 1. Overnight nurse's notes were reviewed. No adverse events were documented, notified, or called for. The patient denies any fever or chills. Denies nausea, vomiting. The patient's symptoms prior to admission on the day of admission has resolved. The patient is feeling better after all the therapeutic intervention has been instituted. PHYSICAL EXAMINATION: VITAL SIGNS: T-max 98.3, heart rate 84, blood pressure 142/75, O2 sat 93 to 97, respirations 18 to 20. HEAD: Normocephalic, atraumatic. HEENT: Shows pinkish pale conjunctivae. Anicteric sclerae. No oropharyngeal lesion. NECK: No neck rigidity. CHEST: Kyphosis. LUNG: Shows decreased air entry, but no audible crackle, rales, or wheezing. CARDIOVASCULAR: S1, S2. Positive systolic murmur at the left sternal border, right second intercostal space, left second intercostal space, irregular rhythm. ABDOMEN: Soft. Positive bowel sounds. Positive surgical scar of the colectomy, reversal of colostomy. Mildly protuberant abdomen. No palpable hepatosplenomegaly. Mild epigastric and right upper quadrant deep tenderness. No rebound tenderness. No guarding. No rigidity. No rebound tenderness. No costovertebral angle tenderness. GENITALIA: Female. RECTAL: Deferred. EXTREMITIES: Show positive trace swelling of the lower extremity. Positive NIKOLAY stockings. MUSCULOSKELETAL: As per the body mass index. NEUROLOGIC: The patient is alert, awake, and oriented x3; is able to move upper and lower extremity without assistance. Gait examination is not tested. VASCULAR: Palpable pulses. PSYCHIATRIC: Negative for anxiety and depression. Negative for auditory or visual hallucination. Negative for suicidal or homicidal ideation. DIAGNOSTICS: In the last 24 hours, WBC 7.5, hemoglobin/hematocrit 12.5/40.7, platelet 101. Hemoglobin A1c 9.7. Fructosamine is 271. Vitamin D is 27. Urine cultures are growing Escherichia urinary tract infection. Blood cultures still shows gram-negative rods. IMPRESSION AND PLAN: 1. Gram-negative nelly bacteremia and sepsis. 2. Escherichia coli urinary tract infection. 3. Status post fever. 4. Cholelithiasis with negative hepatobiliary scan. 5. Dilated common bile duct of 13 mm with abrupt cutoff, etiology unclear versus questionable common bile duct stricture. 6. Anemia. 7. Thrombocytopenia. 8. Uncontrolled insulin-requiring diabetes mellitus with hemoglobin A1c of 9.7 and hyperfructosemia. 9. Hypovitaminosis D. 10. History of neuroendocrine colon carcinoma and status post colostomy and reversal of colostomy and colectomy. 11. Hypothyroidism. 12. Advanced nebulizer and oxygen dependent chronic obstructive pulmonary disease. 13. History of poor compliance. 14. History of coronary artery disease. 15. History of atrial fibrillation, Eliquis dependent. 16. Diastolic right-sided congestive heart failure with pulmonary hypertension. 17. Bilateral lower extremity venous stasis. 18. Hyperlipidemia. 19. Hypertriglyceridemia. 20. Solitary left kidney with history of right nephrectomy. 21. Acute kidney injury with underlying chronic kidney disease stage III. 22. Deconditioning. 23. Gait dysfunction. 24. Hypertension. 25. 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 Plan at this time, the patient has been ordered serial labs which will be reviewed when available. Current consultation: Infectious Disease and Gastroenterology. The patient will be continued on all the therapeutic intervention as per recommendation. At present, the patient will be continued on all the therapeutic intervention as per the MAR of today. As per the MAR of today, the patient has been ordered out of bed to chair. The patient has been ordered physical therapy, occupational therapy, ambulation therapy. The patient's case is referred for Transitional Care Unit evaluation. The patient has been referred to nurses educator evaluation. The patient has been advised optimal control of the diabetes, strict dietary compliance. The patient will be continued on above therapeutic intervention. The patient will be continued on IV antibiotic as per Infectious Disease recommendation. The duration of the IV antibiotic will be as per the decision and discussion of the infectious disease consultation. The patient has been updated, explained about all her diagnostic test results, recommendation, and diagnoses was explained to the patient and recommendation by all consultants were explained to the patient in layman's language. All questions and concerns answered, which she acknowledged and understood. Dictated and electronically signed, not read. Amilcar Reyes MD
[2018-11-10] MEDS: INSULIN DEGLUDEC 30 UNIT SQ SCH (11:56)
[2018-11-10] MEDS ORDERED: Cefpodoxime (Vantin) 200 mg Tab PO SCH (13:00)
--- NOTE | 2018-11-10 13:25 | PN ---
DATE: 11/10/2018 SUBJECTIVE: The patient is seen earlier today in 363, bed 1. No fevers and no chills. She is much comfortable. PHYSICAL EXAMINATION: VITAL SIGNS: Temperature is 98, blood pressure is 106/70, respiratory rate of 19, heart rate of 84. HEENT: Unremarkable. NECK: Supple. LUNGS: Have decreased breath sounds. HEART: Normal S1, S2. ABDOMEN: Soft, nontender. No organomegaly, no rebound. LABORATORY EXAMINATION: Reveals a white count of 7.7. Chemistries are noted and urinalysis is reviewed. Microbiology reveals the Gram-negative nelly in the blood is still pending identification sensitivity and the patient has a Gram-negative nelly in the urine that is pansensitive and repeat blood cultures are negative. ASSESSMENT AND PLAN: This is an 88-year-old female who has a history of nephrectomy, right knee surgery, hip surgery, appendectomy, asthma, atrial fibrillation, chronic obstructive lung disease, diabetes, [id number], colon cancer stage III, admitted with sepsis with Gram-negative nelly bacteremia with Escherichia coli in the urine, currently on meropenem. Magnetic resonance cholangiopancreatography showed a dilated common bile duct at [address] Stiven pulido was reviewed. Currently, meropenem is active. Awaiting for identification sensitivity, Gram-negative nelly in the blood. We will make further recommendation. Case discussed with Dr. Reyes. Kana Ramírez MD
[2018-11-11 12:06] LABS: GLYCOMARK(R) 3.8 mcg/mL (7.5-28.4)
== END 2018-11-10 16:33 | DRG 872 ==
LOC: ED 06:15 → ERH 11:52 → 3RNO 13:58
PROVIDERS: ADMIT Internal Medicine; ATTEND Internal Medicine
PROC: 3E0F7GC Introduction of Other Therapeutic Substance into Respiratory Tract, Via Natural or Artificial Opening (ICD-10-PCS; principal; 2018-11-07)
DX: A41.51 Sepsis due to Escherichia coli [E. coli] (principal); E87.4 Mixed disorder of acid-base balance; N39.0 Urinary tract infection, site not specified; I50.32 Chronic diastolic (congestive) heart failure; I13.0 Hypertensive heart and chronic kidney disease with heart failure and stage 1 through stage 4 chronic kidney disease, or unspecified chronic kidney disease; N17.9 Acute kidney failure, unspecified; E11.65 Type 2 diabetes mellitus with hyperglycemia; I48.91 Unspecified atrial fibrillation; I25.10 Atherosclerotic heart disease of native coronary artery without angina pectoris; N18.3 Chronic kidney disease, stage 3 (moderate); R31.29 Other microscopic hematuria; I87.2 Venous insufficiency (chronic) (peripheral); K80.20 Calculus of gallbladder without cholecystitis without obstruction; E55.9 Vitamin D deficiency, unspecified; E11.22 Type 2 diabetes mellitus with diabetic chronic kidney disease; D69.6 Thrombocytopenia, unspecified; J44.9 Chronic obstructive pulmonary disease, unspecified; I27.20 Pulmonary hypertension, unspecified; E86.0 Dehydration; E03.9 Hypothyroidism, unspecified; E78.5 Hyperlipidemia, unspecified; N14.1 Nephropathy induced by other drugs, medicaments and biological substances; T50.8X5A Adverse effect of diagnostic agents, initial encounter; M47.814 Spondylosis without myelopathy or radiculopathy, thoracic region; M47.816 Spondylosis without myelopathy or radiculopathy, lumbar region; M10.9 Gout, unspecified; K57.30 Diverticulosis of large intestine without perforation or abscess without bleeding; I70.0 Atherosclerosis of aorta; I36.1 Nonrheumatic tricuspid (valve) insufficiency; K59.00 Constipation, unspecified; K76.0 Fatty (change of) liver, not elsewhere classified; Z79.01 Long term (current) use of anticoagulants; Z91.19 Patient's noncompliance with other medical treatment and regimen; Z79.4 Long term (current) use of insulin; Z85.038 Personal history of other malignant neoplasm of large intestine; Z90.5 Acquired absence of kidney; Z96.651 Presence of right artificial knee joint; Z96.649 Presence of unspecified artificial hip joint; Z87.891 Personal history of nicotine dependence; E78.1 Pure hyperglyceridemia

== ENCOUNTER 2018-11-10 17:27 | Inpatient (IN) | payer OTHER ==
[2018-11-10 18:10] VITALS: BMI 31.6
[2018-11-10] MEDS ORDERED: Influenza Vaccine 60 mcg/0.5 mL SYR (4YR UP) IM ONE (19:22)
[2018-11-10] MEDS ORDERED: Pneumococcal 23-Valent Vaccine IM ONE (19:22)
[2018-11-10] MEDS: Levalbuterol 0.63 MG/3 ML Inhal Soln UD IH SCH (20:08)
[2018-11-10] MEDS: Cefpodoxime (Vantin) 200 mg Tab PO SCH (21:42)
[2018-11-11] MEDS: Levalbuterol 0.63 MG/3 ML Inhal Soln UD IH SCH ×4 (01:12→20:21)
[2018-11-11] MEDS: Levothyroxine 100 MCG TAB PO SCH (05:51)
[2018-11-11] MEDS: Pantoprazole 40 mg EC Tab PO SCH (05:51)
[2018-11-11] MEDS: Insulin Lispro (humaLOG) LOW Coverage SC SCH ×3 (06:58→17:15)
[2018-11-11] MEDS: Potassium Chloride 10 mEq ER Tab PO SCH (09:00)
[2018-11-11] MEDS: Cefpodoxime (Vantin) 200 mg Tab PO SCH ×2 (09:27→21:24)
[2018-11-11] MEDS: POLYETHYLENE GLYCOL 3350 17 GM/Dose PACKET PO SCH ×2 (09:28→17:16)
[2018-11-11] MEDS: Magnesium Oxide 400 mg Tab UD PO SCH ×3 (09:28→17:16)
[2018-11-11] MEDS: INSULIN DEGLUDEC 45 UNIT SQ SCH (09:33)
--- NOTE | 2018-11-12 00:59 | CON ---
DATE: 11/11/2018 LOCATION: The patient is seen earlier today in room 314. CHIEF COMPLAINT: Weakness times several days. HISTORY OF PRESENT ILLNESS: This is an 88-year-old female with past medical history is significant for history of asthma, atrial fibrillation, chronic obstructive lung disease, kidney disease, diabetes mellitus, hard of hearing, colon cancer stage III with history of Klebsiella bacteremia and history of Klebsiella urinary tract infection, admitted with fevers and chills acute care and now transferred to transitional care for further therapy. PAST MEDICAL HISTORY: Significant for COPD, colon cancer, Klebsiella bacteremia, Klebsiella urinary tract infection, atrial fibrillation, and diabetes mellitus. PAST SURGICAL HISTORY: Significant for nephrectomy, right knee surgery, hip surgery, and appendectomy. ALLERGIES: THE PATIENT HAS NO KNOWN ALLERGIES. MEDICATIONS: Reviewed. PHYSICAL EXAMINATION: VITAL SIGNS: The patient's temperature is 98, blood pressure is 170/90, respiratory rate is 20, and heart rate is 95. HEENT: Unremarkable. NECK: Supple. LUNGS: Decreased breath sounds. HEART: Normal S1 and S2. ABDOMEN: Soft and nontender. LABORATORY DATA: Reveals initially the patient white count of 15,000 down to 7.7 and platelets of 102. Chemistries are noted. The patient's creatinine is 1.1, initially it has been 1.5. LFTs are reviewed. Urinalysis is noted. Serology is noted. Microbiology reveals the patient has E. coli in blood and E. coli in the urine. Repeat blood and urine cultures are negative. E. coli in urine is pansensitive and E. coli in the blood is pansensitive E. coli. ASSESSMENT AND PLAN: An 88-year-old female who was admitted with sepsis with Escherichia coli bacteremia and Escherichia coli urinary tract infection. MRI showed dilated common bile duct. Dr. Fairbanks's note is reviewed. The patient with NO KNOWN ALLERGIES. We will treat with ceftriaxone and we will follow with you. May be able to switch to p.o. The patient had been on Vantin p.o., may be we will switch the p.o. Vantin upon discharge. Kana Ramírez MD [facility] # [id number]
[2018-11-12] MEDS: Levalbuterol 0.63 MG/3 ML Inhal Soln UD IH SCH ×4 (01:00→19:36)
[2018-11-12] MEDS: Pantoprazole 40 mg EC Tab PO SCH (05:34)
[2018-11-12] MEDS: Levothyroxine 100 MCG TAB PO SCH (05:34)
[2018-11-12] MEDS: Insulin Lispro (humaLOG) LOW Coverage SC SCH ×3 (06:42→17:17)
[2018-11-12] MEDS: Potassium Chloride 10 mEq ER Tab PO SCH (08:45)
[2018-11-12 09:34] LABS: BASO # 0.02 K/mm3 (0.0-2.0); BASO % 0.2 % (0.0-3.0); EOS # 0.2 (0.0-0.7); EOS % 1.9 % (1.5-5.0); LYMPH # 1.6 (1.2-3.4); MEAN CELL VOLUME 98.5 fl (80.0-105.0); MEAN CORPUSCULAR HGB CONC 31.5 g/dl (31.0-37.0); MEAN PLATELET VOLUME 11.4 fl (7.0-11.0); MONO # 0.6 (0.1-0.6); MONO % 7.2 % (1.0-6.0); RBC 4.52 10^6/uL (3.5-6.1); RED CELL DISTRIBUTION WIDTH 12.7 % (11.5-14.5); WHITE BLOOD COUNT 8.9 10^3/uL (4.5-11.0)
[2018-11-12] MEDS ORDERED: cefTRIAXone 1 gm 1 GM/100 ML BAG IVPB SCH (10:00)
[2018-11-12 10:02] LABS: ALB/GLOB RATIO 1.3 (1.1-1.8); ALBUMIN 3.9 g/dL (3.0-4.8); ALT/SGPT 98 U/L (7-56); AST/SGOT 64 U/L (14-36); BILIRUBIN,DIRECT 0.3 mg/dL (0.0-0.4); BLOOD UREA NITROGEN 31 mg/dL (7-21); CALCIUM 9.2 mg/dL (8.4-10.5); GFR NON-AFRICAN AMERICAN 53
[2018-11-12] MEDS: Magnesium Oxide 400 mg Tab UD PO SCH ×3 (10:26→17:19)
[2018-11-12] MEDS: POLYETHYLENE GLYCOL 3350 17 GM/Dose PACKET PO SCH ×2 (10:28→17:19)
[2018-11-12] MEDS: INSULIN DEGLUDEC 45 UNIT SQ SCH (10:28)
--- NOTE | 2018-11-12 11:57 | CP.PCM.PN ---
Subjective - Date & Time of Evaluation Date of Evaluation: 11/12/18 Time of Evaluation: 10:45 - Subjective Subjective: No fevers, not in distress. Objective - Vital Signs/Intake and Output Vital Signs (last 24 hours): Temp Pulse Resp BP Pulse Ox 98.1 F 72 20 129/74 100 11/11/18 16:00 11/11/18 16:00 11/11/18 16:00 11/11/18 16:00 11/11/18 16:00 - Medications Medications: Current Medications Acetaminophen (Tylenol 325mg Tab) 650 mg PO Q6 PRN PRN Reason: TEMP>=99.5F Acetaminophen (Tylenol 650 Mg Supp) 650 mg RC Q6H PRN PRN Reason: TEMP>=99.5F Allopurinol (Zyloprim) 100 mg PO DAILY [facility] Last Admin: 11/11/18 09:28 Dose: 100 mg Apixaban (Eliquis) 2.5 mg PO BID [facility]; Protocol Last Admin: 11/11/18 17:15 Dose: 2.5 mg Atorvastatin Calcium (Lipitor) 40 mg PO DIN [facility] Last Admin: 11/11/18 17:15 Dose: 40 mg Docusate Sodium (Colace) 100 mg PO TID [facility] Last Admin: 11/11/18 17:15 Dose: 100 mg Ergocalciferol (Drisdol 50,000 Intl Units Cap) 1 cap PO Q7D [facility] Ceftriaxone Sodium (Rocephin 1 Gram Ivpb) 1 gm in 100 mls @ 100 mls/hr IVPB DAILY [facility]; Protocol Stop: 11/17/18 10:01 Insulin Human Lispro (Humalog Low) 0 units SC AC [facility]; Protocol Last Admin: 11/12/18 06:42 Dose: Not Given Levalbuterol HCl (Xopenex) 0.63 mg IH [id number] [facility] Last Admin: 11/12/18 07:44 Dose: 0.63 mg Levothyroxine Sodium (Synthroid) 100 mcg PO 0630 [facility] Last Admin: 11/12/18 05:34 Dose: 100 mcg Magnesium Oxide (Mag-Ox) 400 mg PO TID [facility] Last Admin: 11/11/18 17:16 Dose: 400 mg Non-Formulary Medication (Insulin Degludec [Tresiba Flextouch U-100]) 45 unit SQ QAM [facility] Last Admin: 11/11/18 09:33 Dose: Not Given Ondansetron HCl (Zofran Inj) 4 mg IVP Q4H PRN PRN Reason: Nausea/Vomiting Pantoprazole Sodium (Protonix Ec Tab) 40 mg PO 0600 [facility] Last Admin: 11/12/18 05:34 Dose: 40 mg Polyethylene Glycol (Miralax) 17 gm PO BID [facility] Last Admin: 11/11/18 17:16 Dose: Not Given Potassium Chloride (Klor-Con 10) 10 meq PO BRK [facility] Last Admin: 11/12/18 08:45 Dose: 10 meq Sotalol HCl (Betapace) 80 mg PO QAM [facility] Last Admin: 11/11/18 09:28 Dose: 80 mg - Constitutional Appears: Chronically Ill - Head Exam Head Exam: NORMAL INSPECTION - ENT Exam ENT Exam: Mucous Membranes Moist - Neck Exam Neck Exam: absent: Meningismus - Respiratory Exam Respiratory Exam: Decreased Breath Sounds - Cardiovascular Exam Cardiovascular Exam: +S1, +S2 - GI/Abdominal Exam GI & Abdominal Exam: Soft. absent: Tenderness Assessment and Plan - Assessment and Plan (Free Text) Plan: Assessment sepsis due to E. 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
[2018-11-13] MEDS: Levalbuterol 0.63 MG/3 ML Inhal Soln UD IH SCH ×4 (01:33→19:57)
[2018-11-13] MEDS: Pantoprazole 40 mg EC Tab PO SCH (05:18)
[2018-11-13] MEDS: Levothyroxine 100 MCG TAB PO SCH (05:50)
[2018-11-13] MEDS ORDERED: cefTRIAXone 1 gm 1 GM/100 ML BAG IVPB SCH (06:00)
[2018-11-13] MEDS: Insulin Lispro (humaLOG) LOW Coverage SC SCH ×3 (06:47→17:16)
[2018-11-13] MEDS: Potassium Chloride 10 mEq ER Tab PO SCH (08:24)
[2018-11-13] MEDS: INSULIN DEGLUDEC SQ SCH (09:05)
[2018-11-13] MEDS: POLYETHYLENE GLYCOL 3350 17 GM/Dose PACKET PO SCH (09:05)
[2018-11-13] MEDS: Magnesium Oxide 400 mg Tab UD PO SCH (09:05)
--- NOTE | 2018-11-13 10:46 | CP.PCM.PN ---
Subjective - Date & Time of Evaluation Date of Evaluation: 11/13/18 Time of Evaluation: 07:50 - Subjective Subjective: Comfortable, not in distress. Objective - Vital Signs/Intake and Output Vital Signs (last 24 hours): Temp Pulse Resp BP Pulse Ox 98.1 F 72 20 157/80 H 100 11/11/18 16:00 11/11/18 16:00 11/11/18 16:00 11/12/18 10:26 11/11/18 16:00 - Medications Medications: Current Medications Acetaminophen (Tylenol 325mg Tab) 650 mg PO Q6 PRN PRN Reason: TEMP>=99.5F Acetaminophen (Tylenol 650 Mg Supp) 650 mg RC Q6H PRN PRN Reason: TEMP>=99.5F Allopurinol (Zyloprim) 100 mg PO DAILY [facility] Last Admin: 11/12/18 10:27 Dose: 100 mg Apixaban (Eliquis) 2.5 mg PO BID [facility]; Protocol Last Admin: 11/12/18 10:27 Dose: 2.5 mg Atorvastatin Calcium (Lipitor) 40 mg PO DIN [facility] Last Admin: 11/11/18 17:15 Dose: 40 mg Docusate Sodium (Colace) 100 mg PO TID [facility] Last Admin: 11/12/18 10:27 Dose: Not Given Ergocalciferol (Drisdol 50,000 Intl Units Cap) 1 cap PO Q7D [facility] Ceftriaxone Sodium (Rocephin 1 Gram Ivpb) 1 gm in 100 mls @ 100 mls/hr IVPB 0600 [facility]; Protocol Stop: 11/18/18 06:01 Insulin Human Lispro (Humalog Low) 0 units SC AC [facility]; Protocol Last Admin: 11/12/18 06:42 Dose: Not Given Levalbuterol HCl (Xopenex) 0.63 mg IH [id number] [facility] Last Admin: 11/12/18 07:44 Dose: 0.63 mg Levothyroxine Sodium (Synthroid) 100 mcg PO 0630 [facility] Last Admin: 11/12/18 05:34 Dose: 100 mcg Magnesium Oxide (Mag-Ox) 400 mg PO TID [facility] Last Admin: 11/12/18 10:26 Dose: 400 mg Insulin Degludec [ Tresiba Flextouch U- 100] (Home Med) 45 unit SQ QAM [facility] Ondansetron HCl (Zofran Inj) 4 mg IVP Q4H PRN PRN Reason: Nausea/Vomiting Pantoprazole Sodium (Protonix Ec Tab) 40 mg PO 0600 [facility] Last Admin: 11/12/18 05:34 Dose: 40 mg Polyethylene Glycol (Miralax) 17 gm PO BID [facility] Last Admin: 11/12/18 10:28 Dose: Not Given Potassium Chloride (Klor-Con 10) 10 meq PO BRK [facility] Last Admin: 11/12/18 08:45 Dose: 10 meq Sotalol HCl (Betapace) 80 mg PO QAM [facility] Last Admin: 11/12/18 10:26 Dose: 80 mg - Labs Labs: 11/12/18 09:15 11/12/18 09:15 - Constitutional Appears: Chronically Ill - Head Exam Head Exam: NORMAL INSPECTION - Respiratory Exam Respiratory Exam: Decreased Breath Sounds - Cardiovascular Exam Cardiovascular Exam: +S1, +S2 - GI/Abdominal Exam GI & Abdominal Exam: Soft. absent: Tenderness Assessment and Plan - Assessment and Plan (Free Text) Plan: Assessment sepsis due to E. 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
--- NOTE | 2018-11-13 15:12 | PN ---
DATE: 11/13/2018 LOCATION: The patient is seen in TCU room 314, bed 1. SUBJECTIVE: The patient is out of bed to chair. A 14-system review is positive for dyspnea on exertion. Since yesterday, the patient did not report this complaint yesterday. PHYSICAL EXAMINATION: VITAL SIGNS: T-max 98.1, heart rate 71, blood pressure 134/86, respirations 18, and O2 saturation 96%. HEENT: Head is normocephalic and atraumatic. Eyes; shows pinkish pale conjunctivae. Anicteric sclerae. No oropharyngeal lesion. NECK: No neck rigidity. CHEST: Kyphosis. LUNGS: Shows no audible crackle, rales, or wheezing; decreased breath sounds at the bases. CARDIOVASCULAR: S1 and S2. Irregular rhythm. Positive systolic murmur at the left sternal border, right second intercostal space, left second intercostal space. ABDOMEN: Soft. Positive bowel sounds. Positive surgical scar noted. GENITALIA: Female. RECTAL: Deferred. EXTREMITIES: Shows positive pitting edema of the lower extremity. Positive NIKOLAY stockings. MUSCULOSKELETAL: Shows the body mass index of 30.4. NEUROLOGIC: The patient is alert, awake, and oriented x3. Cranial nerve II through XII is intact. Gait examination is not tested. PSYCHIATRIC: Negative. DIAGNOSTICS: On 11/12/2018; WBC 8.9, hemoglobin and hematocrit 14 and 44.5, and platelet 122. Sodium is 140, potassium 4.8, chloride 100, CO2 of 33, anion gap 12, BUN 31, creatinine 1.0, GFR greater than 60, glucose 276, calcium 9.2, magnesium 2.2, AST 64, ALT 98, and alk phos 163. Fingerstick blood sugar 152, 220, 284, 202, 276, and 150. IMPRESSION: 1. Deconditioning. 2. Gait dysfunction. 3. Shortness of breath with history of right-sided diastolic congestive heart failure with bilateral lower extremity venous stasis. 4. History of pulmonary hypertension. 5. Atrial fibrillation. 6. Escherichia coli urinary tract infection and Escherichia coli bacteremia and sepsis. 7. Uncontrolled insulin-requiring diabetes mellitus with hyperglycemia. 8. Granulocytosis. 9. History of hypertension. 10. Dilated common bile duct of 13 mm with abrupt interruption versus a stricture. 11. History of neuroendocrine colonic carcinoma. 12. Insulin-requiring diabetes mellitus. 13. Atrial fibrillation. 14. Coronary artery disease. 15. Hypovitaminosis D. 16. Eliquis-dependent atrial fibrillation. 17. Hyperlipidemia. 18. Transaminitis. 19. Hypomagnesemia. 20. History of constipation (resolved). 21. Hypothyroidism. 22. Hyperuricemia. 23. Questionable diarrhea. PLAN: At this time, the patient will be started on IV Lasix. The patient will be given a dose of Lasix 40 IV once and the patient will be started on IV Lasix 20 IV push daily from tomorrow. The patient is presently on sotalol 80 mg daily; Colace 100 mg three times a day which will be discontinued; Drisdol 50,000 units weekly; Eliquis 2.5 twice a day; Humalog low dose sliding scale coverage; 45 units subcutaneous daily; K-Dur 10 mEq daily; Lipitor has been discontinued; MiraLax has been discontinued; magnesium oxide has been discontinued. The patient is on Protonix 40 mg daily for GI prophylaxis. The patient is started on Rocephin 1 g IV daily by Dr. Ramírez today. Synthroid 100 mcg daily, Tylenol 650 p.o. suppository every 6 hours p.r.n., Xopenex nebulizer 0.63 mg every 6 hours, Zofran 4 mg IV every 4 hours p.r.n., and allopurinol 100 mg daily. Chest PT and incentive spirometry. At present, the patient is to be continued on above therapeutic intervention with the revisions and modification. We will continue with followup with Infectious Disease regarding the IV antibiotic duration. The patient will continue on physical therapy, occupational therapy, ambulation therapy, and gait training on U. Dictated and electronically signed, not read. Amilcar Reyes MD
[2018-11-14] MEDS: Levalbuterol 0.63 MG/3 ML Inhal Soln UD IH SCH ×4 (01:29→20:45)
[2018-11-14] MEDS: Pantoprazole 40 mg EC Tab PO SCH (05:34)
[2018-11-14] MEDS: Levothyroxine 100 MCG TAB PO SCH (05:34)
[2018-11-14] MEDS: Insulin Lispro (humaLOG) LOW Coverage SC SCH ×3 (06:47→17:19)
[2018-11-14] MEDS: Potassium Chloride 10 mEq ER Tab PO SCH (09:00)
[2018-11-14] MEDS: Cefpodoxime (Vantin) 200 mg Tab PO SCH ×2 (09:55→17:20)
[2018-11-14] MEDS: INSULIN DEGLUDEC SQ SCH (09:57)
[2018-11-14] MEDS ORDERED: Ergocalciferol 50,000 Intl Units Cap PO SCH (10:00)
--- NOTE | 2018-11-14 12:32 | PN ---
DATE: 11/14/2018 SUBJECTIVE: The patient is in room 314 bed 1. Overnight nurse's notes were reviewed. No adverse events were documented, notified or called for. The patient states that her shortness of breath is slightly improved but noticed positive diuresis. A 14 system review was done pertinent positive negative dictated above. PHYSICAL EXAMINATION VITAL SIGNS: T-max 98.6, pulse 62, blood pressure 124/66, respirations 20 and O2 sat 98%. GENERAL: The patient is seen sitting up in the chair. HEENT: Head examination normocephalic and atraumatic. HEENT examination shows pinkish pale conjunctivae. Anicteric sclerae. No oropharyngeal lesion. No neck rigidity. CHEST: Kyphosis. LUNGS: Shows no audible crackle, rales or wheezing. Decreased breath sounds at bases. CARDIOVASCULAR: S1 and S2. Regular rhythm. Positive systolic murmur left sternal border, right second intercostal space, left second intercostal space. ABDOMEN: Soft, positive bowel sounds. Positive surgical scar of the right nephrectomy. Positive surgical scar of the colostomy, colectomy and exploratory laparotomy. No palpable hepatosplenomegaly. GENITALIA: Female. RECTAL: Examination is deferred. EXTREMITIES: Shows positive trace swelling of the lower extremity . MUSCULOSKELETAL: As per the body mass index. NEUROLOGIC: The patient is alert, awake, oriented x3. Cranial nerves II-XII intact. Gait examination is not tested. VASCULAR: Palpable pulses. PSYCHIATRIC: Negative for anxiety and depression. Negative for auditory visualization. Negative for suicidal or homicidal ideation. DIAGNOSTICS: None from November 14. IMPRESSION: 1. Gait dysfunction. 2. Deconditioning. 3. Recurrent right-sided and bilateral lower extremity venous stasis. 4. Bacteremia, sepsis and urinary tract infection. 5. History of Escherichia coli bacteremia and sepsis and urinary tract infection. 6. Status post fever. 7. Uncontrolled insulin-requiring diabetes mellitus with elevated hemoglobin A1c of greater than 8.0. 8. Eliquis dependent atrial fibrillation. 9. Coronary artery disease. 10. History of right nephrectomy. 11. Volume overload. 12. History of neuroendocrine colon carcinoma status post colectomy and colon resection. 13. History of colostomy and colostomy reversal. 14. Advanced chronic obstructive pulmonary disease. 15. Hypoxemia. 16. Hypothyroidism. 17. History of hypertension, hyperlipidemia, hypertriglyceridemia and hyperuricemia. 18. History of degenerative joint disease. PLAN: At this time, the patient seen by Infectious Disease. The patient's IV Rocephin has been discontinued and changed to p.o. Vantin. The patient received IV Lasix over the last 24 to 48 hours. The patient's Lasix is now changed to Lasix 40 mg p.o. daily due to poor IV access. The patient has been ordered continuation of the medications as per the MAR of today. All therapeutic interventions are ordered as per the MAR of today, which is reviewed. The patient has been ordered physical therapy, occupational therapy, ambulation therapy and out of bed to chair. The patient has been ordered continuation of the TCU treatment. The patient will continue on all the TCU therapeutic intervention and physical therapy and occupational therapy. Dictated and electronically signed. Amilcar Reyes MD
[2018-11-14 16:35] VITALS: RESP 18
[2018-11-15] MEDS: Levalbuterol 0.63 MG/3 ML Inhal Soln UD IH SCH ×4 (02:25→20:50)
--- NOTE | 2018-11-15 03:40 | PN ---
DATE: 11/14/2018 SUBJECTIVE: The patient is seen earlier today in no acute distress, in room 314. PHYSICAL EXAMINATION: VITAL SIGNS: Temperature is 98, blood pressure is 160/70, respiratory rate of 18. HEENT: Unremarkable. NECK: Supple. LUNGS: Have decreased breath sounds. HEART: Normal S1, S2. ABDOMEN: Soft. LABORATORY DATA: Reveals a white count of 8.9. Chemistries are noted. Microbiology is reviewed. Review of orders reveals the patient to be on Vantin. ASSESSMENT AND PLAN: An 88-year-old female with sepsis due to Escherichia coli bacteremia from urinary tract infection. We will continue the to complete therapy. Kana Ramírez MD
[2018-11-15] MEDS: Pantoprazole 40 mg EC Tab PO SCH (05:45)
[2018-11-15] MEDS: Levothyroxine 100 MCG TAB PO SCH (05:45)
[2018-11-15] MEDS: Insulin Lispro (humaLOG) LOW Coverage SC SCH ×3 (07:12→17:18)
[2018-11-15] MEDS: Potassium Chloride 10 mEq ER Tab PO SCH (07:52)
[2018-11-15] MEDS: Cefpodoxime (Vantin) 200 mg Tab PO SCH ×2 (09:01→17:19)
[2018-11-15] MEDS: INSULIN DEGLUDEC SQ SCH (09:02)
--- NOTE | 2018-11-15 09:34 | CP.PCM.PN ---
Subjective - Date & Time of Evaluation Date of Evaluation: 11/15/18 Time of Evaluation: 09:14 - Subjective Subjective: Donald Matos PGY2 IM Progress Notes Patient was seen and examined at bedside in TCU. She is sitting up in chair comfortably and has no complaints. She denies any shortness of breath or cough. She denies leg swelling or chest pain. She is sleeping well and participating in rehab. Objective - Vital Signs/Intake and Output Vital Signs (last 24 hours): Temp Pulse Resp BP Pulse Ox 98.2 F 64 18 145/82 98 11/15/18 06:00 11/15/18 09:01 11/15/18 06:00 11/15/18 09:01 11/15/18 06:00 - Medications Medications: Current Medications Acetaminophen (Tylenol 325mg Tab) 650 mg PO Q6 PRN PRN Reason: TEMP>=99.5F Acetaminophen (Tylenol 650 Mg Supp) 650 mg RC Q6H PRN PRN Reason: TEMP>=99.5F Allopurinol (Zyloprim) 100 mg PO DAILY [facility] Last Admin: 11/15/18 09:01 Dose: 100 mg Apixaban (Eliquis) 2.5 mg PO BID [facility]; Protocol Last Admin: 11/15/18 09:01 Dose: 2.5 mg Cefpodoxime Proxetil (Vantin) 200 mg PO BID [facility]; Protocol Last Admin: 11/15/18 09:01 Dose: 200 mg Ergocalciferol (Drisdol 50,000 Intl Units Cap) 1 cap PO Q7D [facility] Last Admin: 11/14/18 09:55 Dose: 1 cap Furosemide (Lasix) 40 mg PO DAILY [facility] Last Admin: 11/15/18 09:01 Dose: 40 mg Insulin Human Lispro (Humalog Low) 0 units SC AC [facility]; Protocol Last Admin: 11/15/18 07:12 Dose: Not Given Levalbuterol HCl (Xopenex) 0.63 mg IH [id number] [facility] Last Admin: 11/15/18 07:13 Dose: 0.63 mg Levothyroxine Sodium (Synthroid) 100 mcg PO 0630 [facility] Last Admin: 11/15/18 05:45 Dose: 100 mcg Insulin Degludec [ Tresiba Flextouch U- 100] (Home Med) 45 unit SQ QAM [facility] Last Admin: 11/15/18 09:02 Dose: 45 unit Ondansetron HCl (Zofran Inj) 4 mg IVP Q4H PRN PRN Reason: Nausea/Vomiting Pantoprazole Sodium (Protonix Ec Tab) 40 mg PO 0600 [facility] Last Admin: 11/15/18 05:45 Dose: 40 mg Potassium Chloride (Klor-Con 10) 10 meq PO BRK [facility] Last Admin: 11/15/18 07:52 Dose: 10 meq Sotalol HCl (Betapace) 80 mg PO QAM [facility] Last Admin: 11/15/18 09:01 Dose: 80 mg - Labs Labs: 11/12/18 09:15 11/12/18 09:15 - Constitutional Appears: Well, Non-toxic, No Acute Distress - Head Exam Head Exam: ATRAUMATIC, NORMAL INSPECTION, NORMOCEPHALIC - Eye Exam Eye Exam: EOMI, Normal appearance, PERRL Pupil Exam: NORMAL ACCOMODATION, PERRL - ENT Exam ENT Exam: Mucous Membranes Moist, Normal Exam - Neck Exam Neck Exam: Full ROM, Normal Inspection. absent: Lymphadenopathy - Respiratory Exam Respiratory Exam: Rales (mild RLL), NORMAL BREATHING PATTERN. absent: Wheezes - Cardiovascular Exam Cardiovascular Exam: Irregular Rhythm, +S1, +S2 - GI/Abdominal Exam GI & Abdominal Exam: Soft, Normal Bowel Sounds. absent: Distended, Tenderness - Extremities Exam Extremities Exam: Full ROM, Normal Capillary Refill, Normal Inspection. absent: Joint Swelling, Pedal Edema Additional comments: knee high compression hose worn b/l - Back Exam Back Exam: NORMAL INSPECTION. absent: vertebral tenderness - Neurological Exam Neurological Exam: Alert, Awake, Normal Gait, Oriented x3 - Skin Skin Exam: Dry, Intact, Normal Color, Warm Assessment and Plan - Assessment and Plan (Free Text) Assessment: 88 year old female with a PMH of DM2, CAD, Afib on Eliquis, R nephrectomy, colon CA s/p colectomy, COPD, hypothyroid and recent e.coli UTI and bacteremia who is admitted to TCU for deconditioning. # Deconditioning # Afib on Eliquis # CAD # DM2 # hypothyroid Plan: - continue rehab - cont Lasix 40mg PO daily - cont Vantin per ID recs - cont ISS - cont Eliquis 2.5mg BID - cont Allopurinol - cont Tylenol PRN - cont Xopenex - cont Synthroid - cont Protonix for GI ppx - cont Sotalol 80mg daily - cont rehab - consistent carb diet tolerated - SCDs and hose for DVT ppx - tentative d/c tomorrow - further recs per Dr. Reyes Case was reviewed and discussed with Dr. Reyes
--- NOTE | 2018-11-15 15:38 | PN ---
DATE: 11/15/2018 SUBJECTIVE: The patient is in room 314, bed 1. Overnight nurse's notes were reviewed. No adverse events were documented, notified or called for. The patient denies any diarrhea or constipation. Denies any chest pain. The patient states that her breathing and dyspnea on exertion has significantly improved since the patient was given multiple boluses of IV Lasix, now the patient is on p.o. Lasix 40 mg. OBJECTIVE: VITAL SIGNS: T-max 98.2, heart rate 64, blood pressure of 145/82, respirations 18, O2 sat 98%. HEENT: Head examination normocephalic, atraumatic. HEENT examination shows pinkish conjunctivae. Anicteric sclerae. No oropharyngeal lesion. NECK: No neck rigidity. CHEST: Kyphosis. LUNGS: Shows decreased breath sound at the bases. No audible crackle, rales or wheezing. CARDIOVASCULAR: S1, S2, irregular rhythm. Positive systolic murmur in left sternal border, right second intercostal space, left second intercostal space. ABDOMEN: Soft, positive bowel sounds, positive right nephrectomy scar noted. Positive surgical scar of colectomy, colostomy reversal noted. No palpable hepatosplenomegaly. GENITALIA: Female. RECTAL: Deferred. EXTREMITIES: Shows positive pitting edema which is trace pitting edema of the lower extremity and ankle swelling noted. MUSCULOSKELETAL: As per the body mass index. The gait examination is not tested. NEUROLOGIC: The patient is alert, awake, oriented x3. Cranial nerves II-XII intact. DIAGNOSTICS: None from today. IMPRESSION: 1. Deconditioning. 2. Gait dysfunction. 3. Recurrent right-sided diastolic congestive heart failure with the symptoms of dyspnea on exertion, shortness of breath and bilateral lower extremity venous stasis. 4. Escherichia coli bacteremia, sepsis and urinary tract infection. 5. Hypothyroid. 6. Insulin dependent diabetes mellitus, uncontrolled with elevated hemoglobin with A1c of greater than eight. 7. Severe dietary noncompliance. 8. Coronary artery disease. 9. Eliquis dependent atrial fibrillation. 10. Right nephrectomy with . 11. History of neuroendocrine colon carcinoma, status post colostomy, colostomy reversal and colectomy. 12. Anemia. 13. Hypertriglyceridemia. 14. dysfunction. 15. . PLAN: At this time, the patient will be continued on all the medications as per the MAR of today. The patient will continue on out of bed to chair. The patient will continue on TCU stay with daily physical therapy, occupational therapy, ambulation therapy, gait training. I have met extensively with the patient and the patient's [id number] yesterday. I have explained about to contact the social work administrator regarding discharge planning, discharge needs, discharge details which has been explained to the patient and the patient's [id number] at length and all questions and concerns were answered. Dictated and electronically signed, not read. Amilcar Reyes MD
--- NOTE | 2018-11-15 21:57 | PN ---
DATE: 11/15/2018 SUBJECTIVE: The patient is in bed, in no acute distress, nontoxic. PHYSICAL EXAMINATION: VITAL SIGNS: Temperature is 98, blood pressure is 140/70, and respiratory rate of 18. HEENT: Unremarkable. NECK: Supple. LUNGS: Have decreased breath sounds. HEART: Normal S1, S2. ABDOMEN: Soft. LABORATORY DATA: Reveals a white count of 8.9, hemoglobin of 14, platelets of 122. Chemistries are noted. The patient's BUN of 31, creatinine of 1. Review of orders reveals the patient to be on p.o. antibiotics. ASSESSMENT AND PLAN: This is an 88-year-old female with sepsis, Escherichia coli bacteremia of urine as the source with complete by mouth antibiotics. Kana Ramírez MD
[2018-11-16] MEDS: Levalbuterol 0.63 MG/3 ML Inhal Soln UD IH SCH ×2 (03:20→08:35)
[2018-11-16] MEDS: Levothyroxine 100 MCG TAB PO SCH (05:37)
[2018-11-16] MEDS: Pantoprazole 40 mg EC Tab PO SCH (05:37)
[2018-11-16 06:07] VITALS: TEMP 97.9
[2018-11-16] MEDS: Insulin Lispro (humaLOG) LOW Coverage SC SCH ×2 (06:41→12:30)
[2018-11-16] MEDS: Potassium Chloride 10 mEq ER Tab PO SCH (07:48)
--- NOTE | 2018-11-16 09:02 | PN ---
DATE: 11/16/2018 SUBJECTIVE: The patient is in bed, in no acute distress, nontoxic. PHYSICAL EXAMINATION: VITAL SIGNS: The patient is in bed with a temperature of 98, blood pressure is 120/70, and respiratory rate 16. HEENT: Unremarkable. NECK: Supple. LUNGS: Have decreased breath sounds. HEART: Normal S1 and S2. ABDOMEN: Soft. LABORATORY DATA: Noted. ASSESSMENT AND PLAN: This is an 88-year-old female with sepsis with Escherichia coli bacteremia of urine as the source. The patient is on p.o. Vantin, to complete therapy on p.o. Vantin. Kana Ramírez MD
[2018-11-16] MEDS: INSULIN DEGLUDEC SQ SCH (10:26)
[2018-11-16] MEDS: Cefpodoxime (Vantin) 200 mg Tab PO SCH (10:27)
[2018-11-16 10:33] VITALS: BP 158/75
[2018-11-16 12:24] VITALS: PULSE 68; O2SAT 99
--- NOTE | 2018-11-16 12:29 | DS ---
HISTORY OF PRESENT ILLNESS: The patient is in room 314, bed 1. Overnight nurse's notes were reviewed. No adverse events documented. The patient stays stable overnight. PHYSICAL EXAMINATION VITAL SIGNS: T-max 98.6, pulse 60, blood pressure 120/77, respirations 18 and O2 sat 98%. HEENT: Head examination normocephalic and atraumatic. HEENT examination shows pinkish conjunctivae. Anicteric sclerae. No oropharyngeal lesion. No neck rigidity. CHEST: Kyphosis. LUNGS: Shows decreased breath sound at the bases. No audible crackle, rales or wheezing. CARDIOVASCULAR: S1 and S2, irregular rhythm. Positive systolic murmur left sternal border, left second intercostal space. ABDOMEN: Soft. Positive bowel sounds. Positive right nephrectomy surgical scar. Positive abdominal surgical scar of colectomy and colostomy reversal. GENITALIA: Female. RECTAL: Deferred. EXTREMITIES: Shows no pitting edema, no calf tenderness, no Homans signs. Positive NIKOLAY stockings. NEUROLOGIC: The patient is alert, awake, oriented x3. He is able to move upper and lower extremity without assistance. Gait examination is not tested. MUSCULOSKELETAL: Shows a body mass index as per the BMI. PSYCHIATRIC: Negative. DIAGNOSTIC DATA: None. FINAL IMPRESSION, PLAN AND DISCHARGE DIAGNOSES: 1. Deconditioning. 2. Gait dysfunction. 3. Escherichia coli bacteremia and sepsis. 4. Escherichia coli urinary tract infection. 5. Uncontrolled insulin-requiring diabetes mellitus with hyperglycemia and hemoglobin A1c of 9.2 and hyper fructosemia. 6. Recurrent right-sided diastolic congestive heart failure with pulmonary hypertension and bilateral lower extremity venous stasis. 7. History of hypertension. 8. Hypothyroidism. 9. Coronary artery disease. 10. Eliquis dependent atrial fibrillation. 11. Status post right nephrectomy with solitary left kidney. 12. History of neuroendocrine colon carcinoma status post colostomy, colostomy reversal and colectomy. 13. Hyperlipidemia. 14. Hypertriglyceridemia. 15. Hyperuricemia. 16. History of recurrent urinary tract infection. 17. Advanced oxygen and nebulizer dependent chronic obstructive pulmonary disease. 18. History of dietary noncompliance and poor compliance. 19. History of medication noncompliance. PLAN: At this time, the patient has completed TCU duration and wishes to be discharged home. The patient will be discharged home on all the medications as per ambulatory orders plus Vantin 200 mg twice a day for five more days. The patient will resume all the medications and home medications as per the ambulatory orders. Discharge followup with Dr. Reyes within the 1 week and next week. The patient is also bronchodilators and nebulizer medications at home as prescribed. During this hospitalization the patient was extensively explained about the details of her medical condition, diagnoses, test results on a daily basis including the patient's [id number] was also explained about the patient's condition, diagnoses, test results and recommendations on almost daily basis with the patient and the [id number]'s understanding. Time spent in the discharge process 45 minutes. Dictated and electronically signed, not read. Signing of Amilcar Reyes MD. Amilcar Reyes MD
== END 2018-11-16 13:32 | disposition home or self-care (01) | DRG 91 ==
LOC: TRCU 17:27
PROVIDERS: ADMIT Internal Medicine; ATTEND Internal Medicine
PROC: 3E0F7GC Introduction of Other Therapeutic Substance into Respiratory Tract, Via Natural or Artificial Opening (ICD-10-PCS; 2018-11-10)
PROC: F07Z9FZ Gait Training/Functional Ambulation Treatment using Assistive, Adaptive, Supportive or Protective Equipment (ICD-10-PCS; principal; 2018-11-11)
PROC: F08Z4FZ Home Management Treatment using Assistive, Adaptive, Supportive or Protective Equipment (ICD-10-PCS; 2018-11-11)
DX: R26.89 Other abnormalities of gait and mobility (principal); A41.51 Sepsis due to Escherichia coli [E. coli]; N39.0 Urinary tract infection, site not specified; I50.32 Chronic diastolic (congestive) heart failure; E11.65 Type 2 diabetes mellitus with hyperglycemia; I25.10 Atherosclerotic heart disease of native coronary artery without angina pectoris; I48.2 Chronic atrial fibrillation; I11.0 Hypertensive heart disease with heart failure; I27.20 Pulmonary hypertension, unspecified; I87.2 Venous insufficiency (chronic) (peripheral); J44.9 Chronic obstructive pulmonary disease, unspecified; E03.9 Hypothyroidism, unspecified; E55.9 Vitamin D deficiency, unspecified; D64.9 Anemia, unspecified; E78.5 Hyperlipidemia, unspecified; K21.9 Gastro-esophageal reflux disease without esophagitis; Z79.4 Long term (current) use of insulin; Z85.038 Personal history of other malignant neoplasm of large intestine; Z90.49 Acquired absence of other specified parts of digestive tract; Z91.11 Patient's noncompliance with dietary regimen; Z91.14 Patient's other noncompliance with medication regimen; Z90.5 Acquired absence of kidney

== ENCOUNTER 2018-12-05 08:31 | Outpatient (CLI) | payer MEDICARE, BC | END 2018-12-05 08:32 | disposition home or self-care (01) | LOC: RAD 08:31 | DX: E06.9 Thyroiditis, unspecified (principal) ==